=== PATIENT | male | born 1955 | race Caucasian/White ===

== ENCOUNTER → 2017-11-15 08:20 | Outpatient (CLI) | payer OTHER, SELFPAY ==
--- NOTE | 2017-11-15 08:24 | US_ITS ---
US abdomen complete HISTORY: Mid abdominal pain ITS.REASON: ABD PAIN ORDERING PHYSICIAN: Sreedhar Chavez PATIENT AGE: 62 years COMPARISON: None FINDINGS: PANCREAS:Unremarkable. No obvious mass or abnormal fluid collection. No ductal dilatation LIVER:No focal liver lesions demonstrated. Homogeneous echogenicity. No intrahepatic biliary ductal dilatation evident RIGHT KIDNEY:Unremarkable. Normal size and echogenicity. No hydronephrosis LEFT KIDNEY:Unremarkable. No hydronephrosis. Normal size and echogenicity. GALLBLADDER:No gallstones, gallbladder wall thickening, pericholecystic fluid, or biliary dilatation. AORTA:No evidence of aneurysmal dilatation. SPLEEN:Unremarkable. Normal size and echogenicity ASCITES:None demonstrated. IMPRESSION: Normal abdominal ultrasound
== END ==
PROVIDERS: Family Provider Internal Medicine; PCP Internal Medicine; Visit Provider Internal Medicine
DX: R10.30 Lower abdominal pain, unspecified (principal)
CPT/HCPCS: 76700

== ENCOUNTER → 2017-11-21 11:40 | Outpatient (CLI) | payer OTHER, SELFPAY ==
[2017-11-21 15:33] LABS: Prostate Specific Ag, Diagnost 6.78 ng/mL (0.0-4.0)
== END ==
PROVIDERS: PCP Internal Medicine; Visit Provider Urology
DX: R97.20 Elevated prostate specific antigen [PSA] (principal)
CPT/HCPCS: 36415; 84153

== ENCOUNTER → 2018-02-04 10:13 | Outpatient (POV) | payer OTHER, SELFPAY ==
[2018-02-04 10:23] VITALS: BP 188/101; PULSE 108; RESP 18; TEMP 36.7; O2SAT 97
--- NOTE | 2018-02-04 12:52 | HMH.PMCON ---
Assessment and Plan (1) Cervical pain (neck) Current visit: Yes Status: Chronic Category: Medical Code(s): M54.2 - Cervicalgia (2) Back pain Current visit: Yes Status: Chronic Category: Medical Code(s): M54.9 - Dorsalgia, unspecified - Assessment and plan all Dx Assessment and Plan for all problems:: Patient does not have any current imaging. We will send him for cervical MRI. He states that his neck pain is worse than his back pain at this point. Patient asking about narcotic medication. Patient denies failing UDS for pill count at previous pain management however the notes from that previous pain management states he did both. Patient was weaned off medication due to failure of a pill count and a failure of a urine drug screen. I discussed with the patient that we would not be writing narcotic medications for him. This note was dictated using voice recognition software and may contain errors or omissions HPI - Data of Consult Consult date: 02/04/18 Requesting Physician: Jumana Uriarte APRN Primary Care Provider: Sreedhar Chavez [facility] Provider: Sreedhar Chavez - Consult Narrative Reason for consult: Neck pain and back pain History of present illness: Mr. Hollis is a 62 year old male resents today for consultation in regards to his neck and back pain. Patient states he was wanting to move pain management practices due to this being closer to him. Patient rates his pain at 8 out of 10 today. Patient states he works full-time. Patient has been on narcotics in the past through his previous pain management group. Patient has tried injections in the past however he states that they did not help him. Patient states he thought he was going to get medication today and questioned our drug contract. I discussed with the patient that it is our policy to never write pain medication on the first visit. I also discussed with him that we wean patients are on high morphine equivalents. Patient states that he decided to quit his previous pain management. I did ask him if he had failed a pill counter urine drug screen he states he has not. However of note the notes that were sent to us from his previous pain management clinic states he had failed both a pill count and a urine drug screen. CC: Jumana Uriarte APRN [facility] History I have reviewed the patient's past medical history: Yes Medical History: Reports:: Diabetes Mellitus Type 2, Hyperlipidemia, Hypertension Denies:: Cancer, Diabetes Mellitus Type 1, MRSA Other Medical History: Reports: Sinus Problems Other Surgeries: Yes: Hernia Repair Amputation: No Fractures: No - *Social History Educational Level: Attended College Smoking Status: Former smoker Tobacco Type: cigarettes Alcohol Intake: never Occupational Status: employed Housing: house Household Members: spouse - Psychiatric History Expresses thoughts of harming self/others: None Suicide Plan Description: No Plan *Family Hx:: Heart Attack, Hyperlipidemia, Hypertension Review of Systems - Review of Systems ROS General: no recent weight change, no fever, no sleep disturbances Respiratory: no cough, no shortness of air, no recurring pulmonary infections Cardiovascular/Peripheral Vascular: No chest pain, No palpitations, no edema, no shortness of breath. Gastrointestinal: no incontinence, normal bowel movements reported Genitourinary: no incontinence Musculoskeletal: Neck pain, back pain Psychiatric: normal mood/ affect Neurological: [denies weakness in extremities], [denies balance issues] Meds Home Medications Medication Instructions Recorded Confirmed Type glipizide ER 2.5 mg tablet, 2.5 mg PO BID tab 11/21/17 02/04/18 History extended release 24 hr metformin 500 mg tablet 500 mg PO BID 11/21/17 02/04/18 History Amlodipine Besylate [Norvasc 5mg 5 mg PO DAILY 02/04/18 02/04/18 History tablet] Solifenacin Succinate [Vesicare] 10 mg PO DAILY 02/04/1802/04
--- NOTE | 2018-02-04 12:58 | P.CONS_ITS ---
Assessment and Plan (1) Cervical pain (neck) Current visit: Yes Status: Chronic Category: Medical Code(s): M54.2 - Cervicalgia (2) Back pain Current visit: Yes Status: Chronic Category: Medical Code(s): M54.9 - Dorsalgia, unspecified - Assessment and plan all Dx Assessment and Plan for all problems:: Patient does not have any current imaging. We will send him for cervical MRI. He states that his neck pain is worse than his back pain at this point. Patient asking about narcotic medication. Patient denies failing UDS for pill count at previous pain management however the notes from that previous pain management states he did both. Patient was weaned off medication due to failure of a pill count and a failure of a urine drug screen. I discussed with the patient that we would not be writing narcotic medications for him. This note was dictated using voice recognition software and may contain errors or omissions HPI - Data of Consult Consult date: 02/04/18 Requesting Physician: Jumana Uriarte APRN Primary Care Provider: Sreedhar Chavez [facility] Provider: Sreedhar Chavez - Consult Narrative Reason for consult: Neck pain and back pain History of present illness: Mr. Hollis is a 62 year old male resents today for consultation in regards to his neck and back pain. Patient states he was wanting to move pain management practices due to this being closer to him. Patient rates his pain at 8 out of 10 today. Patient states he works full-time. Patient has been on narcotics in the past through his previous pain management group. Patient has tried injections in the past however he states that they did not help him. Patient states he thought he was going to get medication today and questioned our drug contract. I discussed with the patient that it is our policy to never write pain medication on the first visit. I also discussed with him that we wean patients are on high morphine equivalents. Patient states that he decided to quit his previous pain management. I did ask him if he had failed a pill counter urine drug screen he states he has not. However of note the notes that were sent to us from his previous pain management clinic states he had failed both a pill count and a urine drug screen. CC: Jumana Uriarte APRN [facility] History I have reviewed the patient's past medical history: Yes Medical History: Reports:: Diabetes Mellitus Type 2, Hyperlipidemia, Hypertension Denies:: Cancer, Diabetes Mellitus Type 1, MRSA Other Medical History: Reports: Sinus Problems Other Surgeries: Yes: Hernia Repair Amputation: No Fractures: No - *Social History Educational Level: Attended College Smoking Status: Former smoker Tobacco Type: cigarettes Alcohol Intake: never Occupational Status: employed Housing: house Household Members: spouse - Psychiatric History Expresses thoughts of harming self/others: None Suicide Plan Description: No Plan *Family Hx:: Heart Attack, Hyperlipidemia, Hypertension Review of Systems - Review of Systems ROS General: no recent weight change, no fever, no sleep disturbances Respiratory: no cough, no shortness of air, no recurring pulmonary infections Cardiovascular/Peripheral Vascular: No chest pain, No palpitations, no edema, no shortness of breath. Gastrointestinal: no incontinence, normal bowel movements reported Genitourinary: no incontinence Musculoskeletal: Neck pain, back pain Psychiatric: normal mood/ affect Neurological: [denies weakness in extremities], [denies balance issues
== END ==
PROVIDERS: Family Provider Internal Medicine; PCP Internal Medicine; Visit Provider Clinical Nurse Specialist Family Health
DX: M54.2 Cervicalgia (principal); M54.9 Dorsalgia, unspecified
CPT/HCPCS: 99202

== ENCOUNTER → 2018-02-25 12:54 | Outpatient (CLI) | payer OTHER, SELFPAY ==
--- NOTE | 2018-02-25 12:57 | MR_ITS ---
MR cervical spine wo con, MR 3-d myelogram/MRCP HISTORY: Neck pain. Bilateral shoulder tingling and RT hand tingling. Headache. Neck Pain when turning head from side to side. ITS.REASON: NECK PAIN ORDERING PHYSICIAN: Golden Aceves MD PATIENT AGE: 62 years COMPARISON: MRI 03-11-2014 TECHNIQUE: Standard multiplanar multiecho sequences are performed without contrast. 3-D MIP and myelographic images are also rendered and reviewed FINDINGS: There is normal alignment. The craniocervical junction is unremarkable appearance. C2-C3: There is a mild concentric bulging disc slightly eccentric to the left with uncovertebral disc osteophyte complex causing mild left lateral recess and foraminal narrowing not significant change. C3-C4: Degenerative disc disease with mild bulging disc with concentric bulging disc and a small central disc osteophyte complex resulting canal narrowing at 9 mm with bilateral lateral recess and foraminal narrowing not significantly changed. C4-C5: Degenerative disc disease with bulging disc eccentric towards the right with uncovertebral disc osteophyte complex bilaterally. There is moderate narrowing of the canal at 7 mm with bilateral lateral recess and foraminal narrowing greater on the right. Not significantly changed. There is mild flattening of the anterior right aspect of the cord. C5-C6: Degenerative disc disease with mild bulging disc eccentric towards the left. There is narrowing of the canal at 9 mm with moderate left lateral recess and foraminal narrowing. C6-C7: Degenerative disc disease with mild concentric bulging disc with borderline narrowing of the canal and mild bilateral foraminal narrowing. C7-T1: Unremarkable. No extruded herniated disc evident IMPRESSION: Abnormal MRI of the cervical spine with multilevel cervical spondylosis with degenerative disc disease, bulging disc, uncovertebral hypertrophy, disc osteophyte complexes with resultant narrowing of the canal and bilateral lateral recess and foraminal narrowing. Please see above for detailed description at each level. The canal stenosis is worse at C4-C5 level similar to the previous exam. Overall no significant change from 03/11/2014
== END ==
PROVIDERS: Family Provider Internal Medicine; PCP Internal Medicine; Visit Provider Anesthesiology
DX: M54.2 Cervicalgia (principal)
CPT/HCPCS: 72141; 76376

== ENCOUNTER → 2018-03-17 10:34 | Outpatient (POV) | payer OTHER, SELFPAY ==
[2018-03-17 10:43] VITALS: BP 189/96; PULSE 111; RESP 20; O2SAT 98; BMI 24.3
--- NOTE | 2018-03-17 11:50 | HMH.PAINSOAP ---
[facility] Pain Management SOAP Note Subjective:: Mr. Hollis is a 62-year-old white male who presents today for follow-up after recent cervical MRI. Patient was consulted February 04. At this consultation he stated that he had been on narcotics in the past for previous management groups. Patient stated injections did not help him. Patient was under the assumption he was going be receiving medication at that first consultation visit. It was then noted that through notes from his previous pain management that he failed both a UDS and a pill count. Patient's cervical MRI today does show degenerative disc disease, bulging disc, hypertrophy, disc osteophyte complexes. Patient rates his pain a 7 out of 10 today. Patient states he has radiation of pain down both arms. ROS General: no recent weight change, no fever, no sleep disturbances Respiratory: no cough, no shortness of air, no recurring pulmonary infections Cardiovascular/Peripheral Vascular: No chest pain, No palpitations, no edema, no shortness of breath. Gastrointestinal: no incontinence, normal bowel movements reported Genitourinary: no incontinence Musculoskeletal: Neck pain, bilateral arm pain Psychiatric: normal mood/ affect Neurological: [denies balance issues] Objective:: Physical Exam General: Alert and oriented x3, no acute distress, pleasant and cooperative, [on room air] Lungs: Resps E/U, Symmetrical chest expansion, Eyes: PERRL Musculoskeletal: Flexion and extension of cervical spine somewhat guarded secondary to pain, deep tendon reflexes normal, strength in upper and lower extremities [5/5], normal gait noted Neurological: speech clear, neurology teacher equal, no gross sensory deficits Assessment:: Degenerative disc disease of the cervical spine with cervical radiculopathy Plan:: I discussed with the patient that the 2 options we have given his pathology are really a neurostimulator or a neurosurgical consultation. I gave the patient information on neuro stimulation. Patient is going to call back if he wants to proceed with either a referral to neurosurgery or a neurostimulator psychological evaluation. This patient is not a narcotic candidate. This note was dictated using voice recognition software and may contain errors or omissions
--- NOTE | 2018-03-17 12:15 | P.CONS_ITS ---
[facility] Pain Management SOAP Note Subjective:: Mr. Hollis is a 62-year-old white male who presents today for follow-up after recent cervical MRI. Patient was consulted February 04. At this consultation he stated that he had been on narcotics in the past for previous management groups. Patient stated injections did not help him. Patient was under the assumption he was going be receiving medication at that first consultation visit. It was then noted that through notes from his previous pain management that he failed both a UDS and a pill count. Patient's cervical MRI today does show degenerative disc disease, bulging disc, hypertrophy, disc osteophyte complexes. Patient rates his pain a 7 out of 10 today. Patient states he has radiation of pain down both arms. ROS General: no recent weight change, no fever, no sleep disturbances Respiratory: no cough, no shortness of air, no recurring pulmonary infections Cardiovascular/Peripheral Vascular: No chest pain, No palpitations, no edema, no shortness of breath. Gastrointestinal: no incontinence, normal bowel movements reported Genitourinary: no incontinence Musculoskeletal: Neck pain, bilateral arm pain Psychiatric: normal mood/ affect Neurological: [denies balance issues] Objective:: Physical Exam General: Alert and oriented x3, no acute distress, pleasant and cooperative, [ on room air] Lungs: Resps E/U, Symmetrical chest expansion, Eyes: PERRL Musculoskeletal: Flexion and extension of cervical spine somewhat guarded secondary to pain, deep tendon reflexes normal, strength in upper and lower extremities [5/5], normal gait noted Neurological: speech clear, escort car driver equal, no gross sensory deficits Assessment:: Degenerative disc disease of the cervical spine with cervical radiculopathy Plan:: I discussed with the patient that the 2 options we have given his pathology are really a neurostimulator or a neurosurgical consultation. I gave the patient information on neuro stimulation. Patient is going to call back if he wants to proceed with either a referral to neurosurgery or a neurostimulator psychological evaluation. This patient is not a narcotic candidate. This note was dictated using voice recognition software and may contain errors or omissions
== END ==
PROVIDERS: Family Provider Internal Medicine; PCP Internal Medicine; Visit Provider Clinical Nurse Specialist Family Health
DX: M54.12 Radiculopathy, cervical region (principal)
CPT/HCPCS: 99212

== ENCOUNTER → 2018-09-03 16:22 | Outpatient (CLI) | payer OTHER, SELFPAY ==
--- NOTE | 2018-09-03 16:31 | XR_ITS ---
XR ribs LT min 3V w CXR1V HISTORY: ITS.REASON: LT CHEST PAIN, FALL ON LEFT SIDE ORDERING PHYSICIAN: Sreedhar Chavez PATIENT AGE: 63 years Comparison: 11/14/2011 FINDINGS: A frontal view of the chest shows no acute finding. Multiple views of the Left ribs were obtained. Nondisplaced fracture involves the anterior aspect of the left 10th rib IMPRESSION: Nondisplaced left 10th rib fracture
== END ==
PROVIDERS: PCP Internal Medicine; Visit Provider Internal Medicine
DX: R09.89 Other specified symptoms and signs involving the circulatory and respiratory systems (principal)
CPT/HCPCS: 71101

== ENCOUNTER → 2019-02-03 15:57 | Outpatient (CLI) | payer OTHER, SELFPAY ==
--- NOTE | 2019-02-03 16:01 | XR_ITS ---
XR chest 2V HISTORY: ITS.REASON: PERSISTENT COUGH,SOA prior smoker ORDERING PHYSICIAN: Sreedhar Chavez PATIENT AGE: 63 years COMPARISON: 11/14/2011 FINDINGS: The cardiomediastinal silhouette and pulmonary vascularity are within normal limits. The lungs are clear bilaterally. There is mild hyperinflation with attenuation of the peripheral pulmonary vessels suggesting COPD. No acute bony findings. IMPRESSION: COPD, no change with no acute finding
== END ==
PROVIDERS: PCP Internal Medicine; Visit Provider Internal Medicine
DX: R05 Cough (principal); R06.02 Shortness of breath
CPT/HCPCS: 71046

== ENCOUNTER → 2019-12-03 11:21 | Outpatient (CLI) | payer OTHER, SELFPAY ==
[2019-12-04 17:01] LABS: Prostate Specific Ag 9.9 ng/mL (0.0-4.0)
== END ==
PROVIDERS: Visit Provider Urology
DX: R97.20 Elevated prostate specific antigen [PSA] (principal)
CPT/HCPCS: 36415; 84153; 84154

== ENCOUNTER → 2021-02-23 07:50 | Outpatient (CLI) | payer MEDICARE, OTHER, SELFPAY ==
--- NOTE | 2021-02-23 07:57 | US_ITS ---
APPROVED REPORT Exam Type: Ankle to Brachial Index Fiber Technician: Margo Polanco RCS, RVS Indications Tia, Trophic toe nails, Lack of leg hair Risk Factors Hypertension Hyperlipidemia TIA/CVA History History of Smoking Pressures/Indices Right Indices Left Indices Brachial 149.00 mmHg Brachial 150.00 mmHg Low Thigh 89.00 mmHg 0.59 Low Thigh 79.00 mmHg 0.53 Calf 82.00 mmHg 0.55 Calf 89.00 mmHg 0.59 Ankle(PT) 79.00 mmHg 0.53 Ankle(PT) 68.00 mmHg 0.45 Ankle(DP) 18.00 mmHg 0.12 Ankle(DP) 78.00 mmHg 0.52 Digit 39.00 mmHg 0.26 Digit 42.00 mmHg 0.28 Findings RT YOSEF=0.53 LT YOSEF=0.52 RT TPI=0.26 LT TPI=0.28 Conclusion RT YOSEF=0.53 LT YOSEF=0.52 RT TPI=0.26 LT TPI=0.28 Right YOSEF consistent with severe arterial insufficiency. Left YOSEF consistent with severe arterial insufficiency. Right first digit pressure below normal limits. Left first digit pressure below normal limits. Critical Notification Critical Value: Yes Electronically signed by : German Ramírez MD 02/23/2021 18:31:06
== END ==
PROVIDERS: PCP Internal Medicine; Visit Provider Internal Medicine
DX: M48.00 Spinal stenosis, site unspecified; M79.662 Pain in left lower leg; M79.661 Pain in right lower leg; I70.213 Atherosclerosis of native arteries of extremities with intermittent claudication, bilateral legs; Z86.73 Personal history of transient ischemic attack (TIA), and cerebral infarction without residual deficits; Z87.891 Personal history of nicotine dependence
CPT/HCPCS: 93923

== ENCOUNTER → 2021-03-03 08:32 | Outpatient (CLI) | payer MEDICARE, OTHER, SELFPAY ==
--- NOTE | 2021-03-03 08:39 | NM_ITS ---
PROCEDURE: NM BONE SCAN WHOLE BODY CLINICAL INDICATION: SEVERE SINAL STENOSIS,MULTIPLES OLD STROKES,MULTIPLE MYELOMA COMPARISON: DX CXR2V XR chest 2V from 02/03/2019 FINDINGS: Dose: 26.5 mCi technetium MDP. No hyperactive areas apparent. There was a small area of photopenia in the mid to proximal right femoral shaft. This however represented an artifact. The patient was asked clears pockets in then repeat images were performed of this area show no evidence of photopenia. There does appear to be an old left 10th rib fracture with focal area of enlargement of that rib but no hyperactive area. IMPRESSION: Unremarkable whole body bone scan Dictated by: German Ramírez MD 03/04/2021 08:50 German Ramírez MD in [place] 03/04/2021 08:50
--- NOTE | 2021-03-03 08:57 | CA_ITS ---
APPROVED REPORT Toll Booth Operator: Autumn Vann RVT Laterality: Bilateral Study Quality: Good Indications: bilateral carotid bruit Risk Factors Hypertension: TIA/CVA History Hyperlipidemia Diabetes Smoking Doppler Spectral Velocity Analysis ECA (R) 157.60/10.20 cm/s ECA (L) 102.10/8.30 cm/s dICA (R) 126.80/23.10 cm/s dICA (L) 90.40/29.40 cm/s Anup (R) 203.70/43.60 cm/s Anup (L) 73.20/17.60 cm/s pICA (R) 222.90/65.30 cm/s pICA (L) 87.70/24.10 cm/s dCCA (R) 69.50/9.60 cm/s dCCA (L) 45.20/14.10 cm/s pCCA (R) 70.60/11.80 cm/s pCCA (L) 42.50/9.30 cm/s Vert (R) 44.90/13.90 cm/s Vert (L) 19.90/3.90 cm/s ICA/CCA 3.21 ICA/CCA 2.00 Findings Study suggests 50-69% (upper end of scale) 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 Study suggests 20-49% stenosis of the left internal cartoid artery. Antegrade flow seen bilateral vertebral arteries. 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 Study suggests 20-49% stenosis of the left internal cartoid artery. Antegrade flow seen bilateral vertebral arteries. Electronically signed by : German Ramírez MD 03/03/2021 17:07:17
== END ==
PROVIDERS: PCP Internal Medicine; Visit Provider Internal Medicine
DX: E11.51 Type 2 diabetes mellitus with diabetic peripheral angiopathy without gangrene (principal); E78.5 Hyperlipidemia, unspecified; Z82.49 Family history of ischemic heart disease and other diseases of the circulatory system; F17.200 Nicotine dependence, unspecified, uncomplicated; I10 Essential (primary) hypertension; R68.89 Other general symptoms and signs; R06.00 Dyspnea, unspecified; R09.89 Other specified symptoms and signs involving the circulatory and respiratory systems; R94.31 Abnormal electrocardiogram [ECG] [EKG]; G47.33 Obstructive sleep apnea (adult) (pediatric); M48.00 Spinal stenosis, site unspecified; Z01.818 Encounter for other preprocedural examination; Z11.52 Encounter for screening for COVID-19; I70.213 Atherosclerosis of native arteries of extremities with intermittent claudication, bilateral legs; Z79.84 Long term (current) use of oral hypoglycemic drugs
CPT/HCPCS: 78306; 93880; A9503; U0003

== ENCOUNTER → 2021-03-03 10:32 | Outpatient (CLI) | payer MEDICARE, OTHER, SELFPAY | PROVIDERS: Visit Provider Internal Medicine | DX: R06.00 Dyspnea, unspecified; E11.51 Type 2 diabetes mellitus with diabetic peripheral angiopathy without gangrene; E78.5 Hyperlipidemia, unspecified; F17.200 Nicotine dependence, unspecified, uncomplicated; G47.33 Obstructive sleep apnea (adult) (pediatric); I10 Essential (primary) hypertension; I70.209 Unspecified atherosclerosis of native arteries of extremities, unspecified extremity; R68.89 Other general symptoms and signs; R94.31 Abnormal electrocardiogram [ECG] [EKG]; Z82.49 Family history of ischemic heart disease and other diseases of the circulatory system | CPT/HCPCS: U0003 ==

== ENCOUNTER 2021-03-06 09:00 | Day surgery (SDC) | payer MEDICARE, OTHER, SELFPAY ==
[2021-03-06] VITALS (67 sets, daily range): BP systolic 116–187; BP diastolic 38–100; PULSE 50–94; RESP 13–18; TEMP 36.4–36.9; O2SAT 90–99; BMI 23.6; BMI 24.1
--- NOTE | 2021-03-06 | IR_ITS ---
APPROVED REPORT Patient Location: Outpatient Manager Cardiac Cath: CATARINO Young RT (R) PROCEDURES Left heart catheterization Left ventriculogram Selective coronary angiogram Catheter placed in the abdominal aorta Abdominal aortogram Bilateral iliofemoral angiogram Right femoral arterial access Left femoral arterial access Stent deployment to the distal abdominal aorta extending to the right common iliac artery Stent deployment to the distal abdominal aorta extending into the left common iliac artery Stent deployment to the distal abdominal aorta Stent deployment to the left external iliac artery INDICATION Abnormal YOSEF, Coronary disease equivalent, Polyvascular disease, Angina pectoris, Crane claudication class III, Abnormal YOSEF giving a high pretest likelihood for cardiac mortality in the next 5 years Informed consent was obtained prior to the procedure. COMPLICATIONS NONE Estimated Blood Loss: LESS THAN 10 ML TECHNIQUE One percent lidocaine used to anesthetize the right anterior aspect of the wrist. The right radial artery was accessed via the Seldinger technique. A 6 Welsh sheath was placed in the right radial artery. 2.5 mg of verapamil, 800 mcg of nitroglycerin, 1mg Lidocaine and 5000 U Heparin were given through the arterial sheath. The trap catheter was also used to perform left heart catheterization, left ventriculogram and selective coronary angiogram. At the end of the procedure the catheter was pulled back and placed into the transverse aorta where a wire was then advanced and the catheter was removed. A PV multi curve catheter was then advanced to the distal abdominal aorta and distal abdominal aortography was performed. Following this bilateral femoral arterial access was obtained and 4 Welsh sheath was placed in the bilateral femoral arteries. 30 mm gradient was identified from the aorta into the right groin. Therapeutic heparin was administered giving a therapeutic ACT. 2 advantage wires were placed in the bilateral 4 Welsh sheaths and the 4 Welsh sheath were exchanged for 6 Welsh sheaths. Two 8 mm x 57 mm Medtronic stents were deployed in the distal abdominal aorta extending into the bilateral common iliac arteries. Both stents were deployed at 12 cornelio. Two 10 mm x 40 mm balloons were deployed at 11 cornelio to post dilate. Repeat angiography still demonstrated the stents were not adequately opposed to the aorta therefore the 6 Welsh sheaths were exchanged for 7 Welsh sheaths and two 10 mm x 17 mm stents were deployed in the distal abdominal aorta and a double barrel manner each being deployed at 10 cornelio. Following this two 12 mm balloons were postdilated in the aorta at 10 cornelio this time giving excellent apposition to the abdominal aorta. After achieving excellent angiographic results repeat angiography demonstrated the left external iliac artery stenosis was severe therefore a 9 mm x 20 mm self-expanding stent was deployed reducing the stenosis. An 8 mm x 20 mm balloon was then deployed at 10 cornelio to post dilate. After achieving excellent angiographic see else the right groin was reprepped gloves were changed sheath was removed good hemostasis was achieved using Perclose device patient was transferred to the postop holding area in stable condition for left groin sheath management. The left sheath was not a candidate for closure device. At the end of the procedure the sheath and catheter were removed from the right radial artery and good hemostasis was achieved using TR banding ANGIOGRAPHIC RESULTS The left main artery Has an ostial 30% stenosis The left anterior descending artery Has proximal eccentric 40 to 50% stenosis followed by mid vessel 30 and 40% stenoses. A
[2021-03-06 09:52] LABS: Basophils % 0.3 % (0.1-2.0); Eosinophils # 0.2 K/mm3 (0.0-0.4); Eosinophils % 1.7 % (0.1-12.0); Hematocrit 41.2 % (42.0-52.0); Hemoglobin 13.5 g/dL (14.1-18.0); Lymphocytes # 2.3 K/mm3 (0.7-4.5); Mean Corpuscular HGB Conc 32.8 g/dL (31.8-35.4); Mean Corpuscular Hemoglobin 28.1 pg (27.0-31.2); Mean Corpuscular Volume 85.4 fl (80-94); Mean Platelet Volume 7.9 fl (7.4-10.4); Monocytes # 0.6 K/mm3 (0.1-1.0); Monocytes % 6.1 % (1.7-9.3); Neutrophils % 66.9 % (37.0-80.0); Platelet Count 246 K/mm3 (142-424); Red Blood Count 4.82 M/mm3 (4.60-6.20); Red Cell Distribution Width 14.2 % (11.5-17.5)
[2021-03-06 09:53] LABS: Chloride 103 mmol/L (98-107); Potassium 4.3 mmoL/L (3.5-5.1); Sodium 137 mmol/L (136-145)
[2021-03-06 09:56] LABS: Anion Gap 9.3 mEq/L (5-15); Blood Urea Nitrogen 22 mg/dl (9-20); Calcium 9.8 mg/dl (8.4-10.2); Carbon Dioxide 29 mmol/L (22.0-30.0); Creatinine Clearance Estimated 71 mL/min (50-200); Estimated Glomerular Filt Rate 85 ml/min (>60); GFR (African American) 102 ML/MIN (>60); Glucose 199 mg/dl (74-100)
[2021-03-06 13:03] LABS: CATHL Activated Clotting Time > 400 SEC (74-125)
[2021-03-06 13:04] LABS: CATHL Activated Clotting Time 273 SEC (74-125)
--- NOTE | 2021-03-06 14:48 | PC.NURSE ---
Pt arrived to the floor to room 203 via stretcher from [facility] accompanied by 2 Stock Receiver personnel. Alert, oriented, and verbalizes understanding of POC. Denies pain or difficulty breathing. Radial band remains in place at this time. Pt also has Bilat Peripheral Angiograms. Both femoral sites have 2x2 gauze and tegaderm inplace that is CDI. Pt resting comfortably with by his side. Understands that he has to continue to lay flat and reasons why. Denies questions or concerns.
[2021-03-06 15:06] LABS: CATHL Activated Clotting Time 195 SEC (74-125)
[2021-03-06 15:07] LABS: CATHL Activated Clotting Time 217 SEC (74-125)
[2021-03-06 15:08] LABS: CATHL Activated Clotting Time 229 SEC (74-125)
[2021-03-06 15:08] LABS: CATHL Activated Clotting Time 282 SEC (74-125)
--- NOTE | 2021-03-06 18:00 | PC.NURSE ---
Radial band removed. No bleeding or oozing noted from site. No bruising. 2x2 gauze and clear tegaderm applied to site. Tolerated well.
--- NOTE | 2021-03-06 20:45 | PC.NURSE ---
Called MD to advise of pt hypertension 180/90, Order: Labetolol 20 mg X 1 NOW. Adminstered per order
--- NOTE | 2021-03-06 21:26 | PC.NURSE ---
Gave Labetalol 20 mg X 1 NOW for Hypertension. 180/90 Manual 182/[address] patient on Tele. Will continue to monitor.
[2021-03-07] VITALS: BP 160/76; PULSE 95; RESP 16; TEMP 37.2; O2SAT 92
[2021-03-07 04:00] VITALS: BP 168/81; PULSE 83; RESP 16; TEMP 36.8; O2SAT 93
[2021-03-07 05:18] VITALS: BMI 24.0
--- NOTE | 2021-03-07 05:26 | PC.NURSE ---
Pt is outpatient status and was placed on floor for obs regarding placement of 5 stents. Patient was hypertensive around 2014, called MD and Labetolol 20 mg IV was ordered. Patient B/P lowered to 160/80 at 2300. B/P remains slightly elevated, patient in no acute distress. Observation of R Radial and BLE Fem at 1900 2000 2100 2200 2300 0000 0100 0300 and 0500, BLE Fem CDI, changed R Radial at 2300, replaced gauze and tegaderm. BLE no signs of bleeding or hematoma. R Radial, no signs of bleeding. Will continue to monitor for any acute changes.
[2021-03-07 06:38] LABS: Basophils % 0.3 % (0.1-2.0); Eosinophils # 0.2 K/mm3 (0.0-0.4); Eosinophils % 2.2 % (0.1-12.0); Hematocrit 42.3 % (42.0-52.0); Hemoglobin 13.9 g/dL (14.1-18.0); Lymphocytes # 2.2 K/mm3 (0.7-4.5); Lymphocytes % 25.4 % (10-50); Mean Corpuscular HGB Conc 32.9 g/dL (31.8-35.4); Mean Corpuscular Hemoglobin 28.1 pg (27.0-31.2); Mean Corpuscular Volume 85.3 fl (80-94); Mean Platelet Volume 7.5 fl (7.4-10.4); Monocytes # 0.6 K/mm3 (0.1-1.0); Monocytes % 6.7 % (1.7-9.3); Neutrophils # 5.7 K/mm3 (1.8-7.8); Neutrophils % 65.4 % (37.0-80.0); Platelet Count 225 K/mm3 (142-424); Red Blood Count 4.96 M/mm3 (4.60-6.20); Red Cell Distribution Width 14.1 % (11.5-17.5); White Blood Count 8.7 K/mm3 (4.8-10.8)
[2021-03-07 06:53] LABS: Anion Gap 9.2 mEq/L (5-15); Blood Urea Nitrogen 19 mg/dl (9-20); Calcium 9.3 mg/dl (8.4-10.2); Carbon Dioxide 24 mmol/L (22.0-30.0); Chloride 108 mmol/L (98-107); Creatinine Clearance Estimated 72 mL/min (50-200); Estimated Glomerular Filt Rate 85 ml/min (>60); GFR (African American) 102 ML/MIN (>60); Glucose 185 mg/dl (74-100); Potassium 4.2 mmoL/L (3.5-5.1); Sodium 137 mmol/L (136-145)
[2021-03-07 07:47] VITALS: BP 147/70; PULSE 87; RESP 20; TEMP 36.6; O2SAT 94
[2021-03-07 08:00] VITALS: PULSE 80
--- NOTE | 2021-03-07 10:20 | HMH.PHACLD ---
Roly Hollis has received discharge medication counseling on the following medications: PATIENT ALREADY TAKING CLOPIDOGREL 75 MG DAILY, ASPIRIN 81 MG DAILY, IRBESARTAN 300 MG DAILY, ATORVASTATIN 20 MG, AND CARVEDILOL 6.25 MG BID.
[2021-03-07 11:04] LABS: Chol/HDL Ratio 4.3 (1-3.5); Cholesterol 137 mg/dl (140-200); HDL Cholesterol 32 mg/dl (40-60); Triglycerides 137 mg/dl (30-150); VLDL Cholesterol 27 mg/dL (0-40)
[2021-03-07 11:15] LABS: Direct LDL Cholesterol 62.33 mg/dL (100-129)
--- NOTE | 2021-03-07 12:14 | PC.NURSE ---
THIS RN WAS INFORMED BY ZOILA RN FROM PSYCHIATRY PHYSICIAN THAT EDUCATION HAD BEEN PROVIDED EXCEPT FROM PHARMACY AND TAKING CARE OF SITE INFORMATION. PER SOY CUMMINGS FROM PSYCHIATRY PHYSICIAN, IV REMOVED. THIS RN PROVIDED INFECTION PREVENTION AND CARDIAC D/C INSTRUCTIONS TO PATIENT AND SPOUSE. QUESTIONS ASKED AND ANSWERED. NO OTHER NEEDS AT THIS TIME.
== END 2021-03-07 12:10 | disposition home or self-care (01) ==
LOC: CATHLAB 09:01 → 2ND 14:32
PROVIDERS: Physician Assistant; PCP Internal Medicine; Visit Provider Internal Medicine
DX: Z71.6 Tobacco abuse counseling (principal); G47.33 Obstructive sleep apnea (adult) (pediatric); I10 Essential (primary) hypertension; R06.00 Dyspnea, unspecified; R09.89 Other specified symptoms and signs involving the circulatory and respiratory systems; E11.51 Type 2 diabetes mellitus with diabetic peripheral angiopathy without gangrene; R94.31 Abnormal electrocardiogram [ECG] [EKG]; Z82.49 Family history of ischemic heart disease and other diseases of the circulatory system; E78.2 Mixed hyperlipidemia; F17.210 Nicotine dependence, cigarettes, uncomplicated; I25.119 Atherosclerotic heart disease of native coronary artery with unspecified angina pectoris; I70.1 Atherosclerosis of renal artery; I70.92 Chronic total occlusion of artery of the extremities; I77.1 Stricture of artery
CPT/HCPCS: 36415; 37221; 37223; 80048; 80061; 85025; 85347; 93458; 99152; 99153; C1725; C1760; C1769; C1876; C1894; J1644; Q9966; Q9967

== ENCOUNTER → 2021-03-14 09:00 | Outpatient (CLI) | payer MEDICARE, OTHER, SELFPAY ==
[2021-03-14 09:38] LABS: Basophils % 0.4 % (0.1-2.0); Eosinophils # 0.4 K/mm3 (0.0-0.4); Eosinophils % 4.5 % (0.1-12.0); Hemoglobin 13.3 g/dL (14.1-18.0); Lymphocytes # 2.1 K/mm3 (0.7-4.5); Lymphocytes % 23.1 % (10-50); Mean Corpuscular HGB Conc 33.2 g/dL (31.8-35.4); Mean Corpuscular Hemoglobin 28.4 pg (27.0-31.2); Mean Corpuscular Volume 85.7 fl (80-94); Mean Platelet Volume 7.6 fl (7.4-10.4); Monocytes # 0.5 K/mm3 (0.1-1.0); Monocytes % 5.6 % (1.7-9.3); Neutrophils # 6.1 K/mm3 (1.8-7.8); Neutrophils % 66.4 % (37.0-80.0); Platelet Count 273 K/mm3 (142-424); Red Blood Count 4.67 M/mm3 (4.60-6.20); Red Cell Distribution Width 14.2 % (11.5-17.5); White Blood Count 9.3 K/mm3 (4.8-10.8)
[2021-03-14 10:16] LABS: Chloride 105 mmol/L (98-107); Sodium 141 mmol/L (136-145)
[2021-03-14 10:17] LABS: Potassium 4.6 mmoL/L (3.5-5.1)
[2021-03-14 10:19] LABS: Blood Urea Nitrogen 30 mg/dl (9-20); Estimated Glomerular Filt Rate 85 ml/min (>60); GFR (African American) 102 ML/MIN (>60)
[2021-03-14 10:20] LABS: Anion Gap 14.6 mEq/L (5-15); Calcium 9.6 mg/dl (8.4-10.2); Carbon Dioxide 26 mmol/L (22.0-30.0); Glucose 98 mg/dl (74-100)
== END ==
PROVIDERS: Visit Provider Internal Medicine
DX: I25.10 Atherosclerotic heart disease of native coronary artery without angina pectoris (principal); I10 Essential (primary) hypertension
CPT/HCPCS: 36415; 80048; 85025

== ENCOUNTER → 2021-03-21 07:56 | Outpatient (CLI) | payer MEDICARE, OTHER, SELFPAY ==
--- NOTE | 2021-03-21 07:57 | CA_ITS ---
APPROVED REPORT Manager Change: Autumn Vann RVT Study Quality: Good Indications: RT CHRISTI ON CATH,HTN Risk Factors Hypertension Diabetes Renal Artery Doppler Origin (R) 526.2/ cm/sec Proximal (R) 315.1/ cm/sec Mid (R) 157.0/ cm/sec Distal (R) 111.1/ cm/sec Renal Aorta Ratio (R) 3.59 Segmental A. (R) 32.8/8.7 cm/sec RI: 0.73 Segmental A. Sup (R) 18.7/6.5 cm/sec Segmental A. Mid (R) 32.8/8.7 cm/sec Segmental A. Inf (R) 24.1/6.0 cm/sec Origin (L) 172.6/ cm/sec Proximal (L) 179.2/ cm/sec Mid (L) 138.5/ cm/sec Distal (L) 125.9/ cm/sec Renal Aorta Ratio (L) 1.22 Segmental A. (L) 54.5/11.5 cm/sec RI: 0.78 Segmental A. Sup (L) 54.5/11.5 cm/sec Segmental A. Mid (L) 32.5/7.7 cm/sec Segmental A. Inf (L) 28.1/9.9 cm/sec Renal Measurements Kidney Size (R) 10.7x6.8 cm Cortical Thickness (R) 1.7 cm Kidney Size (L) 10.7x6.3 cm Cortical Thickness (L) 1.7 cm Findings Study suggests greater than 60% stenosis of the right renal artery. Study suggests no evidence of stenosis of the left renal artery. Conclusion Study suggests greater than 60% stenosis of the right renal artery. Study suggests no evidence of stenosis of the left renal artery. Electronically signed by : German Ramírez MD 03/21/2021 16:24:59
== END ==
PROVIDERS: PCP Internal Medicine; Visit Provider Physician Assistant
DX: I70.1 Atherosclerosis of renal artery (principal)
CPT/HCPCS: 93976

== ENCOUNTER 2021-03-21 09:17 | Outpatient (RCR) | payer MEDICARE, OTHER, SELFPAY | END 2021-06-12 10:50 | disposition home or self-care (01) | LOC: PT 09:17 | PROVIDERS: Visit Provider Physician Assistant | DX: I25.10 Atherosclerotic heart disease of native coronary artery without angina pectoris; I70.213 Atherosclerosis of native arteries of extremities with intermittent claudication, bilateral legs; Z87.891 Personal history of nicotine dependence | CPT/HCPCS: 93668; 93798 ==

== ENCOUNTER → 2021-04-26 10:44 | Outpatient (CLI) | payer MEDICARE, OTHER, SELFPAY ==
--- NOTE | 2021-04-26 11:11 | ECG_ITS ---
APPROVED REPORT Exam: Resting ECG HR:78 bpm ECG Measurements Heart Rate 78 AXES TN 146 P 68 QRSd 92 QRS 76 QT 410 T 37 QTc 467 Conclusion Sinus rhythm with marked sinus arrhythmia Poor R Wave Progression LVH by voltage Abnormal ECG Electronically signed by : Sreedhar Chavez, 04/26/2021 11:23:26
== END ==
PROVIDERS: PCP Internal Medicine; Visit Provider Internal Medicine
DX: I49.9 Cardiac arrhythmia, unspecified (principal); I10 Essential (primary) hypertension
CPT/HCPCS: 93005

== ENCOUNTER → 2021-05-16 14:05 | Outpatient (CLI) | payer MEDICARE, OTHER, SELFPAY ==
[2021-05-18 09:51] LABS: PSA, Free 2.38 ng/mL; Prostate Specific Ag 7.6 ng/mL (0.0-4.0)
== END ==
PROVIDERS: Visit Provider Urology
DX: R97.20 Elevated prostate specific antigen [PSA] (principal)
CPT/HCPCS: 84153; 84154

== ENCOUNTER → 2021-07-07 15:34 | Outpatient (CLI) | payer MEDICARE, OTHER, SELFPAY ==
[2021-07-07 15:53] LABS: Basophils # 0.1 K/mm3 (0-0.2); Basophils % 0.8 % (0.1-2.0); Eosinophils # 0.4 K/mm3 (0.0-0.4); Eosinophils % 4.3 % (0.1-12.0); Hematocrit 39.2 % (42.0-52.0); Hemoglobin 12.3 g/dL (14.1-18.0); Lymphocytes # 2.5 K/mm3 (0.7-4.5); Lymphocytes % 29.1 % (10-50); Mean Corpuscular HGB Conc 31.3 g/dL (31.8-35.4); Mean Corpuscular Hemoglobin 29.3 pg (27.0-31.2); Mean Corpuscular Volume 93.3 fl (80-94); Mean Platelet Volume 8.7 fl (7.4-10.4); Monocytes # 0.4 K/mm3 (0.1-1.0); Monocytes % 4.9 % (1.7-9.3); Neutrophils # 5.1 K/mm3 (1.8-7.8); Neutrophils % 60.9 % (37.0-80.0); Platelet Count 283 K/mm3 (142-424); Red Cell Distribution Width 13.8 % (11.5-17.5); White Blood Count 8.4 K/mm3 (4.8-10.8)
[2021-07-07 16:43] LABS: Chloride 104 mmol/L (98-107)
[2021-07-07 16:44] LABS: Potassium 4.4 mmoL/L (3.5-5.1); Sodium 140 mmol/L (136-145)
[2021-07-07 16:47] LABS: Anion Gap 15.4 mEq/L (5-15); Blood Urea Nitrogen 23 mg/dl (9-20); Calcium 9.4 mg/dl (8.4-10.2); Carbon Dioxide 25 mmol/L (22.0-30.0); Estimated Glomerular Filt Rate 55 ml/min (>60); GFR (African American) 67 ML/MIN (>60); Glucose 229 mg/dl (74-100)
== END ==
PROVIDERS: Visit Provider Nurse Practitioner Family
DX: E78.2 Mixed hyperlipidemia (principal); F17.200 Nicotine dependence, unspecified, uncomplicated; I10 Essential (primary) hypertension; I25.10 Atherosclerotic heart disease of native coronary artery without angina pectoris; I70.1 Atherosclerosis of renal artery; I73.9 Peripheral vascular disease, unspecified; R09.89 Other specified symptoms and signs involving the circulatory and respiratory systems; Z20.822 Contact with and (suspected) exposure to COVID-19
CPT/HCPCS: 36415; 80048; 85025; C9803; U0003; U0005

== ENCOUNTER → 2021-07-18 12:15 | Outpatient (CLI) | payer MEDICARE, OTHER, SELFPAY ==
[2021-07-18 12:58] LABS: Basophils # 0.1 K/mm3 (0-0.2); Basophils % 0.5 % (0.1-2.0); Eosinophils # 0.4 K/mm3 (0.0-0.4); Hematocrit 40.9 % (42.0-52.0); Lymphocytes # 2.7 K/mm3 (0.7-4.5); Mean Corpuscular HGB Conc 31.9 g/dL (31.8-35.4); Mean Corpuscular Hemoglobin 29.1 pg (27.0-31.2); Mean Corpuscular Volume 91.2 fl (80-94); Mean Platelet Volume 8.7 fl (7.4-10.4); Monocytes # 0.6 K/mm3 (0.1-1.0); Neutrophils # 5.7 K/mm3 (1.8-7.8); Neutrophils % 60.4 % (37.0-80.0); Platelet Count 244 K/mm3 (142-424); Red Blood Count 4.49 M/mm3 (4.60-6.20); White Blood Count 9.4 K/mm3 (4.8-10.8)
[2021-07-18 13:59] LABS: Hemoglobin A1C 7.4 % (4.0-6.0)
[2021-07-18 17:18] LABS: Alanine Aminotransferase 36 U/L (12-78); Albumin Level 4.3 g/dl (3.5-5.0); Albumin/Globulin Ratio 1.5 (1.1-1.8); Alkaline Phosphatase 125 U/L (38-126); Aspartate Amino Transferase 32 U/L (17-59); Bilirubin,Total 0.3 mg/dl (0.2-1.3); Blood Urea Nitrogen 20 mg/dl (9-20); Calcium 9.5 mg/dl (8.4-10.2); Carbon Dioxide 28 mmol/L (22.0-30.0); Chloride 104 mmol/L (98-107); Chol/HDL Ratio 2.9 (1-3.5); Cholesterol 138 mg/dl (140-200); Estimated Glomerular Filt Rate 61 ml/min (>60); GFR (African American) 73 ML/MIN (>60); Globulin 2.8 g/dL (1.3-3.2); Glucose 100 mg/dl (74-100); HDL Cholesterol 47 mg/dl (40-60); Sodium 142 mmol/L (136-145); Total Protein,Serum 7.1 g/dl (6.3-8.2); Triglycerides 95 mg/dl (30-150); VLDL Cholesterol 19 mg/dL (0-40)
[2021-07-18 17:29] LABS: Direct LDL Cholesterol 66.36 mg/dL (100-129)
[2021-07-18 17:49] LABS: Thyroid Stimulating Hormone 1.89 uIU/mL (0.465-4.68)
[2021-07-18 18:24] LABS: Vitamin B12 491 pg/mL (239-931)
== END ==
PROVIDERS: Visit Provider Nurse Practitioner Family
DX: E11.51 Type 2 diabetes mellitus with diabetic peripheral angiopathy without gangrene (principal); G47.33 Obstructive sleep apnea (adult) (pediatric); G93.40 Encephalopathy, unspecified; I70.209 Unspecified atherosclerosis of native arteries of extremities, unspecified extremity; M48.02 Spinal stenosis, cervical region; R13.10 Dysphagia, unspecified; R41.3 Other amnesia; Z86.73 Personal history of transient ischemic attack (TIA), and cerebral infarction without residual deficits; R09.89 Other specified symptoms and signs involving the circulatory and respiratory systems; I65.23 Occlusion and stenosis of bilateral carotid arteries; Z79.4 Long term (current) use of insulin
CPT/HCPCS: 36415; 80053; 80061; 82607; 82746; 83036; 84443; 85025

== ENCOUNTER 2021-07-19 10:12 | Day surgery (SDC) | payer MEDICARE, OTHER, SELFPAY ==
[2021-07-19] VITALS (45 sets, daily range): BP systolic 102–197; BP diastolic 51–117; PULSE 49–81; RESP 16–20; TEMP 36.8; O2SAT 78–100; BMI 25.3
--- NOTE | 2021-07-19 07:07 | IR_ITS ---
APPROVED REPORT Patient Location: Outpatient Bench Worker Binding: CATARINO Ugalde RT (R) PROCEDURES Right femoral arterial access Right retrograde femoral angiogram Catheter placement in the right external iliac artery Right external iliac artery retrograde angiogram Bare-metal stent deployment to the right common iliac artery extending into the right external iliac artery Right selective renal angiogram Bare-metal stent deployment to the right renal artery INDICATION Known renal artery stenosis, Malignant hypertension, Renovascular hypertension, Jhonatan claudication class III, Right external iliac artery stenosis Informed consent was obtained prior to the procedure. Estimated Blood Loss: less than 10 ml TECHNIQUE 1% lidocaine used anesthetize right groin the right coronary is accessed via the Salinger technique and a 5 Andorran sheath was placed in the right femoral artery. Dense calcification was appreciated during sheath insertion. A regular J-wire would not traverse the iliac vessels therefore an advantage wire was used to negotiate the stenosis. The 5 Andorran sheath was exchanged for a 7 Andorran sheath and therapeutic heparin was administered. A short PIZANO guide catheter was then attempted to traverse the stenosis in the stented area however this would not pass therefore eventually an 8 mm x 37 mm bare-metal balloon mounted stent was deployed at 16 cornelio reducing the distal common iliac artery stenosis extending into the right external iliac artery stenosis to 0%. Following this the 7 Andorran PIZANO guide catheter could then easily traverse the iliofemoral vessel. This catheter was used to cannulate the right renal artery and angiography was performed. A Choice PT extra-support wire was placed distally and a 6 mm x 12 mm Herculink stent was deployed at 15 cornelio reducing the stenosis to 20%. A 7 mm x 15 mm Herculink stent was then placed inside the 6 mm stent yet still distal to the stent by approximately 3 mm and then deployed at 16 cornelio reducing the stenosis to 0%. Excellent angiographic results were obtained. At the end of the procedure the apparatus was removed patient was transferred to the postop holding her stable condition for sheath removal ANGIOGRAPHIC RESULTS Right renal artery singular and has an ostial eccentric 90% stenosis The distal abdominal aorta has stents which originate from the common iliac arteries respectively. The stents are widely patent The right external iliac artery has a severe stenosis as appreciated through the catheters and wires etc. angiographically the stenosis was 20% however clinically it was in excess of 70% Right internal iliac artery is patent the right common femoral artery is calcified but patent The left common internal and external iliac artery densely calcified but patent The left common femoral artery is patent IMPRESSION Peripheral artery disease as described above Renal artery stenosis as described above with successful stenting reducing the stenosis to 0% with 2 overlapping bare-metal stents PLAN 1. Absolute tobacco cessation 2. Dual antiplatelet therapy for 5 days then start Xarelto 2.5 twice daily plus aspirin 81 mg daily 3. LDL less than 55 4. Physical therapy for claudication Electronically signed by : Aneudy Alejandra MD 07/19/2021 14:12:35
[2021-07-19 11:15] LABS: Coronavirus 19, PCR Not Detected (NotDetected); Influenza A, PCR Not Detected (NotDetected); Influenza B, PCR Not Detected (NotDetected)
[2021-07-19 14:52] LABS: CATHL Activated Clotting Time 297 SEC (74-125)
[2021-07-19 14:53] LABS: CATHL Activated Clotting Time 233 SEC (74-125)
[2021-07-19 14:53] LABS: CATHL Activated Clotting Time 230 SEC (74-125)
--- NOTE | 2021-07-19 15:08 | HMH.PHACLD ---
Roly Hollis has received discharge medication counseling on the following medications: -ASA -ATORVASTATIN -CARVEDILOL -PLAVIX -IRBESARTAN
== END 2021-07-19 19:53 | disposition home or self-care (01) ==
LOC: CATHLAB 10:16
PROVIDERS: PCP Internal Medicine; Visit Provider Internal Medicine
DX: I70.1 Atherosclerosis of renal artery (principal); I15.0 Renovascular hypertension; I70.221 Atherosclerosis of native arteries of extremities with rest pain, right leg; E11.9 Type 2 diabetes mellitus without complications; I77.1 Stricture of artery; I65.23 Occlusion and stenosis of bilateral carotid arteries; Z20.822 Contact with and (suspected) exposure to COVID-19; Z79.4 Long term (current) use of insulin; R93.421 Abnormal radiologic findings on diagnostic imaging of right kidney; F17.210 Nicotine dependence, cigarettes, uncomplicated; Z79.899 Other long term (current) drug therapy
CPT/HCPCS: 37221; 37236; 85347; 99152; 99153; C1725; C1769; C1876; C1894; C9803; J1644; Q9967; U0003; U0005

== ENCOUNTER → 2021-07-26 11:03 | Outpatient (CLI) | payer MEDICARE, OTHER, SELFPAY ==
[2021-07-26 11:28] LABS: Basophils % 0.4 % (0.1-2.0); Eosinophils # 0.3 K/mm3 (0.0-0.4); Eosinophils % 3.5 % (0.1-12.0); Hematocrit 39.4 % (42.0-52.0); Hemoglobin 12.6 g/dL (14.1-18.0); Lymphocytes # 2.1 K/mm3 (0.7-4.5); Lymphocytes % 25.2 % (10-50); Mean Corpuscular HGB Conc 32.1 g/dL (31.8-35.4); Mean Corpuscular Hemoglobin 29.3 pg (27.0-31.2); Mean Corpuscular Volume 91.3 fl (80-94); Mean Platelet Volume 7.8 fl (7.4-10.4); Monocytes # 0.5 K/mm3 (0.1-1.0); Monocytes % 5.6 % (1.7-9.3); Neutrophils # 5.5 K/mm3 (1.8-7.8); Neutrophils % 65.4 % (37.0-80.0); Platelet Count 231 K/mm3 (142-424); Red Blood Count 4.32 M/mm3 (4.60-6.20); Red Cell Distribution Width 13.5 % (11.5-17.5); White Blood Count 8.4 K/mm3 (4.8-10.8)
[2021-07-26 12:35] LABS: Anion Gap 12.4 mEq/L (5-15); Blood Urea Nitrogen 25 mg/dl (9-20); Calcium 9.6 mg/dl (8.4-10.2); Carbon Dioxide 28 mmol/L (22.0-30.0); Chloride 103 mmol/L (98-107); Estimated Glomerular Filt Rate 55 ml/min (>60); GFR (African American) 67 ML/MIN (>60); Glucose 135 mg/dl (74-100); Potassium 4.4 mmoL/L (3.5-5.1); Sodium 139 mmol/L (136-145)
[2021-07-26 12:37] LABS: Iron 65 ug/dL (49-181)
[2021-07-26 12:46] LABS: Total Iron Binding Capacity 301 ug/dL (261-462)
== END ==
PROVIDERS: Internal Medicine; Visit Provider Nurse Practitioner Family
DX: D64.9 Anemia, unspecified (principal)
CPT/HCPCS: 36415; 80048; 82728; 83540; 83550; 85025

== ENCOUNTER → 2021-07-31 15:16 | Outpatient (CLI) | payer MEDICARE, OTHER, SELFPAY ==
[2021-07-31 16:37] LABS: Hemoglobin A1C 7.5 % (4.0-6.0)
== END ==
PROVIDERS: Visit Provider Internal Medicine
DX: E11.59 Type 2 diabetes mellitus with other circulatory complications (principal); Z79.4 Long term (current) use of insulin
CPT/HCPCS: 36415; 83036

== ENCOUNTER → 2021-08-07 09:06 | Outpatient (CLI) | payer MEDICARE, OTHER, SELFPAY ==
--- NOTE | 2021-08-07 09:10 | FL_ITS ---
PROCEDURE: FL BARIUM SWALLOW MODIFIED CLINICAL INDICATION: difficulty swallowing COMPARISON: No exams were available for comparison TECHNIQUE: Patient administered varying consistencies of barium contrast, while viewed in lateral position under real-time fluoroscopy with cine recording. FLUOROSCOPY TIME:2 minutes and 6 seconds The study was performed in conjunction with speech pathologist. Please see that report & recommendations. FINDINGS: Patient was given varying consistencies of barium. No aspiration or penetration. Minimal residual which cleared with dry swallow.. IMPRESSION: Unremarkable modified barium swallow. Please see speech pathologist report and recommendations. Dictated by: German Ramírez MD 08/14/2021 08:48 German Ramírez MD in [facility] 08/14/2021 08:48
--- NOTE | 2021-08-07 09:11 | CT_ITS ---
PROCEDURE: CT HEAD/BRAIN WO CON CLINICAL INDICATION: Encephalopathy,Memory Loss,S/P CVA COMPARISON: No exams were available for comparison TECHNIQUE: Axial images obtained. All CT scans at the facility use one or more dose reduction, viz: automated exposure control, ma/kV adjustment per patient size (including targeted exams where dose is matched to indication, i.e. head), or iterative reconstruction technique. FINDINGS: No midline shift, mass effect, intracranial hemorrhage, hydrocephalus, or extra-axial fluid collection is evident. There is generalized atrophy with low-density changes in the periventricular region consistent with ischemic gliotic change from microvascular disease. Old lacunar infarctions are present in the left centrum semiovale anteriorly in the right centrum semiovale mid aspect as well as the posterior limb of the right internal capsule and the left thalamus. Old small lacunar infarction also noted in the right cerebellar peduncle. The calvarium has an unremarkable appearance. No mastoid effusion. There is moderate rightward nasal septal deviation anteriorly. No sinus air-fluid level apparent. IMPRESSION: Atrophy with chronic ischemic changes, no acute finding. Dictated by: German Ramírez MD 08/08/2021 10:28 German Ramírez MD in [facility] 08/08/2021 10:28
--- NOTE | 2021-08-07 13:59 | HMH.SLMBS2 ---
Speech & Language Evaluation Speech/Language Mod Barium Swallow Start: 08/07/21 13:45 Freq: once Status: Complete Protocol: Document 08/07/21 13:45 REZA (Rec: 08/07/21 13:58 REZA [id number]) General Information General Current Food Consistancy Regular,Thin Liquids Dentition Edentulous Comment: Dentures not available at this time Oxygen Status Room Air Facial Symmetry Symmetrical Patient Orientation Person,Place,Time,Situation Ability to Follow Directions Excellent Communication Ability No Impairment MBS Recommendations Diet Dietary Recommendations Regular,Thin Liquids Treatment/Strategies Strategy/Precaution Recommend Sitting Upright (90 deg), Double Swallow,Small Bites and Sips,Alternate Liquids/Solids Referrals/Other Other Recommendations Speech Evaluation- memory, cognitive, word finding PT Evaluation- Difficulty walking OT evaluation- decreased farm mortgage agent strength Mod Barium Swallow Impressions Summary and Impressions Oral Phase Impression No Impairment (WFL) Oral Phase Summary Mr. Hollis was given the following consistencies: thins via straw and open cup, pudding, pureed, mechanical soft, regular, and pill with thin wash. Mr. Hollis did have increased mastication time with regular due to not having his dentures available during evaluation. Pharyngeal Phase Impression Minimal Impairment Pharyngeal Phase Summary Mr. Hollis did exhibit residue in valleculae with thin washes. It was cleared with a dry swallow. Speech/Language MBS Assessment/Goals/Plan Assessment Date of Evaluation: 08/07/21 Evaluation Type Initial Certification Assessment/Problems Dysphagia Does Patient Qualify for Service No Qualify/Failure Comment Mr. Hollis was educated on compensatory strategies of dry swallow, alternating between a bite and a sip, and taking small bites/small sips. Recommendations PHYSICIAN CERTIFICATION: The specified therapy services are required, authorized, and reviewed every 30 days. Diet Recommendations Normal Liquid Type Brian
== END ==
PROVIDERS: PCP Internal Medicine; Visit Provider Specialist
DX: G93.40 Encephalopathy, unspecified (principal); R41.3 Other amnesia; E11.51 Type 2 diabetes mellitus with diabetic peripheral angiopathy without gangrene; I25.10 Atherosclerotic heart disease of native coronary artery without angina pectoris; I65.23 Occlusion and stenosis of bilateral carotid arteries; I70.1 Atherosclerosis of renal artery; I73.9 Peripheral vascular disease, unspecified; M54.2 Cervicalgia; R13.10 Dysphagia, unspecified; Z86.73 Personal history of transient ischemic attack (TIA), and cerebral infarction without residual deficits; Z79.4 Long term (current) use of insulin
CPT/HCPCS: 70371; 70450; 92611; 95816

== ENCOUNTER → 2021-08-25 15:18 | Outpatient (CLI) | payer MEDICARE, OTHER, SELFPAY ==
[2021-08-25 15:37] LABS: Basophils % 0.4 % (0.1-2.0); Eosinophils # 0.3 K/mm3 (0.0-0.4); Eosinophils % 3.7 % (0.1-12.0); Hemoglobin 11.8 g/dL (14.1-18.0); Lymphocytes # 2.4 K/mm3 (0.7-4.5); Lymphocytes % 32.3 % (10-50); Mean Corpuscular HGB Conc 31.1 g/dL (31.8-35.4); Mean Corpuscular Hemoglobin 29.1 pg (27.0-31.2); Mean Corpuscular Volume 93.4 fl (80-94); Mean Platelet Volume 9.1 fl (7.4-10.4); Monocytes # 0.5 K/mm3 (0.1-1.0); Monocytes % 6.7 % (1.7-9.3); Neutrophils # 4.2 K/mm3 (1.8-7.8); Platelet Count 258 K/mm3 (142-424); Red Blood Count 4.07 M/mm3 (4.60-6.20); Red Cell Distribution Width 14.8 % (11.5-17.5); White Blood Count 7.4 K/mm3 (4.8-10.8)
[2021-08-25 17:17] LABS: Anion Gap 13.4 mEq/L (5-15); Blood Urea Nitrogen 26 mg/dl (9-20); Calcium 9.5 mg/dl (8.4-10.2); Carbon Dioxide 27 mmol/L (22.0-30.0); Chloride 102 mmol/L (98-107); Estimated Glomerular Filt Rate 43 ml/min (>60); GFR (African American) 53 ML/MIN (>60); Glucose 291 mg/dl (74-100); Potassium 4.4 mmoL/L (3.5-5.1); Sodium 138 mmol/L (136-145)
== END ==
PROVIDERS: Visit Provider Physician Assistant
DX: Z01.812 Encounter for preprocedural laboratory examination; Z11.52 Encounter for screening for COVID-19; I25.10 Atherosclerotic heart disease of native coronary artery without angina pectoris; I65.23 Occlusion and stenosis of bilateral carotid arteries; R41.3 Other amnesia; I63.9 Cerebral infarction, unspecified; E11.51 Type 2 diabetes mellitus with diabetic peripheral angiopathy without gangrene; E78.5 Hyperlipidemia, unspecified; F17.200 Nicotine dependence, unspecified, uncomplicated; G47.33 Obstructive sleep apnea (adult) (pediatric); I70.1 Atherosclerosis of renal artery; M48.02 Spinal stenosis, cervical region; Z79.4 Long term (current) use of insulin
CPT/HCPCS: 36415; 80048; 85025; C9803; U0003; U0005

== ENCOUNTER 2021-08-28 07:52 | Day surgery (SDC) | payer MEDICARE, OTHER, SELFPAY ==
--- NOTE | 2021-08-28 07:57 | CA_ITS ---
APPROVED REPORT Patrol Conductor: Autumn Vann RVT Laterality: Bilateral Study Quality: Good Indications: ANGELLA Risk Factors Hypertension: TIA/CVA History Hyperlipidemia Diabetes Doppler Spectral Velocity Analysis ECA (R) 217.30/18.10 cm/s ECA (L) 392.00/66.60 cm/s dICA (R) 64.10/13.90 cm/s dICA (L) 91.90/30.60 cm/s Anup (R) 125.40/20.90 cm/s Anup (L) 78.00/27.90 cm/s pICA (R) 220.10/37.60 cm/s pICA (L) 73.80/19.50 cm/s dCCA (R) 79.10/15.00 cm/s dCCA (L) 57.10/15.30 cm/s pCCA (R) 95.20/15.00 cm/s pCCA (L) 50.10/12.50 cm/s Vert (R) 72.40/16.70 cm/s Vert (L) 31.70/9.40 cm/s ICA/CCA 2.78 ICA/CCA 1.61 Findings Study suggests 50-69% 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 Study suggests 20-49% stenosis of the left internal cartoid artery. Antegrade flow seen bilateral vertebral arteries. Conclusion Study suggests 50-69% 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 Study suggests 20-49% stenosis of the left internal cartoid artery. Antegrade flow seen bilateral vertebral arteries. Electronically signed by : German Ramírez MD 08/28/2021 17:01:56
[2021-08-28 08:24] VITALS: BMI 25.2
[2021-08-28 08:47] VITALS: BP 175/97; PULSE 70; RESP 20; O2SAT 95
[2021-08-28 09:12] VITALS: BP 173/99; PULSE 74; RESP 19; O2SAT 98
[2021-08-28 09:13] VITALS: PULSE 74
--- NOTE | 2021-08-28 09:19 | P.PCN_ITS ---
[facility] Loop Recorder Date: 08/28/21 Time: 09:00 Procedure Performed:: Implantation of loop recorder Indication:: Cryptogenic stroke Technique:: Patient was brought to the cardiac Laundry Clerk. After informed consent obtained, 1% lidocaine with epinephrine was used to anesthetize the site along the left anterior aspect of the chest near the sternal border. Using the preformed scalpel, an incision was made and using the supplied preloaded apparatus, the loop recorder was placed subcutaneously without difficulty. Following the deployment of the loop recorder interrogation of the device was performed to ensure appropriate voltage was being detected (0.28 mV). Once this was verified, Steri-Strips were placed over the incision and the patient was prepped to discharge home. Patient tolerated the procedure well with minimal discomfort. Impression:: Successful implantation of loop recorder Serial Number:: Govenlock Green [id number] Serial #[id number] Plan:: Routine postop care
== END 2021-08-28 09:26 | disposition home or self-care (01) ==
PROVIDERS: PCP Internal Medicine; Visit Provider Internal Medicine
DX: I25.119 Atherosclerotic heart disease of native coronary artery with unspecified angina pectoris (principal); G47.33 Obstructive sleep apnea (adult) (pediatric); Z79.4 Long term (current) use of insulin; I65.23 Occlusion and stenosis of bilateral carotid arteries; I70.1 Atherosclerosis of renal artery; M48.02 Spinal stenosis, cervical region; R41.3 Other amnesia; Z87.891 Personal history of nicotine dependence; Z86.73 Personal history of transient ischemic attack (TIA), and cerebral infarction without residual deficits; E78.2 Mixed hyperlipidemia; E11.52 Type 2 diabetes mellitus with diabetic peripheral angiopathy with gangrene; I96 Gangrene, not elsewhere classified; I10 Essential (primary) hypertension
CPT/HCPCS: 33285; 93880

== ENCOUNTER → 2021-10-09 14:27 | Outpatient (CLI) | payer MEDICARE, OTHER, SELFPAY ==
--- NOTE | 2021-10-09 14:34 | MR_ITS ---
PROCEDURE: MR CERVICAL SPINE WO CON CLINICAL INDICATION: CERVICAL STENOSIS OF SPINE Neck pain, right arm pain COMPARISON: MR SPCERVWO MR cervical spine wo con from 02/25/2018 TECHNIQUE: Standard multiplanar multiecho sequences are performed without contrast. 3-D MIP and myelographic images are also rendered and reviewed FINDINGS: There is normal alignment. Craniocervical junction has an unremarkable appearance. C2-C3: Bulging disc eccentric to the left with left-sided uncovertebral disc osteophyte complex causing mild left lateral recess and moderate to severe left-sided foraminal narrowing unchanged. C3-C4: Degenerative disc disease with bulging disc. Posterior endplate hypertrophic changes are present with small central disc osteophyte complex causing canal stenosis of 8 mm with mild flattening of the cord anteriorly. Bilateral lateral recess and foraminal narrowing. These findings are not significantly changed. C4-C5: Degenerative disc disease with endplate and uncovertebral spurring. There is a broad-based central and right paracentral disc osteophyte complex. There is severe canal stenosis of 6 mm along with severe right lateral recess narrowing moderate left lateral recess narrowing and severe bilateral foraminal narrowing. These findings are not significantly changed. There is moderate cord compression from the disc osteophyte complex. This is not significantly changed. Type 1 endplate changes present C5-C6: Degenerative disc disease. There is a small left paracentral disc osteophyte complex with mild compression upon the cord on the left anteriorly with moderate to severe left lateral recess and foraminal narrowing and moderate right foraminal narrowing. Not significantly changed. C6-C7: Degenerative disc disease with bulging disc eccentric toward the right with bilateral lateral recess and foraminal narrowing not significantly changed. C7-T1: Degenerative disc disease. IMPRESSION: Overall no significant change in the severe multilevel cervical spondylosis. There is resultant varying degrees of lateral recess and foraminal narrowing and canal stenosis. Please see above for detailed description at each level. Dictated by: German Ramírez MD 10/16/2021 09:28 German Ramírez MD in [place] 10/16/2021 09:28
== END ==
PROVIDERS: PCP Internal Medicine; Visit Provider Neurological Surgery
DX: M48.02 Spinal stenosis, cervical region (principal)
CPT/HCPCS: 72141; 76376

== ENCOUNTER → 2021-11-01 13:04 | Outpatient (CLI) | payer MEDICARE, OTHER, SELFPAY ==
[2021-11-01 14:26] LABS: Alanine Aminotransferase 48 U/L (12-78); Albumin Level 4.3 g/dl (3.5-5.0); Albumin/Globulin Ratio 1.7 (1.1-1.8); Alkaline Phosphatase 129 U/L (38-126); Aspartate Amino Transferase 39 U/L (17-59); Bilirubin,Total 0.4 mg/dl (0.2-1.3); Blood Urea Nitrogen 21 mg/dl (9-20); Carbon Dioxide 32 mmol/L (22.0-30.0); Chloride 100 mmol/L (98-107); Chol/HDL Ratio 3.3 (1-3.5); Cholesterol 137 mg/dl (140-200); Estimated Glomerular Filt Rate 61 ml/min (>60); GFR (African American) 73 ML/MIN (>60); Globulin 2.6 g/dL (1.3-3.2); Glucose 152 mg/dl (74-100); HDL Cholesterol 41 mg/dl (40-60); Sodium 138 mmol/L (136-145); Total Protein,Serum 6.9 g/dl (6.3-8.2); Triglycerides 153 mg/dl (30-150); VLDL Cholesterol 31 mg/dL (0-40)
[2021-11-01 14:37] LABS: Direct LDL Cholesterol 67.86 mg/dL (100-129)
[2021-11-01 15:13] LABS: Basophils % 0.4 % (0.1-2.0); Eosinophils # 0.3 K/mm3 (0.0-0.4); Eosinophils % 2.8 % (0.1-12.0); Hematocrit 38.2 % (42.0-52.0); Hemoglobin 12.3 g/dL (14.1-18.0); Lymphocytes # 2.8 K/mm3 (0.7-4.5); Lymphocytes % 29.4 % (10-50); Mean Corpuscular HGB Conc 32.1 g/dL (31.8-35.4); Mean Corpuscular Hemoglobin 28.7 pg (27.0-31.2); Mean Corpuscular Volume 89.5 fl (80-94); Monocytes # 0.6 K/mm3 (0.1-1.0); Monocytes % 6.7 % (1.7-9.3); Neutrophils # 5.7 K/mm3 (1.8-7.8); Neutrophils % 60.7 % (37.0-80.0); Platelet Count 321 K/mm3 (142-424); Red Blood Count 4.27 M/mm3 (4.60-6.20); Red Cell Distribution Width 14.6 % (11.5-17.5); White Blood Count 9.4 K/mm3 (4.8-10.8)
[2021-11-01 18:34] LABS: Hemoglobin A1C 7.4 % (4.0-6.0)
== END ==
PROVIDERS: Visit Provider Internal Medicine
DX: I10 Essential (primary) hypertension (principal); E11.42 Type 2 diabetes mellitus with diabetic polyneuropathy; E11.59 Type 2 diabetes mellitus with other circulatory complications; E78.5 Hyperlipidemia, unspecified; Z86.73 Personal history of transient ischemic attack (TIA), and cerebral infarction without residual deficits; Z79.4 Long term (current) use of insulin
CPT/HCPCS: 80053; 80061; 83036; 85025

== ENCOUNTER → 2022-03-05 16:04 | Outpatient (CLI) | payer MEDICARE, OTHER, SELFPAY ==
--- NOTE | 2022-03-05 16:11 | XR_ITS ---
PROCEDURE INFORMATION: Exam: XR Right Foot Exam date and time: 03/05/2022 4:19 PM Age: 66 years old Clinical indication: Pain; Foot; Right; Additional info: Right foot pain , vascular disease and diabetic, no injury -- has a ulceration on big toe lateral side of toe TECHNIQUE: Imaging protocol: XR Right foot. Views: 3 or more views. COMPARISON: NM BONE SCAN WHOLE BODY 03/03/2021 1:03 PM FINDINGS: Bones/joints: There is no evidence of acutely displaced fractures. There is no evidence of joint dislocation. No aggressive osseous lesions. Small plantar calcaneal spur. Large posterior calcaneal enthesophytes. Soft tissues: 1.6 cm skin defect in the medial greater toe soft tissues. Associated surrounding soft tissue swelling. IMPRESSION: 1. 1.6 cm skin ulceration in the medial greater toe with surrounding cellulitis. 2. No evidence for osteomyelitis or acute skeletal pathology.
[2022-03-05 20:04] LABS: Basophils # 0.1 K/mm3 (0-0.2); Eosinophils # 0.2 K/mm3 (0.0-0.4); Eosinophils % 1.9 % (0.1-12.0); Hematocrit 37.3 % (42.0-52.0); Hemoglobin 11.9 g/dL (14.1-18.0); Lymphocytes # 2.5 K/mm3 (0.7-4.5); Lymphocytes % 29.9 % (10-50); Mean Corpuscular HGB Conc 31.9 g/dL (31.8-35.4); Mean Platelet Volume 9.9 fl (7.4-10.4); Monocytes # 0.6 K/mm3 (0.1-1.0); Monocytes % 6.7 % (1.7-9.3); Neutrophils # 5.1 K/mm3 (1.8-7.8); Neutrophils % 60.4 % (37.0-80.0); Platelet Count 342 K/mm3 (142-424); White Blood Count 8.5 K/mm3 (4.8-10.8)
[2022-03-05 20:33] LABS: Alanine Aminotransferase 25 U/L (12-78); Albumin Level 4.1 g/dl (3.5-5.0); Albumin/Globulin Ratio 1.6 (1.1-1.8); Alkaline Phosphatase 116 U/L (38-126); Anion Gap 12.1 mEq/L (5-15); Aspartate Amino Transferase 29 U/L (17-59); Bilirubin,Total 0.5 mg/dl (0.2-1.3); Blood Urea Nitrogen 31 mg/dl (9-20); Calcium 9.7 mg/dl (8.4-10.2); Carbon Dioxide 27 mmol/L (22.0-30.0); Chloride 104 mmol/L (98-107); Estimated Glomerular Filt Rate 61 ml/min (>60); GFR (African American) 73 ML/MIN (>60); Globulin 2.6 g/dL (1.3-3.2); Glucose 187 mg/dl (74-100); Potassium 5.1 mmoL/L (3.5-5.1); Sodium 138 mmol/L (136-145); Total Protein,Serum 6.7 g/dl (6.3-8.2); Uric Acid 4.6 mg/dl (3.5-8.5)
== END ==
PROVIDERS: PCP Internal Medicine; Visit Provider Internal Medicine
DX: M79.671 Pain in right foot (principal); B35.1 Tinea unguium; L84 Corns and callosities; E11.59 Type 2 diabetes mellitus with other circulatory complications; Z79.4 Long term (current) use of insulin
CPT/HCPCS: 73630; 80053; 84550; 85025

== ENCOUNTER → 2022-04-14 12:35 | Outpatient (CLI) | payer MEDICARE, OTHER, SELFPAY ==
[2022-04-14 14:04] LABS: Basophils # 0.1 K/mm3 (0-0.2); Basophils % 0.8 % (0.1-2.0); Eosinophils # 0.2 K/mm3 (0.0-0.4); Eosinophils % 2.1 % (0.1-12.0); Hematocrit 39.1 % (42.0-52.0); Hemoglobin 12.6 g/dL (14.1-18.0); Lymphocytes # 2.5 K/mm3 (0.7-4.5); Lymphocytes % 31.3 % (10-50); Mean Corpuscular HGB Conc 32.3 g/dL (31.8-35.4); Mean Corpuscular Hemoglobin 29.7 pg (27.0-31.2); Mean Corpuscular Volume 91.8 fl (80-94); Mean Platelet Volume 8.9 fl (7.4-10.4); Monocytes # 0.5 K/mm3 (0.1-1.0); Monocytes % 5.9 % (1.7-9.3); Neutrophils # 4.7 K/mm3 (1.8-7.8); Neutrophils % 59.9 % (37.0-80.0); Platelet Count 266 K/mm3 (142-424); Red Blood Count 4.26 M/mm3 (4.60-6.20); Red Cell Distribution Width 15.6 % (11.5-17.5); White Blood Count 7.8 K/mm3 (4.8-10.8)
[2022-04-14 15:25] LABS: Alanine Aminotransferase 23 U/L (12-78); Albumin Level 4.1 g/dl (3.5-5.0); Alkaline Phosphatase 90 U/L (38-126); Aspartate Amino Transferase 26 U/L (17-59); Bilirubin,Unconjugated 0.3 mg/dL (0.0-1.1); Total Protein,Serum 6.8 g/dl (6.3-8.2)
[2022-04-14 15:39] LABS: Bilirubin,Total < 0.1 mg/dl (0.2-1.3)
[2022-04-14 16:34] LABS: Bilirubin,Direct 0.1 mg/dl (0.0-0.4); Bilirubin,Indirect 0.2 mg/dL (0.0-0.9)
== END ==
PROVIDERS: PCP Internal Medicine; Visit Provider Internal Medicine
DX: B35.1 Tinea unguium (principal)
CPT/HCPCS: 36415; 80076; 85025

== ENCOUNTER → 2022-04-24 13:10 | Outpatient (CLI) | payer MEDICARE, OTHER, SELFPAY ==
[2022-04-24 14:28] LABS: Basophils % 0.5 % (0.1-2.0); Eosinophils # 0.2 K/mm3 (0.0-0.4); Eosinophils % 2.2 % (0.1-12.0); Hematocrit 38.3 % (42.0-52.0); Hemoglobin 11.9 g/dL (14.1-18.0); Lymphocytes # 2.5 K/mm3 (0.7-4.5); Lymphocytes % 32.9 % (10-50); Mean Corpuscular Hemoglobin 29.8 pg (27.0-31.2); Mean Corpuscular Volume 95.9 fl (80-94); Monocytes # 0.5 K/mm3 (0.1-1.0); Monocytes % 6.8 % (1.7-9.3); Neutrophils # 4.3 K/mm3 (1.8-7.8); Neutrophils % 57.6 % (37.0-80.0); Platelet Count 257 K/mm3 (142-424); Red Cell Distribution Width 15.4 % (11.5-17.5); White Blood Count 7.4 K/mm3 (4.8-10.8)
[2022-04-24 15:11] LABS: Anion Gap 13.1 mEq/L (5-15); Blood Urea Nitrogen 26 mg/dl (9-20); Calcium 9.8 mg/dl (8.4-10.2); Carbon Dioxide 27 mmol/L (22.0-30.0); Chloride 105 mmol/L (98-107); Estimated Glomerular Filt Rate 43 ml/min (>60); GFR (African American) 53 ML/MIN (>60); Glucose 212 mg/dl (74-100); Potassium 5.1 mmoL/L (3.5-5.1); Sodium 140 mmol/L (136-145)
== END ==
PROVIDERS: PCP Internal Medicine; Visit Provider Nurse Practitioner Family
DX: I73.9 Peripheral vascular disease, unspecified (principal); S81.801A Unspecified open wound, right lower leg, initial encounter; Z01.812 Encounter for preprocedural laboratory examination; Z20.822 Contact with and (suspected) exposure to COVID-19
CPT/HCPCS: 36415; 80048; 85025; C9803; U0003; U0005

== ENCOUNTER 2022-04-25 08:55 | Day surgery (SDC) | payer MEDICARE, OTHER, SELFPAY ==
[2022-04-25] VITALS (12 sets, daily range): BP systolic 119–154; BP diastolic 54–96; PULSE 51–68; RESP 18; O2SAT 91–98; BMI 25.0
--- NOTE | 2022-04-25 07:40 | IR_ITS ---
APPROVED REPORT Patient Location: Outpatient Senior Sales Administrator: CATARINO Ugalde RT (R) PROCEDURES Emergent pericardiocentesis with placement of pericardial catheter/pigtail in the pericardial space INDICATION Large pericardial effusion, Cardiac tamponade Informed consent was obtained prior to the procedure. COMPLICATIONS NONE Estimated Blood Loss: LESS THAN 10 ML TECHNIQUE The chest and abdominal area were sterilely prepped. Anesthesia provided conscious sedation and a large aspiration needle was placed using the subxiphoid approach and directed toward the left. The pericardial space was accessed and a wire was then advanced into the pericardial space. A dilator was used to open the track going from the skin into the pericardial space. The pigtail catheter was then advanced into the pericardium and the tubing was connected to a large gravity fed bag which extracted the bloody dark fluid. Immediately the size of the pericardial effusion decreased with immediate relaxation and improvement in right ventricular compression. At the end of the procedure the pigtail catheter was sutured in place using silk. IMPRESSION Successful pericardiocentesis for cardiac tamponade producing greater than 500 cc of bloody pericardial fluid with a large amount of fluid anticipated still remaining in the pericardial space PLAN 1. Supportive care 2. Submit pericardial fluid for cytology and chemical evaluation Electronically signed by : Aneudy Alejandra MD 04/25/2022 12:45:54
== END 2022-04-25 14:15 | disposition home or self-care (01) ==
LOC: CATHLAB 08:57
PROVIDERS: PCP Internal Medicine; Visit Provider Internal Medicine
DX: Z79.01 Long term (current) use of anticoagulants; I10 Essential (primary) hypertension; Z95.820 Peripheral vascular angioplasty status with implants and grafts; I70.211 Atherosclerosis of native arteries of extremities with intermittent claudication, right leg; E11.9 Type 2 diabetes mellitus without complications; Z79.4 Long term (current) use of insulin; Z87.891 Personal history of nicotine dependence; Z79.899 Other long term (current) drug therapy; I65.21 Occlusion and stenosis of right carotid artery; I77.1 Stricture of artery; I69.391 Dysphagia following cerebral infarction; R13.10 Dysphagia, unspecified; I70.92 Chronic total occlusion of artery of the extremities
CPT/HCPCS: 36247; 75630; 99152; 99153; C1725; C1769; C1894; J1644; Q9967

== ENCOUNTER → 2022-05-01 11:10 | Outpatient (CLI) | payer MEDICARE, OTHER, SELFPAY | PROVIDERS: PCP Internal Medicine; Visit Provider Internal Medicine | DX: E78.5 Hyperlipidemia, unspecified; I10 Essential (primary) hypertension; I25.10 Atherosclerotic heart disease of native coronary artery without angina pectoris; I65.23 Occlusion and stenosis of bilateral carotid arteries; Z01.812 Encounter for preprocedural laboratory examination; Z20.822 Contact with and (suspected) exposure to COVID-19 | CPT/HCPCS: C9803; U0003; U0005 ==

== ENCOUNTER 2022-05-02 08:49 | Day surgery (SDC) | payer MEDICARE, OTHER, SELFPAY ==
[2022-05-02] VITALS (71 sets, daily range): BP systolic 102–206; BP diastolic 47–99; PULSE 48–96; RESP 14–18; TEMP 36.6; O2SAT 90–98; BMI 25.0; BMI 23.4
--- NOTE | 2022-05-02 | IR_ITS ---
APPROVED REPORT Patient Location: Outpatient PROCEDURES Right antegrade femoral artery access Right superficial femoral artery antegrade selective angiogram Catheter placement on the right popliteal artery Right popliteal artery antegrade angiogram INDICATION Jhonatan claudication class V involving the great toe, Occluded right superficial femoral artery Informed consent was obtained prior to the procedure. COMPLICATIONS None Estimated Blood Loss: Less than 10 mls TECHNIQUE 1% lidocaine used anesthetize the right groin. The right femoral artery was accessed via the Salinger technique with antegrade access. A 6 Maldivian sheath was placed in the right femoral artery and angiography was performed. Following this therapeutic heparin was administered. An advantage wire was used to push through the chronic occlusion of the right superficial femoral artery. Distally I was unable to get the wire to recannulate the right popliteal artery. A trailblazer catheter was advanced to try to redirect the wire however after multiple attempts this was unsuccessful. Angiography was performed in the trailblazer which demonstrated a small amount of extravasation which was controlled in all extravascular. At the end of the procedure right femoral artery angiography was performed which did demonstrate persistent collateral flow into the popliteal artery. At this time it was decided to abort the procedure due to inability to recannulate the true lumen of the popliteal artery. IMPRESSION Chronically occluded right superficial femoral artery Inability to recannulate the chronically occluded superficial femoral artery PLAN 1. Continue medical management 2. Add Xarelto 2.5 p.o. twice daily plus aspirin 81 mg daily for peripheral artery disease 3. Aggressive risk factor modification Electronically signed by : Aneudy Alejandra MD 05/02/2022 13:53:41
[2022-05-02 09:24] LABS: Basophils # 0.2 K/mm3 (0-0.2); Basophils % 2.1 % (0.1-2.0); Eosinophils # 0.3 K/mm3 (0.0-0.4); Eosinophils % 3.9 % (0.1-12.0); Hematocrit 40.3 % (42.0-52.0); Lymphocytes # 2.5 K/mm3 (0.7-4.5); Lymphocytes % 34.1 % (10-50); Mean Corpuscular HGB Conc 29.7 g/dL (31.8-35.4); Mean Corpuscular Hemoglobin 28.4 pg (27.0-31.2); Mean Corpuscular Volume 95.4 fl (80-94); Mean Platelet Volume 8.5 fl (7.4-10.4); Monocytes # 0.4 K/mm3 (0.1-1.0); Neutrophils % 53.8 % (37.0-80.0); Platelet Count 245 K/mm3 (142-424); Red Blood Count 4.23 M/mm3 (4.60-6.20); Red Cell Distribution Width 15.3 % (11.5-17.5); White Blood Count 7.4 K/mm3 (4.8-10.8)
[2022-05-02 09:36] LABS: Anion Gap 12.5 mEq/L (5-15); Blood Urea Nitrogen 25 mg/dl (9-20); Calcium 10.4 mg/dl (8.4-10.2); Carbon Dioxide 29 mmol/L (22.0-30.0); Chloride 101 mmol/L (98-107); Creatinine Clearance Estimated 43 mL/min (50-200); Estimated Glomerular Filt Rate 40 ml/min (>60); GFR (African American) 49 ML/MIN (>60); Glucose 203 mg/dl (74-100); Potassium 3.5 mmoL/L (3.5-5.1); Sodium 139 mmol/L (136-145)
--- NOTE | 2022-05-02 10:47 | SUR.PHASEII ---
Antibiotic infusion started now
--- NOTE | 2022-05-02 10:50 | SUR.PHASEII ---
Infusion therapy vitals charted under vascular assessment
[2022-05-02 14:17] LABS: CATHL Activated Clotting Time 323 SEC (74-125)
[2022-05-02 14:18] LABS: CATHL Activated Clotting Time 193 SEC (74-125)
[2022-05-02 14:20] LABS: CATHL Activated Clotting Time 233 SEC (74-125)
--- NOTE | 2022-05-02 15:20 | PC.NURSE ---
Spoke with cardiology at this time and awaiting cb in re to pt's request for pain medication, for pain in r groin cath site. Also, attempted to call senior label specialist w/o any answer.
--- NOTE | 2022-05-02 16:24 | PC.NURSE ---
Called again at this time to request orders for pt. Spoke w/ Denise, transferred me to [facility] with no ans.
[2022-05-02 16:39] LABS: Coronavirus 19, PCR Not Detected (NotDetected); Influenza A, PCR Not Detected (NotDetected); Influenza B, PCR Not Detected (NotDetected)
--- NOTE | 2022-05-02 18:45 | PC.NURSE ---
Received orders for pt's amlodipine, irbesartan, morphine x 1 IV, per dec, along with xarelto per dec and a BMP in am per BESS White. BP has been elevated, meds given per dec. Stable at this time. Cath site to r groin dsg is cdi w/o any drainage noted. Have educated on purpose of lying flat, verbalizes understanding. CB in easy reach.
[2022-05-02 22:48] LABS: POC Glucose,Bedside 311 (70-110)
[2022-05-03] VITALS: BP 154/77; PULSE 80; RESP 18; TEMP 36.9; O2SAT 93
[2022-05-03 03:51] VITALS: BP 144/75; PULSE 81; RESP 18; TEMP 36.8; O2SAT 96
[2022-05-03 04:00] VITALS: PULSE 80
[2022-05-03 04:52] VITALS: BMI 23.2
--- NOTE | 2022-05-03 05:01 | PC.NURSE ---
A&OX4. TOLERATING RA WELL. PT HAS HAD NO NEEDS OR C/O THUS FAR. AT BEDSIDE. HAS SLEPT MAJORITY OF SHIFT. CATH SITE TO Romelia SUNG. VSS, WILL CONTINUE TO MONITOR.
[2022-05-03 07:07] LABS: Basophils % 0.3 % (0.1-2.0); Eosinophils # 0.3 K/mm3 (0.0-0.4); Eosinophils % 3.2 % (0.1-12.0); Hemoglobin 11.3 g/dL (14.1-18.0); Lymphocytes # 2.5 K/mm3 (0.7-4.5); Lymphocytes % 28.2 % (10-50); Mean Corpuscular HGB Conc 33.1 g/dL (31.8-35.4); Mean Corpuscular Hemoglobin 29.1 pg (27.0-31.2); Mean Platelet Volume 7.9 fl (7.4-10.4); Monocytes # 0.6 K/mm3 (0.1-1.0); Monocytes % 6.4 % (1.7-9.3); Neutrophils # 5.4 K/mm3 (1.8-7.8); Neutrophils % 61.9 % (37.0-80.0); Platelet Count 243 K/mm3 (142-424); Red Blood Count 3.87 M/mm3 (4.60-6.20); Red Cell Distribution Width 14.8 % (11.5-17.5); White Blood Count 8.7 K/mm3 (4.8-10.8)
[2022-05-03 07:16] LABS: Anion Gap 9.6 mEq/L (5-15); Blood Urea Nitrogen 23 mg/dl (9-20); Calcium 8.9 mg/dl (8.4-10.2); Carbon Dioxide 27 mmol/L (22.0-30.0); Chloride 108 mmol/L (98-107); Creatinine Clearance Estimated 54 mL/min (50-200); Estimated Glomerular Filt Rate 55 ml/min (>60); GFR (African American) 67 ML/MIN (>60); Glucose 104 mg/dl (74-100); Potassium 3.6 mmoL/L (3.5-5.1); Sodium 141 mmol/L (136-145)
[2022-05-03 07:26] LABS: POC Glucose,Bedside 98 (70-110)
[2022-05-03 08:00] VITALS: BP 199/94; PULSE 78; RESP 18; TEMP 36.7; O2SAT 96
[2022-05-03 09:56] VITALS: BP 155/89; PULSE 79
== END 2022-05-03 10:58 | disposition home or self-care (01) ==
LOC: CATHLAB 08:50 → 2ND 14:03
PROVIDERS: PCP Internal Medicine; Visit Provider Internal Medicine
DX: I70.211 Atherosclerosis of native arteries of extremities with intermittent claudication, right leg (principal); I65.21 Occlusion and stenosis of right carotid artery; I77.1 Stricture of artery; I10 Essential (primary) hypertension; Z79.4 Long term (current) use of insulin; Z20.822 Contact with and (suspected) exposure to COVID-19; I70.92 Chronic total occlusion of artery of the extremities; Z79.899 Other long term (current) drug therapy; E11.9 Type 2 diabetes mellitus without complications
CPT/HCPCS: 36246; 75710; 80048; 82962; 85025; 85347; 99152; C1725; C1769; C1894; C9803; J1644; Q9966; U0003; U0005

== ENCOUNTER → 2022-05-09 16:36 | Outpatient (CLI) | payer MEDICARE, OTHER, SELFPAY | PROVIDERS: Visit Provider Podiatrist | DX: S81.801D Unspecified open wound, right lower leg, subsequent encounter (principal); R09.89 Other specified symptoms and signs involving the circulatory and respiratory systems | CPT/HCPCS: 87070; 87077; 87186; 87205 ==

== ENCOUNTER → 2022-05-29 11:37 | Outpatient (CLI) | payer MEDICARE, OTHER, SELFPAY ==
[2022-05-30 08:29] LABS: PSA, Free 1.83 ng/mL; Prostate Specific Ag 7.6 ng/mL (0.0-4.0)
== END ==
PROVIDERS: PCP Internal Medicine; Visit Provider Urology
DX: R97.20 Elevated prostate specific antigen [PSA] (principal)
CPT/HCPCS: 36415; 84153; 84154

== ENCOUNTER → 2022-06-13 16:31 | Outpatient (CLI) | payer MEDICARE, OTHER, SELFPAY ==
--- NOTE | 2022-06-13 16:54 | XR_ITS ---
PROCEDURE INFORMATION: Exam: XR Right Ankle Exam date and time: 06/13/2022 5:01 PM Age: 67 years old Clinical indication: Pain; Foot; Right TECHNIQUE: Imaging protocol: Radiologic exam of the Right ankle. Views: 3 or more views. COMPARISON: NM BONE SCAN WHOLE BODY 03/03/2021 1:03 PM FINDINGS: Bones/joints: There is no evidence of acute fracture. There is no evidence of joint malalignment or dislocation. Soft tissues: No focal soft tissue swelling. IMPRESSION: 1. No evidence of acute fracture. 2. No evidence of acute dislocation.
--- NOTE | 2022-06-13 17:00 | XR_ITS ---
PROCEDURE INFORMATION: Exam: XR Right Foot Complete; Alignment Exam date and time: 06/13/2022 5:01 PM Age: 67 years old Clinical indication: Pain; Foot; Right TECHNIQUE: Imaging protocol: Radiologic exam of the Right foot. Views: 3 or more views. COMPARISON: CR XR FOOT RT MIN 3V 03/05/2022 4:19 PM FINDINGS: Bones/joints: There is no evidence of acute fracture. There is no evidence of joint malalignment or dislocation. Calcaneal spurs are present. Soft tissues: Soft tissue edematous changes noted along the medial aspect of the foot. IMPRESSION: 1. No evidence of acute fracture. 2. No evidence of acute dislocation. 3. Soft tissue edematous changes noted along the medial aspect of the foot.
[2022-06-13 17:24] LABS: Hemoglobin A1C 8.5 % (4.0-6.0)
[2022-06-13 17:25] LABS: Basophils # 0.1 K/mm3 (0-0.2); Basophils % 0.4 % (0.1-2.0); Eosinophils # 0.1 K/mm3 (0.0-0.4); Eosinophils % 0.7 % (0.1-12.0); Hematocrit 32.9 % (42.0-52.0); Hemoglobin 9.9 g/dL (14.1-18.0); Lymphocytes # 2.1 K/mm3 (0.7-4.5); Mean Corpuscular HGB Conc 30.1 g/dL (31.8-35.4); Mean Corpuscular Hemoglobin 28.6 pg (27.0-31.2); Mean Corpuscular Volume 95.1 fl (80-94); Mean Platelet Volume 8.6 fl (7.4-10.4); Monocytes % 6.9 % (1.7-9.3); Neutrophils # 11.1 K/mm3 (1.8-7.8); Neutrophils % 77.1 % (37.0-80.0); Platelet Count 329 K/mm3 (142-424); Red Blood Count 3.46 M/mm3 (4.60-6.20); Red Cell Distribution Width 14.9 % (11.5-17.5); White Blood Count 14.3 K/mm3 (4.8-10.8)
[2022-06-13 17:42] LABS: Alanine Aminotransferase 22 U/L (12-78); Albumin Level 3.6 g/dl (3.5-5.0); Albumin/Globulin Ratio 1.3 (1.1-1.8); Alkaline Phosphatase 123 U/L (38-126); Anion Gap 12.2 mEq/L (5-15); Aspartate Amino Transferase 28 U/L (17-59); Blood Urea Nitrogen 22 mg/dl (9-20); Calcium 9.5 mg/dl (8.4-10.2); Carbon Dioxide 27 mmol/L (22.0-30.0); Chloride 104 mmol/L (98-107); Estimated Glomerular Filt Rate 51 ml/min (>60); GFR (African American) 61 ML/MIN (>60); Globulin 2.8 g/dL (1.3-3.2); Glucose 202 mg/dl (74-100); Potassium 4.2 mmoL/L (3.5-5.1); Sodium 139 mmol/L (136-145); Total Protein,Serum 6.4 g/dl (6.3-8.2)
[2022-06-13 17:43] LABS: Bilirubin,Total < 0.1 mg/dl (0.2-1.3)
[2022-06-13 17:53] LABS: Erythrocyte Sedimentation Rate 89 mm/hr (0-20)
== END ==
PROVIDERS: PCP Internal Medicine; Visit Provider Podiatrist
DX: Z51.89 Encounter for other specified aftercare (principal); I65.23 Occlusion and stenosis of bilateral carotid arteries; E11.51 Type 2 diabetes mellitus with diabetic peripheral angiopathy without gangrene; I70.209 Unspecified atherosclerosis of native arteries of extremities, unspecified extremity; M79.671 Pain in right foot
CPT/HCPCS: 73610; 73630; 80053; 83036; 85025; 85651; 86140

== ENCOUNTER → 2022-07-23 11:15 | Outpatient (CLI) | payer MEDICARE, OTHER, SELFPAY ==
[2022-07-23 11:50] LABS: Basophils % 0.5 % (0.1-2.0); Eosinophils # 0.4 K/mm3 (0.0-0.4); Eosinophils % 5.9 % (0.1-12.0); Hematocrit 30.8 % (42.0-52.0); Hemoglobin 9.5 g/dL (14.1-18.0); Lymphocytes # 1.7 K/mm3 (0.7-4.5); Lymphocytes % 25.8 % (10-50); Mean Corpuscular HGB Conc 30.9 g/dL (31.8-35.4); Mean Corpuscular Hemoglobin 28.4 pg (27.0-31.2); Mean Corpuscular Volume 92.1 fl (80-94); Mean Platelet Volume 8.3 fl (7.4-10.4); Monocytes # 0.6 K/mm3 (0.1-1.0); Monocytes % 9.1 % (1.7-9.3); Neutrophils # 3.9 K/mm3 (1.8-7.8); Neutrophils % 58.8 % (37.0-80.0); Platelet Count 325 K/mm3 (142-424); Red Blood Count 3.35 M/mm3 (4.60-6.20); Red Cell Distribution Width 16.1 % (11.5-17.5); White Blood Count 6.7 K/mm3 (4.8-10.8)
[2022-07-23 12:01] LABS: Blood Urea Nitrogen 25 mg/dl (9-20); Estimated Glomerular Filt Rate 84 ml/min (>60); GFR (African American) 102 ML/MIN (>60)
[2022-07-23 12:07] LABS: C-Reactive Protein 4.6 mg/L (0-4)
== END ==
PROVIDERS: Visit Provider Physical Medicine & Rehabilitation
DX: E11.51 Type 2 diabetes mellitus with diabetic peripheral angiopathy without gangrene (principal); M86.9 Osteomyelitis, unspecified
CPT/HCPCS: 82565; 84520; 85025; 86140

== ENCOUNTER → 2022-07-30 12:13 | Outpatient (CLI) | payer MEDICARE, OTHER, SELFPAY ==
[2022-07-30 12:40] LABS: Basophils % 0.6 % (0.1-2.0); Eosinophils # 0.3 K/mm3 (0.0-0.4); Eosinophils % 5.1 % (0.1-12.0); Hematocrit 32.6 % (42.0-52.0); Hemoglobin 10.4 g/dL (14.1-18.0); Lymphocytes # 1.8 K/mm3 (0.7-4.5); Lymphocytes % 26.3 % (10-50); Mean Corpuscular HGB Conc 31.9 g/dL (31.8-35.4); Mean Corpuscular Hemoglobin 29.1 pg (27.0-31.2); Mean Corpuscular Volume 91.3 fl (80-94); Mean Platelet Volume 8.7 fl (7.4-10.4); Monocytes # 0.5 K/mm3 (0.1-1.0); Monocytes % 7.6 % (1.7-9.3); Neutrophils # 4.1 K/mm3 (1.8-7.8); Neutrophils % 60.5 % (37.0-80.0); Platelet Count 284 K/mm3 (142-424); Red Blood Count 3.58 M/mm3 (4.60-6.20); White Blood Count 6.8 K/mm3 (4.8-10.8)
[2022-07-30 12:45] LABS: Blood Urea Nitrogen 32 mg/dl (9-20); Estimated Glomerular Filt Rate 75 ml/min (>60); GFR (African American) 90 ML/MIN (>60)
[2022-07-30 12:51] LABS: C-Reactive Protein 4.2 mg/L (0-4)
== END ==
PROVIDERS: PCP Internal Medicine; Visit Provider Physical Medicine & Rehabilitation
DX: E11.51 Type 2 diabetes mellitus with diabetic peripheral angiopathy without gangrene (principal); M86.9 Osteomyelitis, unspecified; Z79.4 Long term (current) use of insulin
CPT/HCPCS: 82565; 84520; 85025; 86140

== ENCOUNTER → 2022-08-06 12:04 | Outpatient (REF) | payer MEDICARE, OTHER, SELFPAY ==
[2022-08-06 12:34] LABS: Basophils % 0.3 % (0.1-2.0); Eosinophils # 0.2 K/mm3 (0.0-0.4); Eosinophils % 2.6 % (0.1-12.0); Hematocrit 33.8 % (42.0-52.0); Hemoglobin 10.6 g/dL (14.1-18.0); Lymphocytes # 1.8 K/mm3 (0.7-4.5); Lymphocytes % 19.4 % (10-50); Mean Corpuscular HGB Conc 31.4 g/dL (31.8-35.4); Mean Corpuscular Hemoglobin 28.8 pg (27.0-31.2); Mean Corpuscular Volume 91.8 fl (80-94); Mean Platelet Volume 8.6 fl (7.4-10.4); Monocytes # 0.5 K/mm3 (0.1-1.0); Monocytes % 5.6 % (1.7-9.3); Neutrophils # 6.7 K/mm3 (1.8-7.8); Platelet Count 312 K/mm3 (142-424); Red Blood Count 3.68 M/mm3 (4.60-6.20); Red Cell Distribution Width 15.7 % (11.5-17.5); White Blood Count 9.3 K/mm3 (4.8-10.8)
[2022-08-06 12:43] LABS: Blood Urea Nitrogen 38 mg/dl (9-20); Estimated Glomerular Filt Rate 67 ml/min (>60); GFR (African American) 81 ML/MIN (>60)
[2022-08-06 12:49] LABS: C-Reactive Protein 4.5 mg/L (0-4)
== END ==
LOC: LAB 12:04
PROVIDERS: PCP Internal Medicine; Visit Provider Physical Medicine & Rehabilitation
DX: E11.51 Type 2 diabetes mellitus with diabetic peripheral angiopathy without gangrene (principal); M86.9 Osteomyelitis, unspecified; Z79.4 Long term (current) use of insulin
CPT/HCPCS: 82565; 84520; 85025; 86140

== ENCOUNTER → 2022-08-15 13:11 | Outpatient (CLI) | payer MEDICARE, OTHER, SELFPAY ==
[2022-08-15 14:16] LABS: Basophils % 0.4 % (0.1-2.0); Eosinophils # 0.3 K/mm3 (0.0-0.4); Eosinophils % 4.2 % (0.1-12.0); Hematocrit 32.9 % (42.0-52.0); Hemoglobin 10.4 g/dL (14.1-18.0); Lymphocytes # 1.8 K/mm3 (0.7-4.5); Lymphocytes % 27.9 % (10-50); Mean Corpuscular HGB Conc 31.7 g/dL (31.8-35.4); Mean Corpuscular Hemoglobin 28.9 pg (27.0-31.2); Mean Corpuscular Volume 91.4 fl (80-94); Mean Platelet Volume 9.9 fl (7.4-10.4); Monocytes # 0.4 K/mm3 (0.1-1.0); Neutrophils # 3.8 K/mm3 (1.8-7.8); Neutrophils % 60.5 % (37.0-80.0); Platelet Count 274 K/mm3 (142-424); Red Cell Distribution Width 15.8 % (11.5-17.5); White Blood Count 6.3 K/mm3 (4.8-10.8)
[2022-08-15 15:41] LABS: Blood Urea Nitrogen 37 mg/dl (9-20); Estimated Glomerular Filt Rate 75 ml/min (>60); GFR (African American) 90 ML/MIN (>60)
[2022-08-15 15:47] LABS: C-Reactive Protein 3.3 mg/L (0-4)
== END ==
PROVIDERS: Visit Provider Physical Medicine & Rehabilitation
DX: E11.8 Type 2 diabetes mellitus with unspecified complications (principal); M86.9 Osteomyelitis, unspecified; Z79.4 Long term (current) use of insulin
CPT/HCPCS: 82565; 84520; 85025; 86140

== ENCOUNTER → 2022-08-21 14:43 | Outpatient (CLI) | payer MEDICARE, OTHER, SELFPAY ==
[2022-08-21 17:01] LABS: Blood Urea Nitrogen 38 mg/dl (9-20); Estimated Glomerular Filt Rate 75 ml/min (>60); GFR (African American) 90 ML/MIN (>60)
[2022-08-21 17:05] LABS: Basophils % 0.3 % (0.1-2.0); Eosinophils # 0.3 K/mm3 (0.0-0.4); Eosinophils % 2.9 % (0.1-12.0); Hemoglobin 10.7 g/dL (14.1-18.0); Lymphocytes # 1.7 K/mm3 (0.7-4.5); Lymphocytes % 20.5 % (10-50); Mean Corpuscular HGB Conc 32.3 g/dL (31.8-35.4); Mean Corpuscular Hemoglobin 29.3 pg (27.0-31.2); Mean Corpuscular Volume 90.7 fl (80-94); Mean Platelet Volume 9.7 fl (7.4-10.4); Monocytes # 0.5 K/mm3 (0.1-1.0); Monocytes % 5.9 % (1.7-9.3); Neutrophils % 70.5 % (37.0-80.0); Platelet Count 254 K/mm3 (142-424); Red Blood Count 3.64 M/mm3 (4.60-6.20); Red Cell Distribution Width 15.6 % (11.5-17.5); White Blood Count 8.5 K/mm3 (4.8-10.8)
[2022-08-21 17:06] LABS: C-Reactive Protein 3.4 mg/L (0-4)
== END ==
PROVIDERS: PCP Internal Medicine; Visit Provider Physical Medicine & Rehabilitation
DX: M86.9 Osteomyelitis, unspecified (principal); E11.8 Type 2 diabetes mellitus with unspecified complications; Z79.4 Long term (current) use of insulin
CPT/HCPCS: 82565; 84520; 85025; 86140

== ENCOUNTER → 2022-08-28 13:08 | Outpatient (CLI) | payer MEDICARE, OTHER, SELFPAY ==
[2022-08-28 13:41] LABS: Basophils % 0.4 % (0.1-2.0); Eosinophils # 0.3 K/mm3 (0.0-0.4); Eosinophils % 3.6 % (0.1-12.0); Hematocrit 36.5 % (42.0-52.0); Hemoglobin 11.3 g/dL (14.1-18.0); Lymphocytes # 1.7 K/mm3 (0.7-4.5); Mean Corpuscular HGB Conc 30.8 g/dL (31.8-35.4); Mean Corpuscular Hemoglobin 28.1 pg (27.0-31.2); Mean Corpuscular Volume 91.1 fl (80-94); Mean Platelet Volume 9.5 fl (7.4-10.4); Monocytes # 0.5 K/mm3 (0.1-1.0); Monocytes % 6.5 % (1.7-9.3); Neutrophils # 4.4 K/mm3 (1.8-7.8); Neutrophils % 64.5 % (37.0-80.0); Platelet Count 266 K/mm3 (142-424); Red Blood Count 4.01 M/mm3 (4.60-6.20); Red Cell Distribution Width 15.4 % (11.5-17.5); White Blood Count 6.9 K/mm3 (4.8-10.8)
[2022-08-28 13:58] LABS: Blood Urea Nitrogen 37 mg/dl (9-20); Estimated Glomerular Filt Rate 84 ml/min (>60); GFR (African American) 102 ML/MIN (>60)
[2022-08-28 14:37] LABS: C-Reactive Protein 2.8 mg/L (0-4)
== END ==
PROVIDERS: PCP Physical Medicine & Rehabilitation; Visit Provider Physical Medicine & Rehabilitation
DX: E11.9 Type 2 diabetes mellitus without complications (principal); M86.9 Osteomyelitis, unspecified; Z79.4 Long term (current) use of insulin
CPT/HCPCS: 82565; 84520; 85025; 86140

== ENCOUNTER 2022-09-05 08:16 | Emergency (ER) | payer MEDICARE, OTHER, SELFPAY ==
[2022-09-05 08:25] VITALS: BP 159/68; PULSE 65; RESP 18; TEMP 36.5; O2SAT 99; BMI 23.6
--- NOTE | 2022-09-05 08:32 | EXP.UTC ---
Discharge Plan Disposition Patient Disposition: Home, Self-Care Condition: Good Prescriptions Prescriptions: No Action irbesartan 300 mg tablet 300 mg PO DAILY aspirin [Adult Low Dose Aspirin] 81 mg tablet,delayed release (DR/EC) 81 mg PO DAILY carvedilol 6.25 mg tablet 6.25 mg PO Q12H Rx Instructions: 2-6.25 mg in AM and 1-6.25 in PM gabapentin 300 mg capsule 300 mg PO BID alprazolam 0.25 mg tablet 0.25 mg PO DAILY Label Comments: now 1/2 tablet every other day sertraline 50 mg tablet 50 mg PO DAILY diclofenac sodium 1 % gel 2 g TP QID Rx Instructions: apply to single elbow, wrist or hand; for hand includes palm/fingers/back of hand oxymetazoline [Afrin (oxymetazoline)] 0.05 % spray,non-aerosol 2 spray NS Q12H PRN (Reason: allergies) atorvastatin 80 mg tablet 80 mg PO DAILY famotidine 20 mg tablet 20 mg PO DAILY rivaroxaban 2.5 mg tablet 2.5 mg PO BID Lantus U-100 Insulin 100 unit/mL solution 40 unit SQ QHS Trijardy XR 12.5-2.5-1,000 mg tablet, IR - ER, biphasic 24hr 1 tab PO DAILY amlodipine 10 mg tablet 10 mg PO BID Qty: 60 5RF Myrbetriq 50 mg tablet extended release 24 hr 50 mg PO DAILY Qty: 30 5RF terazosin 10 mg capsule 10 mg PO HS Qty: 90 3RF tolterodine 4 mg capsule,extended release 24hr 4 mg PO DAILY Qty: 30 5RF levofloxacin 500 mg tablet 500 mg PO DAILY Qty: 14 0RF nitroglycerin 0.4 mg tablet, sublingual 0.4 mg SL Q5M PRN (Reason: chest pain) Qty: 20 0RF Rx Instructions: do not exceed 3 doses per episode doxycycline hyclate 100 mg tablet 100 mg PO BID Qty: 20 0RF terazosin 10 mg capsule 10 mg PO DAILY Qty: 90 3RF solifenacin 10 mg tablet 10 mg PO DAILY Qty: 90 3RF solifenacin 10 MG tablet 10 mg PO DAILY memantine 10 MG tablet 10 mg PO BID Rx Instructions: Begin after completing memantine 5 mg p.o. twice daily x1 month Referrals Follow up/Referrals: Sreedhar Chavez MD [Primary Care Provider] - See instructions Activity Restrictions/Add. Instructions Additional Instructions/Restrictions: Rest as much as you can for the next several days. Take ibuprofen for pain if you are allowed to take it. Use the incentive spirometer 10 times every 2 hours while you are awake for the next few weeks. GO TO THE ER FOR ANY WORSENING SYMPTOMS Clinical Impressions Clinical Impression: Contusion of rib on left side Instructions Patient Instructions: DI for Rib Contusion Discharge ED Provider: Alan Mancini [facility] HPI General Stated complaint: Fall@home 09/02 LT side rib pain Time Seen by Provider: 09/05/22 08:32 History of Present Illness Provider Complaint: He states that yesterday he bent over the console in his truck and felt something pop in his left ribs. Since then he has had left rib pain with breathing and coughing. He states that he had trouble getting comfortable to sleep last night. Related Data Home Medications Medication Instructions Recorded Confirmed aspirin 81 mg tablet,delayed 81 mg PO DAILY Blood thinner 03/01/21 05/30/22 release (Adult Low Dose Aspirin) irbesartan 300 mg tablet 300 mg PO DAILY blood pressure 03/01/21 05/30/22 empagliflozin 12.5 mg-linaglipt 1 tab PO DAILY Diabetes 03/14/21 05/30/22 2.5 mg-metform ER 1,000 mg tablet,24hr (Trijardy XR) alprazolam 0.25 mg tablet 0.25 mg PO DAILY Anxiety 06/13/21 05/30/22 sertraline 50 mg tablet 50 mg PO DAILY Depression 06/13/21 05/30/22 diclofenac sodium 1 % topical gel 2 g topical QID muscle pain 07/18/21 05/30/22 insulin glargine 100 unit/mL 40 unit SQ QHS Diabetes 07/18/21 05/30/22 subcutaneous solution (Lantus U-100 Insulin) oxymetazoline 0.05 % nasal spray 2 spray intranasal Q12H PRN 07/18/21 05/30/22 (Afrin (oxymetazoline)) allergies solifenacin 10 mg tablet 10 mg PO DAILY bladder spasm 07/19/21 05/30/22 atorvastatin 80
--- NOTE | 2022-09-05 08:36 | XR_ITS ---
FINAL REPORT CLINICAL HISTORY: LEFT LOWER RIB PAIN FINDINGS: 3 views of the left ribs were obtained. There are no rib fractures. There is no pleural fluid collection or pneumothorax. A single view of the chest demonstrates no acute cardiopulmonary process. An implantable loop recorder is present. IMPRESSION: Unremarkable left rib series. Reviewed, Interpreted and Dictated by Yovani Garcia MD Transcribed by Young Hand Authenticated and [facility]
[2022-09-05 09:14] VITALS: BP 159/68; PULSE 65; RESP 18; TEMP 36.5; O2SAT 99; BMI 23.6
[2022-09-05 10:16] VITALS: BP 159/68; PULSE 65; RESP 18; TEMP 36.5
== END 2022-09-05 10:18 | disposition home or self-care (01) ==
LOC: ER 08:30 → UTC 08:30
PROVIDERS: Emergency Provider Nurse Practitioner Family; PCP Internal Medicine
DX: S20.212A Contusion of left front wall of thorax, initial encounter (principal); X50.1XXA Overexertion from prolonged static or awkward postures, initial encounter
CPT/HCPCS: 71101; 99212; G0463

== ENCOUNTER → 2022-11-30 16:55 | Outpatient (CLI) | payer MEDICARE, OTHER, SELFPAY ==
[2022-11-30 17:50] LABS: Basophils # 0.1 K/mm3 (0-0.2); Basophils % 0.9 % (0.1-2.0); Eosinophils # 0.2 K/mm3 (0.0-0.4); Eosinophils % 2.6 % (0.1-12.0); Hematocrit 38.1 % (42.0-52.0); Hemoglobin 11.9 g/dL (14.1-18.0); Lymphocytes # 2.5 K/mm3 (0.7-4.5); Lymphocytes % 38.3 % (10-50); Mean Corpuscular HGB Conc 31.4 g/dL (31.8-35.4); Mean Corpuscular Hemoglobin 27.5 pg (27.0-31.2); Mean Corpuscular Volume 87.8 fl (80-94); Mean Platelet Volume 9.7 fl (7.4-10.4); Monocytes # 0.4 K/mm3 (0.1-1.0); Monocytes % 6.7 % (1.7-9.3); Neutrophils # 3.3 K/mm3 (1.8-7.8); Neutrophils % 51.5 % (37.0-80.0); Platelet Count 241 K/mm3 (142-424); Red Blood Count 4.34 M/mm3 (4.60-6.20); Red Cell Distribution Width 17.7 % (11.5-17.5); White Blood Count 6.5 K/mm3 (4.8-10.8)
[2022-11-30 18:55] LABS: Alanine Aminotransferase 80 U/L (12-78); Albumin Level 4.5 g/dl (3.5-5.0); Albumin/Globulin Ratio 1.5 (1.1-1.8); Alkaline Phosphatase 107 U/L (38-126); Anion Gap 15.1 mEq/L (5-15); Aspartate Amino Transferase 59 U/L (17-59); Bilirubin,Total 0.3 mg/dl (0.2-1.3); Blood Urea Nitrogen 44 mg/dl (9-20); Calcium 9.3 mg/dl (8.4-10.2); Carbon Dioxide 26 mmol/L (22.0-30.0); Chloride 105 mmol/L (98-107); Chol/HDL Ratio 2.8 (1-3.5); Cholesterol 125 mg/dl (140-200); Estimated Glomerular Filt Rate 40 ml/min (>60); GFR (African American) 49 ML/MIN (>60); Glucose 202 mg/dl (74-100); HDL Cholesterol 44 mg/dl (40-60); Potassium 5.1 mmoL/L (3.5-5.1); Sodium 141 mmol/L (136-145); Total Protein,Serum 7.5 g/dl (6.3-8.2); Triglycerides 130 mg/dl (30-150); VLDL Cholesterol 26 mg/dL (0-40)
[2022-11-30 19:06] LABS: Direct LDL Cholesterol 53.51 mg/dL (100-129)
[2022-11-30 19:12] LABS: Hemoglobin A1C 11.9 % (4.0-6.0)
== END ==
PROVIDERS: PCP Internal Medicine; Visit Provider Internal Medicine
DX: E11.42 Type 2 diabetes mellitus with diabetic polyneuropathy (principal); Z79.4 Long term (current) use of insulin
CPT/HCPCS: 80053; 80061; 83036; 85025

== ENCOUNTER → 2023-01-02 13:16 | Outpatient (CLI) | payer MEDICARE, OTHER, SELFPAY ==
--- NOTE | 2023-01-02 13:20 | US_ITS ---
FINAL REPORT CLINICAL HISTORY: ELEVATED LIVER FUNCTION FINDINGS: Limited sonographic images of the pelvis were obtained. The urinary bladder measures 7.2 x 4.6 x 6.1 cm. Pre void volume measures 107.12 mL. Post void volume measures 63.60 mL. An enlarged prostate is noted. IMPRESSION: Moderate postvoid residual. Enlarged prostate. Reviewed, Interpreted and Dictated by Johan Patton III, MD Transcribed by Eva Biswas Authenticated and [facility]
--- NOTE | 2023-01-02 13:20 | US_ITS ---
FINAL REPORT CLINICAL HISTORY: . FINDINGS: The right kidney measures 10.7 cm in length. It is normal in echogenicity. There is no hydronephrosis. There is an 11 mm cyst in the upper pole of the right kidney. The left kidney measures 9.5 cm in length. It is normal in echogenicity. There is no hydronephrosis. There is an 8 mm left renal cyst. The spleen is within normal limits. IMPRESSION: Bilateral renal cysts. Reviewed, Interpreted and Dictated by Johan Patton III, MD Transcribed by Eva Biswas Authenticated and . [facility]
== END ==
PROVIDERS: PCP Internal Medicine; Visit Provider Internal Medicine
DX: R94.4 Abnormal results of kidney function studies (principal)
CPT/HCPCS: 76770; 76857

== ENCOUNTER → 2023-01-25 10:51 | Outpatient (CLI) | payer MEDICARE, OTHER, SELFPAY ==
--- NOTE | 2023-01-25 10:55 | CA_ITS ---
FINAL REPORT TECHNIQUE: Color Doppler, duplex Doppler and ndiaye scale sonography of the bilateral neck arterial vasculature was performed. Velocities were measured in the carotid arteries. Stenosis evaluation based on the validated velocity criteria. CLINICAL HISTORY: ANGELLA-carotid bruit bilateral., HTN, history TIA/CVA, hyperlipidemia, DM, previous carotid duplex 08/2021 demonstrated 50-69% stenosis CORAL and 20-49% stenosis LICA. CAD, PAD. FINDINGS: The peak systolic velocity of the right common carotid artery is 94 cm/s. The peak systolic velocity of the right internal carotid artery is 208 cm/s and end diastolic velocity 41 cm/s. The ICA/CCA ratio is 2.6. A moderate amount of plaque is present. The right external carotid artery is patent. The right vertebral artery is patent with antegrade flow. The peak systolic velocity of the left common carotid artery is 95 cm/s. The peak systolic velocity of the left internal carotid artery is 116 cm/s and end diastolic velocity 37 cm/s. The ICA/CCA ratio is 2.1. A small amount of plaque is present. The left external carotid artery is patent.The left vertebral artery is patent with antegrade flow. IMPRESSION: 50-69% carotid stenosis on the right. Less than 50% carotid stenosis on the left. Bilateral patent vertebral arteries with antegrade flow. If indicated, CTA or MRA could further evaluate. Reviewed, Interpreted and Dictated by Elicia Sharp MD Transcribed by Eva Biswas Authenticated and [facility]
== END ==
PROVIDERS: PCP Internal Medicine; Visit Provider Internal Medicine
DX: I65.23 Occlusion and stenosis of bilateral carotid arteries (principal)
CPT/HCPCS: 93880

== ENCOUNTER → 2023-03-05 16:59 | Outpatient (CLI) | payer MEDICARE, OTHER, SELFPAY ==
[2023-03-05 17:32] LABS: Amylase 91 U/L (30-110)
[2023-03-05 17:53] LABS: Basophils % 0.1 % (0.1-2.0); Eosinophils # 0.1 K/mm3 (0.0-0.4); Eosinophils % 1.3 % (0.1-12.0); Hematocrit 41.3 % (42.0-52.0); Hemoglobin 12.9 g/dL (14.1-18.0); Lymphocytes # 1.9 K/mm3 (0.7-4.5); Mean Corpuscular HGB Conc 31.2 g/dL (31.8-35.4); Mean Corpuscular Hemoglobin 28.3 pg (27.0-31.2); Mean Corpuscular Volume 90.8 fl (80-94); Mean Platelet Volume 10.1 fl (7.4-10.4); Monocytes # 0.5 K/mm3 (0.1-1.0); Monocytes % 5.9 % (1.7-9.3); Neutrophils % 70.8 % (37.0-80.0); Platelet Count 222 K/mm3 (142-424); Red Blood Count 4.55 M/mm3 (4.60-6.20); Red Cell Distribution Width 15.3 % (11.5-17.5); White Blood Count 8.5 K/mm3 (4.8-10.8)
[2023-03-05 18:11] LABS: Hemoglobin A1C 8.3 % (4.0-6.0)
== END ==
PROVIDERS: PCP Internal Medicine; Visit Provider Internal Medicine
DX: R10.13 Epigastric pain (principal); E11.59 Type 2 diabetes mellitus with other circulatory complications; E11.42 Type 2 diabetes mellitus with diabetic polyneuropathy; I10 Essential (primary) hypertension; I73.9 Peripheral vascular disease, unspecified; R41.3 Other amnesia; G47.33 Obstructive sleep apnea (adult) (pediatric); Z86.73 Personal history of transient ischemic attack (TIA), and cerebral infarction without residual deficits; Z79.4 Long term (current) use of insulin
CPT/HCPCS: 82150; 83036; 85025

== ENCOUNTER → 2023-03-13 16:58 | Outpatient (CLI) | payer MEDICARE, OTHER, SELFPAY ==
--- NOTE | 2023-03-13 17:01 | XR_ITS ---
PROCEDURE INFORMATION: Exam: XR Left Hand Exam date and time: 03/13/2023 3:45 PM Age: 67 years old Clinical indication: Pain; Hand; Left TECHNIQUE: Imaging protocol: Radiologic exam of the left hand. Views: 3 or more views. COMPARISON: NM BONE SCAN WHOLE BODY 03/03/2021 1:03 PM FINDINGS: Bones/joints: Periarticular osteopenia. Soft tissues: Normal. IMPRESSION: No acute findings.
--- NOTE | 2023-03-13 17:01 | XR_ITS ---
PROCEDURE INFORMATION: Exam: XR Left Elbow Exam date and time: 03/13/2023 3:50 PM Age: 67 years old Clinical indication: Pain; Elbow; Left TECHNIQUE: Imaging protocol: Radiologic exam of the left elbow. Views: 3 or more views. COMPARISON: NM BONE SCAN WHOLE BODY 03/03/2021 1:03 PM FINDINGS: Bones/joints: Normal. Soft tissues: Normal. IMPRESSION: No acute findings.
--- NOTE | 2023-03-13 17:02 | XR_ITS ---
PROCEDURE INFORMATION: Exam: XR Left Forearm Exam date and time: 03/13/2023 3:48 PM Age: 67 years old Clinical indication: Pain; Lower or forearm; Left TECHNIQUE: Imaging protocol: Radiologic exam of the left forearm. Views: 2 views. COMPARISON: CR XR HAND LT MIN 3V 03/13/2023 3:45 PM FINDINGS: Bones/joints: Normal. Soft tissues: Normal. IMPRESSION: No acute findings.
== END ==
PROVIDERS: PCP Internal Medicine; Visit Provider Internal Medicine
DX: M25.522 Pain in left elbow (principal); M79.632 Pain in left forearm; M79.642 Pain in left hand
CPT/HCPCS: 73080; 73090; 73130

== ENCOUNTER → 2023-03-14 08:49 | Outpatient (CLI) | payer MEDICARE, OTHER, SELFPAY ==
--- NOTE | 2023-03-14 08:54 | US_ITS ---
FINAL REPORT CLINICAL HISTORY: EPIGASTRIC PAIN FINDINGS: Sonographic images of the abdomen were obtained. There is a 13 mm hyperechoic lesion in the liver which is nonspecific, may represent a hemangioma. There is a 10 mm cyst in the right hepatic lobe. There are hyperechoic foci in the gallbladder without well demonstrated shadowing, may represent tumefactive sludge or small stones with poorly demonstrated shadowing. There is no evidence of biliary ductal dilatation. The common hepatic duct measures 3 mm, which is within normal limits. Limited images of the pancreas are unremarkable. The spleen size is normal. The right kidney measures 11.1 in length. There is a 1.2 cm right renal cyst. The left kidney measures 9.1 in length. There is normal renal echogenicity. There is no evidence of hydronephrosis. The aorta has an unremarkable appearance. Limited images of the inferior vena cava are unremarkable. IMPRESSION: The hepatic and liver cysts as detailed above. Findings may represent tumefactive sludge or small stones with poor the demonstrated shadowing. Follow-up ultrasound may be helpful. Reviewed, Interpreted and Dictated by Johan Patton III, MD Transcribed by Eva Biswas Authenticated and [facility]
== END ==
PROVIDERS: PCP Internal Medicine; Visit Provider Internal Medicine
DX: R10.13 Epigastric pain (principal)
CPT/HCPCS: 76700

== ENCOUNTER → 2023-03-22 09:48 | Outpatient (CLI) | payer MEDICARE, OTHER, SELFPAY ==
--- NOTE | 2023-03-22 09:57 | FL_ITS ---
FINAL REPORT CLINICAL HISTORY: EPIGASTRIC PAIN 1.28 fluoro time FINDINGS: UPPER GI EXAM HISTORY: Epigastric pain. PROCEDURE: The patient ingested barium. Effervescent crystals were also administered. Spot and overhead films were obtained. FINDINGS: There was ed aspiration to initial swallows of thickened barium. There is esophageal dysmotility. There is no gastroesophageal reflux. Evaluation of the stomach is mildly limited secondary to small amounts of contrast administered because of the patient's aspiration. There is debris within the stomach. The rugal fold pattern of the stomach is otherwise normal. The duodenal bulb is normal. IMPRESSION: 1. Ed aspiration of barium. This finding was phoned to the patient's physician. 2. Esophageal dysmotility. 3. Small amount of debris within the stomach despite nothing by mouth status. Films reviewed , interpreted and dictated by Dr. Patton Transcribed by Cipriano Vincent PA-C. Reviewed, Interpreted and Dictated by Johan Patton III, MD Transcribed by BESS Grimes Authenticated and [facility]
== END ==
PROVIDERS: PCP Internal Medicine; Visit Provider Internal Medicine
DX: R10.13 Epigastric pain (principal)
CPT/HCPCS: 74246

== ENCOUNTER 2023-04-01 14:34 | Outpatient (RCR) | payer MEDICARE, OTHER, SELFPAY ==
--- NOTE | 2023-04-01 15:47 | HMH.SLDYSPHA ---
Speech & Language Evaluation Speech/Language Dysphagia Evaluation Start: 04/01/23 15:28 Freq: ONCE Status: Active Protocol: Document 04/01/23 15:28 [place] (Rec: 04/01/23 15:47 FLORENCE [id number]) Dysphagia Assess/Goals/Plan Assessment Date of Evaluation: 04/01/23 Evaluation Type Initial Certification Assessment/Problems Aspiration on upper GI Does Patient Qualify for Service Yes Qualify/Failure Comment Based on the results of the clinical swallow evaluation, pt would benefit from further assessment via MBSS to determine current swallow function and LRD. Recommendations PHYSICIAN CERTIFICATION: The specified therapy services are required, authorized, and reviewed every 30 days. Diet Recommendations Pending MBSS SL Swallow Guidelines Standard Aspiration Prec. Dysphagia Swallow Precautions/Strategies Sitting Upright (90 deg),Small Bites and Sips,Alternate Liquids/Solids Place Food on Either side of Mouth Additional Consults Recommended Other Comment ENT consult given pt complaints of dysphonia, MBSS given previous report of aspiration. Plan Pt/Guardian verbally ack understanding Yes of dx/prognosis/goals Pt/Guardian verbally ack understanding Yes of/consent to tx prog G -code Required No Education Instructions provided CSE results, recommendations and POC discussed with pt and pt's who expressed understanding. Pt/Caregiver able to recall information Able to recall/restate Reinforcement needed No Speech & Language HPI History Present Illness Description of Patient Problem Mr. Hollis is a 67 y.o. male presenting with c/o difficulty swallowing and dysphonia. He also had an upper GI completed which reported ed aspiration. His reports that they sit up in bed to eat meals and does not cough often during meals at home. She reprorts that his swallowing has improved, but he is still only able to take small sips and has concerns regarding his intake volume. He has a history of multiple
== END 2023-04-01 14:35 | disposition home or self-care (01) ==
LOC: ST 14:34
PROVIDERS: PCP Internal Medicine; Visit Provider Internal Medicine
DX: J98.8 Other specified respiratory disorders (principal)
CPT/HCPCS: 92610

== ENCOUNTER → 2023-04-29 10:45 | Outpatient (CLI) | payer MEDICARE, OTHER, SELFPAY ==
--- NOTE | 2023-04-29 10:49 | FL_ITS ---
FINAL REPORT CLINICAL HISTORY: dysphagia ft: 3:53 FINDINGS: MODIFIED BARIUM SWALLOW History: Dysphagia. FINDINGS: Fluoroscopy was provided for the speech pathologist to evaluate the swallowing mechanism. The patient was given several different consistencies of barium while the swallow was visualized fluoroscopically. The report of the speech pathologist should be consulted prior to making dietary decisions. FLUOROSCOPY TIME: 3 minutes 53 seconds. 12 cine runs were obtained. IMPRESSION: Modified barium swallow under fluoroscopic guidance. Please see the report of the speech pathologist for more detail. Films reviewed , interpreted and dictated by Dr. Patton. Transcribed by Alvino Vivar PA-C. Reviewed, Interpreted and Dictated by Johan Patton III, MD Transcribed by BESS [place] Authenticated and [facility]
--- NOTE | 2023-04-29 13:37 | HMH.SLMBS2 ---
Speech & Language Evaluation Speech/Language Mod Barium Swallow Start: 04/29/23 11:59 Freq: once Status: Complete Protocol: Document 04/29/23 13:15 [place]OR[place] (Rec: 04/29/23 13:37 FLORENCE [id number]) General Information General Current Food Consistency Regular,Thin Liquids Oxygen Status Room Air Facial Symmetry Symmetrical Patient Orientation Person,Place Ability to Follow Directions Good Communication Ability No Impairment MBS Recommendations Diet Dietary Recommendations Regular,Thin Liquids Treatment/Strategies Strategy/Precaution Recommend Sitting Upright (90 deg),Small Bites and Sips,Alternate Liquids/Solids Referrals/Other Recommended Referrals ENT Consult Other Recommendations Pt and spouse c/o dysphonia. Mod Barium Swallow Impressions Summary and Impressions Oral Phase Impression Mild Impairment Oral Phase Summary Mild impairment of the oral phase of swallowing. bolus spilled onto floor of mouth 2' tongue pumping. Mastication was prolonged on regular food trial. AP transit was delayed 2' tongue pumping, which is typical with the progression of dementia. Pharyngeal Phase Impression Mild Impairment Pharyngeal Phase Summary Mild impairment of the pharyngeal phase of swallowing . No aspiration/penetration noted on any trials. Incomplete epiglottic inversion noted on all trials. Decreased stripping noted on thin liquid trials from cup and straw. Moderate residue found in the pyriform sinuses on thin straw, puree, mech soft, and thin consecutive sips, which was able to be cleared with subsequent swallows and liquid wash. Mild posterior pharyngeal wall residue noted on puree, mech soft, and food trials. Decreased hyolaryngeal excursion noted on all trials. Base of tongue was adequate. During pill trial, pill became trapped in vallecula, which
== END ==
PROVIDERS: PCP Internal Medicine; Visit Provider Internal Medicine
DX: R13.10 Dysphagia, unspecified (principal)
CPT/HCPCS: 70371; 92611

== ENCOUNTER → 2023-07-02 13:52 | Outpatient (CLI) | payer MEDICARE, OTHER, SELFPAY ==
--- NOTE | 2023-07-02 13:54 | US_ITS ---
FINAL REPORT CLINICAL HISTORY: ABD PAIN,? GALLSTONES FINDINGS: Ultrasound images of the right upper quadrant were obtained. The liver parenchyma is normal in echogenicity. There is a 1.2 cm hepatic cyst. The gallbladder is well visualized and the wall appears normal. There is tumefactive sludge versus stones without well-defined shadowing in the gallbladder. The common duct is normal. Limited images of the right kidney are unremarkable. IMPRESSION: Tumefactive sludge versus gallstones without well-defined shadowing in the gallbladder. Reviewed, Interpreted and Dictated by Johan Patton III, MD Transcribed by Young Hand Authenticated and [facility]
== END ==
PROVIDERS: PCP Internal Medicine; Visit Provider Internal Medicine
DX: R10.11 Right upper quadrant pain (principal)
CPT/HCPCS: 76705

== ENCOUNTER → 2023-07-16 16:49 | Outpatient (CLI) | payer MEDICARE, OTHER, SELFPAY ==
[2023-07-16 17:28] LABS: Basophils % 0.1 % (0.1-2.0); Eosinophils # 0.1 K/mm3 (0.0-0.4); Eosinophils % 2.1 % (0.1-12.0); Hematocrit 44.3 % (42.0-52.0); Hemoglobin 13.6 g/dL (14.1-18.0); Lymphocytes # 2.2 K/mm3 (0.7-4.5); Lymphocytes % 31.4 % (10-50); Mean Corpuscular HGB Conc 30.8 g/dL (31.8-35.4); Mean Corpuscular Hemoglobin 28.1 pg (27.0-31.2); Mean Corpuscular Volume 91.3 fl (80-94); Mean Platelet Volume 9.5 fl (7.4-10.4); Monocytes # 0.4 K/mm3 (0.1-1.0); Monocytes % 6.4 % (1.7-9.3); Neutrophils # 4.2 K/mm3 (1.8-7.8); Neutrophils % 59.9 % (37.0-80.0); Platelet Count 210 K/mm3 (142-424); Red Blood Count 4.85 M/mm3 (4.60-6.20); Red Cell Distribution Width 15.1 % (11.5-17.5); White Blood Count 6.9 K/mm3 (4.8-10.8)
[2023-07-16 18:45] LABS: Hemoglobin A1C 8.9 % (4.0-6.0)
[2023-07-16 19:02] LABS: Alanine Aminotransferase 37 U/L (12-78); Albumin Level 4.3 g/dl (3.5-5.0); Albumin/Globulin Ratio 1.4 (1.1-1.8); Alkaline Phosphatase 123 U/L (38-126); Anion Gap 14.3 mEq/L (5-15); Aspartate Amino Transferase 36 U/L (17-59); Bilirubin,Total 0.3 mg/dl (0.2-1.3); Blood Urea Nitrogen 43 mg/dl (9-20); Calcium 9.6 mg/dl (8.4-10.2); Carbon Dioxide 27 mmol/L (22.0-30.0); Chloride 104 mmol/L (98-107); Chol/HDL Ratio 3.4 (1-3.5); Cholesterol 159 mg/dl (140-200); Estimated Glomerular Filt Rate 55 ml/min (>60); GFR (African American) 66 ML/MIN (>60); Glucose 205 mg/dl (74-100); HDL Cholesterol 47 mg/dl (40-60); Potassium 4.3 mmoL/L (3.5-5.1); Sodium 141 mmol/L (136-145); Total Protein,Serum 7.3 g/dl (6.3-8.2); Triglycerides 208 mg/dl (30-150); VLDL Cholesterol 42 mg/dL (0-40)
[2023-07-16 19:13] LABS: Direct LDL Cholesterol 71.34 mg/dL (100-129)
== END ==
PROVIDERS: PCP Internal Medicine; Visit Provider Internal Medicine
DX: E11.42 Type 2 diabetes mellitus with diabetic polyneuropathy (principal); I10 Essential (primary) hypertension; E78.5 Hyperlipidemia, unspecified; I73.9 Peripheral vascular disease, unspecified; R41.3 Other amnesia; Z86.73 Personal history of transient ischemic attack (TIA), and cerebral infarction without residual deficits
CPT/HCPCS: 80053; 80061; 83036; 85025

== ENCOUNTER → 2023-07-30 13:45 | Outpatient (CLI) | payer MEDICARE, OTHER, SELFPAY ==
--- NOTE | 2023-07-30 13:47 | CA_ITS ---
FINAL REPORT CLINICAL HISTORY: ANGELLA, Hx- strokes FINDINGS: An ultrasound of the carotid arteries was performed. Duplex Doppler evaluation with spectral analysis was performed. The peak systolic velocity of the right common carotid artery is 122 cm/s. The peak systolic velocity of the right internal carotid artery is 225 cm/s and end diastolic velocity 42 cm/s. A moderate to large amount of plaque is present. The right vertebral artery is patent with antegrade flow. ICA/CCA ratio: 1.90 The peak systolic velocity of the left common carotid artery is 70 cm/s. The peak systolic velocity of the left internal carotid artery is 135 cm/s and end diastolic velocity 33 cm/s. A moderate to large amount of plaque is present. The left vertebral artery is patent with antegrade flow. ICA/CCA ratio: 2.20 Bilateral patent vertebral arteries with antegrade flow. There is significant stenosis of the bilateral ECA's. IMPRESSION: Greater than 70% right ICA stenosis. Less than 50% left ICA stenosis. Significant stenosis of the bilateral ECA's. Reviewed, Interpreted and Dictated by Johan Patton III, MD Transcribed by Young Hand Authenticated and . [facility]
== END ==
PROVIDERS: PCP Internal Medicine; Visit Provider Internal Medicine
DX: I25.10 Atherosclerotic heart disease of native coronary artery without angina pectoris; R09.89 Other specified symptoms and signs involving the circulatory and respiratory systems; M86.9 Osteomyelitis, unspecified; E11.9 Type 2 diabetes mellitus without complications; Z79.4 Long term (current) use of insulin
CPT/HCPCS: 93880

== ENCOUNTER 2023-08-15 11:50 | Day surgery (SDC) | payer MEDICARE, OTHER, SELFPAY ==
[2023-08-15 12:36] VITALS: BP 194/107; PULSE 73; RESP 18; TEMP 36.8; O2SAT 98; BMI 24.9
--- NOTE | 2023-08-15 12:43 | P.PNANES_ITS ---
[facility] Disclaimer: The information contained in this section may have been updated after the patient was seen, as this information can be updated by other users. Medical History Abnormal ankle brachial index (YOSEF) Abnormal EKG Amputation of toe of right foot CAD (coronary artery disease) Claudication Diabetes type 2 with atherosclerosis of arteries of extremities Dysphagia Family history of heart disease HLD (hyperlipidemia) HTN (hypertension) ADRIANO (obstructive sleep apnea) PAD (peripheral artery disease) CHRISTI (renal artery stenosis) Tobacco dependence syndrome Family History (Updated 08/15/23 @ 12:45 by Lisy Crystal RN) Other Family history of diabetes mellitus type II Family history of hypertension Family history of stroke Social History Smoking Status: Former smoker tobacco type: cigarettes packs per day: 1 second hand exposure: No alcohol intake: never substance use type: denies use current occupational status: retired Travel in the last 8 weeks: None household members: spouse housing: house current occupational exposures/hazards: No caffeine: No [facility] Anesthesia Checklist Patient Identification Patient Identification: Arm Band and Verbal (Name & ) Structural Data Admitted From: Home Planned Operative Procedure/s: Egd/Colonoscopy Consent for Planned Operative Procedure(s) Verified: Yes NPO Status Verified Time NPO: 00:00 Additional verifications Anesthesia Reactions: No Airway Assessment Mallampati Score:: Class IV C-Spine Mobility Assessed: Yes TMJ Mobility Assessed: Yes Dentition: Edentulous Neurological Assessment Level of Consciousness: Awake Hx Seizures: No Numbness or tingling in extremities: No Anesthesia Plan Anesthesia Risk discussed: Yes Anesthesia Plan: Verified ASA Class: III Anesthesia Type: MAC
[2023-08-15 12:44] LABS: POC Glucose,Bedside 140 (70-110)
[2023-08-15 13:01] VITALS: O2SAT 100
[2023-08-15 13:25] VITALS: BP 93/58; PULSE 68; RESP 16; TEMP 36.6; O2SAT 90
--- NOTE | 2023-08-15 13:25 | HMH.SCOPE ---
Procedure: Date: 08/15/23 Patient Date of :: 1955 Procedure Performed:: EGD with dilation Indications:: Dysphagia Performing Provider:: Ena Cazares MD Referring Provider:: Siobhan Cazares APRN Sedation:: Propofol Procedure:: The gastroscope was gently passed through the incisoral orifice into the oral cavity and under direct visualization the esophagus was intubated. The endoscope was passed down the esophagus, through the stomach, and into the duodenum. Color, texture, mucosa, and anatomy of the esophagus, stomach, and duodenum were carefully examined with the scope. Findings:: Oropharynx: normal Esophagus: normal, empiric dilation performed with several passes of the 58F bougie dilator EG Junction: intact at 40 cm Cardia: normal Fundus: normal Body: normal Antrum: normal Duodenal bulb: normal Duodenum (second and third portion): normal Impression: Symptomatic dysphagia treated with bougie dilation Recommendations:: F/U EGD and dilation in about THREE years or so, sooner if clinically indicated Complications:: None Estimated blood obtained (mL): 0 Colonoscopy Component Colonoscopy Component Was a colonoscopy performed during today's procedure?: No
--- NOTE | 2023-08-15 13:27 | HMH.SCOPE ---
Procedure: Date: 08/15/23 Patient Date of :: 1955 Procedure Performed:: Screening colonoscopy Indications:: Colon cancer screening Performing Provider:: Ena Cazares MD Referring Provider:: Carrie Cazares APRN Sedation:: Propofol Procedure:: Procedure terminated due to extremely poor prep Findings:: Large amount of semi-solid fecal material remaining in colon. Appropriate visualization was not possible. Procedure terminated. Recommendations:: Consider repeat colonoscopy attempt after two day prep with dual colon preps Complications:: None Estimated blood obtained (mL): 0 Colonoscopy Component Colonoscopy Component Was a colonoscopy performed during today's procedure?: Yes Recommended follow up colonoscopy of at least 10 years?: No If no, follow up colonoscopy recommended in ___ years?: To be rescheduled, procedure terminated Reason for not recommending >/= 10 yr follow-up interval?: Poor colon prep
[2023-08-15 13:35] VITALS: BP 101/58; PULSE 65; RESP 18; O2SAT 95
[2023-08-15 13:45] VITALS: BP 118/64; PULSE 69; RESP 18; O2SAT 93
[2023-08-15 13:55] VITALS: BP 105/60; PULSE 65; RESP 18; O2SAT 93
--- NOTE | 2023-08-15 14:14 | SUR.PHASEII ---
assisted pt in cleaning him up after stooling.
== END 2023-08-15 14:15 | disposition home or self-care (01) ==
PROVIDERS: PCP Internal Medicine; Visit Provider Internal Medicine Gastroenterology
PROC: 0DJ08ZZ Inspection of Upper Intestinal Tract, Via Natural or Artificial Opening Endoscopic (ICD-10-PCS; CPT 43235; principal; 2023-08-15 13:00)
DX: R13.10 Dysphagia, unspecified (principal); Z12.11 Encounter for screening for malignant neoplasm of colon; Z91.199 Patient's noncompliance with other medical treatment and regimen due to unspecified reason; E11.9 Type 2 diabetes mellitus without complications
CPT/HCPCS: 43248; G0121; 82962

== ENCOUNTER 2023-11-03 13:49 | Inpatient (IN) | payer MEDICARE, OTHER, SELFPAY ==
[2023-11-03] VITALS (12 sets, daily range): BP systolic 124–197; BP diastolic 74–107; PULSE 67–110; RESP 16–20; TEMP 36–43; O2SAT 92–98; BMI 26.6
--- NOTE | 2023-11-03 14:08 | HMH.EDGENADL ---
Discharge Plan Disposition Patient Disposition: Home, Self-Care Chief Complaint: Abdominal Pain Prescriptions Prescriptions: No Action aspirin [Adult Low Dose Aspirin] 81 mg tablet,delayed release (DR/EC) 81 mg PO DAILY alprazolam 0.25 mg tablet 0.25 mg PO DAILY Patient Comments: now 1/2 tablet every other day sertraline 50 mg tablet 50 mg PO DAILY diclofenac sodium 1 % gel 2 g TP QID Rx Instructions: apply to single elbow, wrist or hand; for hand includes palm/fingers/back of hand oxymetazoline [Afrin (oxymetazoline)] 0.05 % spray,non-aerosol 2 spray NS Q12H PRN (Reason: allergies) atorvastatin 80 mg tablet 80 mg PO DAILY famotidine 20 mg tablet 20 mg PO BID sennosides [Natural Senna Laxative] 8.6 mg tablet 8.6 mg PO BID losartan 100 mg tablet 100 mg PO DAILY oxycodone 5 mg tablet 10 mg PO Q4H Novolin R FlexPen 100 unit/mL (3 mL) insulin pen 1 sliding scale dose SQ USEASDIRECTD Xarelto 20 mg tablet 20 mg PO DAILY gabapentin 400 mg capsule 400 mg PO BID Jardiance 25 mg tablet 25 mg PO DAILY oxybutynin chloride 5 mg tablet extended release 24hr 5 mg PO DAILY carvedilol 12.5 mg tablet 12.5 mg PO BID insulin glargine [Lantus Solostar U-100 Insulin] 100 unit/mL (3 mL) insulin pen 33 unit SQ HS fluticasone propionate [Flonase Allergy Relief] 50 mcg/actuation spray,suspension 2 spray intranasal DAILY Qty: 16 3RF Rx Instructions: administer into each nostril nitroglycerin 0.4 mg tablet, sublingual 0.4 mg SL Q5M PRN (Reason: chest pain) Qty: 20 0RF Rx Instructions: do not exceed 3 doses per episode tolterodine 4 mg capsule,extended release 24hr 4 mg PO DAILY solifenacin 10 mg tablet 10 mg PO DAILY memantine 10 MG tablet 10 mg PO BID Rx Instructions: Begin after completing memantine 5 mg p.o. twice daily x1 month Referrals Follow up/Referrals: Sreedhar Chavez MD [Primary Care Provider] - See instructions Clinical Impressions Clinical Impression: Incarcerated hernia, Appendicitis Instructions Patient Instructions: DI for Acute Abdominal Pain Discharge ED Provider: Jimmie Silva General Adult HPI General Chief complaint: Abdominal Pain Stated complaint: vomiting, abd pain Time Seen by Provider: 11/03/23 13:55 Mode of Arrival: Wheelchair Source of Information: Patient and Spouse Limitations: No Limitations Description of Symptoms (Recalled from ER Triage Doc. by RN): Patient complaint of right lower abdomen pain that radiates to his groin. states the patient is unable to keep anything down and began vomiting this morning. States his pain began yesterday. History of Present Illness HPI narrative: Patient is a 68-year-old male past medical history of periumbilical hernia status post mesh over a decade ago, coronary artery disease, peripheral artery disease status post multiple stents, hypertension, hyperlipidemia, insulin-dependent diabetes who presents emergency department for evaluation abdominal pain. Onset was acute, occurring yesterday morning. Patient had right lower quadrant abdominal pain that extended into his scrotum and groin with associated vomiting. Last bowel movement yesterday. Patient initially passed flatus when he woke up this morning however has not since. Due to severe symptoms he presents here for continued evaluation. Related Data Home Medications Medication Instructions Recorded Confirmed aspirin 81 mg tablet,delayed 81 mg PO DAILY Blood thinner 03/01/21 08/15/23 release (Adult Low Dose Aspirin) alprazolam 0.25 mg tablet 0.25 mg PO DAILY Anxiety 06/13/21 08/15/23 sertraline 50 mg tablet 50 mg PO DAILY Depression 06/13/21 08/15/23 diclofenac sodium 1 % topical gel 2 g topical QID muscle pain 07/18/21 08/15/23 oxymetazoline 0.05 % nasal spray 2 spray intranasal Q12H PRN 07/18/21 08/15/23 (Afrin (oxymetazoline)) allergies atorvastatin 80 mg tablet 80 mg PO DAILY Cholesterol 10/09/21 08/15/23 memantine 10 mg tablet 10 mg PO BID memory 05/02/22 08/15/23 famotidine 20 mg tablet 20 mg PO BID GERD 09/25/22 08/15/23 insulin regular human 100 unit/mL 1 sliding scale dose SQ 09/25/22 08/15/23 (3 mL) subcutaneous pen (Novolin R USEASDIRECTD Diabetes FlexPen) losartan 100 mg tablet 100 mg PO DAILY 09/25/22 08/15/23 oxycodone 5 mg tablet 10 mg PO Q4H DJD 09/25/22 08/15/23 rivaroxaban 20 mg tablet (Xarelto) 20 mg PO DAILY Blood Thinner 09/25/22 08/15/23 sennosides 8.6 mg tablet (Natural 8.6 mg PO BID stool softener 09/25/22 08/15/23 Senna Laxative) empagliflozin 25 mg tablet 25 mg PO DAILY Diabetes 01/22/23 08/15/23 (Jardiance) gabapentin 400 mg capsule 400 mg PO BID Pain 01/22/23 08/15/23 carvedilol 12.5 mg tablet 12.5 mg PO BID 04/23/23 08/15/23 insulin glargine 100 unit/mL (3 33 unit SQ HS Diabetes 04/23/23 08/15/23 mL) subcutaneous pen (Lantus Solostar U-100 Insulin) oxybutynin chloride 5 mg 5 mg PO DAILY urination 05/23/23 08/15/23 tablet,extended release 24 hr solifenacin 10 mg tablet 10 mg PO DAILY * 08/15/23 08/15/23 tolterodine 4 mg capsule,extended 4 mg PO DAILY prostate 08/15/23 08/15/23 release 24 hr Previous Rx's Medication Instructions Recorded nitroglycerin 0.4 mg sublingual 0.4 mg sublingual Q5M PRN chest 03/14/21 tablet pain #20 tabs fluticasone propionate 50 2 spray intranasal DAILY allergies 04/23/23 mcg/actuation nasal #16 grams spray,suspension (Flonase Allergy Relief) Allergies Allergy/AdvReac Type Severity Reaction Status Date / Time No Known Allergies Allergy Verified 07/25/23 14:19 [facility] Disclaimer: The information contained in this section may have been updated after the patient was seen, as this information can be updated by other users. Medical History Abnormal ankle brachial index (YOSEF) Abnormal EKG Amputation of toe of right foot CAD (coronary artery disease) Claudication Diabetes type 2 with atherosclerosis of arteries of extremities Dysphagia Family history of heart disease HLD (hyperlipidemia) HTN (hypertension) ADRIANO (obstructive sleep apnea) PAD (peripheral artery disease) CHRISTI (renal artery stenosis) Tobacco dependence syndrome Family History (Updated 08/15/23 @ 12:45 by Lisy Crystal RN) Other Family history of diabetes mellitus type II Family history of hypertension Family history of stroke Social History (Updated 08/15/23 @ 12:45 by Lisy Crystal RN) Smoking Status: Unknown if ever smoked second hand exposure: No alcohol intake: never substance use type: denies use current occupational status: retired Travel in the last 8 weeks: None household members: spouse housing: house current occupational exposures/hazards: No caffeine: No ROS Obtained: Yes Systems reviewed as appropriate & no additional complaints except as documented Physical Exam General General appearance: alert and in distress Head Head exam: atraumatic and normocephalic Eye Eye exam: Present PERRL and EOMI ENT ENT exam: Present mucous membranes moist Neck Neck exam: Present normal inspection Chest Chest inspection: Present normal inspection and symmetric chest wall rise Respiratory Respiratory exam: Absent respiratory distress Cardiovascular Cardiovascular exam: Present normal rhythm and tachycardia Abdominal Exam Abdominal exam: Present soft and tenderness (Bulging in the right inguinal canal extending into the right scrotum, significantly tender hernia felt in the right hemiscrotum that is nonreducible, there is overlying erythema.) Extremities Exam Extremities exam: Present normal inspection Neurological Exam Neurological exam: Present alert Psychiatric Psychiatric exam: Present normal affect Skin Skin exam: Present warm and dry Medical Decision Making [place] Inquiry Pt receiving controlled substance: No Vital Signs: 11/03/23 13:51 11/03/23 14:00 11/03/23 15:00 Temperature 98.4 F Temperature Source Oral Pulse Rate 110 H 95 H Pulse Rate [Radial] 67 Respiratory Rate 20 20 Blood Pressure 197/94 H 124/107 H Blood Pressure [Right Arm] 185/74 H Blood Pressure Mean 123 Blood Pressure Mean [Right Arm] 111 Blood Pressure Source [Right Arm] Automatic Cuff Blood Pressure Position [Right Arm] Sitting 02 Sat by Pulse Oximetry 98 97 95 Oxygen Delivery Method Room Air Lab Data Lab Results 11/03/23 14:09: WBC 15.2 H, RBC 5.06, Hgb 14.6, Hct 45.7, MCV 90.4, MCH 28.8, MCHC 31.9, RDW 15.2, Plt Count 227, MPV 8.7, Neut % (Auto) 82.4 H, Lymph % (Auto) 9.0 L, [place] % (Auto) 7.7, Eos % (Auto) 0.7, Baso % (Auto) 0.2, Neut # (Auto) 12.5 H, Lymph # (Auto) 1.4, [place] # (Auto) 1.2 H, Eos # (Auto) 0.1, Baso # (Auto) 0.0, Total Counted 100, Neutrophils % (Manual) 81 H, Lymphocytes % (Manual) 14, Monocytes % (Manual) 5, Platelet Estimate Normal, RBC Morphology Normal, Sodium 142, Potassium 4.3, Chloride 100, Carbon Dioxide 31 H, Anion Gap 15.3 H, BUN 29 H, Creatinine 1.50 H, Estimated Creat Clear 53, Estimated GFR 47 L, Est GFR ( Amer) 56 L, Glucose 173 H, Calcium 10.7 H, Total Bilirubin 0.7, AST 41, ALT 40, Alkaline Phosphatase 108, Total Protein 7.8, Albumin 4.4, Globulin 3.4 H, Albumin/Globulin Ratio 1.3 11/03/23 14:09 11/03/23 14:09 Orders (Tests/Meds): ED MEDICATIONS Generic Name Dose Route Start Last Admin Trade Name Freq PRN Reason Stop Dose Admin Sodium Chloride 10 ml 11/03/23 14:37 11/03/23 14:38 Sodium Chloride 0.9% 10ml Syr (Rad Only) IV 12/03/23 14:36 10 ml NEEDED PRN Administration Maintain IV Site Discontinued Medications Generic Name Dose Route Start Last Admin Trade Name Freq PRN Reason Stop Dose Admin Acetaminophen 1,000 mg 11/03/23 14:07 11/03/23 14:12 Acetaminophen 1,000mg/100ml Vial IV 11/03/23 14:08 1,000 mg ONCE ONE Administration Hydromorphone HCl 0.5 mg 11/03/23 14:07 11/03/23 14:13 Hydromorphone 2mg/Ml Syringe IV 11/03/23 14:08 0.5 mg ONCE ONE Administration Iopamidol 75 ml 11/03/23 14:37 11/03/23 14:38 Iopamidol-370 (76%);100ml Bottle IV 11/03/23 14:38 75 ml ONCE ONE Administration Ondansetron HCl 4 mg 11/03/23 14:07 11/03/23 14:13 Ondansetron 4mg/2ml Vial IV 11/03/23 14:08 4 mg ONCE ONE Administration ORDERS Category Date Time Status CT abdomen pelvis w con Stat Cat Scan 11/03/23 14:26 Completed CBC w/Auto Diff [Complete Blood Count Auto Diff] Stat Lab 11/03/23 14:09 Completed CMP [Comprehensive Metabolic Panel] Stat Lab 11/03/23 14:09 Completed Lactic Acid Stat Lab 11/03/23 14:07 Ordered Medical Decision Narrative: In summary patient is a 68-year-old male past medical history described above who presents emergency department for evaluation of abdominal pain. Patient is hemodynamically stable nontoxic-appearing upon arrival, appearing in pain, afebrile. Clinically patient has an incarcerated hernia. Differential includes strangulation, among others. Workup will be conducted with hematologic labs, CT of the abdomen pelvis IV contrast will be obtained prior to labs resulting. Initial interventions include Zofran, IV Tylenol, IV Dilaudid. Workup reviewed by me, patient has leukocytosis of 15.2, stable CKD. Remainder of hematologic labs are nonactionable. CT imaging remarkable for incarcerated right inguinal hernia containing the cecum and terminal ileum resulting in small bowel obstruction, no evidence of acute ischemia, there is secondary appendicitis as the appendix extends into the peritoneal cavity from the hernia sac with mildly thickened ayala and proximally dilated appendix measuring 12 mm. Trace ascites in the right paracolic gutter. Case was discussed with general surgery who will take the patient to the operating room at this time. The case was discussed with hospital medicine they will admit the patient their service for continued evaluation. Critical Care Critical Care Time Critical Care Time: No
[2023-11-03] MEDS: ACETAMINOPHEN 1,000MG/100ML VIAL 1000 MG IV (14:12)
[2023-11-03] MEDS: HYDROMORPHONE 2MG/ML SYRINGE 0.5 MG IV (14:13)
[2023-11-03] MEDS: ONDANSETRON 4MG/2ML VIAL 4 MG IV (14:13)
--- NOTE | 2023-11-03 14:26 | CT_ITS ---
PROCEDURE INFORMATION: Exam: CT Abdomen And Pelvis With Contrast Exam date and time: 11/03/2023 2:33 PM Age: 68 years old Clinical indication: Other: R inguinal hernia; Additional info: R inguinal hernia non reducible TECHNIQUE: Imaging protocol: Computed tomography of the abdomen and pelvis with contrast. Radiation optimization: All CT scans at this facility use at least one of these dose optimization techniques: automated exposure control; mA and/or kV adjustment per patient size (includes targeted exams where dose is matched to clinical indication); or iterative reconstruction. Contrast material: ISOVUE; Contrast volume: 75 ml; Contrast route: IV; COMPARISON: NM BONE SCAN WHOLE BODY 03/03/2021 1:03 PM FINDINGS: Liver: Unremarkable. Gallbladder and bile ducts: Unremarkable. Pancreas: Atrophic pancreas. Spleen: Unremarkable. Adrenal glands: Unremarkable. Kidneys and ureters: Bilateral simple renal cysts, some of which are too small to characterize but also most likely benign. No renal or ureteral stones. No hydronephrosis. Stomach and bowel: Right inguinal hernia containing the cecum and terminal ileum in the hernia sac extending into the right hemiscrotum with dilated terminal ileum containing feculent material consistent with small bowel obstruction. Herniated bowel wall enhances without evidence of acute ischemia or pneumatosis.Colonic diverticulosis without evidence of acute diverticulitis. Appendix: Appendix extends into the peritoneal cavity from the hernia sac with mildly thickened ayala in the proximal appendix measuring 12 mm in diameter. Intraperitoneal space: Trace ascites along the right paracolic gutter. No pneumoperitoneum. Vasculature: Extensive atherosclerotic plaque throughout the abdominal aorta with infrarenal abdominal aortic ectasia. No abdominal aortic aneurysm. Right main renal artery stent graft and bilateral common iliac artery stent grafts in place without evidence of stent occlusion. Lymph nodes: Unremarkable. Urinary bladder: No evidence of acute pathology. Reproductive: Prostate is enlarged measuring approximately 5.5 cm in transverse axis and mass effect indenting the base of the bladder. Bones/joints: No evidence of acute osseous abnormality. Soft tissues: See Stomach and bowel finding. IMPRESSION: 1. Incarcerated right inguinal hernia containing the cecum and terminal ileum resulting in small bowel obstruction. No evidence of acute bowel ischemia. 2. Appendix extends into the peritoneal cavity from the hernia sac with mildly thickened ayala in the proximal appendix measuring 12 mm in diameter. Findings are concerning for early or developing appendicitis. 3. Trace ascites along the right paracolic gutter. 4. Colonic diverticulosis without evidence of acute diverticulitis. 5. Moderately enlarged prostate. Please correlate with PSA. 6. Additional non-acute ancillary findings are detailed above. COMMENTS: Consistent with the [employer]'s Incidental Findings Committee white paper (J Am Rupal Radiol 2018): Any incidental renal lesion less than 1 cm or classified as too small to characterize, or any incidental cystic renal lesion characterized as simple-appearing, is likely benign. No follow-up imaging is recommended for these lesions per consensus recommendations based on imaging criteria.
[2023-11-03 14:30] LABS: Basophils % 0.2 % (0.1-2.0); Eosinophils # 0.1 K/mm3 (0.0-0.4); Eosinophils % 0.7 % (0.1-12.0); Hematocrit 45.7 % (42.0-52.0); Hemoglobin 14.6 g/dL (14.1-18.0); Lymphocytes # 1.4 K/mm3 (0.7-4.5); Mean Corpuscular HGB Conc 31.9 g/dL (31.8-35.4); Mean Corpuscular Hemoglobin 28.8 pg (27.0-31.2); Mean Corpuscular Volume 90.4 fl (80-94); Mean Platelet Volume 8.7 fl (7.4-10.4); Monocytes # 1.2 K/mm3 (0.1-1.0); Monocytes % 7.7 % (1.7-9.3); Neutrophils # 12.5 K/mm3 (1.8-7.8); Neutrophils % 82.4 % (37.0-80.0); Platelet Count 227 K/mm3 (142-424); Red Blood Count 5.06 M/mm3 (4.60-6.20); Red Cell Distribution Width 15.2 % (11.5-17.5); White Blood Count 15.2 K/mm3 (4.8-10.8)
[2023-11-03 14:33] LABS: Chloride 100 mmol/L (98-107)
[2023-11-03 14:34] LABS: Potassium 4.3 mmoL/L (3.5-5.1); Sodium 142 mmol/L (136-145)
[2023-11-03 14:36] LABS: Alanine Aminotransferase 40 U/L (12-78); Alkaline Phosphatase 108 U/L (38-126); Anion Gap 15.3 mEq/L (5-15); Aspartate Amino Transferase 41 U/L (17-59); Bilirubin,Total 0.7 mg/dl (0.2-1.3); Blood Urea Nitrogen 29 mg/dl (9-20); Carbon Dioxide 31 mmol/L (22.0-30.0); Creatinine Clearance Estimated 53 mL/min (50-200); Estimated Glomerular Filt Rate 47 ml/min (>60); GFR (African American) 56 ML/MIN (>60)
[2023-11-03 14:37] LABS: Albumin Level 4.4 g/dl (3.5-5.0); Albumin/Globulin Ratio 1.3 (1.1-1.8); Calcium 10.7 mg/dl (8.4-10.2); Globulin 3.4 g/dL (1.3-3.2); Glucose 173 mg/dl (74-100); Total Protein,Serum 7.8 g/dl (6.3-8.2)
[2023-11-03] MEDS: SODIUM CHLORIDE 0.9% 10ML SYR (RAD ONLY) 10 ML IV (14:38)
[2023-11-03] MEDS: IOPAMIDOL-370 (76%);100ML BOTTLE 75 ML IV (14:38)
[2023-11-03 14:42] LABS: MANUAL DIFFERENTIAL MANUAL DIFFERENTIAL (MANUAL DIFF)
[2023-11-03 14:57] LABS: Lymphocytes % 14 % (10-50); Monocytes % 5 % (2-9); Neutrophils % 81 % (42-76); RBC Morphology Normal; Total Cells Counted 100
[2023-11-03 14:58] LABS: Platelet Estimate Normal
--- NOTE | 2023-11-03 15:08 | PC.NURSE ---
Surgery team paged Received call back from Leanna at [phone], Ana Luisa at [phone], and Evi at [phone].
--- NOTE | 2023-11-03 15:19 | PC.NURSE ---
Helped pt take off pt clothes and he was placed in hospital gown and no skids socks for surgery
--- NOTE | 2023-11-03 15:22 | PC.NURSE ---
pagestalin Saunders for
--- NOTE | 2023-11-03 15:40 | EXP.GEN.HP ---
HPI HPI HPI: Patient is a 68-year-old male from [facility] with apparently known history of of right inguinal hernia. He has a history of carotid artery stenosis, renal artery stenosis, coronary artery disease, tobacco dependence, obstructive sleep apnea, chronic arterial occlusive disease, hyperlipidemia, hypertension, type 2 diabetes. He presented to the emergency department this afternoon on 11/03/2023 with 24-hour history of right lower quadrant pain radiating into the right groin area. He has also been unable to keep anything down has had vomiting. Evaluation in the emergency department revealed findings on examination consistent with incarcerated with possibly strangulated right inguinal hernia. He was found to have a leukocytosis. Surgery was contacted. In the interim patient underwent CT scan and was found to have findings of incarcerated right inguinal hernia containing cecum and terminal ileum resulting in small bowel obstruction. Appendix was extending into the peritoneal cavity from the hernia sac and the appendix was mildly dilated concerning for possible early developing appendicitis along with incarcerated hernia. Surgical consultation was obtained. [facility] Disclaimer: The information contained in this section may have been updated after the patient was seen, as this information can be updated by other users. Medical History Abnormal ankle brachial index (YOSEF) Abnormal EKG Amputation of toe of right foot CAD (coronary artery disease) Claudication Diabetes type 2 with atherosclerosis of arteries of extremities Dysphagia Family history of heart disease HLD (hyperlipidemia) HTN (hypertension) ADRIANO (obstructive sleep apnea) PAD (peripheral artery disease) CHRISTI (renal artery stenosis) Tobacco dependence syndrome Family History (Updated 08/15/23 @ 12:45 by Lisy Crystal RN) Family history of stroke Family history of hypertension Family history of diabetes mellitus type II Social History (Updated 08/15/23 @ 12:45 by Lisy Crystal RN) Smoking Status: Unknown if ever smoked second hand exposure: No alcohol intake: never substance use type: denies use current occupational status: retired Travel in the last 8 weeks: None household members: spouse housing: house current occupational exposures/hazards: No caffeine: No Review of Systems Review of Systems Review of systems:: pertinent systems reviewed and negative unless documented below Meds Home Medications and Allergies Home Medications Medication Instructions Recorded Confirmed Type aspirin 81 mg tablet,delayed 81 mg PO DAILY Blood thinner 03/01/21 08/15/23 History release (Adult Low Dose Aspirin) nitroglycerin 0.4 mg sublingual 0.4 mg sublingual Q5M PRN chest 03/14/21 08/15/23 Rx tablet pain #20 tabs alprazolam 0.25 mg tablet 0.25 mg PO DAILY Anxiety 06/13/21 08/15/23 History sertraline 50 mg tablet 50 mg PO DAILY Depression 06/13/21 08/15/23 History diclofenac sodium 1 % topical gel 2 g topical QID muscle pain 07/18/21 08/15/23 History oxymetazoline 0.05 % nasal spray 2 spray intranasal Q12H PRN 07/18/21 08/15/23 History (Afrin (oxymetazoline)) allergies atorvastatin 80 mg tablet 80 mg PO DAILY Cholesterol 10/09/21 08/15/23 History memantine 10 mg tablet 10 mg PO BID memory 05/02/22 08/15/23 History famotidine 20 mg tablet 20 mg PO BID GERD 09/25/22 08/15/23 History insulin regular human 100 unit/mL 1 sliding scale dose SQ 09/25/22 08/15/23 History (3 mL) subcutaneous pen (Novolin R USEASDIRECTD Diabetes FlexPen) losartan 100 mg tablet 100 mg PO DAILY 09/25/22 08/15/23 History oxycodone 5 mg tablet 10 mg PO Q4H DJD 09/25/22 08/15/23 History rivaroxaban 20 mg tablet (Xarelto) 20 mg PO DAILY Blood Thinner 09/25/22 08/15/23 History sennosides 8.6 mg tablet (Natural 8.6 mg PO BID stool softener 09/25/22 08/15/23 History Senna Laxative) empagliflozin 25 mg tablet 25 mg PO DAILY Diabetes 01/22/23 08/15/23 History (Jardiance) gabapentin 400 mg capsule 400 mg PO BID Pain 01/22/23 08/15/23 History carvedilol 12.5 mg tablet 12.5 mg PO BID 04/23/23 08/15/23 History fluticasone propionate 50 2 spray intranasal DAILY allergies 04/23/23 08/15/23 Rx mcg/actuation nasal #16 grams spray,suspension (Flonase Allergy Relief) insulin glargine 100 unit/mL (3 33 unit SQ HS Diabetes 04/23/23 08/15/23 History mL) subcutaneous pen (Lantus Solostar U-100 Insulin) oxybutynin chloride 5 mg 5 mg PO DAILY urination 05/23/23 08/15/23 History tablet,extended release 24 hr solifenacin 10 mg tablet 10 mg PO DAILY * 08/15/23 08/15/23 History tolterodine 4 mg capsule,extended 4 mg PO DAILY prostate 08/15/23 08/15/23 History release 24 hr New Prescriptions to Start Prescriptions: Allergies Allergy/AdvReac Type Severity Reaction Status Date / Time No Known Allergies Allergy Verified 07/25/23 14:19 Exam Data for Last 24 hours Vital signs and Labs for Last 24 Hours: Temp Pulse Resp BP Pulse Ox O2 Del Method 98.4 F 95 H 20 124/107 H 95 Room Air 11/03/23 13:51 11/03/23 15:00 11/03/23 14:00 11/03/23 15:00 11/03/23 15:00 11/03/23 13:51 Laboratory Results - last 24 hr 11/03/23 14:09: WBC 15.2 H, RBC 5.06, Hgb 14.6, Hct 45.7, MCV 90.4, MCH 28.8, MCHC 31.9, RDW 15.2, Plt Count 227, MPV 8.7, Neut % (Auto) 82.4 H, Lymph % (Auto) 9.0 L, [place] % (Auto) 7.7, Eos % (Auto) 0.7, Baso % (Auto) 0.2, Neut # (Auto) 12.5 H, Lymph # (Auto) 1.4, [place] # (Auto) 1.2 H, Eos # (Auto) 0.1, Baso # (Auto) 0.0, Total Counted 100, Neutrophils % (Manual) 81 H, Lymphocytes % (Manual) 14, Monocytes % (Manual) 5, Platelet Estimate Normal, RBC Morphology Normal, Sodium 142, Potassium 4.3, Chloride 100, Carbon Dioxide 31 H, Anion Gap 15.3 H, BUN 29 H, Creatinine 1.50 H, Estimated Creat Clear 53, Estimated GFR 47 L, Est GFR ( Amer) 56 L, Glucose 173 H, Calcium 10.7 H, Total Bilirubin 0.7, AST 41, ALT 40, Alkaline Phosphatase 108, Total Protein 7.8, Albumin 4.4, Globulin 3.4 H, Albumin/Globulin Ratio 1.3 I & O for Last 24 hours: Intake & Output 11/01/23 11/02/23 11/03/23 11/04/23 11:59 11:59 11:59 11:59 Weight 175 lb Constitutional Constitutional: no acute distress *Routine HEENT Exam Head: Present normocephalic Eye: Present EOMI and PERRL ENT: Present mucous membranes moist *Routine Neck Exam Neck: Present supple; Absent lymphadenopathy *Routine Respiratory Exam Respiratory: Present CTA bilaterally *Routine Cardiovascular Exam Cardiovascular: Present RRR *Routine Abdominal Exam Abdominal: Present soft and tenderness Comments: He has mild tenderness without guarding or rebound. *Routine Rectal Exam Rectal:: deferred *Routine Genitalia Exam Genitalia:: deferred *Routine Extremities Exam Extremities: Absent cyanosis, clubbing or edema *Routine Skin Exam Skin: Present warm; Absent rash *Routine Neurological Exam Neurological: Present alert and oriented X3 Detailed Exam Comments: He has erythematous right hemiscrotum which is firm and distended with some edema. Tender consistent with incarcerated and possibly strangulated right inguinal hernia. This is tender and not able to be reduced. Results Results Lab Results Last 24 Hours:: Laboratory Results - last 24 hr 11/03/23 14:09: WBC 15.2 H, RBC 5.06, Hgb 14.6, Hct 45.7, MCV 90.4, MCH 28.8, MCHC 31.9, RDW 15.2, Plt Count 227, MPV 8.7, Neut % (Auto) 82.4 H, Lymph % (Auto) 9.0 L, [place] % (Auto) 7.7, Eos % (Auto) 0.7, Baso % (Auto) 0.2, Neut # (Auto) 12.5 H, Lymph # (Auto) 1.4, [place] # (Auto) 1.2 H, Eos # (Auto) 0.1, Baso # (Auto) 0.0, Total Counted 100, Neutrophils % (Manual) 81 H, Lymphocytes % (Manual) 14, Monocytes % (Manual) 5, Platelet Estimate Normal, RBC Morphology Normal, Sodium 142, Potassium 4.3, Chloride 100, Carbon Dioxide 31 H, Anion Gap 15.3 H, BUN 29 H, Creatinine 1.50 H, Estimated Creat Clear 53, Estimated GFR 47 L, Est GFR ( Amer) 56 L, Glucose 173 H, Calcium 10.7 H, Total Bilirubin 0.7, AST 41, ALT 40, Alkaline Phosphatase 108, Total Protein 7.8, Albumin 4.4, Globulin 3.4 H, Albumin/Globulin Ratio 1.3 Assessment and Plan *Assessment and plan (1) Incarcerated inguinal hernia: Status: Acute Category: Medical Code(s): K40.30 - Unilateral inguinal hernia, with obstruction, without gangrene, not specified as recurrent Plan Patient has incarcerated and potentially strangulated right inguinal hernia. There is potential based on imaging of possible secondary appendicitis. I explained to him the urgency of and seriousness of the situation. Plan will be for emergent operative intervention with right groin exploration hopefully with reduction of incarcerated potentially strangulated hernia and possible repair. I did explain to him that he could require bowel resection which could necessitate midline laparotomy. He also could need potential ostomy creation. If the appendix is secondarily inflamed may require appendectomy which may be be possible through inguinal incision. I also explained to him the potential need for orchiectomy. He understands and agrees to proceed. Plan will be to proceed emergently with open right inguinal hernia repair with possible bowel resection with possible laparotomy with possible appendectomy with possible bowel resection and possible creation of ostomy.
--- NOTE | 2023-11-03 16:01 | PC.NURSE ---
SOY Chery from surgery at bs with pt
--- NOTE | 2023-11-03 16:02 | P.PNANES_ITS ---
[facility] Disclaimer: The information contained in this section may have been updated after the patient was seen, as this information can be updated by other users. Medical History Abnormal ankle brachial index (YOSEF) Abnormal EKG Amputation of toe of right foot CAD (coronary artery disease) Claudication Diabetes type 2 with atherosclerosis of arteries of extremities Dysphagia Family history of heart disease HLD (hyperlipidemia) HTN (hypertension) ADRIANO (obstructive sleep apnea) PAD (peripheral artery disease) CHRISTI (renal artery stenosis) Tobacco dependence syndrome Family History (Updated 08/15/23 @ 12:45 by Lisy Crystal RN) Other Family history of diabetes mellitus type II Family history of hypertension Family history of stroke Social History (Updated 08/15/23 @ 12:45 by Lisy Crystal RN) Smoking Status: Unknown if ever smoked second hand exposure: No alcohol intake: never substance use type: denies use current occupational status: retired Travel in the last 8 weeks: None household members: spouse housing: house current occupational exposures/hazards: No caffeine: No [facility] Anesthesia Checklist Patient Identification Patient Identification: Arm Band, Family and Verbal (Name & ) Structural Data Admitted From: Emergency Dept ([facility]) Planned Operative Procedure/s: IHR Right; possible SBR Consent for Planned Operative Procedure(s) Verified: Yes Verified Documents: Surgical Consent and History and Physical NPO Status Verified Time NPO: 12:00 Chart Verification Results Verified: CBC, BMP and ECG Additional verifications Fingerstick Blood Glucose: 173 Patient : No Anesthesia Reactions: No Cardiovascular Assessment Heart Sounds: S1 & S2 Pulse Rhythm: Irregular Airway Assessment Mallampati Score:: Class II C-Spine Mobility Assessed: Yes (FROM) TMJ Mobility Assessed: Yes Dentition: Edentulous Neurological Assessment Level of Consciousness: Awake, Alert, Appropriate and Follows Commands Hx Seizures: No Numbness or tingling in extremities: No Anesthesia Plan Anesthesia Risk discussed: Yes Anesthesia Plan: Verified ASA Class: III (Emergency) Anesthesia Type: General
[2023-11-03] MEDS: 0.9 % SODIUM CHLORIDE 100 ML IV (16:17)
[2023-11-03] MEDS: AMPICILLIN/SULBACTAM 3 GM VIAL IV (16:17)
[2023-11-03] MEDS: LIDOCAINE 2% UROJET 10ML 10 ML (16:58)
[2023-11-03] MEDS: ROPIVACAINE 0.5% 30ML VIAL 150 MG ×2 (17:41→18:12)
[2023-11-03] MEDS: LIDOCAINE 1% 20ML MDV 20 ML ×2 (17:42→18:11)
[2023-11-03] MEDS: SODIUM CHLORIDE IRRIG SOLUTION 3,000 ML 999 ML IR (19:06)
--- NOTE | 2023-11-03 19:54 | EXP.OP.NOTE ---
Date of procedure: 11/03/23 Pre-op Diagnosis:: Incarcerated inguinal hernia Post-op Diagnosis:: Strangulated right inguinal hernia with cecal necrosis without perforation Complete small bowel obstruction secondary to strangulated right inguinal hernia Procedure performed:: 1. Open repair of strangulated right inguinal hernia 2. Diagnostic laparoscopy 3. Exploratory laparotomy with ileocecal resection with ileocolic anastomosis Surgeon:: Johan Flynn MD Semi Automatic Sewing Machine Operator(s):: None COMPUTER INSTALLER:: Other Anesthesia: GETA Estimated blood loss (mL): 50 Clinical Note:: Patient is a 68-year-old male from [facility] with apparently known history of of right inguinal hernia. He has a history of carotid artery stenosis, renal artery stenosis, coronary artery disease, tobacco dependence, obstructive sleep apnea, chronic arterial occlusive disease, hyperlipidemia, hypertension, type 2 diabetes on Xarelto. He presented to the emergency department this afternoon on 11/03/2023 with 24-hour history of right lower quadrant pain radiating into the right groin area. He has also been unable to keep anything down has had vomiting. Evaluation in the emergency department revealed findings on examination consistent with incarcerated with possibly strangulated right inguinal hernia. He was found to have a leukocytosis. Surgery was contacted. In the interim patient underwent CT scan and was found to have findings of incarcerated right inguinal hernia containing cecum and terminal ileum resulting in small bowel obstruction. Appendix was extending into the peritoneal cavity from the hernia sac and the appendix was mildly dilated concerning for possible early developing appendicitis along with incarcerated hernia. Surgical consultation was obtained. On examination and after review of imaging it appears that the patient had an incarcerated and potentially strangulated right inguinal hernia. The seriousness and urgency of the situation was explained to the patient. Plan was made for emergent operative intervention with right groin exploration hopefully with reduction of incarcerated with potentially strangulated hernia and possible repair.I did explain to him that he could require bowel resection which could necessitate midline laparotomy. He also could need potential ostomy creation. If the appendix is secondarily inflamed may require appendectomy which may be be possible through inguinal incision. I also explained to him the potential need for orchiectomy. He understands and agrees to proceed. Plan will be to proceed emergently with open right inguinal hernia repair with possible bowel resection with possible laparotomy with possible appendectomy with possible bowel resection and possible creation of ostomy. Operative findings:: Patient had what appeared to be initially incarcerated indirect hernia. The hernia sac and contents were tightly impacted into the right hemiscrotum and during the dissection process hernia contents were reduced. Therefore the completion diagnostic laparoscopy was performed which revealed evidence of full-thickness nearly liquefied necrosis of portion of cecum without perforation. Appendix was normal-appearing. Operative note:: . Consent was obtained patient was taken to the operating room. He was positioned in supine position. General anesthesia was induced. Hernandez catheter was placed. Abdomen and perineum were prepped and draped in the standard surgical fashion. Oblique skin incision was made in the right inguinal area superior to landmarks identifying the inguinal ligament. Dissection was carried down through subcutaneous tissues and Elkin's fascia using electrocautery. External oblique muscle was cleaned free and opened along length of its fibers. The ilioinguinal nerve was identified and preserved. Initially there was no identifiable cord structures as there was tightly incarcerated hernia into the right hemiscrotum. This was very tightly impacted and prolonged dissection was carried out in an attempt to free the hernia contents. In doing so hernia contents were reduced. Further dissection was carried out freeing the hernia sac from the tightly adhered cord structures. Hernia sac was opened. There was some fluid which was suctioned free. Hernia sac was highly ligated with a 2-0 Vicryl pursestring suture and extraneous peritoneum of the hernia sac was excised and sent off the table as hernia sac. There did not appear to be any necrosis. Decision was made for repair with onlay mesh. He had a moderate-sized indirect hernia. Large sized Bard prefix mesh was sewn into the inguinal floor suturing it to the Zhang's ligament and along the shelving edge of the inguinal ligament using a running 2-0 PDS suture to reconstruct the inguinal floor. It was sutured superior medially to transversalis fascia using interrupted 2-0 PDS sutures. The 2 tails of the mesh encircle the cord structures and was sutured to 1 another with several interrupted 2-0 PDS to reconstruct the internal ring. Repair appeared adequate. Local anesthetic was infiltrated. Wound was irrigated. Hemostasis was achieved with electrocautery. External oblique muscle was closed over the cord structures with running 2-0 Vicryl. Elkin's fascia was reapproximated with running 2-0 Vicryl. Skin was closed with skin jacklyn. . At this time due to the fact that the integrity and nature of the hernia contents was unable to be evaluated and there is still existed the possibility of appendicitis plan was made for diagnostic laparoscopy. Through a tiny 1 mm left subcostal incision Veress needle was inserted. CO2 pneumoperitoneum was achieved to 15 mmHg. In the infraumbilical area of vertical incision was made and a 5 mm optical trocar was inserted. Intraperitoneal contents were visualized. I was immediately noted that he had very inflamed congested cecum with potentially necrosis. Additional 5 mm trocar was inserted in the left lower abdomen. Cecum was grasped. It was retracted medially. There is evidence of full-thickness necrosis of a portion of the wall of the cecum without perforation. Appendix appeared unremarkable. Fluid was suctioned free. It was felt that the patient required ileocecal resection due to necrosis of the cecum. Ultimately at the completion of the procedure trocar site was closed with jacklyn. . Laparoscopic trocars removed. Midline incision was made. Dissection was carried down through subcutaneous tissues and fascia using electrocautery. Abdominal cavity was entered. Ultimately incision was extended to just above the umbilical area which required removal of the previously placed Marlex prefix mesh plug at the umbilicus. The cecum was delivered anteriorly to the wound. To allow for resection and anastomosis the cecum and right colon were mobilized by incising the peritoneum laterally in the right paracolic gutter along the white line of Toldt there appeared to be significant amount of fecalized firm matter in the ileum consistent with complete, likely prolonged, bowel obstruction at the ileocecal junction. The ileum was divided just proximal to the ileocecal valve using CAROLINA 75 stapling device. Right colon was divided just distal to the cecum using a reload of the CAROLINA 75 stapling device. Ileocecal mesentery was divided with the Enseal device. Ileocecal specimen was sent off of the table. There was a significant amount of firm feculent material in the ileum. In order to allow for anastomosis without creation of possible ileostomy and mucous fistula the terminal ileum was opened along the staple line partially. Contents were milked antegrade into a pitcher evacuating the feculent material from the ileum. A [id number] anastomosis was then created with a CAROLINA 75 stapling device. Enterotomy defect was closed with TX 60 B stapling device. 3-0 Nurolon was placed at the staple line angle and at the confluence of staple lines. The staple line was oversewn with a running 3-0 Nurolon. Mesenteric defect was closed with running 2-0 Vicryl. Ileocecal anastomosis was returned to the peritoneal cavity. Peritoneal cavity was then thoroughly irrigated with copious amounts warm saline and aspirated until clear. Nasogastric tube was confirmed to be in a good position. Fascia was closed with a running #1 looped PDS. Subcutaneous tissues were irrigated. Skin was closed with jacklyn. Clean dry sterile dressings were applied. . Condition: stable Disposition: PACU Complications:: None immediately apparent
--- NOTE | 2023-11-03 20:15 | P.PNANES_ITS ---
[facility] Anesthesia Record Part I Anesthesia Record I Intake, IV Amount: 2,700 Hydration: Adequate Estimated blood loss (mL): 150 Urine output (mL): 300 Blood Products used (#): none (Hespan 6% x 500mL given) Blood Pressure: 156/89 SaO2: 92 Pulse Rate: 79 Airway Patency: Patent Respiratory Rate: 16 Temperature: 96.8 F Patient is:: Awake, Drowsy, Oral/Nasal airway (#10.0 oral airway) and Stable Stable to PACU at:: 20:10
--- NOTE | 2023-11-03 20:35 | SUR.PHASEI ---
attempted to call report, nurse not available at this time
--- NOTE | 2023-11-03 21:03 | PC.NURSE ---
Patient arrived to floor via stretcher from surgery at 21:02.
--- NOTE | 2023-11-03 22:30 | PC.NURSE ---
Patient arrived to step down unit via bed with surgery staff. Patient was awake and alert, pleasantly confussed at times. is at bedside and states patient has difficulty getting words out at times. Patient has abdominal dressing in place intact clean and dry. No s/sx of drainage. Patient has an 18 georgian NG tube placed to left nare 62 cm at the nare. Patient also has an 18FR coude catheter in place draining clear pale yellow urine. Patient was placed on 2LNC due to sating <90%. Patient has c/o pain in abdomen. BS x4 are hypoactive. Patient and wifre has been oriented to room. Call larkin with in reach.
[2023-11-03] MEDS: MORPHINE 10MG/ML 30ML PCA IV (22:41)
[2023-11-03] MEDS: LACTATED RINGERS 1000ML 1,000 ML 125 ML IV (23:17)
[2023-11-03] MEDS: AMPICILLIN/SULBACTAM 3 GM in 0.9 % SODIUM CHLORIDE 100 ML IV (23:17)
[2023-11-04] VITALS (13 sets, daily range): BP systolic 137–175; BP diastolic 60–93; PULSE 81–120; RESP 17–20; TEMP 36.5–37.6; O2SAT 92–99; BMI 26.5
--- NOTE | 2023-11-04 00:45 | PC.NURSE ---
At 2241 patient was started on morphine HTML WEB DEVELOPER pump. Patient and has been educated on how to use and the frequency it allows patient to use it. No questions at this time.
[2023-11-04] MEDS: MORPHINE 10MG/ML 30ML PCA IV ×2 (05:26→23:50)
--- NOTE | 2023-11-04 06:51 | P.PN_ITS ---
Subjective Narrative: Patient complains of soreness. No nausea. Not passing any flatus. Exam Data for Last 24 hours Vital signs and Labs for Last 24 Hours: Temp Pulse Resp BP Pulse Ox O2 Del Method O2 Flow Rate 97.8 F 100 H 20 156/86 H 95 Nasal Cannula 2 11/04/23 00:00 11/04/23 04:00 11/04/23 00:00 11/04/23 00:00 11/04/23 00:00 11/04/23 01:00 11/04/23 01:00 Laboratory Results - last 24 hr 11/03/23 14:09: WBC 15.2 H, RBC 5.06, Hgb 14.6, Hct 45.7, MCV 90.4, MCH 28.8, MCHC 31.9, RDW 15.2, Plt Count 227, MPV 8.7, Neut % (Auto) 82.4 H, Lymph % (Auto) 9.0 L, [place] % (Auto) 7.7, Eos % (Auto) 0.7, Baso % (Auto) 0.2, Neut # (Auto) 12.5 H, Lymph # (Auto) 1.4, [place] # (Auto) 1.2 H, Eos # (Auto) 0.1, Baso # (Auto) 0.0, Total Counted 100, Neutrophils % (Manual) 81 H, Lymphocytes % (Manual) 14, Monocytes % (Manual) 5, Platelet Estimate Normal, RBC Morphology Normal, Sodium 142, Potassium 4.3, Chloride 100, Carbon Dioxide 31 H, Anion Gap 15.3 H, BUN 29 H, Creatinine 1.50 H, Estimated Creat Clear 53, Estimated GFR 47 L, Est GFR ( Amer) 56 L, Glucose 173 H, Calcium 10.7 H, Total Bilirubin 0.7, AST 41, ALT 40, Alkaline Phosphatase 108, Total Protein 7.8, Albumin 4.4, Globulin 3.4 H, Albumin/Globulin Ratio 1.3 I & O for Last 24 hours: Intake & Output 11/01/23 11/02/23 11/03/23 11/04/23 11:59 11:59 11:59 11:59 Intake Total 2925 / 2925 Output Total 1400 / 1400 Balance 1525 / 1525 Weight 175 lb *Routine Abdominal Exam Comments: Dressing dry Progress Note: A&P Assessment and plan (1) Incarcerated inguinal hernia: Status: Acute Assessment and plan: DC Hernandez. Continue NG tube and n.p.o. May have some ice chips. Additional management per hospitalist service.
[2023-11-04 06:58] LABS: Basophils % 0.1 % (0.1-2.0); Hematocrit 38.4 % (42.0-52.0); Lymphocytes # 1.3 K/mm3 (0.7-4.5); Lymphocytes % 11.8 % (10-50); Mean Corpuscular HGB Conc 31.4 g/dL (31.8-35.4); Mean Corpuscular Hemoglobin 28.5 pg (27.0-31.2); Mean Corpuscular Volume 90.9 fl (80-94); Monocytes # 0.7 K/mm3 (0.1-1.0); Monocytes % 6.4 % (1.7-9.3); Neutrophils # 8.8 K/mm3 (1.8-7.8); Neutrophils % 81.7 % (37.0-80.0); Platelet Count 202 K/mm3 (142-424); Red Blood Count 4.22 M/mm3 (4.60-6.20); Red Cell Distribution Width 15.3 % (11.5-17.5); White Blood Count 10.8 K/mm3 (4.8-10.8)
[2023-11-04 07:12] LABS: Anion Gap 6.9 mEq/L (5-15); Blood Urea Nitrogen 29 mg/dl (9-20); Calcium 8.5 mg/dl (8.4-10.2); Carbon Dioxide 32 mmol/L (22.0-30.0); Chloride 103 mmol/L (98-107); Creatinine Clearance Estimated 57 mL/min (50-200); Estimated Glomerular Filt Rate 50 ml/min (>60); GFR (African American) 61 ML/MIN (>60); Glucose 171 mg/dl (74-100); Potassium 3.9 mmoL/L (3.5-5.1); Sodium 138 mmol/L (136-145)
--- NOTE | 2023-11-04 07:24 | P.PNANES_ITS ---
[facility] Anesthesia Record Part II Anesthesia Record Part II Discharge Time: 20:45 Destination: Medical Surgical Department PACU nurse assessment reviewed?: Yes Patient Condition:: Good Anesthesia Complications:: None Swallowing reflex intact?: Yes Airway Patency: Patent Cyanosis?: No Blood Pressure: 142/93 SaO2: 92 Respiratory Rate: 18 Pulse Rate: 81 Temperature: 99.7 F Mental Status: Alert & Oriented Pain level:: 0 Nausea and/or vomitting:: None Intake, IV Amount: 3,200 Hydration: Adequate
[2023-11-04] MEDS: AMPICILLIN/SULBACTAM 3 GM in 0.9 % SODIUM CHLORIDE 100 ML IV ×3 (08:03→20:29)
--- OUTSIDE RECORDS SUMMARY | 2023-11-04 08:40 | XMS_ITS | Summary of Care ---
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 Name Role Phone Sreedhar Chavez Primary Care Physician Unavailab le Encounter 07/05/22 - 07/18/22 [facility] [address] [place] [address] Discharge Disposition: Home with Home Health Care Attending Physician: Deo NGUYEN, Jacky Admitting Physician: Deo NGUYEN, Jacky Referring Physician: Bennett Santiago Dr Allergies, Adverse Reactions, Alerts No Known Medication Allergies Medications ALPRAZolam 0.25 mg oral tablet 0.25 mg = 1 tab, Oral, TID PRN, 0 Refill(s), Anxiety Start Date: 07/06/22 Status: Ordered amLODIPine 5 mg oral tablet 5 mg = 1 tab, Tab, Oral, BID, 60 tab, 0 Refill(s), Route to Pharmacy Electronically, [facility], 173, 07/12/22 6:03:00 EDT, Height/Length Dosing, cm, 73.8, 07/12/22 6:03:00 EDT, Weight Dosing, kg Start Date: 07/18/22 Status: Ordered aspirin 81 mg oral tablet, chewable 81 mg, Tab-Chew, Chewed, Daily, 30 tab, 0 Refill(s), Route to Pharmacy Electronically, [facility], 173, 07/12/22 6:03:00 EDT, Height/Length Dosing, cm, 73.8, 07/12/22 6:03:00 EDT, Weight Dosing, kg Start Date: 07/12/22 Status: Ordered carvedilol 12.5 mg oral tablet 12.5 mg, 1 tab, Tab, Oral, QHS, 30 tab, 0 Refill(s), Route to Pharmacy Electronically, [facility], 173, 07/12/22 6:03:00 EDT, Height/Length Dosing, cm, 73.8, 07/12/22 6:03:00 EDT, Weight Dosing, kg Start Date: 07/12/22 Status: Ordered Coreg 12.5 mg oral tablet 12.5 mg = 1 tab, Tab, Oral, BIDmeals, 60 tab, 0 Refill(s), Route to Pharmacy Electronically, [facility], 173, 07/12/22 6:03:00 EDT, Height/Length Dosing, cm, 73.8, 07/12/22 6:03:00EDT, Weight Dosing, kg Start Date: 07/13/22 Status: Ordered diclofenac 1% topical gel gm, Topical, Refill(s) 0 Start Date: 07/06/22 Status: Ordered famotidine 20 mg oral tablet 20 mg = 1 tab, Tab, Oral, BID, 60 tab, 0 Refill(s), Route to Pharmacy Electronically, [facility], 173, 07/12/22 6:03:00 EDT, Height/Length Dosing, cm, 73.8, 07/12/22 6:03:00 EDT, Weight Dosing, kg Start Date: 07/12/22 Status: Ordered gabapentin 300 mg oral capsule 300 mg, 1 cap, Cap, Oral, BID, 60 cap, 0 Refill(s), Route to Pharmacy Electronically, [facility], 173, 07/12/22 6:03:00 EDT, Height/Length Dosing, cm, 73.8, 07/12/22 6:03:00 EDT, kg, Weight Dosing Start Date: 07/12/22 Status: Ordered Glucose Test Strips 1, EA, N/A, WMHS, Use to test blood glucose. Dispense 30 day supply Diagnosis ICD10: E13, 120, EA, 0 Refill(s), Maintenance, Route to Pharmacy Electronically, [id number], Constant Indicator, [facility], [facility], 07/12/22 6:03... Start Date: 07/18/22 Status: Ordered insulin aspart 100 units/mL injectable solution 7 units, Indication: Hyperglycemia Injection-Insulin (soln), Subcutaneous, TIDmeals, 10 mL, 0 Refill(s), Route to Pharmacy Electronically, [facility], 173, 07/12/22 6:03:00 EDT, Height/Length Dosing, cm, 73.8, 07/12/22 6:03:00 EDT,... Start Date: 07/18/22 Stop Date: 08/17/22 Status: Ordered Lancets for finger stick 1, EA, N/A, WMHS, Use to test blood glucose. Dispense 30 day supply Diagnosis ICD10: E13, 120, EA, 0 Refill(s), Maintenance, Route to Pharmacy Electronically, [id number], Constant Indicator, [facility], 173, 07/12/22 6:03... Start Date: 07/18/22 Status: Ordered Lantus 100 units/mL subcutaneous solution 23 units, Injection-Insulin (soln), Subcutaneous, QHS, 15 mL, 0 Refill(s), Route to Pharmacy Electronically, [facility], 173, 07/12/22 6:03:00 EDT, Height/Length Dosing, cm, 73.8, 07/12/22 6:03:00 EDT, Weight Dosing, kg Start Date: 07/18/22 Status: Ordered Lipitor 80 mg oral tablet 80 mg = 1 tab, Tab, Oral, Daily, 30 tab, 0 Refill(s), Route to Pharmacy Electronically, [facility], 173, 07/12/22 6:03:00 EDT, Height/Length Dosing, cm, 73.8, 07/12/22 6:03:00 EDT,Weight Dosing, kg Start Date: 07/12/22 Status: Ordered losartan 50 mg oral tablet 100 mg = 2 tab, Tab, Oral, Daily, 60 tab, 0 Refill(s), Route to Pharmacy Electronically, [facility], 173, 07/12/22 6:03:00 EDT, Height/Length Dosing, cm, 73.8, 07/12/22 6:03:00 EDT, Weight Dosing, kg Start Date: 07/12/22 Status: Ordered memantine 10 mg oral tablet 10 mg = 1 tab, Tab, Oral, BID, 60 tab, 0 Refill(s), Route to Pharmacy Electronically, [facility], 173, 07/12/22 6:03:00 EDT, Height/Length Dosing, cm, 73.8, 07/12/22 6:03:00 EDT, Weight Dosing, kg Start Date: 07/12/22 Status: Ordered nitroglycerin 0.4 mg sublingual tablet 0.4 mg, 1 tab, Tab-SL, Sublingual, q5min PRN, 10 tab, 10 Refill(s), Chest pain, Route to Pharmacy Electronically, [facility], 173, 07/12/22 6:03:00 EDT, Height/Length Dosing, cm, 73.8, 07/12/22 6:03:00 EDT, Weight Dosing, kg Start Date: 07/12/22 Status: Ordered NovoLOG STANDARD Sliding Scale Insulin Standard, Indication: Hyperglycemia, Subcutaneous, Start date 07/10/22 17:00:00 EDT, For BS <200= 0 units BS 200-250 = 2 units BS 251-300 = 4 units BS 301-350 = 6 units BS >350 = 8 units and call MD Start Date: 07/10/22 Stop Date: 07/10/22 Status: Completed NovoLOG STANDARD Sliding Scale Insulin Standard, Indication: Hyperglycemia, Subcutaneous, Start date 07/15/22 12:00:00 EDT, For BS <200= 0 units BS 200-250 = 2 units BS 251-300 = 4 units BS 301-350 = 6 units BS >350 = 8 units and call MD Start Date: 07/15/22 Stop Date: 07/15/22 Status: Completed oxyCODONE 5 mg oral tablet 5 mg = 1 tab, Tab, Oral, q6hr PRN, 30 tab, 0 Refill(s), Dispense: 7 day, PAIN (Scale 7-10), Stop date 07/25/22 9:54:00 EDT, Route to Pharmacy Electronically, [facility], 173, 07/12/22 6:03:00 EDT, Height/Length Dosing, cm, 73.8, ... Start Date: 07/18/22 Stop Date: 07/25/22 Status: Ordered Senna Plus 50 mg-8.6 mg oral tablet 2 tab, Tab, Oral, QHS, 60 tab, 0 Refill(s), Route to Pharmacy Electronically, [facility], 173, 07/12/22 6:03:00 EDT, Height/Length Dosing, cm, 73.8, 07/12/22 6:03:00 EDT, Weight Dosing, kg Start Date: 07/12/22 Status: Ordered sertraline 50 mg oral tablet 50 mg = 1 tab, Tab, Oral, Daily, 30 tab, 0 Refill(s), Route to Pharmacy Electronically, [facility], 173, 07/12/22 6:03:00 EDT, Height/Length Dosing, cm, 73.8, 07/12/22 6:03:00 EDT,Weight Dosing, kg Start Date: 07/12/22 Status: Ordered terazosin 10 mg oral capsule 10 mg = 1 cap, Cap, Oral, Daily, 30 cap, 0 Refill(s), Route to Pharmacy Electronically, [facility], 173, 07/12/22 6:03:00 EDT, Height/Length Dosing, cm, 73.8, 07/12/22 6:03:00 EDT,Weight Dosing, kg Start Date: 07/12/22 Status: Ordered Xarelto 20 mg oral tablet 20 mg = 1 tab, Tab, Oral, After dinner, 30 tab, 0 Refill(s), Route to Pharmacy Electronically, [facility], 173, 07/12/22 6:03:00 EDT, Height/Length Dosing, cm, 73.8, 07/12/22 6:03:00 EDT, Weight Dosing, kg Start Date: 07/12/22 Status: Ordered Problem List Condition Effective Dates Status Health Status Inform ant Cognitive communication disorder(Confirmed) Active Impaired mobility(Confirmed) Active Results Laboratory List Name Date Glucose, POC 07/18/22 Glucose, POC 07/17/22 Glucose, POC 07/17/22 Automated Diff HSL 07/16/22 Complete Blood Count w/Auto Diff HSL 06/28 07/19 Comprehensive Metabolic Panel HSL 2 Lipid Panel - QST 07/16/22 Complete Blood Count w/o Diff HSL (CBC w /o Diff HSL) 07/13/22 Comprehensive Metabolic Panel HSL (CMP H SL) 07/13/22 Urinalysis Complete w/Rflx Culture HSL Occult Blood Stool HSL 07/13/22 Hemoglobin and Hematocrit HSL 07/12/22 Automated Diff HSL 07/12/22 C-Reactive Protein HSL (CRP HSL) 07/12/22 Complete Blood Count w/Auto Diff HSL 06/28 03/18 Comprehensive Metabolic Panel HSL 2 Automated Diff HSL 07/09/22 Complete Blood Count w/Auto Diff HSL 06/28 12/19 Urinalysis Complete w/Rflx Culture HSL COVID-19 HSL 07/06/22 Magnesium HSL 07/06/22 Phosphorus HSL 07/06/22 Prealbumin HSL 07/06/22 Most recent to oldest [Reference Range]: 1 2 3 Creatinine Level 1.00 mg/dL (07/16/22 7:45 AM) 1.00 mg/dL (07/13/22 12:10 PM) 1.20 mg/dL (07/12/22 10:40 AM) Estimated Creatinine Clearance 69.61 mL/min 1 (07/16/22 7:45 AM) 69.61 mL/min 2 (07/13/22 12:10 PM) 58.01 mL/min 3 (07/12/22 10:40 AM) Glucose POC RALS [74-106 mg/dL] 113 mg/dL *HI* (07/18/22 7:38 AM) 155 mg/dL *HI* (07/17/22 8:58 PM) 188 mg/dL *HI* (07/17/22 5:25 PM) Triglycerides - QST [<150 mg/dL] 49 mg/dL 4 *NA* (07/16/22 7:45 AM) CHOL/HDLC Ratio - QST [<5.0 (calculated)] 2.5 (calculated) 5 *NA* (07/16/22 7:45 AM) Non HDL Cholesterol - QST [<130 mg/dL (calc)] 71 mg/dL (calc) 6 *NA* (07/16/22 7:45 AM) HDL Cholesterol - QST [> OR = 40 mg/dL] 47 mg/dL 7 *NA* (07/16/22 7:45 AM) Cholesterol, Total - QST [<200 mg/dL] 118 mg/dL 8 *NA* (07/16/22 7:45 AM) LDL-Cholesterol - QST 57 mg/dL (calc) 9 *NA* (07/16/22 7:45 AM) COVID-19 - ENC [Not Detected] Detected 10 *ABN* (07/06/22 11:35 AM) Corrected WBC HSL [4-12 x10(3)/mcL] 7 x10(3)/mcL (07/16/22 7:45 AM) 9 x10(3)/mcL (07/12/22 10:40 AM) 9 x10(3)/mcL (07/09/22 9:40 AM) WBC HSL [4.4-11.6 10^3/uL] 6.6 10^3/uL (07/16/22 7:45 AM) 10.0 10^3/uL (07/13/22 12:10 PM) 9.2 10^3/uL (07/12/22 10:40 AM) RBC HSL [04.10-05.80 10^3/uL] 02.73 10^3/uL *LOW* (07/16/22 7:45 AM) 02.98 10^3/uL *LOW* (07/13/22 12:10 PM) 02.74 10^3/uL *LOW* (07/12/22 10:40 AM) Hemoglobin HSL [13.4-17.6 g/dL] 7.9 g/dL *LOW* (07/16/22 7:45 AM) 8.6 g/dL *LOW* (07/13/22 12:10 PM) 8.4 g/dL 11 *LOW* (07/12/22 11:48 AM) Hematocrit HSL [39.9-53.1 %] 23.3 % *LOW* (07/16/22 7:45 AM) 25.1 % *LOW* (07/13/22 12:10 PM) 24.4 % *LOW* (07/12/22 11:48 AM) MCV HSL [79.9-103.5 fL] 85.3 fL (07/16/22 7:45 AM) 84.3 fL (07/13/22 12:10 PM) 85.2 fL (07/12/22 10:40 AM) MCH HSL [25.9-34.1 g/dL] 28.8 g/dL (07/16/22 7:45 AM) 28.8 g/dL (07/13/22 12:10 PM) 28.6 g/dL (07/12/22 10:40 AM) MCHC HSL [31.9-35.4 g/dL] 33.8 g/dL (07/16/22 7:45 AM) 34.2 g/dL (07/13/22 12:10 PM) 33.6 g/dL (07/12/22 10:40 AM) Platelet HSL [149-451 10^3/uL] 376 10^3/uL (07/16/22 7:45 AM) 511 10^3/uL *HI* (07/13/22 12:10 PM) 464 10^3/uL *HI* (07/12/22 10:40 AM) RDW-CV% HSL [11.5-14.5 %] 15.8 % *HI* (07/16/22 7:45 AM) 16.0 % *HI* (07/13/22 12:10 PM) 15.8 % *HI* (07/12/22 10:40 AM) RDW-SD HSL [35.5-44.0 fL] 49.4 fL *HI* (07/16/22 7:45 AM) 49.4 fL *HI* (07/16/22 7:45 AM) 49.0 fL *HI* (07/13/22 12:10 PM) MPV HSL [8.9-13.1 fL] 8.3 fL *LOW* (07/16/22 7:45 AM) 7.7 fL *LOW* (07/13/22 12:10 PM) 8.0 fL *LOW* (07/12/22 10:40 AM) Neutrophil Auto HSL [39.6-77.4 %] 47.8 % (07/16/22 7:45 AM) 64.2 % (07/12/22 10:40 AM) 64.9 % (07/09/22 9:40 AM) Lymphocyte Auto HSL [17.7-51.9 %] 34.4 % (07/16/22 7:45 AM) 21.0 % (07/12/22 10:40 AM) 21.2 % (07/09/22 9:40 AM) Monocyte Auto HSL [2.9-10.5 %] 12.4 % *HI* (07/16/22 7:45 AM) 10.3 % (07/12/22 10:40 AM) 8.4 % (07/09/22 9:40 AM) Eosinophil Auto HSL [0.0-7.1 %] 4.5 % (07/16/22 7:45 AM) 3.8 % (07/12/22 10:40 AM) 4.8 % (07/09/22 9:40 AM) Basophil Auto HSL [0.0-9.1 %] 0.9 % (07/16/22 7:45 AM) 0.7 % (07/12/22 10:40 AM) 0.7 % (07/09/22 9:40 AM) Neutrophil Absolute HSL [1.1-5.4 10^3/uL] 3.1 10^3/uL (07/16/22 7:45 AM) 5.9 10^3/uL *HI* (07/12/22 10:40 AM) 6.1 10^3/uL *HI* (07/09/22 9:40 AM) Lymphocyte Absolute HSL [0.7-2.8 10^3/uL] 2.3 10^3/uL (07/16/22 7:45 AM) 1.9 10^3/uL (07/12/22 10:40 AM) 2.0 10^3/uL (07/09/22 9:40 AM) Monocyte Absolute HSL [0.0-1.1 10^3/uL] 0.8 10^3/uL (07/16/22 7:45 AM) 0.9 10^3/uL (07/12/22 10:40 AM) 0.8 10^3/uL (07/09/22 9:40 AM) Eosinophil Absolute HSL [0.0-0.5 10^3/uL] 0.3 10^3/uL (07/16/22 7:45 AM) 0.4 10^3/uL (07/12/22 10:40 AM) 0.4 10^3/uL (07/09/22 9:40 AM) Basophil Absolute HSL [0.00-0.06 10^3/uL] 0.10 10^3/uL *HI* (07/16/22 7:45 AM) 0.10 10^3/uL *HI* (07/12/22 10:40 AM) 0.10 10^3/uL *HI* (07/09/22 9:40 AM) Nucleated RBC HSL 0.0 *NA* (07/16/22 7:45 AM) 0.0 *NA* (07/12/22 10:40 AM) 0.0 *NA* (07/09/22 9:40 AM) Sodium HSL [135.9-146.1 mEq/L] 140.0 mEq/L (07/16/22 7:45 AM) 136.0 mEq/L (07/13/22 12:10 PM) 139.0 mEq/L (07/12/22 10:40 AM) Potassium HSL [3.4-4.6 mEq/L] 4.5 mEq/L (07/16/22 7:45 AM) 4.6 mEq/L (07/13/22 12:10 PM) 4.5 mEq/L (07/12/22 10:40 AM) Chloride HSL [95.9-106.1 mEq/L] 107.0 mEq/L *HI* (07/16/22 7:45 AM) 104.0 mEq/L (07/13/22 12:10 PM) 105.0 mEq/L (07/12/22 10:40 AM) Carbon Dioxide HSL [21.9-29.1 mEq/L] 30.0 mEq/L *HI* (07/16/22 7:45 AM) 26.0 mEq/L (07/13/22 12:10 PM) 29.0 mEq/L (07/12/22 10:40 AM) Anion Gap HSL [8-16 mmol/L] 8 mmol/L (07/16/22 7:45 AM) 11 mmol/L (07/13/22 12:10 PM) 10 mmol/L (07/12/22 10:40 AM) Glucose HSL [74.9-115.1 mg/dL] 75.0 mg/dL (07/16/22 7:45 AM) 244.0 mg/dL *HI* (07/13/22 12:10 PM) 162.0 mg/dL *HI* (07/12/22 10:40 AM) BUN HSL [10.9-23.1 mg/dL] 28.0 mg/dL *HI* (07/16/22 7:45 AM) 24.0 mg/dL *HI* (07/13/22 12:10 PM) 27.0 mg/dL *HI* (07/12/22 10:40 AM) Creatinine HSL [0.6-1.6 mg/dL] 1.0 mg/dL (07/16/22 7:45 AM) 1.0 mg/dL (07/13/22 12:10 PM) 1.2 mg/dL (07/12/22 10:40 AM) eGFR-AA HSL 65 *NA* (07/16/22 7:45 AM) 59 *NA* (07/13/22 12:10 PM) 53 *NA* (07/12/22 10:40 AM) eGFR-Non AA HSL 77 *NA* (07/16/22 7:45 AM) 70 *NA* (07/13/22 12:10 PM) 63 *NA* (07/12/22 10:40 AM) BUN/Creat Ratio HSL [5-20 ratio] 28 ratio *HI* (07/16/22 7:45 AM) 24 ratio *HI* (07/13/22 12:10 PM) 22 ratio *HI* (07/12/22 10:40 AM) Calcium Total HSL [8.9-11.1 mg/dL] 8.9 mg/dL (07/16/22 7:45 AM) 9.1 mg/dL (07/13/22 12:10 PM) 9.0 mg/dL (07/12/22 10:40 AM) Albumin HSL [3.4-5.1 g/dL] 3.1 g/dL *LOW* (07/16/22 7:45 AM) 3.4 g/dL (07/13/22 12:10 PM) 3.1 g/dL *LOW* (07/12/22 10:40 AM) Prealbumin HSL [14.9-36.1 mg/dL] 23.0 mg/dL (07/06/22 7:11 AM) Protein Total HSL [5.9-8.4 g/dL] 5.9 g/dL (07/16/22 7:45 AM) 6.6 g/dL (07/13/22 12:10 PM) 6.0 g/dL (07/12/22 10:40 AM) Bilirubin Total HSL [0.1-1.4 mg/dL] 0.2 mg/dL (07/16/22 7:45 AM) 0.3 mg/dL (07/13/22 12:10 PM) 0.3 mg/dL (07/12/22 10:40 AM) Magnesium HSL [1.6-2.3 mg/dL] 1.8 mg/dL (07/06/22 7:11 AM) Phosphorus HSL [3.3-4.6 mg/dL] 3.3 mg/dL (07/06/22 7:11 AM) Alkaline Phosphatase HSL [19.9-90.1 IU/L] 104.0 IU/L *HI* (07/16/22 7:45 AM) 131.0 IU/L *HI* (07/13/22 12:10 PM) 131.0 IU/L *HI* (07/12/22 10:40 AM) AST HSL [9.9-59.1 IU/L] 15.0 IU/L (07/16/22 7:45 AM) 15.0 IU/L (07/13/22 12:10 PM) 16.0 IU/L (07/12/22 10:40 AM) ALT HSL [9.9-40.1 IU/L] 6.0 IU/L *LOW* (07/16/22 7:45 AM) 4.0 IU/L *LOW* (07/13/22 12:10 PM) 5.0 IU/L *LOW* (07/12/22 10:40 AM) C-Reactive Protein HSL [>=9.9 mg/dL] 1.8 mg/dL *LOW* (07/12/22 10:40 AM) Appearance UR HSL Slightly cloudy *NA* (07/13/22 12:00 PM) Clear (07/06/22 4:47 PM) Color UR HSL YELLOW *NA* (07/13/22 12:00 PM) YELLOW *NA* (07/06/22 4:47 PM) Specific [place] UR HSL [1.005-1.030] 1.010 (07/13/22 12:00 PM) 1.020 (07/06/22 4:47 PM) pH UR HSL [5.0-7.5] 6.0 (07/13/22 12:00 PM) 6.0 (07/06/22 4:47 PM) Glucose UR HSL [Neg] 150 *ABN* (07/13/22 12:00 PM) 30 *ABN* (07/06/22 4:47 PM) Bilirubin UR HSL Neg (07/13/22 12:00 PM) Neg (07/06/22 4:47 PM) Ketones UR HSL [Neg] Neg (07/13/22 12:00 PM) Neg (07/06/22 4:47 PM) Blood UR HSL [Neg] Neg *NA* (07/13/22 12:00 PM) Neg *NA* (07/06/22 4:47 PM) Protein UR HSL [Neg] Neg *NA* (07/13/22 12:00 PM) 30 *ABN* (07/06/22 4:47 PM) Urobilinogen UR HSL [Normal] Normal (07/13/22 12:00 PM) Normal (07/06/22 4:47 PM) Nitrite UR HSL [Neg] Nitrite Neg *NA* (07/13/22 12:00 PM) Nitrite Neg *NA* (07/06/22 4:47 PM) Leukocyte Esterase UR HSL [Neg] Neg *NA* (07/13/22 12:00 PM) Neg *NA* (07/06/22 4:47 PM) Squamous Epithelials UR HSL [0-5] Rare (07/13/22 12:00 PM) Rare (07/06/22 4:47 PM) Bacteria UR HSL [None Seen] None Seen (07/13/22 12:00 PM) None Seen (07/06/22 4:47 PM) WBC UR HSL [None Seen] None Seen (07/13/22 12:00 PM) WBC UR HSL [None Seen /HPF] Rare /HPF (07/06/22 4:47 PM) RBC UR HSL [None Seen] None Seen (07/13/22 12:00 PM) Rare (07/06/22 4:47 PM) Mucous UR HSL Rare *ABN* (07/06/22 4:47 PM) Specimen Source UR HSL Clean Catch (07/13/22 12:00 PM) Clean Catch (07/06/22 4:47 PM) Blood Glucose, Capillary [74-106 mg/dL] 269 mg/dL *HI* (07/15/22 1:25 PM) 165 mg/dL *HI* (07/10/22 6:12 PM) 295 mg/dL *HI* (07/05/22 3:14 PM) Occult Blood Stool - [facility] [Negative] Negative (07/13/22 10:50 AM) 1Result Comment: Calculated using method: Cockcroft-Gault (default) Calculated using Formula : (140-ageInYears)*IBW/(72*scrInMGperDL) Age: 67 (16786925582.0) Serum Creatinine: 1.00 mg/dL (98523810840.0) Height: 173 cm (78154443775.0) Weight: 73.8 kg (IBW = 68.654 kg) 2Result Comment: Calculated using method: Cockcroft-Gault (default) Calculated using Formula : (140-ageInYears)*IBW/(72*scrInMGperDL) Age: 67 (59741782232.0) Serum Creatinine: 1.00 mg/dL (04199678417.0) Height: 173 cm (55850727248.0) Weight: 73.8 kg (IBW = 68.654 kg) 3Result Comment: Calculated using method: Cockcroft-Gault (default) Calculated using Formula : (140-ageInYears)*IBW/(72*scrInMGperDL) Age: 67 (30039441881.0) Serum Creatinine: 1.20 mg/dL (85338663807.0) Height: 173 cm (88513085683.0) Weight: 73.8 kg (IBW = 68.654 kg) 4Result Comment: Lab test performed by: Lab Mnemonic: [address] [facility] [place] [address] [place] [address] BRADLEY BUSTILLOS MD 5Result Comment: Lab test performed by: Lab Mnemonic: [id number] [address] [facility] [place] [address] BRADLEY BUSTILLOS MD 6Result Comment: For patients with diabetes plus 1 major ASCVD risk factor, treating to a non-HDL-C goal of <100 mg/dL (LDL-C of <70 mg/dL) is considered a therapeutic option. Lab test performed by: Lab Mnemonic: [facility] [address] [facility] [place] [address] BRADLEY BUSTILLOS MD 7Result Comment: Lab test performed by: Lab Mnemonic: [id number] [facility] [place] [address] BRADLEY BUSTILLOS MD 8Result Comment: Lab test performed by: Lab Mnemonic: [email or web address] [facility] [address] [facility] [place] [address] BRADLEY BUSTILLOS MD 9Result Comment: Reference range: <100 Desirable range <100 mg/dL for primary prevention; <70 mg/dL for patients with CHD or diabetic patients with > or = 2 CHD risk factors. LDL-C is now calculated using the Ammon-Lara calculation, which is a validated novel method providing better accuracy than the Friedewald equation in the estimation of LDL-C. Ammon SS et al. MARIANNE. 2013;310(19): 8827-4060 (http://education.Fididel.[employer]/faq/FBC447) Lab test performed by: Lab Mnemonic: [id number] [facility] [place] [address] BRADLEY BUSTILLOS MD 10Result Comment: critical rbv dr. carnes sl 07/06/2022 11:54:02 EDT mt 11Result Comment: venipuncture stick Vital Signs Most recent to oldest [Reference Range]: 1 2 3 Temperature Oral F [96.4-99.1 DegF] 97.8 DegF (07/18/22 7:37 AM) 97.9 DegF (07/17/22 7:33 PM) 97.8 DegF (07/17/22 7:40 AM) Peripheral Pulse Rate [60-100 bpm] 74 bpm (07/18/22 7:37 AM) 81 bpm (07/17/22 7:33 PM) 75 bpm (07/17/22 6:29 PM) Heart Rate Monitored [60-100 bpm] 69 bpm (07/14/22 11:08 PM) 65 bpm (07/08/22 10:59 PM) 77 bpm (07/07/22 11:24 PM) Respiratory Rate [14-20 br/min] 17 br/min (07/18/22 6:05 AM) 18 br/min (07/17/22 7:33 PM) 18 br/min (07/17/22 4:06 AM) Systolic Blood Pressure [90-140 mmHg] 159 mmHg *HI* (07/18/22 7:37 AM) 153 mmHg *HI* (07/17/22 7:33 PM) 146 mmHg *HI* (07/17/22 6:28 PM) Diastolic Blood Pressure [60-90 mmHg] 67 mmHg (07/18/22 7:37 AM) 62 mmHg (07/17/22 7:33 PM) 65 mmHg (07/17/22 6:28 PM) Mean Arterial Pressure, Cuff 98 mmHg (07/18/22 7:37 AM) 97 mmHg (07/18/22 6:06 AM) 92 mmHg (07/17/22 7:33 PM) Extremity used to obtain blood pressure Left Arm (07/18/22 6:06 AM) Left Arm (07/15/22 8:35 PM) Left Arm (07/15/22 5:20 PM) Cuff Size. Medium (07/13/22 9:44 AM) SpO2 Post [94-100 %] 97 % (07/09/22 8:45 AM) Oxygen Therapy Post Room air (07/09/22 8:45 AM) Temperature Oral 36.6 DegC 1 (07/18/22 7:37 AM) 36.6 DegC 2 (07/17/22 7:33 PM) 36.6 DegC 3 (07/17/22 7:40 AM) 1Result Comment: Charted by SYSTEM secondary to charting of Temperature Oral F on a Vitals Monitor. Rule: VITALSLINK_CALCULATIONS_2 2Result Comment: Charted by SYSTEM secondary to charting of Temperature Oral F on a Vitals Monitor. Rule: VITALSLINK_CALCULATIONS_2 3Result Comment: Charted by SYSTEM secondary to charting of Temperature Oral F on a Vitals Monitor. Rule: VITALSLINK_CALCULATIONS_2 Care Team Personnel Name: Sreedhar Chavez
--- OUTSIDE RECORDS SUMMARY | 2023-11-04 08:40 | XMS_ITS | Continuity of Care Document ---
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 PATIENT OPEN ORDERS Code System Description Frequency Occurrences Priority [place] [id number] [facility] Blood draw [PhenX] ONE TIME 0 Routine August 27, 2023 6:40:00 PM [facility] ROSALBA CAVAZOS [id number] on August 27, 2023 6:40:00 PM [facility] 2857-1 [facility] Prostate specific Ag [Mass/volume ] in Serum or ONE TIME 0 Routine August 27, 2023 6:40:00 PM [facility] ROSALBA DIRK [id number] on August 27, 2023 6:40:00 PM [facility] SCHEDULED PROCEDURES Code System Description Status Scheduled Date Upd ated By Patient scheduled procedure information is not available. MEDICATIONS HOME MEDICATIONS Status RXNORM Medication Dose Route Frequency Dates Comments R eported By Updated By Drug Treatment Unknown DISCHARGE MEDICATIONS Status RXNORM Medication Dose Route Frequency Dates Comments Physic tianna Updated By No Discharge Medication Info rmation Available INPATIENT MEDICATIONS Status RXNORM Medication Dose Route Frequency Rate Quantity Dates Comments Physician Updated By No Inpatient Medication Info rmation Available SOCIAL HISTORY SOCIAL HISTORY SNOMED-CT Social History Element Description Effective Dates Offered Cessation Comment UpdatedBy [id number] Smoking Status Unknown If Ever Smoked SOCIAL HISTORY - Gender Sex: Male SOCIAL HISTORY - Sexual Behavior Sexual Orientation Gender Identity SNOMED-CT Description SNO MED -CT Description Activity Level No of Partners Partner Type UpdatedBy HEALTH CONCERNS Problems Concern Status Health Concern problem infor mation not available. Smoking Status Status Years Used Consumed packs p er day Health Concern smoking histo ry information not available. Family History Concern Status Health Concern family histor y information not available. ENCOUNTERS ENCOUNTER INFORMATION Reason for Visit LAB Admission August 27, 2023 6:30:[address] [id number] Discharge August 27, 2023 6:30:00 PM [facility] DISCHARGED TO HOME OR SELF CARE ENCOUNTER DIAGNOSES Notes information is not pratik ilable. Code System Diagnosis Onset Date Diagnosis information is not available. ABSTRACT DIAGNOSES Code System Diagnosis Updated By Abstract Diagnosis informati on is not available. 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 Role on Team Status Start Date End Date Update d By ROSALBA ESCAMILLA Referring normal August 27, 2023 4:00:00 AM [facility] August 27, 2023 6:30:00 PM [facility] [id number] on August 27, 2023 6:34:10 PM [facility] ROSALBA ESCAMILLA Attending normal August 27, 2023 4:00:00 AM [facility] August 27, 2023 6:30:00 PM [facility] [id number] on August 27, 2023 6:34:10 PM [facility] ROSALBA ESCAMILLA Admitting normal August 27, 2023 4:00:00 AM [facility] August 27, 2023 6:30:00 PM [facility] [id number] on August 27, 2023 6:34:10 PM [facility] NELSON Franco PCP normal August 27 023 4:00:00 AM [facility] August 27, 2023 6:30:00 PM [facility] [id number] on August 27, 2023 6:34:10 PM [facility] KAHLIL RAY B PHY Referring normal July 4:00:00 AM [facility] August 27, 2023 4:00:00 AM [facility] [id number] on August 27, 2023 6:34:10 PM [facility] KAHLIL RAY B PHY Attending normal July 4:00:00 AM [facility] August 27, 2023 4:00:00 AM [facility] [id number] on August 27, 2023 6:34:10 PM [facility] KAHLIL RAY B PHY Admitting normal July 4:00:00 AM [facility] August 27, 2023 4:00:00 AM [facility] [id number] on August 27, 2023 6:34:10 PM [facility]
--- OUTSIDE RECORDS SUMMARY | 2023-11-04 08:40 | XMS_ITS | Continuity of Care Document ---
Author Name Unknown Address [address] [place] [address] [phone] Organization [facility] Phone Care Team Providers Care Assistant Athletic Trainer Name Role Phone VANDANA DAMON Primary Care DIRK NAVARRETE Unavailable DIRK NAVARRETE Admitting DIRK NAVARRETE Primary Attending RESULTS Patient: KEIRY Dinh Date of : 1955 9 LABORATORY RESULTS ORDER 200: PROSTATE SPECIFIC AG PSA (LOINC: 2857-1) ORDER DATE: August 27, 2023 6:40:00 PM [facility] Specimen Source: PLASMA PERFORMING LAB: [facility] [address] [facility] [id number] Result Comment: Final Result Date: August 27, 2023 7:39:00 PM [facility] (TECH: KAC) [facility] TEST FLAG RESULT REFERENCE RANGE UPDA JONO BY 2857-1 Prostate specific Ag [Mass/volume] in Serum or Plasma H 12.6 ng/mL 0 ng/mL - 4.0 ng/mL August 27, 2023 7:39:00 PM [facility] (TECH: KAC) LABORATORY NARRATIVE RESULTS Information is not available RADIOLOGY RESULTS Information is not available PATHOLOGY NARRATIVE RESULTS Information is not available MICROBIOLOGY RESULTS No Micro Labs/Results Exist for Patient BLOOD ADMIN RESULTS Information is not available TREATMENT PLAN DISCHARGE MEDICATIONS Status RXNORM Medication Dose Route Frequency Dates Comments U pdated By Patient discharge medication information is not available. PATIENT OPEN ORDERS Code System Description Frequency Occurrences Priority [place] [id number] [facility] Blood draw [PhenX] ONE TIME 0 Routine August 27, 2023 6:40:00 PM UTC ROSALBA CAVAZOS [id number] on August 27, 2023 6:40:00 PM [facility] SCHEDULED PROCEDURES Code System Description Status Scheduled [...] Description Effective Dates Offered Cessation Comment UpdatedBy [id number] Smoking Status Unknown If Ever Smoked SOCIAL [...] LAB Admission August 27, 2023 6:30:[address] [id number] Discharge August 27, 2023 6:30:00 PM [facility] DISCHARGED TO HOME OR SELF CARE ENCOUNTER DIAGNOSES Notes information is not pratik ilable. Code System Diagnosis Onset Date Diagnosis information is not available. ABSTRACT DIAGNOSES Code System Diagnosis Updated By Z12.5 ICD10 ENCOUNTER FOR SC REENING FOR MALIGNANT NEOPLASM OF PROSTATE [id number] on August 28, 2023 1:00:55 PM [facility] Z12.5 ICD10 ENCOUNTER FOR SC REENING FOR MALIGNANT NEOPLASM OF PROSTATE [id number] on August 28, 2023 1:00:56 PM [facility] CARE TEAM Care Assistant Athletic Trainer Role VANDANA DAMON Primary Care DIRK NAVARRETE Referring DIRK NAVARRETE Admitting DIRK NAVARRETE Primary Attending CARE TEAM CARE obstetrics tech Role on Team Status Start Date End Date Update d By ROSALBA ESCAMILLA Referring normal August 27, 2023 4:00:00 AM [facility] August 27, 2023 6:30:00 PM [facility] [id number] on August 27, 2023 6:34:10 PM [facility] ROSALBA ESCAMILLA Attending normal August 27, 2023 4:00:00 AM [facility] August 27, 2023 6:30:00 PM [facility] [id number] on August 27, 2023 6:34:10 PM [facility] ROSALBA ESCAMILLA Admitting normal August 27, 2023 4:00:00 AM [facility] August 27, 2023 6:30:00 PM [facility] [id number] on August 27, 2023 6:34:10 PM [facility] NELSON AMAYAT E PCP normal August 27, 023 4:00:00 AM [facility] August 27, 2023 6:30:00 PM UTC [id number] on August 27, 2023 6:34:10 PM [facility] KAHLIL RAY B PHY Referring normal July 4:00:00 AM [facility] August 27, 2023 4:00:00 AM UTC [id number] on August 27, 2023 6:34:10 PM [facility] KAHLIL RAY B PHY Attending normal July 4:00:00 AM [facility] August 27, 2023 4:00:00 AM [facility] [id number] on August 27, 2023 6:34:10 PM [facility] KAHLIL RAY B PHY Admitting normal July 4:00:00 AM UTC August 27, 2023 4:00:00 AM [facility] [id number] on August 27, 2023 6:34:10 PM [facility]
[2023-11-04 08:54] LABS: Microscopic, Urine URINE MICROSCOPIC (MICROSCOPIC)
[2023-11-04 09:00] LABS: Appearance,Urine CLEAR (Clear); Bilirubin,Urine Negative (Negative); Blood, Urine 3+ (Negative); Color,Urine YELLOW (Yellow); Glucose,Urine (UA) 2+ (Negative); Ketones,Urine Negative (Negative); Leukocyte Esterase,Urine Negative (Negative); Nitrate,Urine Negative (Negative); PH,Urine 5.5 (5.0-8.5); Protein,Urine TRACE (Negative); Specific Gravity, Urine 1.025 (1.005-1.030); Urobilinogen,Urine 0.2 EU/dl (0.2)
--- NOTE | 2023-11-04 09:10 | HMH.PHAINT1 ---
Pharmacy Intervention Comments: home med list verified with patient at bedside, RX bottles, and external pharmacy list.
[2023-11-04 09:13] LABS: WBC,Urine Occasional #/hpf (0-3)
[2023-11-04 09:14] LABS: Bacteria,Urine Trace /lpf; RBC,Urine 20-50 #/hpf (0-3); Squamous Epithelial Cell,Urine Occasional #/hpf (0-5)
[2023-11-04 09:53] LABS: Hemoglobin 12.1 g/dL (14.1-18.0)
[2023-11-04] MEDS: HYDROMORPHONE 2MG/ML SYRINGE 2 MG IV ×4 (11:08→23:42)
[2023-11-04] MEDS: KETOROLAC 30MG/ML VIAL 15 MG IV (13:01)
[2023-11-04] MEDS: LACTATED RINGERS 1000ML 1,000 ML 125 ML IV ×2 (17:15→20:15)
--- NOTE | 2023-11-04 17:34 | PC.NURSE ---
Pt in bed this shift . Has c/o discomfort to abdomen most of shift. Morphine CALCULATING MACHINE OPERATOR pump 1 mg Q10. Dilaudid 2 mg Q4 ordered for breakthrough. Pt also administered toradol 15 mg this shift. Pt states pain has improved. Total Morphine CALCULATING MACHINE OPERATOR used 50.3 mg. NG to continuous low wall suction. Pt is allowed ice chips and sips. Total output 1150ml from NG. Pt total intake this shift was around 360. F/C removed this evening. Urine output was 500 ml. Abdominal DSG is C/D/I. Family remains at bedside. Call light within reach.
--- NOTE | 2023-11-04 18:02 | P.PN_ITS ---
Subjective *Date: 11/04/23 *Time: 18:02 Interval history: seen at bedside, complains of abdominal pain, feels nauseated, has NG tube, no acute events reported overnight, denies chest pain shortness of breath Exam Data for Last 24 hours Vital signs and Labs for Last 24 Hours: Temp Pulse Resp BP Pulse Ox O2 Del Method O2 Flow Rate 98.2 F 90 18 139/67 96 Nasal Cannula 2 11/04/23 16:00 11/04/23 16:00 11/04/23 16:11/04/23 16:11/04/23 16:00 11/04/23 17:00 11/04/23 17:00 Laboratory Results - last 24 hr 11/04/23 05:25: WBC 10.8 D, RBC 4.22 L, Hgb 12.1 L D, Hct 38.4 L, MCV 90.9, MCH 28.5, MCHC 31.4 L, RDW 15.3, Plt Count 202, MPV 9.0, Neut % (Auto) 81.7 H, Lymph % (Auto) 11.8, [place] % (Auto) 6.4, Eos % (Auto) 0.0 L, Baso % (Auto) 0.1, Neut # (Auto) 8.8 H, Lymph # (Auto) 1.3, [place] # (Auto) 0.7, Eos # (Auto) 0.0, Baso # (Auto) 0.0, Sodium 138, Potassium 3.9, Chloride 103, Carbon Dioxide 32 H, Anion Gap 6.9, BUN 29 H, Creatinine 1.40 H, Estimated Creat Clear 57, Estimated GFR 50 L, Est GFR ( Amer) 61, Glucose 171 H, Calcium 8.5 11/04/23 08:49: Urine Color Yellow, Urine Appearance Clear, Urine pH 5.5, Ur Specific [place] 1.025, Urine Protein Trace, Urine Glucose (UA) 2+, Urine Ketones Negative, Urine Blood 3+, Urine Nitrate Negative, Urine Bilirubin Negative, Urine Urobilinogen 0.2, Ur Leukocyte Esterase Negative, Urine RBC 20- 50, Urine WBC Occasional, Ur Squamous Epith Cells Occasional, Urine Bacteria Trace I & O for Last 24 hours: Intake & Output 01/05/24 01/06/24 01/07/24 01/08/24 23:59 23:59 23:59 23:59 Intake Total 2700 / 2925 5930 / 5930 Output Total 3050 / 3050 Balance 2700 / 1525 2880 / 2880 Weight 79.379 kg 79.424 kg Constitutional Constitutional: no acute distress *Routine HEENT Exam Head: Present normocephalic Eye: Present EOMI and PERRL ENT: Present mucous membranes moist *Routine Neck Exam Neck: Present supple; Absent lymphadenopathy *Routine Respiratory Exam Respiratory: Present CTA bilaterally *Routine Cardiovascular Exam Cardiovascular: Present RRR *Routine Abdominal Exam Abdominal: Present soft, normoactive bowel sounds and tenderness Comments: has dressing at site of surgery no vissible bleeding or redness *Routine Extremities Exam Extremities: Absent cyanosis, clubbing or edema *Routine Skin Exam Skin: Present warm; Absent rash *Routine Neurological Exam Neurological: Present alert and oriented X3 Assessment and Plan *Assessment and plan (1) Incarcerated hernia: Status: Acute Category: Medical Code(s): K46.0 - Unspecified abdominal hernia with obstruction, without gangrene (2) CAD (coronary artery disease): Status: Chronic Qualifiers: Coronary Disease-Associated Artery/Lesion type: [place] artery [place] vs. transplanted heart: [place] heart Associated angina: without angina Qualified Code(s): I25.10 - Atherosclerotic heart disease of [place] coronary artery without angina pectoris Category: Medical Code(s): I25.10 - Atherosclerotic heart disease of [place] coronary artery without angina pectoris (3) Tobacco dependence syndrome: Status: Chronic Category: Medical Code(s): F17.200 - Nicotine dependence, unspecified, uncomplicated (4) Diabetes type 2 with atherosclerosis of arteries of extremities: Status: Chronic Category: Medical Code(s): E11.51 - Type 2 diabetes mellitus with diabetic peripheral angiopathy without gangrene; I70.209 - Unspecified atherosclerosis of [place] arteries of extremities, unspecified extremity (5) HTN (hypertension): Status: Chronic Qualifiers: Hypertension type: essential hypertension Qualified Code(s): I10 - Essential (primary) hypertension Category: Medical Code(s): I10 - Essential (primary) hypertension (6) HLD (hyperlipidemia): Status: Chronic Qualifiers: Hyperlipidemia type: mixed hyperlipidemia Qualified Code(s): E78.2 - Mixed hyperlipidemia Category: Medical Code(s): E78.5 - Hyperlipidemia, unspecified (7) PAD (peripheral artery disease): Status: Chronic Category: Medical Code(s): I73.9 - Peripheral vascular disease, unspecified Plan Patient is a 68-year-old male with past medical history of CAD diabetes mellitus hypertension hyperlipidemia PAD tobacco use who presents to the hospital for abdominal pain. Patient at time of my evaluation is alert awake holding conversations, patient mentions he had surgery yesterday and tolerated well. He denies fevers chills. He still complains of abdominal pain at the site of surgery. Assessment Incarcerated inguinal hernia s/p surgery CKD stage III CAD Diabetes mellitus Hypertension Hyperlipidemia PAD Tobacco abuse Plan N.p.o. NG tube Pain control-currently on morphine RESPIRATORY DIRECTOR pump General surgery following on Unasyn-continue Monitor and replace electrolytes Advance diet as per GS recommendations Sliding scale Continue IV fluids DVT prophylaxis- Heparin
--- NOTE | 2023-11-04 18:52 | PC.NURSE ---
Pt's states she will be holding on to pt's home medications.
[2023-11-04] MEDS: HEPARIN SODIUM 5,000 UNIT/ML VIAL 5000 UNIT SQ (20:29)
[2023-11-04] MEDS: humaLOG 100 UNITS/ML 3ML VIAL (SSI) SQ (20:37)
[2023-11-04 21:36] LABS: POC Glucose,Bedside 164 (70-110)
[2023-11-04] MEDS: SODIUM CHLORIDE 0.9% 10ML FLUSH SYRINGE 10 ML IV (23:42)
[2023-11-05] VITALS (22 sets, daily range): BP systolic 115–215; BP diastolic 78–110; PULSE 91–113; RESP 14–20; TEMP 36.6–37.1; O2SAT 90–94; BMI 26.5
[2023-11-05] MEDS: SODIUM CHLORIDE 0.9% 10ML FLUSH SYRINGE 10 ML IV ×2 (00:07→03:16)
[2023-11-05] MEDS: AMPICILLIN/SULBACTAM 3 GM in 0.9 % SODIUM CHLORIDE 100 ML IV ×5 (00:07→23:53)
[2023-11-05] MEDS: LABETALOL 5MG/ML 20ML MDV 10 MG IV (01:50)
[2023-11-05] MEDS: HYDROMORPHONE 2MG/ML SYRINGE 2 MG IV ×7 (03:15→20:30)
[2023-11-05] MEDS: LACTATED RINGERS 1000ML 1,000 ML 125 ML IV ×3 (04:55→20:32)
[2023-11-05] MEDS: NITROGLYCERIN 1 GM OINTMENT TD (05:23)
[2023-11-05 05:37] LABS: POC Glucose,Bedside 185 (70-110)
[2023-11-05] MEDS: humaLOG 100 UNITS/ML 3ML VIAL (SSI) SQ ×4 (05:42→23:33)
--- NOTE | 2023-11-05 06:48 | PC.NURSE ---
Patient had a restless night with less than minimal amount of sleep. Patient struggled with pain and HTN throughout most of shift. NETWORK TECHNOLOGY INSTRUCTOR notified for BP treatment- Medicated per DEC. Pain has been under control for the last hour at time of documentation. Patient and spouse had significant education throughout shift to continue using the FIELD ATTENDANT. Patient had approximately 2 liters of gastric fluid out from NG. No abdominal distention noted and bowel sounds are auscultated on exam. Patient was at his baseline confusion per spouse who reports, he usually gets confused at night and while in the hospital. 4L/NC and tolerating well.
--- NOTE | 2023-11-05 07:47 | EXP.SURG.PN ---
Subjective Narrative: Patient currently residing in the ICU as a stepdown patient. He was on a morphine JOY OPERATOR HELPER which was not controlling his pain. Switched to as needed intravenous Dilaudid which seems to be better. He has had some occasional bloating and nausea. Nasogastric tube intermittently working. Appreciable NG output. Taking ice chips. No flatus and no bowel movement. Taking some ice chips. Elevated blood pressure has been an issue. No blood work this morning. Exam Data for Last 24 hours Vital signs and Labs for Last 24 Hours: Temp Pulse Resp BP Pulse Ox O2 Del Method O2 Flow Rate 98.1 F 99 H 19 208/103 H 91 L Nasal Cannula 4 11/05/23 04:00 11/05/23 06:00 11/05/23 06:00 11/05/23 06:00 11/05/23 06:00 11/05/23 06:47 11/05/23 06:47 Laboratory Results - last 24 hr 11/04/23 05:25: Hgb 12.1 L D 11/04/23 08:49: Urine Color Yellow, Urine Appearance Clear, Urine pH 5.5, Ur Specific [place] 1.025, Urine Protein Trace, Urine Glucose (UA) 2+, Urine Ketones Negative, Urine Blood 3+, Urine Nitrate Negative, Urine Bilirubin Negative, Urine Urobilinogen 0.2, Ur Leukocyte Esterase Negative, Urine RBC 20-50, Urine WBC Occasional, Ur Squamous Epith Cells Occasional, Urine Bacteria Trace 11/04/23 20:23: POC Glucose 164 H 11/05/23 05:26: POC Glucose 185 H I & O for Last 24 hours: Intake & Output 11/02/23 11/03/23 11/04/23 11/05/23 11:59 11:59 11:59 11:59 Intake Total 7567 / 7567 1731 / 1731 Output Total 1400 / 1400 5470 / 5470 Balance 6167 / 6167 -3739 / -3739 Weight 175 lb 1.6 oz 175 lb 0.752 oz *Routine Abdominal Exam Comments: Dressings dry. Incisional tenderness. Progress Note: A&P Assessment and plan (1) Incarcerated hernia: Status: Acute Assessment and plan: Continue n.p.o. with nasogastric tube for now. Patient may chew gum if desired. Limited to ice chips. It would be acceptable for the patient to take oral home medications if needed with nasogastric tube clamped. I will check acute abdominal series due to the intermittently functioning nasogastric tube. (2) CAD (coronary artery disease): Status: Chronic (3) Tobacco dependence syndrome: Status: Chronic (4) Diabetes type 2 with atherosclerosis of arteries of extremities: Status: Chronic (5) HTN (hypertension): Status: Chronic (6) HLD (hyperlipidemia): Status: Chronic (7) PAD (peripheral artery disease): Status: Chronic
[2023-11-05] MEDS: HEPARIN SODIUM 5,000 UNIT/ML VIAL 5000 UNIT SQ ×2 (07:50→20:30)
--- NOTE | 2023-11-05 07:53 | XR_ITS ---
FINAL REPORT CLINICAL HISTORY: BOWEL OBSTRUCTION, S/P LAPAROTOMY, CHECK TUBE PLAC FINDINGS: A PA view of the chest was obtained. The mediastinum is unremarkable. The lungs are clear. Upright and supine views of the abdomen reveal a nonspecific, nonobstructive bowel gas pattern. No abnormal calcifications are identified. There are postoperative changes in the abdomen and pelvis. There is a small amount of pneumoperitoneum, likely postoperative. There is a moderate amount of stool throughout the colon. IMPRESSION: Small amount of pneumoperitoneum, likely postoperative. Reviewed, Interpreted and Dictated by Johan Patton III, MD Transcribed by Eva Biswas Authenticated and [facility]
[2023-11-05 08:24] LABS: Chloride 101 mmol/L (98-107); Sodium 144 mmol/L (136-145)
[2023-11-05 08:25] LABS: Potassium 3.3 mmoL/L (3.5-5.1)
[2023-11-05 08:27] LABS: Blood Urea Nitrogen 36 mg/dl (9-20); Creatinine Clearance Estimated 57 mL/min (50-200); Estimated Glomerular Filt Rate 50 ml/min (>60); GFR (African American) 61 ML/MIN (>60)
[2023-11-05 08:28] LABS: Anion Gap 9.3 mEq/L (5-15); Calcium 8.7 mg/dl (8.4-10.2); Carbon Dioxide 37 mmol/L (22.0-30.0); Glucose 175 mg/dl (74-100); Magnesium 2.4 mg/dl (1.6-2.3)
[2023-11-05 08:36] LABS: Basophils % 0.2 % (0.1-2.0); Eosinophils # 0.1 K/mm3 (0.0-0.4); Eosinophils % 0.6 % (0.1-12.0); Hematocrit 37.1 % (42.0-52.0); Lymphocytes # 1.5 K/mm3 (0.7-4.5); Lymphocytes % 10.8 % (10-50); Mean Corpuscular HGB Conc 32.3 g/dL (31.8-35.4); Mean Corpuscular Hemoglobin 29.2 pg (27.0-31.2); Mean Corpuscular Volume 90.6 fl (80-94); Mean Platelet Volume 8.8 fl (7.4-10.4); Monocytes # 0.7 K/mm3 (0.1-1.0); Neutrophils # 11.4 K/mm3 (1.8-7.8); Neutrophils % 83.4 % (37.0-80.0); Platelet Count 217 K/mm3 (142-424); Red Blood Count 4.09 M/mm3 (4.60-6.20); Red Cell Distribution Width 15.3 % (11.5-17.5); White Blood Count 13.6 K/mm3 (4.8-10.8)
[2023-11-05] MEDS: LABETALOL 20MG/4ML SYRINGE 10 MG IV ×3 (08:42→23:10)
[2023-11-05] MEDS: ONDANSETRON 4MG/2ML VIAL 4 MG IV ×2 (11:05→16:01)
[2023-11-05] MEDS: ENALAPRILAT 2.5MG/2ML VIAL 1.25 MG IV (16:00)
--- NOTE | 2023-11-05 18:50 | P.PN_ITS ---
Subjective *Date: 11/05/23 *Time: 22:49 Interval history: Continues to have no bowel movement or passing of flatus. Pain severe. Both in abdomen and back. NG in place with significant drainage in container. On 2L NC. Still having some nausea. No ed emesis. Medical Exam Vital signs and Labs for Last 24 Hours: Vital Signs Temp Pulse Pulse Resp BP BP Pulse Ox 11/05/23 16:00 96 H 11/05/23 11:28 104 H 11/05/23 08:00 106 H 11/05/23 18:41 11/05/23 17:00 11/05/23 15:00 11/05/23 16:59 196/92 H 11/05/23 16:00 98.1 F 91 H 20 204/92 H 94 L 11/05/23 13:44 187/87 H 11/05/23 07:50 11/05/23 13:05 11/05/23 11:05 11/05/23 09:20 11/05/23 12:00 98.6 F 11/05/23 12:41 215/97 H 11/05/23 09:12 192/92 H 11/05/23 08:00 98.1 F 11/05/23 06:47 11/05/23 06:00 99 H 19 208/103 H 91 L 11/05/23 05:49 100 H 17 197/94 H 90 L 11/05/23 05:08 100 H 18 201/100 H 90 L 11/05/23 05:00 101 H 18 200/110 H 90 L 11/05/23 04:59 11/05/23 04:00 98.1 F 103 H 16 181/85 H 91 L 11/05/23 03:00 97.9 F 105 H 19 168/92 H 92 L 11/05/23 02:23 11/05/23 02:20 100 H 18 181/84 H 92 L 11/05/23 02:20 181/84 H 11/05/23 02:00 98.1 F 107 H 16 204/100 H 92 L 11/05/23 01:50 202/97 H 11/05/23 01:45 98.1 F 113 H 17 202/97 H 94 L 11/05/23 00:53 11/05/23 00:00 98.8 F 104 H 14 170/78 H 92 L 11/04/23 23:18 94 L 11/04/23 22:34 11/04/23 21:00 11/04/23 22:00 98.4 F 99 H 19 175/78 H 94 L O2 Del Method O2 Flow Rate 11/05/23 16:00 11/05/23 11:28 11/05/23 08:00 11/05/23 18:41 Nasal Cannula 2 11/05/23 17:00 Nasal Cannula 2 11/05/23 15:00 Nasal Cannula 2 11/05/23 16:59 11/05/23 16:00 Nasal Cannula 4 11/05/23 13:44 11/05/23 07:50 Nasal Cannula 4 11/05/23 13:05 Nasal Cannula 2 11/05/23 11:05 Nasal Cannula 2 11/05/23 09:20 Nasal Cannula 2 11/05/23 12:00 11/05/23 12:41 11/05/23 09:12 11/05/23 08:00 11/05/23 06:47 Nasal Cannula 4 11/05/23 06:00 Nasal Cannula 4 11/05/23 05:49 Nasal Cannula 3 11/05/23 05:08 Nasal Cannula 3 11/05/23 05:00 Nasal Cannula 3 11/05/23 04:59 Nasal Cannula 4 11/05/23 04:00 Nasal Cannula 4 11/05/23 03:00 Nasal Cannula 3 11/05/23 02:23 Nasal Cannula 2 11/05/23 02:20 Nasal Cannula 2 11/05/23 02:20 11/05/23 02:00 Nasal Cannula 2 11/05/23 01:50 11/05/23 01:45 Nasal Cannula 2 11/05/23 00:53 Nasal Cannula 2 11/05/23 00:00 Nasal Cannula 2 11/04/23 23:18 Nasal Cannula 2 11/04/23 22:34 Nasal Cannula 2 11/04/23 21:00 Nasal Cannula 2 11/04/23 22:00 Nasal Cannula 2 Intake and Output 11/05/23 11/05/23 11/05/23 07:59 15:59 23:59 Intake Total / 1976 1308 / 1976 Output Total 3620 / 5945 2325 / 5945 Balance -2952 / -3968 -1016 / -3969 Intake: Intake, Oral Amount 0 / 0 Intake, Total IV Amount 1976 1309 1976 Ampicillin/Sulbactam 3 gm In 0. 100 / 300 200 / 300 9 % Sodium Chloride 100 ml @ 200 mls/hr IV Q6H [facility] Rx#: [id number] Lactated Ringers 1000ML 1,000 568 / 1677 1109 / 1677 ml @ 125 mls/hr IV .Q8H [facility] Rx# :[id number] Output: Output, Urine Amount 1620 / 3045 1425 / 3045 Output, Gastric Drainage Amount 1999 900 / 2900 Right Nare 1999 900 / 2900 Other: Number of Unmeasured Voids 0 Weight 79.4 kg Patient Weight 11/05/23 23:59 Weight 79.4 kg Laboratory Results - last 24 hr 11/04/23 20:23: POC Glucose 164 H 11/05/23 05:26: POC Glucose 185 H 11/05/23 08:08: WBC 13.6 H D, RBC 4.09 L, Hgb 12.0 L, Hct 37.1 L, MCV 90.6, MCH 29.2, MCHC 32.3, RDW 15.3, Plt Count 217, MPV 8.8, Neut % (Auto) 83.4 H, Lymph % (Auto) 10.8, [place] % (Auto) 5.0, Eos % (Auto) 0.6, Baso % (Auto) 0.2, Neut # (Auto) 11.4 H, Lymph # (Auto) 1.5, [place] # (Auto) 0.7, Eos # (Auto) 0.1, Baso # (Auto) 0.0, Sodium 144, Potassium 3.3 L, Chloride 101, Carbon Dioxide 37 H, Anion Gap 9.3, BUN 36 H, Creatinine 1.40 H, Estimated Creat Clear 57, Estimated GFR 50 L, Est GFR ( Amer) 61, Glucose 175 H, Calcium 8.7, Magnesium 2.4 H I & O for Labs for Last 24 Hours: Intake & Output 11/02/23 11/03/23 11/04/23 11/05/23 23:59 23:59 23:59 23:59 Intake Total 2700 / 2925 5930 / 5930 1976 Output Total 3250 / 3250 5945 / 5945 Balance 2700 / 1525 2680 / 2680 -3968 / -3968 Weight 79.379 kg 79.424 kg 79.4 kg Constitutional: Present mild distress and chronically ill appearing Head: Present atraumatic Comment:: NG in left nare Respiratory: Present prolonged expiratory phase and normal respiratory effort; Absent rhonchi, wheezes or crackles Cardiac: Present Reg Rate and Rhythm GI: Present soft, distention, tenderness (Nonfocal, diffuse) and diminished bowel sounds Extremities: Present normal inspection and full ROM Skin: Present intact; Absent erythema Neuro: Present Grossly Intact, alert, awake and moves all extremities Assessment and Plan *Assessment and plan (1) Incarcerated hernia: Status: Acute Category: Medical Code(s): K46.0 - Unspecified abdominal hernia with obstruction, without gangrene (2) CAD (coronary artery disease): Status: Chronic Qualifiers: Associated angina: without angina Coronary Disease-Associated Artery/Lesion type: [place] artery [place] vs. transplanted heart: [place] heart Qualified Code(s): I25.10 - Atherosclerotic heart disease of [place] coronary artery without angina pectoris Category: Medical Code(s): I25.10 - Atherosclerotic heart disease of [place] coronary artery without angina pectoris (3) Tobacco dependence syndrome: Status: Chronic Category: Medical Code(s): F17.200 - Nicotine dependence, unspecified, uncomplicated (4) Diabetes type 2 with atherosclerosis of arteries of extremities: Status: Chronic Category: Medical Code(s): E11.51 - Type 2 diabetes mellitus with diabetic peripheral angiopathy without gangrene; I70.209 - Unspecified atherosclerosis of [place] arteries of extremities, unspecified extremity (5) HTN (hypertension): Status: Chronic Qualifiers: Hypertension type: essential hypertension Qualified Code(s): I10 - Essential (primary) hypertension Category: Medical Code(s): I10 - Essential (primary) hypertension (6) HLD (hyperlipidemia): Status: Chronic Qualifiers: Hyperlipidemia type: mixed hyperlipidemia Qualified Code(s): E78.2 - Mixed hyperlipidemia Category: Medical Code(s): E78.5 - Hyperlipidemia, unspecified (7) PAD (peripheral artery disease): Status: Chronic Category: Medical Code(s): I73.9 - Peripheral vascular disease, unspecified Plan Patient is a 68-year-old male with past medical history of CAD diabetes mellitus hypertension hyperlipidemia PAD tobacco use who presents to the hospital for abdominal pain. Status post surgery x 2 for incarcerated hernia with appendecto my and partial colectomy. Surgery consulted medicine to assist with care. Continues to require inpatient management. No bowel movements as of yet. Still having significant pain and hypertension. Problems addressed as follows: Incarcerated inguinal hernia status post surgery Postop ileus Postop pain -Discussed case with surgery, recommend continuing n.p.o. with nasogastric tube for now. Recommend initiating chewing gum to promote gastric motility. - It would be acceptable for the patient to take oral home medications if needed with nasogastric tube clamped per surgery recommendations. - acute abdominal series due to the intermittently functioning nasogastric tube obtained, appears to be in the right location. -Awaiting patient to pass gas or have bowel movement before advancing diet. Remains n.p.o. -Patient not using SPOUT WORKER pump but still complaining of significant pain. Transition Dilaudid to 2 mg every 3 hours. -Continue Unasyn every 6 hours CKD stage III -Creatinine at baseline at 1.4, BUN 36. Continue maintenance IV fluids. Repeat CMP, CBC, magnesium ordered for the morning. CAD Hypertension -Continue labetalol every 6 hours as needed for blood pressure greater than 180, will add enalapril 1.25 mg IV every 6 hours as needed for systolic greater than 180. Diabetes mellitus: Continue sliding scale insulin high intensity, fingersticks ACHS. Will continue to monitor for need to advance daily DVT prophylaxis: Heparin Full code N.p.o.
[2023-11-05] MEDS: FAMOTIDINE 20MG/2ML VIAL 20 MG IV (20:30)
[2023-11-06] VITALS (16 sets, daily range): BP systolic 115–226; BP diastolic 67–110; PULSE 88–101; RESP 15–22; TEMP 36.8–37; O2SAT 90–98; BMI 25.4
[2023-11-06] MEDS: ONDANSETRON 4MG/2ML VIAL 4 MG IV ×2 (02:56→10:02)
[2023-11-06] MEDS: HYDROMORPHONE 2MG/ML SYRINGE 2 MG IV ×4 (03:42→20:14)
[2023-11-06] MEDS: LACTATED RINGERS 1000ML 1,000 ML 125 ML IV ×3 (05:11→20:07)
[2023-11-06] MEDS: AMPICILLIN/SULBACTAM 3 GM in 0.9 % SODIUM CHLORIDE 100 ML IV ×4 (05:12→23:21)
[2023-11-06] MEDS: humaLOG 100 UNITS/ML 3ML VIAL (SSI) SQ ×3 (06:16→23:28)
[2023-11-06 07:24] LABS: Basophils % 0.2 % (0.1-2.0); Eosinophils % 0.2 % (0.1-12.0); Hematocrit 27.1 % (42.0-52.0); Lymphocytes # 1.2 K/mm3 (0.7-4.5); Lymphocytes % 13.7 % (10-50); Mean Corpuscular HGB Conc 31.9 g/dL (31.8-35.4); Mean Corpuscular Hemoglobin 28.8 pg (27.0-31.2); Mean Platelet Volume 9.8 fl (7.4-10.4); Monocytes # 0.4 K/mm3 (0.1-1.0); Monocytes % 4.5 % (1.7-9.3); Neutrophils # 7.5 K/mm3 (1.8-7.8); Neutrophils % 81.4 % (37.0-80.0); Platelet Count 223 K/mm3 (142-424); Red Blood Count 3.01 M/mm3 (4.60-6.20); Red Cell Distribution Width 15.2 % (11.5-17.5); White Blood Count 9.2 K/mm3 (4.8-10.8)
[2023-11-06 07:37] LABS: Hemoglobin 8.7 g/dL (14.1-18.0)
[2023-11-06 07:47] LABS: Anion Gap 6.6 mEq/L (5-15); Aspartate Amino Transferase 40 U/L (17-59); Bilirubin,Total 0.5 mg/dl (0.2-1.3); Blood Urea Nitrogen 38 mg/dl (9-20); Calcium 8.1 mg/dl (8.4-10.2); Carbon Dioxide 37 mmol/L (22.0-30.0); Chloride 106 mmol/L (98-107); Creatinine Clearance Estimated 59 mL/min (50-200); Estimated Glomerular Filt Rate 55 ml/min (>60); GFR (African American) 66 ML/MIN (>60); Glucose 185 mg/dl (74-100); Magnesium 2.3 mg/dl (1.6-2.3); Sodium 147 mmol/L (136-145)
[2023-11-06 07:48] LABS: Alanine Aminotransferase 23 U/L (12-78); Albumin Level 2.9 g/dl (3.5-5.0); Alkaline Phosphatase 81 U/L (38-126); Globulin 2.9 g/dL (1.3-3.2); Total Protein,Serum 5.8 g/dl (6.3-8.2)
[2023-11-06 07:49] LABS: Potassium 2.6 mmoL/L (3.5-5.1)
[2023-11-06] MEDS: ENALAPRILAT 2.5MG/2ML VIAL 1.25 MG IV ×3 (08:02→22:39)
[2023-11-06] MEDS: FAMOTIDINE 20MG/2ML VIAL 20 MG IV ×2 (08:02→20:07)
[2023-11-06] MEDS: HEPARIN SODIUM 5,000 UNIT/ML VIAL 5000 UNIT SQ ×2 (08:02→20:07)
--- NOTE | 2023-11-06 08:41 | EXP.SURG.PN ---
Subjective Patient reports: still having pain Narrative: States that he overall feel(s) a little worse . Exam Data for Last 24 hours Vital signs and Labs for Last 24 Hours: Temp Pulse Resp BP Pulse Ox O2 Del Method O2 Flow Rate 98.2 F 95 H 18 177/81 H 92 L Room Air 2 11/06/23 07:59 11/06/23 07:59 11/06/23 07:59 11/06/23 04:00 11/06/23 07:59 11/06/23 08:15 11/06/23 07:59 Laboratory Results - last 24 hr 11/06/23 07:09: WBC 9.2 D, RBC 3.01 L D, Hgb 8.7 L D, Hct 27.1 L, MCV 90.0, MCH 28.8, MCHC 31.9, RDW 15.2, Plt Count 223, MPV 9.8, Neut % (Auto) 81.4 H, Lymph % (Auto) 13.7, [place] % (Auto) 4.5, Eos % (Auto) 0.2, Baso % (Auto) 0.2, Neut # (Auto) 7.5, Lymph # (Auto) 1.2, [place] # (Auto) 0.4, Eos # (Auto) 0.0, Baso # (Auto) 0.0, Sodium 147 H, Potassium 2.6 L* D, Chloride 106, Carbon Dioxide 37 H, Anion Gap 6.6, BUN 38 H, Creatinine 1.30 H, Estimated Creat Clear 59, Estimated GFR 55 L, Est GFR ( Amer) 66, Glucose 185 H, Calcium 8.1 L, Magnesium 2.3, Total Bilirubin 0.5, AST 40, ALT 23 D, Alkaline Phosphatase 81, Total Protein 5.8 L D, Albumin 2.9 L, Globulin 2.9, Albumin/Globulin Ratio 1.0 L I & O for Last 24 hours: Intake & Output 11/03/23 11/04/23 11/05/23 11/06/23 11:59 11:59 11:59 11:59 Intake Total 7567 / 7567 1731 / 1731 1409 / 1409 Output Total 1400 / 1400 6295 / 6495 3205 / 3205 Balance 6167 / 6167 -4564 / -4764 -1796 / -1796 Weight 175 lb 1.6 oz 175 lb 0.752 oz 167 lb 12.8 oz Constitutional Constitutional: no acute distress and chronically ill appearing *Routine Respiratory Exam Respiratory: Absent respiratory distress *Routine Cardiovascular Exam Cardiovascular: Absent tachycardia *Routine Abdominal Exam Comments: Dressings in place (patient currently seated at bedside and prefers to wait for dressings to be taken down) Progress Note: A&P Assessment and plan (1) Incarcerated hernia: Status: Acute Assessment and plan: Continue nasogastric decompression for now Nursing to take down dressings later this morning (2) Postoperative anemia: Status: Acute Assessment and plan: Repeat hemoglobin/hematocrit tomorrow morning (3) Physical deconditioning: Status: Acute Assessment and plan: PT consult ordered
--- NOTE | 2023-11-06 09:13 | EXP.ACUTE.PN ---
Subjective *Date: 11/06/23 *Time: 20:07 Interval history: Patient passed flatus once yesterday, had nausea on exam this morning. Tolerating 2 L nasal cannula. No fever overnight. Labs stable. Having adequate urine output. Still not tolerating any p.o. intake. Still having drainage from NG. Medical Exam Vital signs and Labs for Last 24 Hours: Vital Signs Temp Pulse Pulse Resp BP BP Pulse Ox 11/06/23 08:15 11/06/23 07:59 98.2 F 95 H 18 92 L 11/06/23 05:00 11/06/23 04:00 95 H 11/06/23 03:00 11/06/23 04:00 98.6 F 92 H 16 177/81 H 90 L 11/06/23 01:00 11/06/23 00:00 93 H 11/06/23 00:00 88 22 115/93 H 93 L 11/05/23 23:59 115/93 H 11/05/23 23:00 11/05/23 23:10 194/95 H 11/05/23 20:00 94 H 11/05/23 21:00 11/05/23 20:00 11/05/23 20:00 98.1 F 99 H 20 189/85 H 90 L 11/05/23 16:00 96 H 11/05/23 11:28 104 H 11/05/23 18:41 11/05/23 17:00 11/05/23 15:00 11/05/23 16:59 196/92 H 11/05/23 16:00 98.1 F 91 H 20 204/92 H 94 L 11/05/23 13:44 187/87 H 11/05/23 13:05 11/05/23 11:05 11/05/23 09:20 11/05/23 12:00 98.6 F 11/05/23 12:41 215/97 H O2 Del Method O2 Flow Rate 11/06/23 08:15 Room Air 11/06/23 07:59 Nasal Cannula 2 11/06/23 05:00 Nasal Cannula 2 11/06/23 04:00 11/06/23 03:00 Nasal Cannula 2 11/06/23 04:00 Nasal Cannula 2 11/06/23 01:00 Nasal Cannula 2 11/06/23 00:00 11/06/23 00:00 Nasal Cannula 2 11/05/23 23:59 11/05/23 23:00 Nasal Cannula 2 11/05/23 23:10 11/05/23 20:00 11/05/23 21:00 Nasal Cannula 2 11/05/23 20:00 Nasal Cannula 2 11/05/23 20:00 Nasal Cannula 4 11/05/23 16:00 11/05/23 11:28 11/05/23 18:41 Nasal Cannula 2 11/05/23 17:00 Nasal Cannula 2 11/05/23 15:00 Nasal Cannula 2 11/05/23 16:59 11/05/23 16:00 Nasal Cannula 4 11/05/23 13:44 11/05/23 13:05 Nasal Cannula 2 11/05/23 11:05 Nasal Cannula 2 11/05/23 09:20 Nasal Cannula 2 11/05/23 12:00 11/05/23 12:41 Intake and Output 11/05/23 11/06/23 11/06/23 23:59 07:59 15:59 Intake Total 100 / 100 Output Total 1225 / 7170 480 / 480 Balance -1225 / -5093 -380 / -380 Intake: Intake, Oral Amount 0 / 0 Intake, Total IV Amount 100 / 100 Ampicillin/Sulbactam 3 gm In 0. 100 / 100 9 % Sodium Chloride 100 ml @ 200 mls/hr IV Q6H [facility] Rx#: [id number] Output: Output, Urine Amount 325 / 3370 480 / 480 Output, Gastric Drainage Amount 900 / 3800 Right Nare 900 / 3800 Other: Number of Unmeasured Voids 1 1 Weight 76.113 kg Patient Weight 11/06/23 23:59 Weight 76.113 kg Laboratory Results - last 24 hr 11/06/23 07:09: WBC 9.2 D, RBC 3.01 L D, Hgb 8.7 L D, Hct 27.1 L, MCV 90.0, MCH 28.8, MCHC 31.9, RDW 15.2, Plt Count 223, MPV 9.8, Neut % (Auto) 81.4 H, Lymph % (Auto) 13.7, [place] % (Auto) 4.5, Eos % (Auto) 0.2, Baso % (Auto) 0.2, Neut # (Auto) 7.5, Lymph # (Auto) 1.2, [place] # (Auto) 0.4, Eos # (Auto) 0.0, Baso # (Auto) 0.0, Sodium 147 H, Potassium 2.6 L* D, Chloride 106, Carbon Dioxide 37 H, Anion Gap 6.6, BUN 38 H, Creatinine 1.30 H, Estimated Creat Clear 59, Estimated GFR 55 L, Est GFR ( Amer) 66, Glucose 185 H, Calcium 8.1 L, Magnesium 2.3, Total Bilirubin 0.5, AST 40, ALT 23 D, Alkaline Phosphatase 81, Total Protein 5.8 L D, Albumin 2.9 L, Globulin 2.9, Albumin/Globulin Ratio 1.0 L I & O for Labs for Last 24 Hours: Intake & Output 11/03/23 11/04/23 11/05/23 11/06/23 23:59 23:59 23:59 23:59 Intake Total 2700 / 2925 5930 / 5930 1976 / 2076 100 / 100 Output Total 3250 / 3250 7170 / 7170 480 / 480 Balance 2700 / 1525 2680 / 2680 -5193 / -5093 -380 / -380 Weight 79.379 kg 79.424 kg 79.4 kg 76.113 kg Constitutional: Present mild distress and chronically ill appearing Head: Present atraumatic Comment:: NG in left nare Respiratory: Present prolonged expiratory phase and normal respiratory effort; Absent rhonchi, wheezes or crackles Cardiac: Present Reg Rate and Rhythm GI: Present soft, distention, tenderness (Nonfocal, diffuse) and diminished bowel sounds Extremities: Present normal inspection and full ROM Skin: Present intact; Absent erythema Neuro: Present Grossly Intact, alert, awake and moves all extremities Assessment and Plan *Assessment and plan (1) Incarcerated hernia: Status: Acute Category: Medical Code(s): K46.0 - Unspecified abdominal hernia with obstruction, without gangrene (2) CAD (coronary artery disease): Status: Chronic Qualifiers: Associated angina: without angina Coronary Disease-Associated Artery/Lesion type: [place] artery [place] vs. transplanted heart: [place] heart Qualified Code(s): I25.10 - Atherosclerotic heart disease of [place] coronary artery without angina pectoris Category: Medical Code(s): I25.10 - Atherosclerotic heart disease of [place] coronary artery without angina pectoris (3) Tobacco dependence syndrome: Status: Chronic Category: Medical Code(s): F17.200 - Nicotine dependence, unspecified, uncomplicated (4) Diabetes type 2 with atherosclerosis of arteries of extremities: Status: Chronic Category: Medical Code(s): E11.51 - Type 2 diabetes mellitus with diabetic peripheral angiopathy without gangrene; I70.209 - Unspecified atherosclerosis of [place] arteries of extremities, unspecified extremity (5) HTN (hypertension): Status: Chronic Qualifiers: Hypertension type: essential hypertension Qualified Code(s): I10 - Essential (primary) hypertension Category: Medical Code(s): I10 - Essential (primary) hypertension (6) HLD (hyperlipidemia): Status: Chronic Qualifiers: Hyperlipidemia type: mixed hyperlipidemia Qualified Code(s): E78.2 - Mixed hyperlipidemia Category: Medical Code(s): E78.5 - Hyperlipidemia, unspecified (7) PAD (peripheral artery disease): Status: Chronic Category: Medical Code(s): I73.9 - Peripheral vascular disease, unspecified (8) Hypokalemia: Status: Acute Category: Medical Code(s): E87.6 - Hypokalemia Plan Patient is a 68-year-old male with past medical history of CAD diabetes mellitus hypertension hyperlipidemia PAD tobacco use who presents to the hospital for abdominal pain. Status post surgery x 2 for incarcerated hernia with appendectomy and partial colectomy. Surgery consulted medicine to assist with care. Continues to require inpatient management. No bowel movements as of yet, but does appear to have had a few small episodes of flatus. Still having significant pain and hypertension. Problems addressed as follows: Incarcerated inguinal hernia status post surgery Postop ileus Postop pain -Discussed case with surgery, recommend continuing n.p.o. with nasogastric tube for now. Will trial meds per tube and clamping tube thereafter. -Awaiting patient to have significant passage of gas or bowel movement before advancing diet. -Continues to require IV Dilaudid 2 mg every 3 hours as needed. Monitoring for toxicity. -Given significant volume of IV fluids, will discontinue maintenance fluids today. Recommend bolus fluids if needed. -Continue Unasyn every 6 hours CKD stage III -Creatinine at baseline at 1.3, BUN 38. Repeat CMP, CBC, magnesium ordered for the morning. CAD Hypertension -Continue labetalol every 6 hours as needed for blood pressure greater than 180 along with enalapril 1.25 mg IV every 6 hours as needed for systolic greater than 180. -Resume p.o. regimen as soon as possible. Goal blood pressure less than 180/100. Diabetes mellitus: Continue sliding scale insulin high intensity, fingersticks ACHS. Will continue to monitor for need to advance daily DVT prophylaxis: Heparin Full code N.p.o.
[2023-11-06] MEDS: OXYCODONE 10MG W/APAP 325MG TABLET 1 EACH PO (09:27)
[2023-11-06] MEDS: LABETALOL 20MG/4ML SYRINGE 10 MG IV ×3 (09:27→23:37)
[2023-11-06] MEDS: KCl 20mEq/100ml 100 ML 50 MEQ IV ×3 (09:38→14:15)
[2023-11-06 11:25] LABS: POC Glucose,Bedside 184 (70-110)
[2023-11-06 11:25] LABS: POC Glucose,Bedside 170 (70-110)
[2023-11-06 11:25] LABS: POC Glucose,Bedside 182 (70-110)
[2023-11-06 11:25] LABS: POC Glucose,Bedside 185 (70-110)
[2023-11-06 11:51] LABS: POC Glucose,Bedside 162 (70-110)
--- NOTE | 2023-11-06 15:07 | HMH.PTEV ---
Physical Therapy Evaluation Rehab PT IP Evaluation Start: 11/06/23 08:39 Freq: ONCE Status: Active Protocol: Document 11/06/23 13:45 PHOALBERTO (Rec: 11/06/23 15:07 PHORNE [id number]) Subjective/History History History [address] [facility] with SBO due to incarcerated hernia, now S/P ex-lap with partial small bowel resection. He lives with his spouse, no steps to enter the home, and he is generally independent with all mobility at baseline. Subjective Subjective Currently he continues to co pain in his abdomen, but did not rate pain when asked. Pain and HTN much better controlled this pm per RN. He does agree to OOB activity. New diagnosis of cancer in past 12 No months? Rehab PT IP Eval Objective Appearance Patient Behavior Appropriate,Confused Patient Orientation Person,Place Difficulty following instructions none Speech Pattern Clear Ambulation Patient Able to Ambulate Yes Ambulation Observation IP General Gait Pattern Observation Shuffling Step Ambulation Distance (feet) 10 Ambulation Assistive Device None Ambulation Ability Contact Guard/Hand Hold Balance Ability to Arise Able, uses arms to help Sitting Balance Steady, safe Standing Balance Steady, wide stance Dynamic Sitting Balance Ability Good Dynamic Standing Balance Ability Good Transfers Bed Transfer Ability Contact Guard/Hand Hold Chair Transfer Ability Contact Guard/Hand Hold Sit to Stand Bed Transfer Ability Contact Guard/Hand Hold Sit to Stand Chair Transfer Ability Contact Guard/Hand Hold ROM All Extremities PT ROM Status WFL MMT All Extremities PT MMT WFL Rehab PT IP prob,goals,plan Problems Date of Evaluation: 11/06/23 PT IP Problems Bed Mobility,Transfers,Gait Rehab Potential Rehab Potential Good Plan PT Intervention Plan Bed Mobility,Transfers,Gait, Therapeutic Exercise PT Plan Frequency Daily Duration LOS Discharge Goals Bed Transfer Ability Supervision/Stand by Sit to Stand Chair Transfer Ability Supervision/Stand by Ambulation Assistive Device None Ambulation Distance (feet) 40 Discharge Plan PT Discharge Plan Pt is currently most appropriate for rehab placement once medically stable. He may improve to the point of being able to return home with family if all goals are met. Skilled intervention is necessary to prevent debility, falls, injury, and wounds. Eval Complexity Eval Charge Codes 48358 - High Complexity PHYSICIAN CERTIFICATION: I certify the specified therapy services for Roly Hollis are required, authorized, and reviewed every 30 days.
--- NOTE | 2023-11-06 15:36 | PC.NURSE ---
pt manual bp at 15:36 was 190/110
[2023-11-06 16:01] LABS: POC Glucose,Bedside 179 (70-110)
--- NOTE | 2023-11-06 16:08 | PC.NURSE ---
Addendum entered by Tammie Ball RN 11/06/23 16:19: PT AMBULATED IN THE ROOM WITH PHYSICAL THERAPY. PASSING FLATUS. NO BOWEL MOVEMENT. Original Note: PT IS RESTING IN BED. ALERT AND ORIENTED X2. PT WILL ANSWER QUESTIONS AND FOLLOW COMMANDS. PT'S BP HAS BEEN ELEVATED T/O THE SHIFT. MEDICATED PER DEC FOR PAIN AND ELEVATED BP. LAST MANUAL BP 190/110 WHICH WAS AFTER THE IV VASOTEC WAS GIVEN. NSR ON TELEMETRY. LUNG SOUNDS CLEAR. ABDOMEN SOFT/TENDER WITH SURGICAL INCISIONS OPEN TO AIR (LEILA INTACT). 750 ML'S OF GASTRIC CONTENTS EMPTIED FROM CANISTER. WILL CONTINUE TO MONITOR.
[2023-11-06 23:33] LABS: POC Glucose,Bedside 175 (70-110)
--- NOTE | 2023-11-06 23:41 | PC.NURSE ---
2220 SBP 181 - administered vasotec per dec 2339 SBP 216 - administered labetalol per dec patient resting, unsymptomatic
[2023-11-07] VITALS (23 sets, daily range): BP systolic 126–232; BP diastolic 59–110; PULSE 60–102; RESP 12–20; TEMP 36.6–37; O2SAT 89–99; BMI 25.4
[2023-11-07] MEDS: LABETALOL 5MG/ML 20ML MDV 10 MG IV (00:10)
[2023-11-07] MEDS: NITROGLYCERIN 1 GM OINTMENT TD (01:08)
[2023-11-07] MEDS: HYDROMORPHONE 2MG/ML SYRINGE 2 MG IV (02:06)
[2023-11-07] MEDS: ONDANSETRON 4MG/2ML VIAL 4 MG IV ×2 (02:53→11:16)
[2023-11-07] MEDS: ENALAPRILAT 2.5MG/2ML VIAL 1.25 MG IV ×2 (04:27→14:44)
--- NOTE | 2023-11-07 04:46 | PC.NURSE ---
pt has remain hypertensive all night, tx per dec. one episode of small bright red bloody stool.
--- NOTE | 2023-11-07 05:20 | PC.NURSE ---
spoke with pharmacy regarding order.
[2023-11-07] MEDS: NICARDIPINE HCL 25 MG in 0.9 % SODIUM CHLORIDE 240 ML IV (05:38)
[2023-11-07 05:56] LABS: POC Glucose,Bedside 273 (70-110)
[2023-11-07] MEDS: AMPICILLIN/SULBACTAM 3 GM in 0.9 % SODIUM CHLORIDE 100 ML IV ×3 (06:25→17:21)
[2023-11-07] MEDS: humaLOG 100 UNITS/ML 3ML VIAL (SSI) SQ ×2 (06:25→17:16)
[2023-11-07 08:04] LABS: Basophils % 0.1 % (0.1-2.0); Eosinophils # 0.3 K/mm3 (0.0-0.4); Eosinophils % 2.9 % (0.1-12.0); Hematocrit 26.8 % (42.0-52.0); Hemoglobin 8.4 g/dL (14.1-18.0); Lymphocytes # 1.6 K/mm3 (0.7-4.5); Lymphocytes % 18.3 % (10-50); Mean Corpuscular HGB Conc 31.6 g/dL (31.8-35.4); Mean Corpuscular Hemoglobin 29.1 pg (27.0-31.2); Mean Corpuscular Volume 92.1 fl (80-94); Mean Platelet Volume 9.2 fl (7.4-10.4); Monocytes # 0.5 K/mm3 (0.1-1.0); Monocytes % 5.6 % (1.7-9.3); Neutrophils # 6.4 K/mm3 (1.8-7.8); Neutrophils % 73.1 % (37.0-80.0); Platelet Count 250 K/mm3 (142-424); Red Blood Count 2.91 M/mm3 (4.60-6.20); Red Cell Distribution Width 15.6 % (11.5-17.5); White Blood Count 8.7 K/mm3 (4.8-10.8)
[2023-11-07 08:05] LABS: Alanine Aminotransferase 21 U/L (12-78); Alkaline Phosphatase 85 U/L (38-126); Aspartate Amino Transferase 37 U/L (17-59); Bilirubin,Total 0.6 mg/dl (0.2-1.3); Blood Urea Nitrogen 33 mg/dl (9-20); Calcium 8.2 mg/dl (8.4-10.2); Carbon Dioxide 31 mmol/L (22.0-30.0); Chloride 111 mmol/L (98-107); Creatinine Clearance Estimated 63 mL/min (50-200); Estimated Glomerular Filt Rate 60 ml/min (>60); GFR (African American) 73 ML/MIN (>60); Globulin 2.9 g/dL (1.3-3.2); Glucose 177 mg/dl (74-100); Sodium 147 mmol/L (136-145); Total Protein,Serum 5.9 g/dl (6.3-8.2)
[2023-11-07 08:11] LABS: Magnesium 2.3 mg/dl (1.6-2.3)
--- NOTE | 2023-11-07 08:25 | CT_ITS ---
FINAL REPORT CLINICAL HISTORY: ABDOMINAL PAIN, ANEMIA COMPARISON: November 03, 2023 CT FINDINGS: CT OF THE ABDOMEN AND PELVIS WITH CONTRAST Axial CT images of the abdomen and pelvis were obtained after the administration of oral and iv contrast. Coronal reformatted images were also obtained and reviewed.This study was performed with techniques to keep radiation doses as low as reasonably achievable (ALARA). Individualized dose reduction techniques using automated exposure control or adjustment of mA and/or kV according to the patient's size were employed. Abdomen: There is mild atelectasis at the right lung base. The heart is normal in size. A small contrast-enhancing focus is again seen in the inferior right hepatic lobe that may represent a hemangioma. The gallbladder is mildly distended with mild nonspecific gallbladder wall thickening. A small amount of pneumoperitoneum is noted, favor postoperative change. There is a nasogastric tube with its tip in the body of the stomach. The spleen is unremarkable. No adrenal mass is present. The pancreas has an unremarkable appearance. Small bilateral renal cysts are noted. There are moderate vascular calcifications. A right renal artery stent and bilateral iliac artery stents are present which appear patent. There is no free fluid or adenopathy. No mass or abnormal fluid collection is seen. Pelvis: Postoperative changes are noted in the region of the cecum. There is mild stranding of the right lower quadrant fat planes, favor postoperative change. No focal fluid collection is identified to suggest an abscess. A small amount of air is noted in the anterior pelvic wall consistent with postoperative change. Multiple diverticula are noted in the sigmoid colon and descending colon. The prostate is moderately distended. A large amount of retained stool is present in the rectum worrisome for fecal impaction or constipation. Note is made of heterogeneous attenuation in the upper right inguinal canal which measures up to 3.8 cm. This is favored to represent a hematoma. A small amount of air is noted in the right inguinal canal. IMPRESSION: Interval postoperative changes from right inguinal hernia repair. Small amount of pneumoperitoneum and air in the anterior pelvis and inguinal canal consistent with postoperative change. Heterogeneous area in the right inguinal canal, favor hematoma. Authenticated and ERN
--- NOTE | 2023-11-07 08:27 | P.PN_ITS ---
Subjective Narrative: Patient has had some ongoing issues with pain and some hypertension. This morning has had sensation to void and has attempted several times to stand and void without success resulting in appreciable tachycardia. Patient had apparently passed some gas and had a smear of stool with some blood streaks. Exam Data for Last 24 hours Vital signs and Labs for Last 24 Hours: Temp Pulse Resp BP Pulse Ox O2 Del Method O2 Flow Rate 98.5 F 99 H 20 166/77 H 96 Nasal Cannula 2 11/07/23 07:25 11/07/23 08:00 11/07/23 08:00 11/07/23 08:00 11/07/23 07:25 11/07/23 08:00 11/07/23 07:46 Laboratory Results - last 24 hr 11/05/23 11:12: POC Glucose 185 H 11/05/23 17:11: POC Glucose 184 H 11/05/23 23:16: POC Glucose 170 H 11/06/23 05:15: POC Glucose 182 H 11/06/23 11:44: POC Glucose 162 H 11/06/23 15:55: POC Glucose 179 H 11/06/23 23:25: POC Glucose 175 H 11/07/23 04:55: POC Glucose 273 H 11/07/23 07:10: WBC 8.7, RBC 2.91 L, Hgb 8.4 L, Hct 26.8 L, MCV 92.1, MCH 29.1, MCHC 31.6 L, RDW 15.6, Plt Count 250, MPV 9.2, Neut % (Auto) 73.1, Lymph % (Auto) 18.3, [place] % (Auto) 5.6, Eos % (Auto) 2.9, Baso % (Auto) 0.1, Neut # (Auto) 6.4, Lymph # (Auto) 1.6, [place] # (Auto) 0.5, Eos # (Auto) 0.3, Baso # (Auto) 0.0, Sodium 147 H, Potassium 3.0 L, Chloride 111 H, Carbon Dioxide 31 H, Anion Gap 8.0, BUN 33 H, Creatinine 1.20, Estimated Creat Clear 63, Estimated GFR 60, Est GFR ( Amer) 73, Glucose 177 H, Calcium 8.2 L, Magnesium 2.3, Total Bilirubin 0.6, AST 37, ALT 21, Alkaline Phosphatase 85, Total Protein 5.9 L, Albumin 3.0 L, Globulin 2.9, Albumin/Globulin Ratio 1.0 L I & O for Last 24 hours: Intake & Output 11/04/23 11/05/23 11/06/23 11/07/23 11:59 11:59 11:59 11:59 Intake Total 7567 / 7567 1731 / 1731 1409 / 1409 4389.583 / 4389.583 Output Total 1400 / 1400 6295 / 6495 3430 / 3430 3325 / 3325 Balance 6167 / 6167 -4564 / -4764 -2020 / -2020 1064.583 / 1064.583 Weight 175 lb 1.6 oz 175 lb 0.752 oz 167 lb 12.8 oz 167 lb 8.821 oz *Routine Abdominal Exam Abdominal: Present soft and tenderness Comments: Incision clean and intact. Tender with some guarding. Progress Note: A&P Assessment and plan (1) Incarcerated hernia: Status: Acute (2) CAD (coronary artery disease): Status: Chronic (3) Tobacco dependence syndrome: Status: Chronic (4) Diabetes type 2 with atherosclerosis of arteries of extremities: Status: Chronic (5) HTN (hypertension): Status: Chronic (6) HLD (hyperlipidemia): Status: Chronic (7) PAD (peripheral artery disease): Status: Chronic (8) Hypokalemia: Status: Acute Assessment and Plan Assessment and Plan for All Diagnoses:: Slight decrease in hemoglobin from yesterday at 8.7 which was down from the day before at 12. Potassium improved to 3.0 with replacement. I will plan to obtain a stat CT scan with IV and oral contrast per NG tube due to his significant abdominal pain and decreasing hemoglobin to assess for intra- abdominal bleeding or anastomotic leak. Patient very well could require return to the operating room for reopening of laparotomy and potential ileostomy. Nursing will go ahead and anchor Hernandez catheter due to the patient's sensation of urgency without success.
[2023-11-07] MEDS: HEPARIN SODIUM 5,000 UNIT/ML VIAL 5000 UNIT SQ (09:05)
[2023-11-07] MEDS: CARVEDILOL 12.5MG TABLET 12.5 MG PO ×2 (09:05→20:59)
[2023-11-07] MEDS: IRBESARTAN 150MG TAB 150 MG PO ×2 (09:05→18:27)
[2023-11-07] MEDS: FAMOTIDINE 20MG/2ML VIAL 20 MG IV ×2 (09:05→20:59)
[2023-11-07] MEDS: DIATRIZOATE MEG 66% & DIATRIZOATE NA 10% 30ML UDC 30 ML PO (09:06)
--- NOTE | 2023-11-07 10:04 | P.PN_ITS ---
Subjective *Date: 11/07/23 *Time: 10:04 Medical Exam Vital signs and Labs for Last 24 Hours: Vital Signs Temp Pulse Pulse Resp BP BP Pulse Ox 11/07/23 08:00 99 H 20 166/77 H 11/07/23 07:46 11/07/23 07:25 98.5 F 98 H 14 149/77 H 96 11/07/23 06:45 11/07/23 06:00 72 18 182/83 H 11/07/23 05:56 88 11/07/23 05:30 83 195/80 H 11/07/23 05:45 85 197/86 H 11/07/23 05:00 11/07/23 04:00 97.9 F 87 17 197/89 H 98 11/07/23 04:00 232/100 H 11/07/23 03:00 11/07/23 01:00 11/07/23 01:05 215/99 H 11/07/23 00:40 187/83 H 11/07/23 00:00 97.9 F 77 18 197/90 H 97 11/07/23 00:10 189/95 H 11/07/23 00:03 189/95 H 11/06/23 23:35 216/97 H 11/06/23 22:30 181/67 H 11/06/23 23:37 216/97 H 11/06/23 23:00 11/06/23 20:00 95 11/06/23 21:00 11/06/23 20:00 98.3 F 90 16 189/86 H 98 11/06/23 18:20 11/06/23 16:56 189/98 H 11/06/23 17:00 11/06/23 16:54 101 H 11/06/23 16:26 205/99 H 11/06/23 12:00 93 H 11/06/23 15:10 98.4 F 93 H 15 225/110 H 93 L 11/06/23 14:25 11/06/23 12:40 11/06/23 11:22 98.3 F 95 H 16 214/108 H 92 L 11/06/23 11:00 O2 Del Method O2 Flow Rate 11/07/23 08:00 Nasal Cannula 11/07/23 07:46 Nasal Cannula 2 11/07/23 07:25 Room Air 11/07/23 06:45 Nasal Cannula 2 11/07/23 06:00 Nasal Cannula 2 11/07/23 05:56 Nasal Cannula 2 11/07/23 05:30 11/07/23 05:45 11/07/23 05:00 Nasal Cannula 2 11/07/23 04:00 11/07/23 04:00 11/07/23 03:00 Nasal Cannula 2 11/07/23 01:00 Nasal Cannula 2 11/07/23 01:05 11/07/23 00:40 11/07/23 00:00 11/07/23 00:10 11/07/23 00:03 11/06/23 23:35 11/06/23 22:30 11/06/23 23:37 11/06/23 23:00 Nasal Cannula 2 11/06/23 20:00 Nasal Cannula 2 11/06/23 21:00 Nasal Cannula 2 11/06/23 20:00 Nasal Cannula 11/06/23 18:20 Nasal Cannula 2 11/06/23 16:56 11/06/23 17:00 Nasal Cannula 2 11/06/23 16:54 11/06/23 16:26 11/06/23 12:00 11/06/23 15:10 Nasal Cannula 2 11/06/23 14:25 Nasal Cannula 11/06/23 12:40 Nasal Cannula 11/06/23 11:22 Nasal Cannula 2 11/06/23 11:00 Nasal Cannula 2 Intake and Output 11/06/23 11/07/23 11/07/23 23:59 07:59 15:59 Intake Total 745 / 4435 54.583 / 54.583 Output Total 1175 / 3030 1000 / 1225 225 / 1225 Balance -430 / 1405 -945.417 / -1170.417 -225 / -1170.417 Intake: Intake, Oral Amount 20 / 20 Intake, Total IV Amount 725 / 4415 54.583 / 54.583 Ampicillin/Sulbactam 3 gm In 0. 100 / 200 9 % Sodium Chloride 100 ml @ 200 mls/hr IV Q6H [facility] Rx#: [id number] Lactated Ringers 1000ML 1,000 625 / 4215 ml @ 125 mls/hr IV .Q8H [facility] Rx# :[id number] Output: Output, Urine Amount 1175 / 2280 250 / 475 225 / 475 Output, Gastric Drainage Amount 750 / 750 Right Nare 750 / 750 Other: Number of Voids 2 Number of Unmeasured Voids 1 0 Number of Bowel Movements 1 Weight 76 kg Patient Weight 11/07/23 23:59 Weight 76 kg Laboratory Results - last 24 hr 11/05/23 11:12: POC Glucose 185 H 11/05/23 17:11: POC Glucose 184 H 11/05/23 23:16: POC Glucose 170 H 11/06/23 05:15: POC Glucose 182 H 11/06/23 11:44: POC Glucose 162 H 11/06/23 15:55: POC Glucose 179 H 11/06/23 23:25: POC Glucose 175 H 11/07/23 04:55: POC Glucose 273 H 11/07/23 07:10: WBC 8.7, RBC 2.91 L, Hgb 8.4 L, Hct 26.8 L, MCV 92.1, MCH 29.1, MCHC 31.6 L, RDW 15.6, Plt Count 250, MPV 9.2, Neut % (Auto) 73.1, Lymph % (Auto) 18.3, [place] % (Auto) 5.6, Eos % (Auto) 2.9, Baso % (Auto) 0.1, Neut # (Auto) 6.4, Lymph # (Auto) 1.6, [place] # (Auto) 0.5, Eos # (Auto) 0.3, Baso # (Auto) 0.0, Sodium 147 H, Potassium 3.0 L, Chloride 111 H, Carbon Dioxide 31 H, Anion Gap 8.0, BUN 33 H, Creatinine 1.20, Estimated Creat Clear 63, Estimated GFR 60, Est GFR ( Amer) 73, Glucose 177 H, Calcium 8.2 L, Magnesium 2.3, Total Bilirubin 0.6, AST 37, ALT 21, Alkaline Phosphatase 85, Total Protein 5.9 L, Albumin 3.0 L, Globulin 2.9, Albumin/Globulin Ratio 1.0 L I & O for Labs for Last 24 Hours: Intake & Output 11/04/23 11/05/23 11/06/23 11/07/23 23:59 23:59 23:59 23:59 Intake Total 5930 / 5930 1976 4435 / 4435 54.583 / 54.583 Output Total 3250 / 3250 7170 / 7170 3030 / 3030 1225 / 1225 Balance 2680 / 2680 -5193 / -5093 1405 / 1405 -1170.417 / -1170.417 Weight 79.424 kg 79.4 kg 76.113 kg 76 kg The patient's infection will respond to the chosen ABx?: Yes Is the patient receiving the right drug, dose, and route?: Yes Could a more targeted ABx be ordered?: No ( CONT ABX PER 11/06/23 NOTE, POSSIBLE RETURN TO OR, WBC WNL.)
[2023-11-07] MEDS: IOPAMIDOL-370 (76%);100ML BOTTLE 75 ML IV (11:38)
[2023-11-07] MEDS: SODIUM CHLORIDE 0.9% 10ML SYR (RAD ONLY) 10 ML IV (11:38)
--- NOTE | 2023-11-07 12:10 | PC.NURSE ---
Addendum entered by Tammie Ball RN 11/07/23 18:54: PT JUST HAD A LARGE DARK/LOOSE/TARRY STOOL. NOTIFIED. Addendum entered by Tammie Ball RN 11/07/23 17:23: PT HAD A LARGE HARD/FORMED/BLOOD TINGED BOWEL MOVEMENT THIS SHIFT. PT WAS ABLE TO TOLERATE SITTING UP IN THE CHAIR FOR 30 MIN. THIS SHIFT. AMBULATED IN THE ROOM WITH PHYSICAL THERAPY AND NURSING STAFF. MEDICATED PER MAR FOR PAIN AND ELEVATED BP. Original Note: PT WAS HAVING SOME ISSUES WITH URINARY RETENTION THIS MORNING. PT ATTEMPTED TO STAND UP AT THE SOB SEVERAL TIMES TO USE THE URINAL AND WAS UNABLE. 18 F CATHETER WAS INSERTED. 450 ML'S UOP DRAINED. AT 1000 PT WAS ASSISTED UP TO THE BSC. WHEN PT SAT UP ON THE SOB CATHETER WAS LAYING IN THE BED WITH BALLOON DEFLATED AND PT WAS NOTED TO BE BLEEDING FROM THE PENIS AND ALSO HAD BLOOD ON HIS FINGERTIPS. PT GOT UP TO BSC ATTEMPTED TO HAVE A BOWEL MOVEMENT AND STATED HE FELT THE URGE BUT WAS UNABLE TO GO. PT WENT DOWN WITH CUT OFF [facility] LOG FOR CT OF THE ABDOMEN. CARDENE DRIP WAS STOPPED AT 0930 THIS MORNING. BP 152/75. WHEN PT ARRIVED BACK TO THE FLOOR FROM CT NEW CATHETER WAS INSERTED 16 F COUDE. NG WAS CONNECTED BACK TO LOW WALL SUCTION. WILL CONTINUE TO MONITOR.
[2023-11-07] MEDS: BISACODYL 10MG SUPP 10 MG RC (13:19)
--- NOTE | 2023-11-07 13:19 | EXP.ACUTE.PN ---
Subjective *Date: 11/07/23 *Time: 13:19 Interval history: Blood pressure better this morning after starting Cardene drip last night. Passed gas overnight. Trying to have a bowel movement. No nausea or vomiting. Had some discomfort that improved with placement of Hernandez catheter for urinary retention. Stable on 2 L nasal cannula oxygen. Requesting something to drink as he is thirsty today. Afebrile. Medical Exam Vital signs and Labs for Last 24 Hours: Vital Signs Temp Pulse Pulse Resp BP BP Pulse Ox 11/07/23 12:00 97.9 F 11/07/23 12:43 11/07/23 12:00 77 11/07/23 08:00 102 H 11/07/23 12:00 85 20 152/75 H 94 L 11/07/23 10:53 11/07/23 08:00 11/07/23 10:00 94 H 20 163/81 H 95 11/07/23 08:00 99 H 20 166/77 H 11/07/23 07:46 11/07/23 07:25 98.5 F 98 H 14 149/77 H 96 11/07/23 06:45 11/07/23 06:00 72 18 182/83 H 11/07/23 05:56 88 11/07/23 05:30 83 195/80 H 11/07/23 05:45 85 197/86 H 11/07/23 05:00 11/07/23 04:00 97.9 F 87 17 197/89 H 98 11/07/23 04:00 232/100 H 11/07/23 03:00 11/07/23 01:00 11/07/23 01:05 215/99 H 11/07/23 00:40 187/83 H 11/07/23 00:00 97.9 F 77 18 197/90 H 97 11/07/23 00:10 189/95 H 11/07/23 00:03 189/95 H 11/06/23 23:35 216/97 H 11/06/23 22:30 181/67 H 11/06/23 23:37 216/97 H 11/06/23 23:00 11/06/23 20:00 95 11/06/23 21:00 11/06/23 20:00 98.3 F 90 16 189/86 H 98 11/06/23 18:20 11/06/23 16:56 189/98 H 11/06/23 17:00 11/06/23 16:54 101 H 11/06/23 16:26 205/99 H 11/06/23 15:10 98.4 F 93 H 15 225/110 H 93 L 11/06/23 14:25 O2 Del Method O2 Flow Rate 11/07/23 12:00 11/07/23 12:43 Nasal Cannula 2 11/07/23 12:00 11/07/23 08:00 11/07/23 12:00 Nasal Cannula 2 11/07/23 10:53 Nasal Cannula 2 11/07/23 08:00 Nasal Cannula 2 11/07/23 10:00 Nasal Cannula 2 11/07/23 08:00 Nasal Cannula 11/07/23 07:46 Nasal Cannula 2 11/07/23 07:25 Room Air 11/07/23 06:45 Nasal Cannula 2 11/07/23 06:00 Nasal Cannula 2 11/07/23 05:56 Nasal Cannula 2 11/07/23 05:30 11/07/23 05:45 11/07/23 05:00 Nasal Cannula 2 11/07/23 04:00 11/07/23 04:00 11/07/23 03:00 Nasal Cannula 2 11/07/23 01:00 Nasal Cannula 2 11/07/23 01:05 11/07/23 00:40 11/07/23 00:00 11/07/23 00:10 11/07/23 00:03 11/06/23 23:35 11/06/23 22:30 11/06/23 23:37 11/06/23 23:00 Nasal Cannula 2 11/06/23 20:00 Nasal Cannula 2 11/06/23 21:00 Nasal Cannula 2 11/06/23 20:00 Nasal Cannula 11/06/23 18:20 Nasal Cannula 2 11/06/23 16:56 11/06/23 17:00 Nasal Cannula 2 11/06/23 16:54 11/06/23 16:26 11/06/23 15:10 Nasal Cannula 2 11/06/23 14:25 Nasal Cannula Intake and Output 11/06/23 11/07/23 11/07/23 23:59 07:59 15:59 Intake Total 745 / 4435 54.583 / 54.583 0 / 54.583 Output Total 1175 / 3030 1000 / 1800 800 / 1800 Balance -430 / 1405 -945.417 / -1745.417 -800 / -1745.417 Intake: Intake, Oral Amount 20 / 20 0 / 0 Intake, Total IV Amount 725 / 4415 54.583 / 54.583 Ampicillin/Sulbactam 3 gm In 0. 100 / 200 9 % Sodium Chloride 100 ml @ 200 mls/hr IV Q6H [facility] Rx#: [id number] Lactated Ringers 1000ML 1,000 625 / 4215 ml @ 125 mls/hr IV .Q8H [facility] Rx# :[id number] Output: Output, Urine Amount 1175 / 2280 250 / 750 500 / 750 Output, Estimated Blood Loss 50 / 50 Amount Output, Gastric Drainage Amount 750 / 1000 250 / 1000 Right Nare 750 / 1000 250 / 1000 Other: Number of Voids 2 1 Number of Unmeasured Voids 1 0 Number of Bowel Movements 1 Weight 76 kg Patient Weight 11/07/23 23:59 Weight 76 kg Laboratory Results - last 24 hr 11/06/23 15:55: POC Glucose 179 H 11/06/23 23:25: POC Glucose 175 H 11/07/23 04:55: POC Glucose 273 H 11/07/23 07:10: WBC 8.7, RBC 2.91 L, Hgb 8.4 L, Hct 26.8 L, MCV 92.1, MCH 29.1, MCHC 31.6 L, RDW 15.6, Plt Count 250, MPV 9.2, Neut % (Auto) 73.1, Lymph % (Auto) 18.3, [place] % (Auto) 5.6, Eos % (Auto) 2.9, Baso % (Auto) 0.1, Neut # (Auto) 6.4, Lymph # (Auto) 1.6, [place] # (Auto) 0.5, Eos # (Auto) 0.3, Baso # (Auto) 0.0, Sodium 147 H, Potassium 3.0 L, Chloride 111 H, Carbon Dioxide 31 H, Anion Gap 8.0, BUN 33 H, Creatinine 1.20, Estimated Creat Clear 63, Estimated GFR 60, Est GFR ( Amer) 73, Glucose 177 H, Calcium 8.2 L, Magnesium 2.3, Total Bilirubin 0.6, AST 37, ALT 21, Alkaline Phosphatase 85, Total Protein 5.9 L, Albumin 3.0 L, Globulin 2.9, Albumin/Globulin Ratio 1.0 L I & O for Labs for Last 24 Hours: Intake & Output 11/04/23 11/05/23 11/06/23 11/07/23 23:59 23:59 23:59 23:59 Intake Total 5930 / 5930 1976 / 2076 4435 / 4435 54.583 / 54.583 Output Total 3250 / 3250 7170 / 7170 3030 / 3030 1800 / 1800 Balance 2680 / 2680 -5193 / -5093 1405 / 1405 -1745.417 / -1745.417 Weight 79.424 kg 79.4 kg 76.113 kg 76 kg Constitutional: Present no acute distress and chronically ill appearing Head: Present atraumatic Comment:: NG in left nare Respiratory: Present prolonged expiratory phase and normal respiratory effort; Absent rhonchi, wheezes or crackles Cardiac: Present Reg Rate and Rhythm GI: Present soft, tenderness (Right lower abdomen) and diminished bowel sounds; Absent distention Comments:: Surgical incisions clean dry and intact, no drainage Extremities: Present normal inspection and full ROM Skin: Present intact; Absent erythema Neuro: Present Grossly Intact, alert, awake and moves all extremities Assessment and Plan *Assessment and plan (1) Incarcerated hernia: Status: Acute Category: Medical Code(s): K46.0 - Unspecified abdominal hernia with obstruction, without gangrene (2) CAD (coronary artery disease): Status: Chronic Qualifiers: Coronary Disease-Associated Artery/Lesion type: [place] artery [place] vs. transplanted heart: [place] heart Associated angina: without angina Qualified Code(s): I25.10 - Atherosclerotic heart disease of [place] coronary artery without angina pectoris Category: Medical Code(s): I25.10 - Atherosclerotic heart disease of [place] coronary artery without angina pectoris (3) Tobacco dependence syndrome: Status: Chronic Category: Medical Code(s): F17.200 - Nicotine dependence, unspecified, uncomplicated (4) Diabetes type 2 with atherosclerosis of arteries of extremities: Status: Chronic Category: Medical Code(s): E11.51 - Type 2 diabetes mellitus with diabetic peripheral angiopathy without gangrene; I70.209 - Unspecified atherosclerosis of [place] arteries of extremities, unspecified extremity (5) HTN (hypertension): Status: Chronic Qualifiers: Hypertension type: essential hypertension Qualified Code(s): I10 - Essential (primary) hypertension Category: Medical Code(s): I10 - Essential (primary) hypertension (6) HLD (hyperlipidemia): Status: Chronic Qualifiers: Hyperlipidemia type: mixed hyperlipidemia Qualified Code(s): E78.2 - Mixed hyperlipidemia Category: Medical Code(s): E78.5 - Hyperlipidemia, unspecified (7) PAD (peripheral artery disease): Status: Chronic Category: Medical Code(s): I73.9 - Peripheral vascular disease, unspecified (8) Hypokalemia: Status: Acute Category: Medical Code(s): E87.6 - Hypokalemia Plan Patient is a 68-year-old male with past medical history of CAD diabetes mellitus hypertension hyperlipidemia PAD tobacco use who presents to the hospital for abdominal pain. Status post surgery x 2 for incarcerated hernia with appendectomy and partial colectomy. Surgery consulted medicine to assist with care. Continues to require inpatient management. Patient passing flatus. CT performed today, personally reviewed showing contrast in the distal colon. Pain stable. Blood pressure better with transition to oral meds and Cardene drip. Problems as follows: Incarcerated inguinal hernia status post surgery Postop ileus Postop pain -Discussed case with surgery, given findings on CT, will discontinue NG and transition to clear liquid diet. P.o. meds. -Discontinue IV Dilaudid, transition to p.o. oxycodone. -White cell count normal at 8.7. Hemoglobin 8.4, stable. Repeat CBC ordered for the morning -Continue Unasyn every 6 hours, for total of 5 days CKD stage III -Creatinine at baseline at 1.2, BUN 33. Repeat CMP, CBC, magnesium ordered for the morning. CAD Hypertension -Resume losartan 100 mg daily and carvedilol will home 12.5 mg twice daily. Monitor for improvement in blood pressure. Wean off Cardene drip. - Will continue IV labetalol and enalapril 1.25 mg IV every 6 hours as needed for systolic greater than 180. Diabetes mellitus: Continue sliding scale insulin high intensity, fingersticks ACHS. Will continue to monitor for need to advance daily DVT prophylaxis: Heparin Full code clear liquid diet
[2023-11-07] MEDS: LACTATED RINGERS 1000ML 1,000 ML 125 ML IV ×2 (14:04→22:23)
--- NOTE | 2023-11-07 14:43 | DIET.NUTRFU ---
RD reviewed patient's plan in rounds today. He continues NPO post hernia sx. Patient has been NPO with ice chips x 3 days. He was noted to have passing gas and bloody Stool. It was just a smear of stool. He continues to have NG tube in, got 750ml pout yesterday. CT scan ordered today. Provider anticipated being able to upgrade to Po, monitor for meal intake. If diet can not be upgraded recommend TPN with pharmacy to note
[2023-11-07] MEDS: LABETALOL 20MG/4ML SYRINGE 10 MG IV (15:31)
[2023-11-07] MEDS: OXYCODONE 10MG W/APAP 325MG TABLET 1 EACH PO ×2 (15:35→20:57)
[2023-11-07] MEDS: BUMETANIDE 1MG/4ML VIAL 1 MG IV (19:59)
[2023-11-07] MEDS: OXYBUTYNIN 5MG TAB 5 MG PO (21:00)
[2023-11-07] MEDS: TERAZOSIN 1MG CAPSULE 1 MG PO (21:00)
--- NOTE | 2023-11-07 21:31 | PC.NURSE ---
TRANSFER OF CARE FROM IMMANUEL, RN TO MG RN @ [phone]
[2023-11-07 21:54] LABS: POC Glucose,Bedside 104 (70-110)
[2023-11-07 22:21] LABS: Hematocrit 24.6 % (42.0-52.0)
[2023-11-08] VITALS (26 sets, daily range): BP systolic 113–182; BP diastolic 52–95; PULSE 54–86; RESP 12–25; TEMP 36.7–37.1; O2SAT 91–100; BMI 25.8
--- NOTE | 2023-11-08 02:50 | PC.NURSE ---
@ 0200 THIS RN FOUND THIS PT OUT OF BED, ATTEMPTING TO GET TO THE BATHROOM D/T HAVING A MODERATE SIZED BLOODY BM. GEN SURG AND HOSP. NOTIFIED; HOSP. PMO ANALYST ORDERED AN TYPE AND SCREEN AND GEN SURG SAID TO WAIT FOR AM LABS. PT D/C'D #20 R AC WHEN TRYING TO GET TO THE BATHROOM PT WAS GIVEN A FULL BATH AND HAD A FULL LINEN CHANGE VSS
[2023-11-08 04:47] LABS: POC Glucose,Bedside 164 (70-110)
[2023-11-08] MEDS: humaLOG 100 UNITS/ML 3ML VIAL (SSI) SQ ×3 (04:47→21:01)
[2023-11-08] MEDS: OXYCODONE 10MG W/APAP 325MG TABLET 1 EACH PO ×4 (04:47→21:00)
[2023-11-08 04:49] LABS: Basophils % 0.2 % (0.1-2.0); Eosinophils # 0.4 K/mm3 (0.0-0.4); Eosinophils % 5.3 % (0.1-12.0); Hematocrit 22.8 % (42.0-52.0); Hemoglobin 7.4 g/dL (14.1-18.0); Lymphocytes # 1.8 K/mm3 (0.7-4.5); Lymphocytes % 21.7 % (10-50); Mean Corpuscular HGB Conc 32.4 g/dL (31.8-35.4); Mean Corpuscular Hemoglobin 29.5 pg (27.0-31.2); Mean Corpuscular Volume 91.2 fl (80-94); Monocytes # 0.6 K/mm3 (0.1-1.0); Monocytes % 7.6 % (1.7-9.3); Neutrophils # 5.3 K/mm3 (1.8-7.8); Neutrophils % 65.2 % (37.0-80.0); Platelet Count 233 K/mm3 (142-424); Red Cell Distribution Width 15.7 % (11.5-17.5); White Blood Count 8.2 K/mm3 (4.8-10.8)
[2023-11-08 04:50] LABS: Chloride 104 mmol/L (98-107); Sodium 141 mmol/L (136-145)
[2023-11-08] MEDS: LACTATED RINGERS 1000ML 1,000 ML 125 ML IV ×2 (04:52→09:09)
[2023-11-08 04:53] LABS: Alanine Aminotransferase 21 U/L (12-78); Aspartate Amino Transferase 28 U/L (17-59); Blood Urea Nitrogen 39 mg/dl (9-20); Carbon Dioxide 31 mmol/L (22.0-30.0); Creatinine Clearance Estimated 63 mL/min (50-200); Estimated Glomerular Filt Rate 60 ml/min (>60); GFR (African American) 73 ML/MIN (>60)
[2023-11-08 04:54] LABS: Albumin Level 2.7 g/dl (3.5-5.0); Alkaline Phosphatase 66 U/L (38-126); Bilirubin,Total 0.5 mg/dl (0.2-1.3); Calcium 7.5 mg/dl (8.4-10.2); Globulin 2.6 g/dL (1.3-3.2); Glucose 148 mg/dl (74-100); Total Protein,Serum 5.3 g/dl (6.3-8.2)
--- NOTE | 2023-11-08 05:01 | PC.NURSE ---
LAB NOTIFIED THIS RN OF A CRITICAL LAB; K 3.0; THIS RN NOTIFIED HOSP. ASSISTANT SALES DIRECTOR @ 0500; AWAITING NEW ORDERS
[2023-11-08] MEDS: KCl 10mEq/100ml 100 ML 100 MEQ IV (05:25)
--- NOTE | 2023-11-08 06:30 | PC.NURSE ---
@ 0192 BLOOD BANK NOTIFIED THIS RN THAT THIS PT'S 1 UNIT PRBCS WAS READY; PT ONLY HAS 1 IV SITE AND HAS REPLACEMENT K+ INFUSING AND WILL BE COMPLETE IN 30 MINS AND THEN THIS RN OR DAYSHIFT RN WILL START PT'S BLOOD TRANSFUSION.
--- NOTE | 2023-11-08 06:47 | EXP.SURG.PN ---
Subjective Narrative: Nasogastric tube removed yesterday. Patient has had bowel movements. Has had bloody bowel movements. Dropped hemoglobin. Pulled out catheter yesterday and still having somewhat pink-tinged urine. Exam Data for Last 24 hours Vital signs and Labs for Last 24 Hours: Temp Pulse Resp BP Pulse Ox O2 Del Method O2 Flow Rate 98.5 F 57 L 12 140/69 98 Nasal Cannula 2 11/08/23 00:00 11/08/23 06:00 11/08/23 06:00 11/08/23 06:30 11/08/23 06:00 11/08/23 06:00 11/08/23 06:00 Laboratory Results - last 24 hr 11/07/23 07:10: WBC 8.7, RBC 2.91 L, Hgb 8.4 L, Hct 26.8 L, MCV 92.1, MCH 29.1, MCHC 31.6 L, RDW 15.6, Plt Count 250, MPV 9.2, Neut % (Auto) 73.1, Lymph % (Auto) 18.3, [place] % (Auto) 5.6, Eos % (Auto) 2.9, Baso % (Auto) 0.1, Neut # (Auto) 6.4, Lymph # (Auto) 1.6, [place] # (Auto) 0.5, Eos # (Auto) 0.3, Baso # (Auto) 0.0, Sodium 147 H, Potassium 3.0 L, Chloride 111 H, Carbon Dioxide 31 H, Anion Gap 8.0, BUN 33 H, Creatinine 1.20, Estimated Creat Clear 63, Estimated GFR 60, Est GFR ( Amer) 73, Glucose 177 H, Calcium 8.2 L, Magnesium 2.3, Total Bilirubin 0.6, AST 37, ALT 21, Alkaline Phosphatase 85, Total Protein 5.9 L, Albumin 3.0 L, Globulin 2.9, Albumin/Globulin Ratio 1.0 L 11/07/23 21:46: POC Glucose 104 11/07/23 22:10: Hgb 8.0 L, Hct 24.6 L, Blood Type Confirm B Positive 11/08/23 04:15: WBC 8.2, RBC 2.50 L, Hgb 7.4 L, Hct 22.8 L, MCV 91.2, MCH 29.5, MCHC 32.4, RDW 15.7, Plt Count 233, MPV 9.0, Neut % (Auto) 65.2, Lymph % (Auto) 21.7, [place] % (Auto) 7.6, Eos % (Auto) 5.3, Baso % (Auto) 0.2, Neut # (Auto) 5.3, Lymph # (Auto) 1.8, [place] # (Auto) 0.6, Eos # (Auto) 0.4, Baso # (Auto) 0.0, Sodium 141, Potassium 3.0 L, Chloride 104, Carbon Dioxide 31 H, Anion Gap 9.0, BUN 39 H, Creatinine 1.20, Estimated Creat Clear 63, Estimated GFR 60, Est GFR ( Amer) 73, Glucose 148 H, Calcium 7.5 L, Magnesium 2.0 D, Total Bilirubin 0.5, AST 28, ALT 21, Alkaline Phosphatase 66, Total Protein 5.3 L, Albumin 2.7 L, Globulin 2.6, Albumin/Globulin Ratio 1.0 L, Blood Type B Positive, Antibody Screen Negative, Crossmatch (AHG) See Detail 11/08/23 04:41: POC Glucose 164 H I & O for Last 24 hours: Intake & Output 11/05/23 11/06/23 11/07/23 11/08/23 11:59 11:59 11:59 11:59 Intake Total 1731 / 1731 1409 / 1409 4389.583 / 4389.583 1736 / 1736 Output Total 6295 / 6495 3430 / 3430 3600 / 3875 3300 / 3300 Balance -4564 / -4764 -2020 / -2020 789.583 / 514.583 -1564 / -1564 Weight 175 lb 0.752 oz 167 lb 12.8 oz 167 lb 8.821 oz 170 lb 4.8 oz Constitutional Constitutional: no acute distress Comments: Resting *Routine Abdominal Exam Abdominal: Present soft Progress Note: A&P Assessment and plan (1) Incarcerated hernia: Status: Acute (2) CAD (coronary artery disease): Status: Chronic (3) Tobacco dependence syndrome: Status: Chronic (4) Diabetes type 2 with atherosclerosis of arteries of extremities: Status: Chronic (5) HTN (hypertension): Status: Chronic (6) HLD (hyperlipidemia): Status: Chronic (7) PAD (peripheral artery disease): Status: Chronic (8) Hypokalemia: Status: Acute Assessment and Plan Assessment and Plan for All Diagnoses:: I will going give clear liquid diet. Monitor hemoglobin. Likely had postoperative anastomotic oozing secondary to being on Xarelto. Hopefully this is self-limited. Transfuse as necessary.
[2023-11-08] MEDS: 0.9 % SODIUM CHLORIDE 250 ML 25 ML IV (08:09)
--- NOTE | 2023-11-08 08:12 | PC.NURSE ---
PT REPORTED 8/10 PAIN, INFORMED PT PAIN MEDICATION WAS LAST GIVEN AT 0445 AND IS EVERY FOUR HOURS SO NEXT DOSE IS AT 0947, PT VOICED OKAY
[2023-11-08] MEDS: ONDANSETRON 4MG/2ML VIAL 4 MG IV (08:35)
[2023-11-08] MEDS: CARVEDILOL 12.5MG TABLET 12.5 MG PO ×2 (09:08→21:01)
[2023-11-08] MEDS: FAMOTIDINE 20MG/2ML VIAL 20 MG IV ×2 (09:08→21:01)
[2023-11-08] MEDS: IRBESARTAN 300MG TABLET 300 MG PO (09:08)
[2023-11-08] MEDS: OXYBUTYNIN 5MG TAB 5 MG PO ×2 (09:09→21:01)
--- NOTE | 2023-11-08 11:36 | EXP.ACUTE.PN ---
Subjective *Date: 11/08/23 *Time: 16:14 Interval history: Patient doing a little better today, has been ambulating. Had 2 more bloody bowel movements overnight. Hemoglobin dropped to 7.4. Receiving blood transfusion during morning rounds. Blood pressure still elevated at 156/89 on morning rounds. Tolerating clear liquid diet. Afebrile. Still on 2 L nasal cannula. Medical Exam Vital signs and Labs for Last 24 Hours: Vital Signs Temp Pulse Pulse Pulse Resp BP BP 11/08/23 10:57 11/08/23 10:30 98.7 F 58 L 18 178/79 H 11/08/23 10:10 56 L 25 H 182/89 H 11/08/23 09:10 98.4 F 54 L 18 159/84 H 11/08/23 08:00 60 11/08/23 08:55 57 L 14 153/83 H 11/08/23 08:40 98.4 F 61 24 180/95 H 11/08/23 08:47 11/08/23 08:25 98.4 F 60 20 166/92 H 11/08/23 08:00 11/08/23 08:20 98.5 F 78 25 H 156/89 H 11/08/23 08:15 98.4 F 59 L 20 165/88 H 11/08/23 08:10 98.7 F 59 L 14 168/90 H 11/08/23 08:06 98.7 F 62 16 177/92 H 11/08/23 06:30 140/69 11/08/23 06:00 57 L 12 127/67 11/08/23 04:00 80 11/08/23 00:00 60 11/08/23 03:15 153/84 H 11/08/23 01:00 58 L 16 132/71 11/08/23 03:00 75 15 170/77 H 11/08/23 07:00 11/08/23 05:00 11/08/23 04:00 65 21 175/90 H 11/08/23 03:00 11/08/23 02:30 86 25 H 138/78 11/08/23 01:00 11/08/23 00:00 98.5 F 58 L 12 132/71 11/08/23 00:00 11/07/23 23:00 73 12 127/66 11/07/23 21:30 98.1 F 81 17 188/110 H 11/07/23 23:00 11/07/23 22:00 75 18 126/59 L 11/07/23 21:00 11/07/23 20:00 11/07/23 21:30 76 11/07/23 20:00 98.2 F 60 17 196/91 H 11/07/23 18:59 11/07/23 17:50 87 18 176/87 H 11/07/23 17:00 11/07/23 16:00 11/07/23 16:00 165/85 H 11/07/23 16:00 98.6 F 84 20 165/85 H 11/07/23 15:59 95 H 11/07/23 15:31 194/89 H 11/07/23 15:00 11/07/23 14:00 84 20 186/83 H 11/07/23 12:00 97.9 F 11/07/23 12:43 11/07/23 12:00 77 11/07/23 12:00 85 20 152/75 H Pulse Ox O2 Del Method O2 Flow Rate 11/08/23 10:57 Nasal Cannula 2 11/08/23 10:30 97 11/08/23 10:10 96 11/08/23 09:10 99 11/08/23 08:00 11/08/23 08:55 99 11/08/23 08:40 99 11/08/23 08:47 Nasal Cannula 2 11/08/23 08:25 98 11/08/23 08:00 100 Nasal Cannula 2 11/08/23 08:20 97 11/08/23 08:15 99 11/08/23 08:10 98 11/08/23 08:06 100 11/08/23 06:30 11/08/23 06:00 98 Nasal Cannula 2 11/08/23 04:00 11/08/23 00:00 11/08/23 03:15 11/08/23 01:00 CPAP 11/08/23 03:00 99 Nasal Cannula 2 11/08/23 07:00 Nasal Cannula 11/08/23 05:00 Nasal Cannula 2 11/08/23 04:00 91 L Nasal Cannula 2 11/08/23 03:00 Nasal Cannula 2 11/08/23 02:30 100 Nasal Cannula 2 11/08/23 01:00 CPAP 11/08/23 00:00 CPAP 11/08/23 00:00 CPAP 11/07/23 23:00 89 L Nasal Cannula 4 11/07/23 21:30 Nasal Cannula 2 11/07/23 23:00 Nasal Cannula 4 11/07/23 22:00 95 Nasal Cannula 2 11/07/23 21:00 Nasal Cannula 2 11/07/23 20:00 Nasal Cannula 2 11/07/23 21:30 Nasal Cannula 2 11/07/23 20:00 96 Nasal Cannula 2 11/07/23 18:59 Nasal Cannula 2 11/07/23 17:50 95 Nasal Cannula 2 11/07/23 17:00 Nasal Cannula 2 11/07/23 16:00 Nasal Cannula 2 11/07/23 16:00 11/07/23 16:00 99 Nasal Cannula 2 11/07/23 15:59 11/07/23 15:31 11/07/23 15:00 Nasal Cannula 2 11/07/23 14:00 98 Nasal Cannula 2 11/07/23 12:00 11/07/23 12:43 Nasal Cannula 2 11/07/23 12:00 11/07/23 12:00 94 L Nasal Cannula 2 Intake and Output 11/07/23 11/08/23 11/08/23 23:59 07:59 15:59 Intake Total 916 / 970.583 820 / 1210 390 / 1210 Output Total 1625 / 3825 750 / 750 Balance -709 / -2854.417 70 / 460 390 / 460 Intake: Intake, Oral Amount 0 / 0 140 / 140 Intake, Other Amount 820 / 820 Intake, Total IV Amount 916 / 916 Lactated Ringers 1000ML 1,000 916 / 916 ml @ 125 mls/hr IV .Q8H [facility] Rx# :[id number] Intake (Blood Product) Amt 250 / 250 Red Blood Cells Unit 250 / 250 [id number] Output: Output, Urine Amount 1625 / 2775 150 / 150 Output, Urine Amount (Catheter) 600 / 600 [place] 600 / 600 Other: Intake, Other Source Saline Solution Number of Unmeasured Voids 0 Number of Bowel Movements 1 1 1 Weight 77.247 kg Patient Weight 11/08/23 23:59 Weight 77.247 kg Laboratory Results - last 24 hr 11/07/23 21:46: POC Glucose 104 11/07/23 22:10: Hgb 8.0 L, Hct 24.6 L, Blood Type Confirm B Positive 11/08/23 04:15: WBC 8.2, RBC 2.50 L, Hgb 7.4 L, Hct 22.8 L, MCV 91.2, MCH 29.5, MCHC 32.4, RDW 15.7, Plt Count 233, MPV 9.0, Neut % (Auto) 65.2, Lymph % (Auto) 21.7, [place] % (Auto) 7.6, Eos % (Auto) 5.3, Baso % (Auto) 0.2, Neut # (Auto) 5.3, Lymph # (Auto) 1.8, [place] # (Auto) 0.6, Eos # (Auto) 0.4, Baso # (Auto) 0.0, Sodium 141, Potassium 3.0 L, Chloride 104, Carbon Dioxide 31 H, Anion Gap 9.0, BUN 39 H, Creatinine 1.20, Estimated Creat Clear 63, Estimated GFR 60, Est GFR ( Amer) 73, Glucose 148 H, Calcium 7.5 L, Magnesium 2.0 D, Total Bilirubin 0.5, AST 28, ALT 21, Alkaline Phosphatase 66, Total Protein 5.3 L, Albumin 2.7 L, Globulin 2.6, Albumin/Globulin Ratio 1.0 L, Blood Type B Positive, Antibody Screen Negative, Crossmatch (AHG) See Detail 11/08/23 04:41: POC Glucose 164 H I & O for Labs for Last 24 Hours: Intake & Output 11/05/23 11/06/23 11/07/23 11/08/23 23:59 23:59 23:59 23:59 Intake Total 1976 4435 / 4435 970.583 / 198.992 2201 / 1210 Output Total 7170 / 7170 3030 / 3030 3825 / 3825 750 / 750 Balance -5193 / -5093 1405 / 1405 -2854.417 / -2854.417 460 / 460 Weight 79.4 kg 76.113 kg 76 kg 77.247 kg Constitutional: Present no acute distress and chronically ill appearing Head: Present atraumatic Respiratory: Present prolonged expiratory phase, crackles (Bilateral bases) and normal respiratory effort; Absent rhonchi or wheezes Cardiac: Present Reg Rate and Rhythm GI: Present soft, tenderness (Right lower abdomen) and normal bowel sounds; Absent distention Comments:: Surgical incisions clean dry and intact, no drainage Extremities: Present normal inspection and full ROM Skin: Present intact; Absent erythema Neuro: Present Grossly Intact, alert, awake and moves all extremities Assessment and Plan *Assessment and plan (1) Incarcerated hernia: Status: Acute Category: Medical Code(s): K46.0 - Unspecified abdominal hernia with obstruction, without gangrene (2) CAD (coronary artery disease): Status: Chronic Qualifiers: Associated angina: without angina Coronary Disease-Associated Artery/Lesion type: [place] artery [place] vs. transplanted heart: [place] heart Qualified Code(s): I25.10 - Atherosclerotic heart disease of [place] coronary artery without angina pectoris Category: Medical Code(s): I25.10 - Atherosclerotic heart disease of [place] coronary artery without angina pectoris (3) Tobacco dependence syndrome: Status: Chronic Category: Medical Code(s): F17.200 - Nicotine dependence, unspecified, uncomplicated (4) Diabetes type 2 with atherosclerosis of arteries of extremities: Status: Chronic Category: Medical Code(s): E11.51 - Type 2 diabetes mellitus with diabetic peripheral angiopathy without gangrene; I70.209 - Unspecified atherosclerosis of [place] arteries of extremities, unspecified extremity (5) HTN (hypertension): Status: Chronic Qualifiers: Hypertension type: essential hypertension Qualified Code(s): I10 - Essential (primary) hypertension Category: Medical Code(s): I10 - Essential (primary) hypertension (6) HLD (hyperlipidemia): Status: Chronic Qualifiers: Hyperlipidemia type: mixed hyperlipidemia Qualified Code(s): E78.2 - Mixed hyperlipidemia Category: Medical Code(s): E78.5 - Hyperlipidemia, unspecified (7) PAD (peripheral artery disease): Status: Chronic Category: Medical Code(s): I73.9 - Peripheral vascular disease, unspecified (8) Hypokalemia: Status: Acute Category: Medical Code(s): E87.6 - Hypokalemia (9) Hematochezia: Status: Acute Category: Medical Code(s): K92.1 - Melena Plan Patient is a 68-year-old male with past medical history of CAD diabetes mellitus hypertension hyperlipidemia PAD tobacco use who presents to the hospital for abdominal pain. Status post surgery x 2 for incarcerated hernia with appendectomy and partial colectomy. Surgery consulted medicine to assist with care. Having bowel movements, bloody bowel movement overnight. Pain stable. Continues to have some elevations in blood pressure, will continue to make changes today. Off Cardene drip. Continues to require inpatient management. Problems as follows: Incarcerated inguinal hernia status post surgery Postop ileus Postop pain Blood loss anemia -Discussed case with surgery, continue clear liquid diet. Suspect bloody bowel movement is likely from anastomotic oozing. Continues to require inpatient management. Having bowel movements. -White cell count normal at 8.2. Down to 7.4, will transfuse 1 unit packed red blood cells today. Repeat CBC this afternoon. Repeat CMP and CBC ordered for the morning. Monitor for further bleeding. Holding anticoagulation. -Continue Unasyn every 6 hours, for total of 5 days CKD stage III -Creatinine at baseline at 1.2, BUN 39. Repeat CMP, CBC, magnesium ordered for the morning. CAD Hypertension -Irbesartan increased to 300 mg. Carvedilol continued at 12.5 mg twice daily. Will add nifedipine 30 mg daily Oxygen requirement: Concern for some excess volume. Will diurese x 1 today with Bumex. Monitoring for negative fluid status. Wean oxygen as tolerated, goal sats greater 90%. Stopping maintenance fluids. Diabetes mellitus: Continue sliding scale insulin high intensity, fingersticks ACHS. Will continue to monitor for need to advance daily DVT prophylaxis: Held, re-evaluate tomorrow Full code clear liquid diet
[2023-11-08 11:48] LABS: POC Glucose,Bedside 173 (70-110)
[2023-11-08] MEDS: NIFEdipine XL 30MG TABLET 30 MG PO (11:55)
[2023-11-08] MEDS: BUMETANIDE 1MG/4ML VIAL 1 MG IV (11:55)
[2023-11-08 12:58] LABS: Hematocrit 27.5 % (42.0-52.0)
[2023-11-08 13:02] LABS: Hemoglobin 8.9 g/dL (14.1-18.0)
[2023-11-08 15:25] LABS: POC Glucose,Bedside 141 (70-110)
[2023-11-08 15:25] LABS: POC Glucose,Bedside 233 (70-110)
[2023-11-08 20:59] LABS: POC Glucose,Bedside 178 (70-110)
[2023-11-08] MEDS: TERAZOSIN 1MG CAPSULE 1 MG PO (21:01)
[2023-11-09] VITALS (10 sets, daily range): BP systolic 118–170; BP diastolic 44–90; PULSE 53–80; RESP 12–28; TEMP 36.8–36.9; O2SAT 90–98; BMI 26.0
[2023-11-09 06:21] LABS: POC Glucose,Bedside 156 (70-110)
[2023-11-09] MEDS: humaLOG 100 UNITS/ML 3ML VIAL (SSI) SQ ×3 (06:23→16:57)
[2023-11-09] MEDS: OXYCODONE 10MG W/APAP 325MG TABLET 1 EACH PO ×4 (06:27→21:11)
[2023-11-09 07:19] LABS: Basophils % 0.2 % (0.1-2.0); Eosinophils # 0.4 K/mm3 (0.0-0.4); Eosinophils % 4.9 % (0.1-12.0); Hematocrit 27.9 % (42.0-52.0); Lymphocytes # 1.9 K/mm3 (0.7-4.5); Lymphocytes % 21.2 % (10-50); Mean Corpuscular HGB Conc 32.2 g/dL (31.8-35.4); Mean Corpuscular Hemoglobin 29.1 pg (27.0-31.2); Mean Corpuscular Volume 90.6 fl (80-94); Monocytes # 0.6 K/mm3 (0.1-1.0); Monocytes % 7.1 % (1.7-9.3); Neutrophils % 66.6 % (37.0-80.0); Platelet Count 259 K/mm3 (142-424); Red Blood Count 3.08 M/mm3 (4.60-6.20); Red Cell Distribution Width 15.3 % (11.5-17.5)
[2023-11-09 07:28] LABS: Alanine Aminotransferase 18 U/L (12-78); Albumin Level 2.7 g/dl (3.5-5.0); Alkaline Phosphatase 70 U/L (38-126); Aspartate Amino Transferase 26 U/L (17-59); Bilirubin,Total 0.4 mg/dl (0.2-1.3); Blood Urea Nitrogen 25 mg/dl (9-20); Calcium 7.1 mg/dl (8.4-10.2); Carbon Dioxide 30 mmol/L (22.0-30.0); Chloride 106 mmol/L (98-107); Creatinine Clearance Estimated 65 mL/min (50-200); Estimated Glomerular Filt Rate 60 ml/min (>60); GFR (African American) 73 ML/MIN (>60); Globulin 2.6 g/dL (1.3-3.2); Glucose 146 mg/dl (74-100); Magnesium 2.1 mg/dl (1.6-2.3); Sodium 137 mmol/L (136-145); Total Protein,Serum 5.3 g/dl (6.3-8.2)
[2023-11-09] MEDS: NIFEdipine XL 30MG TABLET 30 MG PO (08:48)
[2023-11-09] MEDS: POTASSIUM CHLORIDE 20MEQ TAB 20 MEQ PO ×2 (08:48→21:10)
[2023-11-09] MEDS: OXYBUTYNIN 5MG TAB 5 MG PO ×2 (08:48→21:18)
[2023-11-09] MEDS: CARVEDILOL 12.5MG TABLET 12.5 MG PO ×2 (08:48→21:11)
[2023-11-09] MEDS: ONDANSETRON 4MG/2ML VIAL 4 MG IV ×2 (08:48→13:27)
[2023-11-09] MEDS: IRBESARTAN 300MG TABLET 300 MG PO (08:48)
[2023-11-09] MEDS: FAMOTIDINE 20MG/2ML VIAL 20 MG IV ×2 (08:48→21:11)
--- NOTE | 2023-11-09 08:55 | P.PN_ITS ---
Subjective *Date: 11/09/23 *Time: 11:04 Interval history: Patient on room air on exam this morning. Having a little nausea but no emesis. Still having bowel movements, no ed bloody stools. Hemoglobin remained stable on morning labs. Feeling somewhat better. Urine has cleared with no bloody output it any longer. Afebrile. Tolerating liquid diet. Medical Exam Vital signs and Labs for Last 24 Hours: Vital Signs Temp Pulse Pulse Resp BP BP Pulse Ox 11/09/23 08:00 98.3 F 64 28 H 151/82 H 98 11/09/23 00:00 60 11/08/23 23:00 11/09/23 06:00 63 15 170/90 H 98 11/09/23 04:00 11/09/23 04:00 98.2 F 57 L 22 151/79 H 11/09/23 05:00 11/09/23 03:00 11/09/23 02:00 57 L 15 150/78 H 97 11/09/23 00:00 98.3 F 58 L 12 132/72 94 L 11/09/23 01:00 11/08/23 22:00 79 18 162/86 H 98 11/08/23 20:00 98.1 F 70 22 156/80 H 94 L 11/08/23 21:00 11/08/23 20:00 11/08/23 19:00 11/08/23 20:00 60 11/08/23 18:00 65 20 117/91 H 93 L 11/08/23 17:00 11/08/23 16:00 62 14 142/80 H 95 11/08/23 16:00 70 11/08/23 16:00 98.5 F 11/08/23 14:44 11/08/23 13:00 11/08/23 14:00 85 14 165/92 H 97 11/08/23 12:00 60 11/08/23 12:00 98.5 F 11/08/23 12:00 67 19 113/52 L 98 11/08/23 11:30 68 20 171/90 H 92 L 11/08/23 10:57 11/08/23 10:30 98.7 F 58 L 18 178/79 H 97 11/08/23 10:10 56 L 25 H 182/89 H 96 11/08/23 09:10 98.4 F 54 L 18 159/84 H 99 O2 Del Method O2 Flow Rate 11/09/23 08:00 Nasal Cannula 11/09/23 00:00 11/08/23 23:00 Nasal Cannula 2 11/09/23 06:00 Nasal Cannula 2 11/09/23 04:00 Nasal Cannula 2 11/09/23 04:00 Non-Rebreather 2 11/09/23 05:00 Nasal Cannula 2 11/09/23 03:00 Nasal Cannula 2 11/09/23 02:00 Nasal Cannula 2 11/09/23 00:00 Nasal Cannula 2 11/09/23 01:00 Nasal Cannula 2 11/08/23 22:00 Nasal Cannula 2 11/08/23 20:00 Nasal Cannula 2 11/08/23 21:00 Nasal Cannula 2 11/08/23 20:00 Nasal Cannula 2 11/08/23 19:00 Room Air 11/08/23 20:00 11/08/23 18:00 Nasal Cannula 2 11/08/23 17:00 Nasal Cannula 2 11/08/23 16:00 Nasal Cannula 2 11/08/23 16:00 11/08/23 16:00 11/08/23 14:44 Nasal Cannula 2 11/08/23 13:00 Nasal Cannula 2 11/08/23 14:00 Nasal Cannula 2 11/08/23 12:00 11/08/23 12:00 11/08/23 12:00 Nasal Cannula 2 11/08/23 11:30 11/08/23 10:57 Nasal Cannula 2 11/08/23 10:30 11/08/23 10:10 11/08/23 09:10 Intake and Output 11/08/23 11/09/23 11/09/23 23:59 07:59 15:59 Intake Total 360 / 2290 360 / 360 Output Total 1100 / 1850 900 / 900 0 / 900 Balance -740 / 440 -900 / -540 360 / -540 Intake: Intake, Oral Amount 360 / 1220 360 / 360 Output: Output, Urine Amount 1100 / 1250 900 / 900 0 / 900 Other: Number of Voids 0 Number of Bowel Movements 1 Weight 77.882 kg Patient Weight 11/09/23 23:59 Weight 77.882 kg Laboratory Results - last 24 hr 11/07/23 17:13: POC Glucose 173 H 11/08/23 04:15: Crossmatch (AHG) See Detail 11/08/23 10:25: POC Glucose 141 H 11/08/23 12:24: Hgb 8.9 L D, Hct 27.5 L 11/08/23 14:59: POC Glucose 233 H 11/08/23 20:52: POC Glucose 178 H 11/09/23 06:12: POC Glucose 156 H 11/09/23 06:13: WBC 9.0, RBC 3.08 L, Hgb 9.0 L, Hct 27.9 L, MCV 90.6, MCH 29.1, MCHC 32.2, RDW 15.3, Plt Count 259, MPV 9.0, Neut % (Auto) 66.6, Lymph % (Auto) 21.2, [place] % (Auto) 7.1, Eos % (Auto) 4.9, Baso % (Auto) 0.2, Neut # (Auto) 6.0, Lymph # (Auto) 1.9, [place] # (Auto) 0.6, Eos # (Auto) 0.4, Baso # (Auto) 0.0, Sodium 137, Potassium 3.0 L, Chloride 106, Carbon Dioxide 30, Anion Gap 4.0 L, BUN 25 H D, Creatinine 1.20, Estimated Creat Clear 65, Estimated GFR 60, Est GFR ( Amer) 73, Glucose 146 H, Calcium 7.1 L, Magnesium 2.1, Total Bilirubin 0.4, AST 26, ALT 18, Alkaline Phosphatase 70, Total Protein 5.3 L, Albumin 2.7 L , Globulin 2.6, Albumin/Globulin Ratio 1.0 L I & O for Labs for Last 24 Hours: Intake & Output 11/06/23 11/07/23 11/08/23 11/09/23 23:59 23:59 23:59 23:59 Intake Total 4435 / 4435 970.583 / 323.192 9390 / 2290 360 / 360 Output Total 3030 / 3030 3825 / 3825 1850 / 1850 900 / 900 Balance 1405 / 1405 -2854.417 / -2854.417 440 / 440 -540 / -540 Weight 76.113 kg 76 kg 77.247 kg 77.882 kg Constitutional: Present no acute distress and chronically ill appearing Head: Present atraumatic Respiratory: Present crackles (Bilateral bases) and normal respiratory effort; Absent rhonchi or wheezes Cardiac: Present Reg Rate and Rhythm GI: Present soft, tenderness (Right lower abdomen) and normal bowel sounds; Absent distention Comments:: Surgical incisions clean dry and intact, no drainage Extremities: Present normal inspection and full ROM Skin: Present intact; Absent erythema Neuro: Present Grossly Intact, alert, awake, oriented x 3 and moves all extremities Assessment and Plan *Assessment and plan (1) Incarcerated hernia: Status: Acute Category: Medical Code(s): K46.0 - Unspecified abdominal hernia with obstruction, without gangrene (2) CAD (coronary artery disease): Status: Chronic Qualifiers: Coronary Disease-Associated Artery/Lesion type: [place] artery [place] vs. transplanted heart: [place] heart Associated angina: without angina Qu alified Code(s): I25.10 - Atherosclerotic heart disease of [place] coronary artery without angina pectoris Category: Medical Code(s): I25.10 - Atherosclerotic heart disease of [place] coronary artery without angina pectoris (3) Tobacco dependence syndrome: Status: Chronic Category: Medical Code(s): F17.200 - Nicotine dependence, unspecified, uncomplicated (4) Diabetes type 2 with atherosclerosis of arteries of extremities: Status: Chronic Category: Medical Code(s): E11.51 - Type 2 diabetes mellitus with diabetic peripheral angiopathy without gangrene; I70.209 - Unspecified atherosclerosis of [place] arteries of extremities, unspecified extremity (5) HTN (hypertension): Status: Chronic Qualifiers: Hypertension type: essential hypertension Qualified Code(s): I10 - Essential (primary) hypertension Category: Medical Code(s): I10 - Essential (primary) hypertension (6) HLD (hyperlipidemia): Status: Chronic Qualifiers: Hyperlipidemia type: mixed hyperlipidemia Qualified Code(s): E78.2 - Mixed hyperlipidemia Category: Medical Code(s): E78.5 - Hyperlipidemia, unspecified (7) PAD (peripheral artery disease): Status: Chronic Category: Medical Code(s): I73.9 - Peripheral vascular disease, unspecified (8) Hypokalemia: Status: Acute Category: Medical Code(s): E87.6 - Hypokalemia (9) Hematochezia: Status: Acute Category: Medical Code(s): K92.1 - Melena Plan Patient is a 68-year-old male with past medical history of CAD diabetes mellitus hypertension hyperlipidemia PAD tobacco use who presents to the hospital for abdominal pain. Status post surgery x 2 for incarcerated hernia with appendectomy and partial colectomy. Surgery consulted medicine to assist with care. No further bloody bowel movements. Pain stable. Advancing diet. Blood pressure improving. Continues to require inpatient management. Problems as follows: Incarcerated inguinal hernia status post surgery Postop ileus Postop pain Blood loss anemia -Discussed case with surgery, continue clear liquid diet. Suspect bloody bowel movement is likely from anastomotic oozing. Continues to require inpatient management. Having bowel movements. -White cell count normal at 9. Hemoglobin improved to 9 today. No further signs of bleeding. repeat CMP and CBC ordered for the morning. -Patient has completed Unasyn course CKD stage III: Creatinine at baseline at 1.2, BUN 25, Repeat CMP, CBC, magnesium ordered for the morning. CAD Hypertension -Irbesartan increased to 300 mg. Carvedilol continued at 12.5 mg twice daily. nifedipine 30 mg daily. Resume home terazosin and 10 mg daily for both prostate and blood pressure Oxygen requirement: Concern for some excess volume. Diuresing well, no further diuretics today. Weaned to room air this morning. Diabetes mellitus: Resume long-acting insulin at reduced dose with insulin glargine 20 units nightly. Continue sliding scale insulin high intensity, fingersticks ACHS. Resume Jardiance 25 mg daily Resume memantine per home regimen for memory Resume home Lipitor 80 mg daily Resume home gap [place] etc. grams twice daily for neuropathy DVT prophylaxis: Resume Xarelto tonight Full code full liquid diet
--- NOTE | 2023-11-09 09:40 | P.PN_ITS ---
Subjective Patient reports: no new complaints and tolerating liquids well Exam Data for Last 24 hours Vital signs and Labs for Last 24 Hours: Temp Pulse Resp BP Pulse Ox O2 Del Method O2 Flow Rate 98.3 F 64 18 155/79 H 92 L Room Air 2 11/09/23 08:00 11/09/23 08:00 11/09/23 08:00 11/09/23 08:00 11/09/23 08:00 11/09/23 09:00 11/09/23 06:00 Laboratory Results - last 24 hr 11/07/23 17:13: POC Glucose 173 H 11/08/23 04:15: Crossmatch (AHG) See Detail 11/08/23 10:25: POC Glucose 141 H 11/08/23 12:24: Hgb 8.9 L D, Hct 27.5 L 11/08/23 14:59: POC Glucose 233 H 11/08/23 20:52: POC Glucose 178 H 11/09/23 06:12: POC Glucose 156 H 11/09/23 06:13: WBC 9.0, RBC 3.08 L, Hgb 9.0 L, Hct 27.9 L, MCV 90.6, MCH 29.1, MCHC 32.2, RDW 15.3, Plt Count 259, MPV 9.0, Neut % (Auto) 66.6, Lymph % (Auto) 21.2, [place] % (Auto) 7.1, Eos % (Auto) 4.9, Baso % (Auto) 0.2, Neut # (Auto) 6.0, Lymph # (Auto) 1.9, [place] # (Auto) 0.6, Eos # (Auto) 0.4, Baso # (Auto) 0.0, Sodium 137, Potassium 3.0 L, Chloride 106, Carbon Dioxide 30, Anion Gap 4.0 L, BUN 25 H D, Creatinine 1.20, Estimated Creat Clear 65, Estimated GFR 60, Est GFR ( Amer) 73, Glucose 146 H, Calcium 7.1 L, Magnesium 2.1, Total Bilirubin 0.4, AST 26, ALT 18, Alkaline Phosphatase 70, Total Protein 5.3 L, Albumin 2.7 L , Globulin 2.6, Albumin/Globulin Ratio 1.0 L I & O for Last 24 hours: Intake & Output 0111/07/23 11/08/23 11/09/23 11:59 11:59 11:59 11:59 Intake Total 1409 / 1409 4389.583 / 4389.583 2126 / 2126 1440 / 1440 Output Total 3430 / 3430 3600 / 3875 3300 / 3300 1999 Balance -2020 / -2020 789.583 / 514.583 -1174 / -1174 -560 / -560 Weight 167 lb 12.8 oz 167 lb 8.821 oz 170 lb 4.8 oz 171 lb 11.2 oz Constitutional Constitutional: no acute distress *Routine Respiratory Exam Respiratory: Absent respiratory distress *Routine Cardiovascular Exam Cardiovascular: Absent tachycardia *Routine Abdominal Exam Abdominal: Present soft Comments: Incisions healing without evidence of infection Progress Note: A&P Assessment and plan (1) Incarcerated hernia: Status: Acute Assessment and plan: Overall, continue to slowly improve status post right inguinal hernia repair/ileocecectomy Continue overall management as per primary service Continue physical therapy Full liquid diet this a.m. Remove one half of [place] (2) Hematochezia: Status: Acute Assessment and plan: Likely secondary to changing anastomotic issues . Hemoglobin stable this a.m.
[2023-11-09 10:41] LABS: POC Glucose,Bedside 266 (70-110)
--- NOTE | 2023-11-09 16:21 | PC.NURSE ---
Some nausea noted. Zofran given with relief of symptoms. Patient able to tolerate diet well. Bowel sounds active. Incision clean dry and intact. VS stable and patient remained on room air.
[2023-11-09 16:30] LABS: POC Glucose,Bedside 257 (70-110)
[2023-11-09] MEDS: RIVAROXABAN 10MG TABLET 20 MG PO (16:58)
[2023-11-09] MEDS: MEMANTINE 10MG TABLET 10 MG PO (21:10)
[2023-11-09] MEDS: GABAPENTIN 600MG TABLET 600 MG PO (21:12)
[2023-11-09] MEDS: INSULIN GLARGINE 100 UNITS/ML 3ML FLEXPEN 20 UNIT SQ (21:12)
[2023-11-10] VITALS: BP 139/69; PULSE 60; PULSE 62; RESP 18; TEMP 36.9; O2SAT 97
[2023-11-10 04:00] VITALS: BP 158/73; PULSE 70; RESP 16; TEMP 36.8; O2SAT 95; BMI 26.2
[2023-11-10 07:34] VITALS: BP 156/74; PULSE 84; RESP 22; TEMP 38.1; O2SAT 90
[2023-11-10] MEDS: OXYBUTYNIN 5MG TAB 5 MG PO (07:56)
[2023-11-10] MEDS: POTASSIUM CHLORIDE 20MEQ TAB 20 MEQ PO (07:56)
[2023-11-10] MEDS: GABAPENTIN 600MG TABLET 600 MG PO (07:57)
[2023-11-10] MEDS: IRBESARTAN 300MG TABLET 300 MG PO (07:57)
[2023-11-10] MEDS: OXYCODONE 10MG W/APAP 325MG TABLET 1 EACH PO (07:57)
[2023-11-10] MEDS: NIFEdipine XL 30MG TABLET 30 MG PO (07:57)
[2023-11-10] MEDS: CARVEDILOL 12.5MG TABLET 12.5 MG PO (07:57)
[2023-11-10 07:58] LABS: Basophils % 0.1 % (0.1-2.0); Chloride 111 mmol/L (98-107); Eosinophils # 0.3 K/mm3 (0.0-0.4); Hematocrit 29.4 % (42.0-52.0); Hemoglobin 9.5 g/dL (14.1-18.0); Lymphocytes # 1.6 K/mm3 (0.7-4.5); Lymphocytes % 18.1 % (10-50); Mean Corpuscular HGB Conc 32.3 g/dL (31.8-35.4); Mean Corpuscular Volume 89.9 fl (80-94); Mean Platelet Volume 9.3 fl (7.4-10.4); Monocytes # 0.6 K/mm3 (0.1-1.0); Monocytes % 6.4 % (1.7-9.3); Neutrophils # 6.2 K/mm3 (1.8-7.8); Neutrophils % 72.4 % (37.0-80.0); Platelet Count 293 K/mm3 (142-424); Potassium 3.3 mmoL/L (3.5-5.1); Red Blood Count 3.27 M/mm3 (4.60-6.20); Red Cell Distribution Width 15.8 % (11.5-17.5); Sodium 142 mmol/L (136-145); White Blood Count 8.6 K/mm3 (4.8-10.8)
[2023-11-10] MEDS: TERAZOSIN 5MG CAPSULE 10 MG PO (07:58)
[2023-11-10] MEDS: MEMANTINE 10MG TABLET 10 MG PO (07:58)
[2023-11-10] MEDS: FAMOTIDINE 20MG/2ML VIAL 20 MG IV (07:58)
[2023-11-10] MEDS: EMPAGLIFLOZIN 10MG TABLET 20 MG PO (07:58)
[2023-11-10] MEDS: ATORVASTATIN 40MG TABLET 80 MG PO (07:59)
[2023-11-10 08:00] VITALS: PULSE 90
[2023-11-10 08:01] LABS: Alanine Aminotransferase 19 U/L (12-78); Albumin Level 2.9 g/dl (3.5-5.0); Albumin/Globulin Ratio 1.1 (1.1-1.8); Alkaline Phosphatase 75 U/L (38-126); Anion Gap 3.3 mEq/L (5-15); Aspartate Amino Transferase 29 U/L (17-59); Bilirubin,Total 0.5 mg/dl (0.2-1.3); Blood Urea Nitrogen 20 mg/dl (9-20); Carbon Dioxide 31 mmol/L (22.0-30.0); Creatinine Clearance Estimated 71 mL/min (50-200); Estimated Glomerular Filt Rate 67 ml/min (>60); GFR (African American) 81 ML/MIN (>60); Globulin 2.7 g/dL (1.3-3.2); Total Protein,Serum 5.6 g/dl (6.3-8.2)
[2023-11-10 08:02] LABS: Calcium 7.7 mg/dl (8.4-10.2); Glucose 144 mg/dl (74-100)
[2023-11-10 08:40] LABS: Magnesium 2.3 mg/dl (1.6-2.3)
--- NOTE | 2023-11-10 10:11 | P.PN_ITS ---
Subjective Patient reports: no new complaints, feels better, flatus and bowel movement Exam Data for Last 24 hours Vital signs and Labs for Last 24 Hours: Temp Pulse Resp BP Pulse Ox O2 Del Method O2 Flow Rate 100.5 F H 84 22 156/74 H 90 L Room Air 2 11/10/23 07:34 11/10/23 07:34 11/10/23 07:34 11/10/23 07:34 11/10/23 07:34 11/10/23 09:15 11/09/23 06:00 Laboratory Results - last 24 hr 11/09/23 10:34: POC Glucose 266 H 11/09/23 16:22: POC Glucose 257 H 11/10/23 06:48: WBC 8.6, RBC 3.27 L, Hgb 9.5 L, Hct 29.4 L, MCV 89.9, MCH 29.0, MCHC 32.3, RDW 15.8, Plt Count 293, MPV 9.3, Neut % (Auto) 72.4, Lymph % (Auto) 18.1, [place] % (Auto) 6.4, Eos % (Auto) 3.0, Baso % (Auto) 0.1, Neut # (Auto) 6.2, Lymph # (Auto) 1.6, [place] # (Auto) 0.6, Eos # (Auto) 0.3, Baso # (Auto) 0.0, Sodium 142, Potassium 3.3 L, Chloride 111 H, Carbon Dioxide 31 H, Anion Gap 3.3 L, BUN 20, Creatinine 1.10, Estimated Creat Clear 71, Estimated GFR 67, Est GFR ( Amer) 81, Glucose 144 H, Calcium 7.7 L, Magnesium 2.3, Total Bilirubin 0.5, AST 29, ALT 19, Alkaline Phosphatase 75, Total Protein 5.6 L, Albumin 2.9 L , Globulin 2.7, Albumin/Globulin Ratio 1.1 I & O for Last 24 hours: Intake & Output 11/07/23 11/08/23 11/09/23 11/10/23 11:59 11:59 11:59 11:59 Intake Total 4389.583 / 4389.583 2126 / 2126 1440 / 1440 1184 / 1184 Output Total 3600 / 3875 3300 / 3300 1999 / 1999 0 / 0 Balance 789.583 / 514.583 -1174 / -1174 -560 / -560 1184 / 1184 Weight 167 lb 8.821 oz 170 lb 4.8 oz 171 lb 11.2 oz 172 lb 9.528 oz Constitutional Constitutional: no acute distress *Routine Respiratory Exam Respiratory: Absent respiratory distress *Routine Cardiovascular Exam Cardiovascular: Absent tachycardia *Routine Abdominal Exam Abdominal: Present soft Comments: Incisions healing without evidence of infection Progress Note: A&P Assessment and plan (1) Incarcerated hernia: Status: Acute Assessment and plan: Overall, continuing to improve status post right inguinal hernia repair/il eocecectomy Continue overall management as per primary service Soft diet Likely discharge home soon with close outpatient follow-up
[2023-11-10 11:47] VITALS: BP 111/59; PULSE 64; RESP 14; TEMP 36.6; O2SAT 96
[2023-11-10 12:02] LABS: POC Glucose,Bedside 261 (70-110)
[2023-11-10] MEDS: humaLOG 100 UNITS/ML 3ML VIAL (SSI) SQ (12:04)
--- NOTE | 2023-11-10 12:12 | EXP.DC.SUM ---
General Admission date:: 11/03/23 Discharge date: 11/10/23 HPI HPI HPI: Patient is a 68-year-old male from [facility] [place] with apparently known history of of right inguinal hernia. He has a history of carotid artery stenosis, renal artery stenosis, coronary artery disease, tobacco dependence, obstructive sleep apnea, chronic arterial occlusive disease, hyperlipidemia, hypertension, type 2 diabetes. He presented to the emergency department this afternoon on 11/03/2023 with 24-hour history of right lower quadrant pain radiating into the right groin area. He has also been unable to keep anything down has had vomiting. Evaluation in the emergency department revealed findings on examination consistent with incarcerated with possibly strangulated right inguinal hernia. He was found to have a leukocytosis. Surgery was contacted. In the interim patient underwent CT scan and was found to have findings of incarcerated right inguinal hernia containing cecum and terminal ileum resulting in small bowel obstruction. Appendix was extending into the peritoneal cavity from the hernia sac and the appendix was mildly dilated concerning for possible early developing appendicitis along with incarcerated hernia. Surgical consultation was obtained. Hospital Course Hospital Course Hospital Course: Patient is a 68-year-old male with past medical history of CAD diabetes mellitus hypertension hyperlipidemia PAD tobacco use who presented to the hospital for abdominal pain on 11/03 and was admitted from 11/03 through 11/10. Status post surgery 11/03 x2 for incarcerated hernia with appendectomy and partial colectomy. Surgery performed open repair of strangulated right inguinal hernia, Diagnostic laparoscopy, Exploratory laparotomy with ileocecal resection with ileocolic anastomosis. Surgery assisted with care during first admission. Patient gradually showed improvement with improvement in bowel movements, tolerating p.o. intake. Meeting criteria for discharge home. Problems addressed as follows: Incarcerated inguinal hernia, appendicitis, ileocecal resection with anastomosis. Postop ileus Postop pain Blood loss anemia -Patient presented with abdominal pain, surgery was consulted and he was taken for laparoscopic evaluation which transition to exploratory laparotomy. Hernia was attempted to be repaired and there was concern for appendicitis. Surgery was transition to open with repair of hernia, ileocecal resection with ileocecal anastomosis. Patient had a prolonged course for postop ileus. Noted to have some initial bloody bowel movements concerning for postop oozing from anastomosis but this resolved. Patient's hemoglobin has remained stable with resumption of his Xarelto. Tolerating p.o. intake, has advance to a regular diet. Recommend continuing bowel regimen though he is having bowel movements daily. White cell count normalized. Completed empiric course of antibiotics during previous/initial admission. Recommend repeat CBC in 1 week to monitor hemoglobin and white cell count. Follow-ups with both Dr. Shelby and Dr. Flynn scheduled over the next week. CKD stage III: Creatinine during admission has remained within baseline range. Currently 1.1 today. Would recommend repeat CBC, CMP, magnesium in 1 week to monitor kidney function and electrolytes. CAD Hypertension -Resumed home regimen per discharge summary. See full med rec attached. Blood pressures better controlled. Recommend reevaluating with close monitoring for further adjustment to regimen. Diabetes mellitus: Resume long-acting insulin at reduced dose with insulin glargine 25 units nightly. Continue short acting 14 units with meals. fingersticks ACHS. Resume Jardiance 25 mg daily Continue memantine per home regimen for memory, Lipitor 80 mg daily, and gabapentin twice daily for neuropathy Stable for discharge home, independently ambulatory. Tolerating p.o. intake. Having bowel movements. Spent 30 minutes in discharge counseling, documentation, chart review, and direct care with patient. Exam Data for Last 24 hours Vital signs and Labs for Last 24 Hours: Temp Pulse Resp BP Pulse Ox O2 Del Method O2 Flow Rate 97.9 F 64 14 111/59 L 96 Room Air 2 11/10/23 11:47 11/10/23 11:47 11/10/23 11:47 11/10/23 11:47 11/10/23 11:47 11/10/23 11:47 11/09/23 06:00 Laboratory Results - last 24 hr 11/09/23 16:22: POC Glucose 257 H 11/10/23 06:48: WBC 8.6, RBC 3.27 L, Hgb 9.5 L, Hct 29.4 L, MCV 89.9, MCH 29.0, MCHC 32.3, RDW 15.8, Plt Count 293, MPV 9.3, Neut % (Auto) 72.4, Lymph % (Auto) 18.1, [place] % (Auto) 6.4, Eos % (Auto) 3.0, Baso % (Auto) 0.1, Neut # (Auto) 6.2, Lymph # (Auto) 1.6, [place] # (Auto) 0.6, Eos # (Auto) 0.3, Baso # (Auto) 0.0, Sodium 142, Potassium 3.3 L, Chloride 111 H, Carbon Dioxide 31 H, Anion Gap 3.3 L, BUN 20, Creatinine 1.10, Estimated Creat Clear 71, Estimated GFR 67, Est GFR ( Amer) 81, Glucose 144 H, Calcium 7.7 L, Magnesium 2.3, Total Bilirubin 0.5, AST 29, ALT 19, Alkaline Phosphatase 75, Total Protein 5.6 L, Albumin 2.9 L, Globulin 2.7, Albumin/Globulin Ratio 1.1 11/10/23 11:34: POC Glucose 261 H I & O for Last 24 hours: Intake & Output 11/07/23 11/08/23 11/09/23 11/10/23 23:59 23:59 23:59 23:59 Intake Total 970.583 / 272.239 7699 / 2290 1074 / 1074 470 / 470 Output Total 3825 / 3825 1850 / 1850 900 / 900 0 / 0 Balance -2854.417 / -2854.417 440 / 440 174 / 174 470 / 470 Weight 76 kg 77.247 kg 77.882 kg 78.288 kg Constitutional Constitutional: no acute distress, average body habitus, chronically ill appearing and cooperative *Routine HEENT Exam Head: Present normocephalic Eye: Present EOMI and PERRL ENT: Present mucous membranes moist *Routine Neck Exam Neck: Present supple; Absent lymphadenopathy *Routine Respiratory Exam Respiratory: Present CTA bilaterally and normal respiratory effort; Absent rhonchi, wheezes or crackles *Routine Cardiovascular Exam Cardiovascular: Present RRR *Routine Abdominal Exam Abdominal: Present soft, normoactive bowel sounds and tenderness (minimal in RLQ) Comments: incisions CDI, jacklyn in place with no drainage *Routine Extremities Exam Extremities: Absent cyanosis, clubbing or edema *Routine Skin Exam Skin: Present warm; Absent rash *Routine Neurological Exam Neurological: Present alert, oriented X3, altered mental status and moving all extremities Results Data Completed and Pending Labs on day of discharge: Labs from last 24 hours 11/10/23 11/10/23 11/09/23 11:34 06:48 16:22 WBC 8.6 RBC 3.27 L Hgb 9.5 L Hct 29.4 L MCV 89.9 MCH 29.0 MCHC 32.3 RDW 15.8 Plt Count 293 MPV 9.3 Neut % (Auto) 72.4 Lymph % (Auto) 18.1 [place] % (Auto) 6.4 Eos % (Auto) 3.0 Baso % (Auto) 0.1 Neut # (Auto) 6.2 Lymph # (Auto) 1.6 [place] # (Auto) 0.6 Eos # (Auto) 0.3 Baso # (Auto) 0.0 Sodium 142 Potassium 3.3 L Chloride 111 H Carbon Dioxide 31 H Anion Gap 3.3 L BUN 20 Creatinine 1.10 Estimated Creat Clear 71 Estimated GFR 67 Est GFR ( Amer) 81 Glucose 144 H POC Glucose 261 H 257 H Calcium 7.7 L Magnesium 2.3 Total Bilirubin 0.5 AST 29 ALT 19 Alkaline Phosphatase 75 Total Protein 5.6 L Albumin 2.9 L Globulin 2.7 Albumin/Globulin Ratio 1.1 DS: Diagnosis Discharge Diagnosis (1) Incarcerated hernia: Status: Acute Code(s): K46.0 - Unspecified abdominal hernia with obstruction, without gangrene Meds Home Medications and Allergies Home Medications Medication Instructions Recorded Confirmed Type aspirin 81 mg tablet,delayed 81 mg PO DAILY 03/01/21 11/11/23 History release (Adult Low Dose Aspirin) atorvastatin 80 mg tablet 80 mg PO HS 10/09/21 11/11/23 History memantine 10 mg tablet 10 mg PO BID 05/02/22 11/11/23 History famotidine 20 mg tablet 20 mg PO BID 09/25/22 11/11/23 History losartan 100 mg tablet 100 mg PO DAILY 09/25/22 11/11/23 History rivaroxaban 20 mg tablet (Xarelto) 20 mg PO QPMWITHMEAL 09/25/22 11/11/23 History empagliflozin 25 mg tablet 25 mg PO DAILY 01/22/23 11/11/23 History (Jardiance) carvedilol 12.5 mg tablet 12.5 mg PO BID 04/23/23 11/11/23 History oxybutynin chloride 5 mg 5 mg PO DAILY 05/23/23 11/11/23 History tablet,extended release 24 hr insulin aspart U-100 100 unit/mL 14 unit SQ TID PRN Blood Sugar 11/04/23 11/11/23 History (3 mL) subcutaneous pen (Novolog FlexPen U-100 Insulin aspart) nitroglycerin 0.4 mg sublingual 0.4 mg sublingual Q5M PRN Chest 11/04/23 11/11/23 History tablet Pain terazosin 10 mg capsule 10 mg PO DAILY 11/04/23 11/11/23 History alprazolam 0.25 mg tablet 0.25 mg PO TID PRN Anxiety 5 days 11/11/23 Rx #15 tabs gabapentin 400 mg capsule 400 mg PO BID 10 days #20 caps 11/11/23 Rx gabapentin 600 mg tablet 600 mg PO BID 5 days #10 tabs 11/11/23 Rx insulin glargine 100 unit/mL (3 25 unit (0.25 mL) SQ HS 30 days #0 11/11/23 11/11/23 Rx mL) subcutaneous pen (Lantus mL Solostar U-100 Insulin) lidocaine 5 % topical patch 1 patch topical DAILY Back Pain 11/11/23 11/11/23 History oxycodone 5 mg tablet 5 mg PO Q6H PRN pain 3 days #12 11/11/23 Rx tabs New Prescriptions to Start Prescriptions: Allergies Allergy/AdvReac Type Severity Reaction Status Date / Time No Known Allergies Allergy Verified 11/11/23 08:36 Discharge Plan Disposition Patient Disposition: Home Health Service Condition: Fair Discharge Order Discharge Orders: Discharge Order (Routine); Ordered 11/10/23 Ordered By: Alan Rodriguez Follow up Plan Follow up with: Johan Flynn MD [Staff Physician] - 11/19/23 1:30 pm Sreedhar Chavez MD [Primary Care Provider] - 11/13/23 2:20 pm Reinaldo Shelby MD [Staff Physician] - 11/13/23 (The office will call you with a follow up appt. ) Prescriptions/Medication Reconciliation: Continued aspirin [Adult Low Dose Aspirin] 81 mg tablet,delayed release (DR/EC) 81 mg PO DAILY atorvastatin 80 mg tablet 80 mg PO HS famotidine 20 mg tablet 20 mg PO BID losartan 100 mg tablet 100 mg PO DAILY Xarelto 20 mg tablet 20 mg PO QPMWITHMEAL Jardiance 25 mg tablet 25 mg PO DAILY oxybutynin chloride 5 mg tablet extended release 24hr 5 mg PO DAILY carvedilol 12.5 mg tablet 12.5 mg PO BID memantine 10 MG tablet 10 mg PO BID insulin aspart U-100 [Novolog FlexPen U-100 Insulin] 100 unit/mL (3 mL) Insulin Pen 14 unit SQ TID PRN (Reason: Blood Sugar) Patient Comments: give 14 units if blood sugar is elevated terazosin 10 mg capsule 10 mg PO DAILY nitroglycerin 0.4 mg tablet, sublingual 0.4 mg SUBLINGUAL Q5M PRN (Reason: Chest Pain ) Rx Instructions: Do not exceed 3 doses per episode No Action lidocaine 5 % adhesive patch,medicated 1 patch topical DAILY gabapentin 600 mg Tablet 600 mg PO BID 5 Days Qty: 10 0RF alprazolam 0.25 mg tablet 0.25 mg PO TID PRN (Reason: Anxiety) 5 Days Qty: 15 0RF insulin glargine [Lantus Solostar U-100 Insulin] 100 unit/mL (3 mL) insulin pen 25 unit SQ HS 30 Days Qty: 0 0RF oxycodone 5 mg tablet 5 mg PO Q6H PRN (Reason: pain) 3 Days Qty: 12 0RF gabapentin 400 mg capsule 400 mg PO BID 10 Days Qty: 20 0RF Problem Reconciliation Problems Reviewed?: Yes Patient Discharge Instructions ACTIVITY: Continue current activity DIET: continue same diet Patient Instructions: DI for Hernia Repair, DI for Hypokalemia, DI for Surgical Site Infection, Catheter-Associated Urinary Tract Infection Providers Primary Care Provider: Sreedhar Chavez Admit Provider: Heike Dickson Attending Provider: Heike Dickson
--- NOTE | 2023-11-11 16:20 | CARE MANAGER ---
Spoke with patient's . Told her the ambulance cost can be $600 and then $17.50 per mile if she is unable to take patient to [place]. She had questions regarding what to bring for patient to have. Suggested comfortable clothes, socks, and shoes. She states she doesn't know what to bring. She doesn't know what is comfortable for him. Encouraged patient to bring whatever she thought or saw. Again she denied wanting ambulance. I also provided her with directions to [place], their address, and phone number.SOY Lee
== END 2023-11-10 16:15 | disposition home health service (06) | DRG 330 ==
LOC: ER 16:02 → SDC 16:13 → 2ND 17:04 → ICU 11-04 20:35 → 2ND 11-07 21:29
PROVIDERS: Internal Medicine Adolescent Medicine; Surgery; Admitting Provider Internal Medicine; Emergency Provider Emergency Medicine; PCP Internal Medicine; Visit Provider Internal Medicine
PROC: 0YQ50ZZ Repair Right Inguinal Region, Open Approach (ICD-10-PCS; principal; 2023-11-03 16:30)
DX: K40.30 Unilateral inguinal hernia, with obstruction, without gangrene, not specified as recurrent (principal); K56.7 Ileus, unspecified; K91.89 Other postprocedural complications and disorders of digestive system; K92.1 Melena; I65.29 Occlusion and stenosis of unspecified carotid artery; I25.10 Atherosclerotic heart disease of native coronary artery without angina pectoris; G47.33 Obstructive sleep apnea (adult) (pediatric); E11.51 Type 2 diabetes mellitus with diabetic peripheral angiopathy without gangrene; Z89.421 Acquired absence of other right toe(s); E78.5 Hyperlipidemia, unspecified; I10 Essential (primary) hypertension; E11.22 Type 2 diabetes mellitus with diabetic chronic kidney disease; I12.9 Hypertensive chronic kidney disease with stage 1 through stage 4 chronic kidney disease, or unspecified chronic kidney disease; N18.30 Chronic kidney disease, stage 3 unspecified; F17.200 Nicotine dependence, unspecified, uncomplicated; E87.6 Hypokalemia; D50.0 Iron deficiency anemia secondary to blood loss (chronic)
CPT/HCPCS: 49505; 44140; 36415; 74021; 74177; 80048; 80053; 81001; 82962; 83735; 85007; 85014; 85018; 85025; 86850; 88302; 88307; 96374; 97116; 97163; 99285; J0131; J2405; J3490; P9016; Q9967

== ENCOUNTER 2023-11-11 05:50 | Observation (INO) | payer MEDICARE, OTHER, SELFPAY ==
--- NOTE | 2023-11-11 05:48 | CT_ITS ---
PROCEDURE INFORMATION: Exam: CT Cervical Spine Without Contrast Exam date and time: 11/11/2023 6:05 AM Age: 68 years old Clinical indication: Injury or trauma; Fall; Additional info: Fall, head injury, on xarelto, >65 TECHNIQUE: Imaging protocol: Computed tomography of the cervical spine without contrast. Radiation optimization: All CT scans at this facility use at least one of these dose optimization techniques: automated exposure control; mA and/or kV adjustment per patient size (includes targeted exams where dose is matched to clinical indication); or iterative reconstruction. COMPARISON: MR CERVICAL SPINE WO CON 10/09/2021 2:44 PM There is some patient motion artifact on the initial series. The study was repeated. FINDINGS: Bones/joints: There is loss of disc space height throughout related to degenerative disc disease. Anterior osteophytes are present throughout. There is opacification of the posterior longitudinal ligament in the mid cervical spine which can be seen with OPLL. Severe central stenosis most focally at C4-C5 was better assessed on the prior MRI. There is no acute cervical spine fracture. Lungs: Lung apices are normal. Vasculature: There is atherosclerotic disease of carotid arteries not fully assessed. Soft tissues: Unremarkable. IMPRESSION: 1. 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 2. There is no acute cervical spine fracture.
--- NOTE | 2023-11-11 05:48 | XR_ITS ---
PROCEDURE INFORMATION: Exam: XR Pelvis Exam date and time: 11/11/2023 6:12 AM Age: 68 years old Clinical indication: Injury or trauma; Fall; Blunt trauma (contusions or hematomas); Does not apply; Pelvic region; Additional info: Fall, head injury, on xarelto, >65 TECHNIQUE: Imaging protocol: Radiologic exam of the pelvis. Views: 1 or 2 view. COMPARISON: CT ANGIO ABDOMEN PELVIS 11/11/2023 6:10 AM FINDINGS: Tubes, catheters and devices: There are overlying vertical midline and right inguinal surgical jacklyn. Bones/joints: There are degenerative changes of the sacroiliac joints with possible ankylosis. There is mild to moderate loss of articular cartilage in the hips bilaterally. There is no acute fracture. There is no acute pelvic fracture. Soft tissues: Unremarkable. Organs: There is some excreted IV contrast in the right ureter and bladder. IMPRESSION: There is no acute pelvic fracture.
--- NOTE | 2023-11-11 05:48 | CT_ITS ---
PROCEDURE INFORMATION: Exam: CTA Abdomen and Pelvis With Contrast Exam date and time: 11/11/2023 6:10 AM Age: 68 years old Clinical indication: Injury or trauma; Fall; Additional info: Fall, syncope, recent extensive abd surgery TECHNIQUE: Imaging protocol: Computed tomographic angiography of the abdomen and pelvis with contrast. Exam focused on the arteries. 3D rendering (Not supervised by radiologist): MIP and/or 3D reconstructed images were created by the technologist. Radiation optimization: All CT scans at this facility use at least one of these dose optimization techniques: automated exposure control; mA and/or kV adjustment per patient size (includes targeted exams where dose is matched to clinical indication); or iterative reconstruction. Contrast material: ISOVUE 370; Contrast volume: 100 ml; Contrast route: INTRAVENOUS (IV); COMPARISON: CT ABDOMEN PELVIS W CON 11/07/2023 11:29 AM FINDINGS: Tubes, catheters and devices: There is been removal of an enteric tube. Aorta: There is atherosclerotic disease of the abdominal aorta with borderline aneurysmal dilatation measuring up to 3.0 cm in AP dimension. Celiac trunk and mesenteric arteries: There is atherosclerotic disease involving the SMA with [id number] narrowing of its mid aspect. There is atherosclerotic disease at the origin of the celiac axis with severe narrowing. The THAO appears patent. Renal arteries: There is a stent in the origin of the right renal artery which appears patent. Right iliac arteries: There is a right common iliac stent which is patent. There is atherosclerotic disease of the right external iliac artery with mild narrowing. Left iliac arteries: There is a left common iliac stent which is moderately narrowed in its mid aspect but patent. There is atherosclerotic disease of the left external iliac artery with mild narrowing. Left femoral/popliteal arteries: There is moderately heavy atherosclerotic disease of the proximal left superficial femoral artery which appears to be occluded. Liver: There is a 1.3 cm focus of peripheral nodular enhancement in segment 6 of the liver most consistent with a hemangioma. Gallbladder and bile ducts: There is some gallbladder wall thickening or trace pericholecystic fluid re-identified. Pancreas: No mass. No ductal dilation. Spleen: No splenomegaly. Adrenal glands: No mass. Kidneys and ureters: There are stable subcentimeter renal hypodensities which are too small to characterize but are statistically incidental. Stomach and bowel: There are postop changes involving the cecum with the adjacent wall thickening. There are diverticula throughout the left colon. Appendix: No evidence of appendicitis. Intraperitoneal space: There has been interval resolution of pneumoperitoneum. There is no intra-abdominal collection. Lymph nodes: No enlarged lymph nodes. Urinary bladder: There is some gas within the bladder which may be secondary to recent catheterization. Reproductive: There are stable postop changes in the right inguinal region with ill-defined soft tissue extending into the right hemiscrotum which may be related to hemorrhage. Active extravasation is not demonstrated, but the scrotum is not included on this exam. There is enlargement of the prostate. Bones/joints: No acute fracture. There are degenerative changes throughout the spine. There is ankylosis of the sacroiliac joints. Soft tissues: There is a fat containing left inguinal hernia. IMPRESSION: 1. No acute intra-abdominal vascular abnormality. 2. Postop changes in the right inguinal region with a stable hematoma, not completely included on this exam. 3. Interval resolution of pneumoperitoneum. 4. Stable findings of gallbladder wall thickening and/or pericholecystic fluid. Clinical correlation recommended. 5. Diverticulosis. 6. Severe stenosis origin celiac artery. 7. There is moderately heavy atherosclerotic disease of the proximal left superficial femoral artery which appears to be occluded. Follow-up vascular ultrasound may be clinically indicated.
--- NOTE | 2023-11-11 05:48 | XR_ITS ---
PROCEDURE INFORMATION: Exam: XR Chest Exam date and time: 11/11/2023 6:12 AM Age: 68 years old Clinical indication: Injury or trauma; Fall; Blunt trauma (contusions or hematomas); Additional info: Fall, head injury, on xarelto, >65 TECHNIQUE: Imaging protocol: Radiologic exam of the chest. Views: 1 view. COMPARISON: CT ANGIO CHEST PE PROTOCOL 11/11/2023 6:10 AM FINDINGS: Tubes, catheters and devices: There is a loop recorder in place. Lungs: There is mild hyperinflation. There is basilar atelectasis. Pleural spaces: No pleural effusion. No pneumothorax. Heart/Mediastinum: No cardiomegaly. Bones/joints: No displaced rib fracture. There are degenerative changes of the spine and shoulders. IMPRESSION: No sequela of acute thoracic trauma.
--- NOTE | 2023-11-11 05:48 | CT_ITS ---
PROCEDURE INFORMATION: Exam: CT Head Without Contrast Exam date and time: 11/11/2023 6:04 AM Age: 68 years old Clinical indication: Injury or trauma; Fall; Additional info: Fall, head injury, on xarelto, >65 TECHNIQUE: Imaging protocol: Computed tomography of the head without contrast. Radiation optimization: All CT scans at this facility use at least one of these dose optimization techniques: automated exposure control; mA and/or kV adjustment per patient size (includes targeted exams where dose is matched to clinical indication); or iterative reconstruction. COMPARISON: CT HEAD/BRAIN WO CON 11/11/2023 6:04 AM FINDINGS: Brain: There is mild small vessel disease. There is no evidence of acute parenchymal hemorrhage, extra-axial collection, or acute infarction. There is no mass effect, midline shift, or downward herniation. Cerebral ventricles: No ventriculomegaly. Paranasal sinuses: Visualized sinuses are unremarkable. No fluid levels. Mastoid air cells: Visualized mastoid air cells are well aerated. Bones/joints: Unremarkable. No acute fracture. Soft tissues: Unremarkable. IMPRESSION: Mild small vessel disease. No evidence of acute intracranial process.
[2023-11-11 05:51] VITALS: BP 157/91; PULSE 100; RESP 16; TEMP 37.1; O2SAT 98; BMI 26.6
--- NOTE | 2023-11-11 05:53 | [facility].EDGENADL ---
Discharge Plan Disposition Patient Disposition: Admitted Chief Complaint: Fall Prescriptions Prescriptions: No Action aspirin [Adult Low Dose Aspirin] 81 mg tablet,delayed release (DR/EC) 81 mg PO DAILY alprazolam 0.25 mg tablet 0.25 mg PO TIDP PRN (Reason: Anxiety) Patient Comments: Now 1/2 tablet every other day atorvastatin 80 mg tablet 80 mg PO DAILY famotidine 20 mg tablet 20 mg PO BID sennosides [Natural Senna Laxative] 8.6 mg tablet 8.6 mg PO BID losartan 100 mg tablet 100 mg PO DAILY Xarelto 20 mg tablet 20 mg PO QPMWITHMEAL Jardiance 25 mg tablet 25 mg PO DAILY oxybutynin chloride 5 mg tablet extended release 24hr 5 mg PO DAILY carvedilol 12.5 mg tablet 12.5 mg PO BID insulin glargine [Lantus Solostar U-100 Insulin] 100 unit/mL (3 mL) insulin pen 40 unit SQ HS memantine 10 MG tablet 10 mg PO BID Patient Comments: Begin after completing memantine 5 mg p.o. twice daily x1 month insulin aspart U-100 [Novolog FlexPen U-100 Insulin] 100 unit/mL (3 mL) Insulin Pen 14 unit SQ TID PRN (Reason: Blood Sugar) Patient Comments: give 14 units if blood sugar is elevated gabapentin 600 mg Tablet 600 mg PO BID terazosin 10 mg capsule 10 mg PO DAILY oxycodone 10 mg tablet 10 mg PO Q6HP PRN (Reason: Pain) nitroglycerin 0.4 mg tablet, sublingual 0.4 mg SUBLINGUAL Q5M PRN (Reason: Chest Pain ) Rx Instructions: Do not exceed 3 doses per episode fluticasone propionate [Flonase Allergy Relief] 50 mcg/actuation spray,suspension 2 spray intranasal DAILY Rx Instructions: Administer into each nostril Clinical Impressions Clinical Impression: Syncope, Laceration of face, Closed head injury, Postoperative abdominal pain, General weakness Discharge ED Provider: Nata Luther General Adult HPI <Nata Luther DO - Last Filed: 11/11/23 07:05> General Chief complaint: Fall Stated complaint: fall with head injury Time Seen by Provider: 11/11/23 05:53 History of Present Illness HPI narrative: This patient is a 68-year-old male with a history of peripheral arterial disease on Xarelto, CAD, renal artery stenosis, hypertension, hyperlipidemia, type 2 diabetes, physical deconditioning, and recent admission for incarcerated hernia with bowel ischemia as well as appendicitis requiring open abdominal surgery presenting to the emergency department for evaluation with concern for head injury after syncopal episode. Patient reports that since the surgery, he has had issues keeping his blood pressure up and has not been able making it to the bathroom to [facility] because he is very weak. Otherwise morning, he went to the bathroom to [facility]. His told EMS that she heard him hit the ground, but did not witness the fall. Patient is amnestic to the event. He believes his blood pressure drops when he goes to pee, causing him to pass out. He was just discharged from the hospital yesterday after stay regarding the surgery. He notes that he has been eating and drinking fine and has been making normal bowel movements with last 1 being yesterday. He states that he has had abdominal pain since surgery, but denies any other concerns or complaints. The pain is not worsening. He denies any fevers, chills, nausea, vomiting, changes in bowel movements, changes in urine output, or other concerns. EMS notes that the patient's fingerstick was 224. He was hemodynamically stable en route. C-collar was applied. Related Data Home Medications Medication Instructions Recorded Confirmed aspirin 81 mg tablet,delayed 81 mg PO DAILY 03/01/21 11/04/23 release (Adult Low Dose Aspirin) alprazolam 0.25 mg tablet 0.25 mg PO TIDP PRN Anxiety 06/13/21 11/04/23 atorvastatin 80 mg tablet 80 mg PO DAILY 10/09/21 11/04/23 memantine 10 mg tablet 10 mg PO BID 05/02/22 11/04/23 famotidine 20 mg tablet 20 mg PO BID 09/25/22 11/04/23 losartan 100 mg tablet 100 mg PO DAILY 09/25/22 11/04/23 rivaroxaban 20 mg tablet (Xarelto) 20 mg PO QPMWITHMEAL 09/25/22 11/04/23 sennosides 8.6 mg tablet (Natural 8.6 mg PO BID 09/25/22 11/04/23 Senna Laxative) empagliflozin 25 mg tablet 25 mg PO DAILY 01/22/23 11/04/23 (Jardiance) carvedilol 12.5 mg tablet 12.5 mg PO BID 04/23/23 11/04/23 insulin glargine 100 unit/mL (3 40 unit SQ HS 04/23/23 11/04/23 mL) subcutaneous pen (Lantus Solostar U-100 Insulin) oxybutynin chloride 5 mg 5 mg PO DAILY 05/23/23 11/04/23 tablet,extended release 24 hr fluticasone propionate 50 2 spray intranasal DAILY 11/04/23 11/04/23 mcg/actuation nasal spray,suspension (Flonase Allergy Relief) gabapentin 600 mg tablet 600 mg PO BID 11/04/23 11/04/23 insulin aspart U-100 100 unit/mL 14 unit SQ TID PRN Blood Sugar 11/04/23 11/04/23 (3 mL) subcutaneous pen (Novolog FlexPen U-100 Insulin aspart) nitroglycerin 0.4 mg sublingual 0.4 mg sublingual Q5M PRN Chest 11/04/23 11/04/23 tablet Pain oxycodone 10 mg tablet 10 mg PO Q6HP PRN Pain 11/04/23 11/04/23 terazosin 10 mg capsule 10 mg PO DAILY 11/04/23 11/04/23 Allergies Allergy/AdvReac Type Severity Reaction Status Date / Time No Known Allergies Allergy Verified 07/25/23 14:19 [facility] <Nata Luther DO - Last Filed: 11/11/23 07:05> [facility] Disclaimer: The information contained in this section may have been updated after the patient was seen, as this information can be updated by other users. Medical History Abnormal ankle brachial index (YOSEF) Abnormal EKG Amputation of toe of right foot CAD (coronary artery disease) Claudication Diabetes type 2 with atherosclerosis of arteries of extremities Dysphagia Family history of heart disease HLD (hyperlipidemia) HTN (hypertension) ADRIANO (obstructive sleep apnea) PAD (peripheral artery disease) CHRISTI (renal artery stenosis) Tobacco dependence syndrome Family History Other Family history of diabetes mellitus type II Family history of hypertension Family history of stroke Social History Smoking Status: Never smoker second hand exposure: No alcohol intake: never substance use type: denies use current occupational status: retired Travel in the last 8 weeks: None household members: spouse housing: house current occupational exposures/hazards: No caffeine: No <Nata Luther DO - Last Filed: 11/11/23 07:05> ROS Obtained: Yes All systems reviewed & no additional complaints except as documented Physical Exam <Nata Luther DO - Last Filed: 11/11/23 07:05> General General appearance: alert and in no apparent distress Head Head exam: other (1.5 cm laceration lateral to L eyebrow) Eye Eye exam: Present normal appearance, PERRL and EOMI ENT ENT exam: Present normal exam, normal oropharynx, mucous membranes moist and normal external ear exam Neck Neck exam: Present normal inspection, trachea midline and other (c-collar in place); Absent tenderness Chest Chest inspection: Present normal inspection and symmetric chest wall rise; Absent tenderness Respiratory Respiratory exam: Present normal lung sounds bilaterally; Absent respiratory distress, wheezes, stridor or accessory muscle use Cardiovascular Cardiovascular exam: Present regular rate and normal rhythm Abdominal Exam Abdominal exam: Present soft, tenderness (lower abdominal tenderness about his midline incision. Incision c/d/i with surrounding bruising) and normal bowel sounds; Absent distention, guarding, rebound or rigidity Extremities Exam Extremities exam: Present normal inspection, full ROM and normal capillary refill; Absent tenderness or edema Back Exam Back exam: Present normal inspection and full ROM; Absent tenderness Neurological Exam Neurological exam: Present alert, oriented X3, CN II-XII intact and normal gait; Absent motor sensory deficit Psychiatric Psychiatric exam: Present normal affect and normal mood Skin Skin exam: Present warm, dry and pallor Medical Decision Making <Nata Luther DO - Last Filed: 11/11/23 07:05> Medical Records Medical records reviewed: Yes I reviewed the patient's medical records. [place] Inquiry Pt receiving controlled substance: No Vital Signs: 11/11/23 05:51 11/11/23 06:24 11/11/23 06:51 Temperature 98.8 F Temperature Source Oral Pulse Rate 100 H Pulse Rate [Left Radial] 100 H Pulse Rate [Orthostatic Lying Apical] 97 H Pulse Rate [Orthostatic Sitting Apical] 102 H Pulse Rate [Orthostatic Standing Apical] 102 H Respiratory Rate 16 Blood Pressure 175/83 H Blood Pressure [Orthostatic Lying Right Arm] 175/83 H Blood Pressure [Orthostatic Sitting Right Arm] 175/82 H Blood Pressure [Orthostatic Standing Right Arm] 185/75 H Blood Pressure [Right Arm] 157/91 H Blood Pressure Mean [Right Arm] 113 Blood Pressure Source [Right Arm] Automatic Cuff Blood Pressure Position [Right Arm] Sitting 02 Sat by Pulse Oximetry 98 93 L Oxygen Delivery Method Room Air Room Air Lab Data Lab results reviewed: Yes I reviewed the patient's lab results. Lab Results 11/11/23 05:48: WBC 8.8, RBC 3.18 L, Hgb 9.3 L, Hct 29.4 L, MCV 92.6, MCH 29.2, MCHC 31.5 L, RDW 16.1, Plt Count 313, MPV 9.1, Neut % (Auto) 74.3, Lymph % (Auto) 17.0, Johnston % (Auto) 5.6, Eos % (Auto) 2.9, Baso % (Auto) 0.1, Neut # (Auto) 6.5, Lymph # (Auto) 1.5, Johnston # (Auto) 0.5, Eos # (Auto) 0.3, Baso # (Auto) 0.0, PT 10.7, INR 0.99, APTT 23.5, Sodium 141, Potassium 3.7, Chloride 106, Carbon Dioxide 29, Anion Gap 9.7, BUN 26 H D, Creatinine 1.30 H, Estimated Creat Clear 59, Estimated GFR 55 L, Est GFR ( Amer) 66, Glucose 185 H D, Calcium 8.8, Magnesium 2.2, Total Bilirubin 0.5, AST 36, ALT 26 D, Alkaline Phosphatase 86, Troponin I 0.04 H, Total Protein 6.0 L, Albumin 3.2 L D, Globulin 2.8, Albumin/Globulin Ratio 1.1, Lipase 101 11/11/23 05:48 11/11/23 05:48 Orders (Tests/Meds): ED MEDICATIONS Generic Name Dose Route Start Last Admin Trade Name Freq PRN Reason Stop Dose Admin Lactated Ringer's 1,000 mls @ 999 mls/hr 11/11/23 06:16 11/11/23 06:34 Lactated Ringer's 1000 Ml Bag IV 11/11/23 07:16 999 mls/hr .Q1H1M ONE Administration Discontinued Medications Generic Name Dose Route Start Last Admin Trade Name Santoshq PRN Reason Stop Dose Admin Iopamidol 100 ml 11/11/23 06:24 11/11/23 06:35 Iopamidol-370 (76%);100ml Bottle IV 11/11/23 06:25 100 ml ONCE ONE Administration Lidocaine/Epinephrine 10 ml 11/11/23 05:57 11/11/23 06:34 Lidocaine 1% W/Epi 1:100,000 20ml Vial IJ 11/11/23 05:58 2 ml ONCE ONE Administration Sodium Chloride 50 ml 11/11/23 06:24 11/11/23 06:34 0.9 % Sodium Chloride 50 Ml Vial IV 11/11/23 06:25 50 ml ONCE ONE Administration Sodium Chloride 10 ml 11/11/23 06:24 11/11/23 06:34 Sodium Chloride 0.9% 10ml Syr (Rad Only) IV 11/11/23 06:25 10 ml ONCE ONE Administration Tetanus/Reduced Diphtheria/Acell Pertussis 0.5 ml 11/11/23 05:57 11/11/23 06:32 Tet/Diphth/Pert-Adult 0.5ml Syringe IM 11/11/23 05:58 0.5 ml .ONCE ONE Administration ORDERS Category Date Time Status CT angio abdomen pelvis Stat Cat Scan 11/11/23 05:[address] angio chest PE protocol Stat Cat Scan 11/11/23 06:[address] cervical spine wo con Stat Cat Scan 11/11/23 05:[address] head/brain wo con Stat Cat Scan 11/11/23 05:48 Completed XR chest portable Stat Exams 11/11/23 05:48 Completed XR pelvis 1-2V Stat Exams 11/11/23 05:48 Completed Activated Partial Thrombo Time Stat Lab 11/11/23 05:48 Completed Complete Blood Count Auto Diff Stat Lab 11/11/23 05:48 Completed Comprehensive Metabolic Panel Stat Lab 11/11/23 05:48 Completed Lactic Acid Stat Lab 11/11/23 06:43 Received Lipase Stat Lab 11/11/23 05:48 Completed Magnesium Stat Lab 11/11/23 05:48 Completed Prothrombin Time INR Stat Lab 11/11/23 05:48 Completed Troponin I Q3H Lab 11/11/23 09:00 Ordered Troponin I Q3H Lab 11/11/23 12:00 Ordered Troponin I Stat Lab 11/11/23 05:48 Completed Urinalysis and Microscopic Stat Lab 11/11/23 06:43 Received 12-lead EKG Request [ECG Request] Stat Y 11/11/23 06:50 Ordered ECG Data Tracing #1: I reviewed this ECG and interpreted as documented below: Normal sinus rhythm with a ventricular rate of [address]/T wave abnormality that is present on prior EKG without significant change. No ST elevations concerning for STEMI. ECG initial impression date: 11/11/23 ECG initial impression time: 05:58 Tracing #2: I reviewed this ECG and interpreted as documented below: Sinus tachycardia with a ventricular rate of [address]/T wave changes that again are unchanged from prior EKG. No acute ST elevations concerning for STEMI. ECG initial impression date: 11/11/23 ECG initial impression time: 06:49 Medical Decision Narrative: In summary, this patient is a 68-year-old male presenting to the Emergency Department for evaluation of syncope with closed head injury in the setting of recent admission for extensive abdominal surgery with discharged yesterday. Differential diagnoses considered include but are not limited to electrolyte tenderness, dehydration, orthostatic hypotension, anemia, postoperative infection, ACS, dysrhythmia. Ruling out the most morbid conditions drove assessment. It should be noted patient's history includes CAD, PAD, hypertension, hyperlipidemia, and physical deconditioning which may or may not be at goal therapy. This complicates all aspects of care by increasing patient's risk for morbidity. I reviewed patient's past medical records and noted his recent admission with discharge yesterday as per HPI. On exam, the patient is alert and oriented with no focal neurologic deficits. He is nontoxic-appearing with reassuring vital signs on cardiac telemetry. He does have a laceration to the lateral aspect of the left forehead. Abdomen is appropriately tender. Workup included CBC, CMP, troponin, EKG, lactic acid, CT head and C-spine without contrast, and CTA of the chest, abdomen, and pelvis. Orthostatic vital signs were obtained that did not demonstrate any significant changes. Patient remained hypertensive and mildly tachycardic the entire time. He did become severely symptomatic and was unable to stand without significant assistance. He was very weak. Given laceration, Tdap booster was updated. Laceration was repaired after administration of lidocaine with epinephrine for anesthesia. Patient tolerated this very well. Please see procedure note for further documentation. Labs demonstrated slight elevation of the patient's creatinine up to 1.3 from 1.1 at discharge yesterday. He overall looks clinically dry. A bolus of IV fluids was ordered. Patient has an elevated initial troponin of 0.04. Repeat troponin pending at this time. Initial EKG was nonischemic, second one pending. Patient has no chest pain. He has anemia that is stable. I independently interpreted CT scans prior to the radiologist read and noted no obvious acute traumatic injuries in the head, c-spine, or chest. Please see their read for final interpretation. Given that patient is so generally weak, I do not feel safe with discharging him home. Patient notes that he would be amenable to placement for rehabilitation, as he states that he also does not feel safe going home. Patient care was signed out to the oncoming provider, Dr. Baker, pending CT abdomen, UA, and disposition. <Kel Baker MD - Last Filed: 11/11/23 07:20> Vital Signs: 11/11/23 05:51 11/11/23 06:24 11/11/23 06:51 Temperature 98.8 F Temperature Source Oral Pulse Rate 100 H Pulse Rate [Left Radial] 100 H Pulse Rate [Orthostatic Lying Apical] 97 H Pulse Rate [Orthostatic Sitting Apical] 102 H Pulse Rate [Orthostatic Standing Apical] 102 H Respiratory Rate 16 Blood Pressure 175/83 H Blood Pressure [Orthostatic Lying Right Arm] 175/83 H Blood Pressure [Orthostatic Sitting Right Arm] 175/82 H Blood Pressure [Orthostatic Standing Right Arm] 185/75 H Blood Pressure [Right Arm] 157/91 H Blood Pressure Mean [Right Arm] 113 Blood Pressure Source [Right Arm] Automatic Cuff Blood Pressure Position [Right Arm] Sitting 02 Sat by Pulse Oximetry 98 93 L Oxygen Delivery Method Room Air Room Air Lab Data Lab Results 11/11/23 05:48: WBC 8.8, RBC 3.18 L, Hgb 9.3 L, Hct 29.4 L, MCV 92.6, MCH 29.2, MCHC 31.5 L, RDW 16.1, Plt Count 313, MPV 9.1, Neut % (Auto) 74.3, Lymph % (Auto) 17.0, Johnston % (Auto) 5.6, Eos % (Auto) 2.9, Baso % (Auto) 0.1, Neut # (Auto) 6.5, Lymph # (Auto) 1.5, Johnston # (Auto) 0.5, Eos # (Auto) 0.3, Baso # (Auto) 0.0, PT 10.7, INR 0.99, APTT 23.5, Sodium 141, Potassium 3.7, Chloride 106, Carbon Dioxide 29, Anion Gap 9.7, BUN 26 H D, Creatinine 1.30 H, Estimated Creat Clear 59, Estimated GFR 55 L, Est GFR ( Amer) 66, Glucose 185 H D, Calcium 8.8, Magnesium 2.2, Total Bilirubin 0.5, AST 36, ALT 26 D, Alkaline Phosphatase 86, Troponin I 0.04 H, Total Protein 6.0 L, Albumin 3.2 L D, Globulin 2.8, Albumin/Globulin Ratio 1.1, Lipase 101 Orders (Tests/Meds): ED MEDICATIONS Generic Name Dose Route Start Last Admin Trade Name Freq PRN Reason Stop Dose Admin Lactated Ringer's 1,000 mls @ 999 mls/hr 11/11/23 06:16 11/11/23 06:34 Lactated Ringer's 1000 Ml Bag IV 11/11/23 07:16 999 mls/hr .Q1H1M ONE Administration Discontinued Medications Generic Name Dose Route Start Last Admin Trade Name Freq PRN Reason Stop Dose Admin Iopamidol 100 ml 11/11/23 06:24 11/11/23 06:35 Iopamidol-370 (76%);100ml Bottle IV 11/11/23 06:25 100 ml ONCE ONE Administration Lidocaine/Epinephrine 10 ml 11/11/23 05:57 11/11/23 06:34 Lidocaine 1% W/Epi 1:100,000 20ml Vial IJ 11/11/23 05:58 2 ml ONCE ONE Administration Sodium Chloride 50 ml 11/11/23 06:24 11/11/23 06:34 0.9 % Sodium Chloride 50 Ml Vial IV 11/11/23 06:25 50 ml ONCE ONE Administration Sodium Chloride 10 ml 11/11/23 06:24 11/11/23 06:34 Sodium Chloride 0.9% 10ml Syr (Rad Only) IV 11/11/23 06:25 10 ml ONCE ONE Administration Tetanus/Reduced Diphtheria/Acell Pertussis 0.5 ml 11/11/23 05:57 11/11/23 06:32 Tet/Diphth/Pert-Adult 0.5ml Syringe IM 11/11/23 05:58 0.5 ml .ONCE ONE Administration ORDERS Category Date Time Status CT angio abdomen pelvis Stat Cat Scan 11/11/23 05:[address] angio chest PE protocol Stat Cat Scan 11/11/23 06:[address] cervical spine wo con Stat Cat Scan 11/11/23 05:[address] head/brain wo con Stat Cat Scan 11/11/23 05:48 Completed XR chest portable Stat Exams 11/11/23 05:48 Completed XR pelvis 1-2V Stat Exams 11/11/23 05:48 Completed Activated Partial Thrombo Time Stat Lab 11/11/23 05:48 Completed Complete Blood Count Auto Diff Stat Lab 11/11/23 05:48 Completed Comprehensive Metabolic Panel Stat Lab 11/11/23 05:48 Completed Lactic Acid Stat Lab 11/11/23 06:43 Received Lipase Stat Lab 11/11/23 05:48 Completed Magnesium Stat Lab 11/11/23 05:48 Completed Prothrombin Time INR Stat Lab 11/11/23 05:48 Completed Troponin I Q3H Lab 11/11/23 09:00 Ordered Troponin I Q3H Lab 11/11/23 12:00 Ordered Troponin I Stat Lab 11/11/23 05:48 Completed Urinalysis and Microscopic Stat Lab 11/11/23 06:43 Received 12-lead EKG Request [ECG Request] Stat Y 11/11/23 06:50 Ordered Medical Decision Narrative: In summary, this patient is a 68-year-old male presenting to the Emergency Department for evaluation of syncope with closed head injury in the setting of recent admission for extensive abdominal surgery with discharged yesterday. Differential diagnoses considered include but are not limited to electrolyte tenderness, dehydration, orthostatic hypotension, anemia, postoperative infection, ACS, dysrhythmia. Ruling out the most morbid conditions drove assessment. It should be noted patient's history includes CAD, PAD, hypertension, hyperlipidemia, and physical deconditioning which may or may not be at goal therapy. This complicates all aspects of care by increasing patient's risk for morbidity. I reviewed patient's past medical records and noted his recent admission with discharge yesterday as per HPI. On exam, the patient is alert and oriented with no focal neurologic deficits. He is nontoxic-appearing with reassuring vital signs on cardiac telemetry. He does have a laceration to the lateral aspect of the left forehead. Abdomen is appropriately tender. Workup included CBC, CMP, troponin, EKG, lactic acid, CT head and C-spine without contrast, and CTA of the chest, abdomen, and pelvis. Orthostatic vital signs were obtained that did not demonstrate any significant changes. Patient remained hypertensive and mildly tachycardic the entire time. He did become severely symptomatic and was unable to stand without significant assistance. He was very weak. Given laceration, Tdap booster was updated. Laceration was repaired after administration of lidocaine with epinephrine for anesthesia. Patient tolerated this very well. Please see procedure note for further documentation. Labs demonstrated slight elevation of the patient's creatinine up to 1.3 from 1.1 at discharge yesterday. He overall looks clinically dry. A bolus of IV fluids was ordered. Patient has an elevated initial troponin of 0.04. Repeat troponin pending at this time. Initial EKG was nonischemic, second one pending. Patient has no chest pain. He has anemia that is stable. I independently interpreted CT scans prior to the radiologist read and noted no obvious acute traumatic injuries in the head, c-spine, or chest. Please see their read for final interpretation. Given that patient is so generally weak, I do not feel safe with discharging him home. Patient notes that he would be amenable to placement for rehabilitation, as he states that he also does not feel safe going home. Patient care was signed out to the oncoming provider, Dr. Baker, pending CT abdomen, UA, and disposition. This Dr. Baker took over from Dr. Luther at [address] abdomen pelvis were pending at that time which came back which did not show any acute abdominal pelvic emergency. Other scans unremarkable as well from emergency standpoint. Patient was admitted to Dr. Rodrigo Rodriguez for further evaluation and likely PT OT evaluation and potential placement. Procedures <Nata Luther, DO - Last Filed: 11/11/23 07:05> Risk/Benefits of Procedure(s) Were Explained: Yes Laceration Laceration 1: Site: face Side (If applicable): left Size (cm): 1.5 Description: linear Depth: simple, single layer Local Anesthetic: lidocaine 1% and with epi Amount of anesthesia used (mL): 2 Pre-repair: wound explored, irrigated extensively and deep structures intact Skin layer closed with: other (fast absorbing gut) Size (cm): 5-0 Number of sutures: 3 Technique: simple, interrupted Critical Care <Nata Luther, DO - Last Filed: 11/11/23 07:05> Critical Care Time Critical Care Time: No
--- NOTE | 2023-11-11 05:56 | ECG_ITS ---
APPROVED REPORT Exam: Resting ECG HR:96 bpm ECG Measurements Heart Rate 96 AXES NM 149 P 72 QRSd 99 QRS 27 QT 336 T 36 QTc 390 Conclusion SINUS RHYTHM NONSPECIFIC ST & T-WAVE ABNORMALITY BORDERLINE ECG UNCONFIRMED REPORT Electronically signed by : Saqib Freitas MD 11/11/2023 20:18:52
[2023-11-11 05:58] LABS: Basophils % 0.1 % (0.1-2.0); Eosinophils # 0.3 K/mm3 (0.0-0.4); Eosinophils % 2.9 % (0.1-12.0); Hematocrit 29.4 % (42.0-52.0); Hemoglobin 9.3 g/dL (14.1-18.0); Lymphocytes # 1.5 K/mm3 (0.7-4.5); Mean Corpuscular HGB Conc 31.5 g/dL (31.8-35.4); Mean Corpuscular Hemoglobin 29.2 pg (27.0-31.2); Mean Corpuscular Volume 92.6 fl (80-94); Mean Platelet Volume 9.1 fl (7.4-10.4); Monocytes # 0.5 K/mm3 (0.1-1.0); Monocytes % 5.6 % (1.7-9.3); Neutrophils # 6.5 K/mm3 (1.8-7.8); Neutrophils % 74.3 % (37.0-80.0); Platelet Count 313 K/mm3 (142-424); Red Blood Count 3.18 M/mm3 (4.60-6.20); Red Cell Distribution Width 16.1 % (11.5-17.5); White Blood Count 8.8 K/mm3 (4.8-10.8)
--- NOTE | 2023-11-11 06:00 | CT_ITS ---
PROCEDURE INFORMATION: Exam: CTA Chest With Contrast Exam date and time: 11/11/2023 6:10 AM Age: 68 years old Clinical indication: Injury or trauma; Fall; Additional info: Syncope TECHNIQUE: Imaging protocol: Computed tomographic angiography of the chest with contrast. Exam focused on the arteries. 3D rendering (Not supervised by radiologist): MIP and/or 3D reconstructed images were created by the technologist. Radiation optimization: All CT scans at this facility use at least one of these dose optimization techniques: automated exposure control; mA and/or kV adjustment per patient size (includes targeted exams where dose is matched to clinical indication); or iterative reconstruction. Contrast material: ISOVUE 370; Contrast volume: 100 ml; Contrast route: INTRAVENOUS (IV); COMPARISON: CR XR RIBS LT MIN 3V W CXR1V 09/05/2022 8:46 AM FINDINGS: Tubes, catheters and devices: There is a loop recorder in place. Pulmonary arteries: No pulmonary emboli. Aorta: There is atherosclerotic disease throughout the thoracic aorta without aneurysmal dilatation. Lungs: There is centrilobular emphysematous change in the lung apices related to COPD. There is bibasilar atelectasis, right greater than left. There is a 3 mm granuloma in the left costophrenic angle. Pleural spaces: There is no pleural effusion or pneumothorax. Heart: No cardiomegaly. No pericardial effusion. Coronary arteries: There are coronary artery calcifications. Lymph nodes: No enlarged lymph nodes. Bones/joints: There is some respiratory motion limiting evaluation for nondisplaced fractures. There is no displaced rib fracture. There are degenerative changes of the spine Soft tissues: Unremarkable. IMPRESSION: 1. No sequela of acute intrathoracic trauma. 2. Atherosclerotic disease of the thoracic aorta without an aortic dissection or laceration. 3. COPD. COMMENTS: The presence of pulmonary emphysema on CT is an independent risk factor for lung cancer. In the absence of a history or active diagnosis of lung cancer, it is recommended that this patient with emphysema be evaluated for enrollment in a low dose CT lung cancer screening program.
[2023-11-11 06:02] LABS: Chloride 106 mmol/L (98-107); Potassium 3.7 mmoL/L (3.5-5.1); Sodium 141 mmol/L (136-145)
[2023-11-11 06:05] LABS: Alanine Aminotransferase 26 U/L (12-78); Albumin Level 3.2 g/dl (3.5-5.0); Albumin/Globulin Ratio 1.1 (1.1-1.8); Alkaline Phosphatase 86 U/L (38-126); Anion Gap 9.7 mEq/L (5-15); Aspartate Amino Transferase 36 U/L (17-59); Bilirubin,Total 0.5 mg/dl (0.2-1.3); Blood Urea Nitrogen 26 mg/dl (9-20); Calcium 8.8 mg/dl (8.4-10.2); Carbon Dioxide 29 mmol/L (22.0-30.0); Creatinine Clearance Estimated 59 mL/min (50-200); Estimated Glomerular Filt Rate 55 ml/min (>60); GFR (African American) 66 ML/MIN (>60); Globulin 2.8 g/dL (1.3-3.2); Glucose 185 mg/dl (74-100); Lipase 101 U/L (23-300)
[2023-11-11 06:06] LABS: Magnesium 2.2 mg/dl (1.6-2.3)
--- NOTE | 2023-11-11 06:07 | PC.NURSE ---
pt to CT at this time.
[2023-11-11 06:08] LABS: Activated Partial Thrombo Time 23.5 seconds (22.8-30.6); INR 0.99 (0.9-1.1); Prothrombin Time 10.7 seconds (10.1-12.5)
[2023-11-11 06:17] LABS: Troponin I 0.04 ng/ml (0.00-0.034)
[2023-11-11 06:24] VITALS: BP 175/83; PULSE 100; O2SAT 93
[2023-11-11] MEDS: TET/DIPHTH/PERT-ADULT 0.5ML SYRINGE 0.5 ML IM (06:32)
[2023-11-11] MEDS: LIDOCAINE 1% W/EPI 1:100,000 20ML VIAL 10 ML IJ (06:34)
[2023-11-11] MEDS: 0.9 % SODIUM CHLORIDE 50 ML VIAL IV (06:34)
[2023-11-11] MEDS: SODIUM CHLORIDE 0.9% 10ML SYR (RAD ONLY) 10 ML IV (06:34)
[2023-11-11] MEDS: LACTATED RINGERS 1000ML 1,000 ML 999 ML IV (06:34)
[2023-11-11] MEDS: IOPAMIDOL-370 (76%);100ML BOTTLE 100 ML IV (06:35)
--- NOTE | 2023-11-11 06:45 | PC.NURSE ---
c collar removed by MD Luther at this time.
--- NOTE | 2023-11-11 06:48 | ECG_ITS ---
APPROVED REPORT Exam: Resting ECG HR:101 bpm ECG Measurements Heart Rate 101 AXES KS 157 P 65 QRSd 98 QRS 31 QT 339 T 23 QTc 397 Conclusion SINUS TACHYCARDIA NONSPECIFIC ST & T-WAVE ABNORMALITY ABNORMAL RHYTHM ECG UNCONFIRMED REPORT Electronically signed by : Saqib Freitas MD 11/11/2023 20:18:46
[2023-11-11 06:51] VITALS: BP 175/82; BP 175/83; BP 185/75; PULSE 102; PULSE 97
[2023-11-11 06:55] LABS: Appearance,Urine CLEAR (Clear); Bilirubin,Urine Negative (Negative); Blood, Urine 3+ (Negative); Color,Urine YELLOW (Yellow); Glucose,Urine (UA) 3+ (Negative); Ketones,Urine Negative (Negative); Leukocyte Esterase,Urine Negative (Negative); Microscopic, Urine URINE MICROSCOPIC (MICROSCOPIC); Nitrate,Urine Negative (Negative); Protein,Urine Negative (Negative)
[2023-11-11 07:29] LABS: Lactic Acid 0.9 mmol/L (0.7-2.1)
[2023-11-11] MEDS: FUROSEMIDE 40MG/4ML VIAL 40 MG IV (07:38)
--- NOTE | 2023-11-11 07:44 | PC.NURSE ---
Report called to Tammie Ball RN on Med Surg.
[2023-11-11 08:13] VITALS: BP 175/83; PULSE 97; RESP 16; TEMP 37.1; O2SAT 93
[2023-11-11 08:18] VITALS: BP 127/92; PULSE 104; RESP 18; TEMP 37; O2SAT 95; BMI 26.2
--- NOTE | 2023-11-11 08:18 | PC.NURSE ---
arrived by w/c from ED
[2023-11-11 09:21] LABS: Bacteria,Urine Trace /lpf; RBC,Urine TNTC #/hpf (0-3); Squamous Epithelial Cell,Urine Occasional #/hpf (0-5); WBC,Urine Occasional #/hpf (0-3)
--- NOTE | 2023-11-11 09:49 | HMH.PHAINT1 ---
Pharmacy Intervention Comments: Home med list verified with patient at bedside and with external pharmacy list.
[2023-11-11 09:59] LABS: Troponin I 0.04 ng/ml (0.00-0.034)
--- NOTE | 2023-11-11 10:55 | HMH.OTEV ---
OT Inpatient Evaluation Rehab OT IP Evaluation Start: 11/11/23 08:49 Freq: ONCE Status: Active Protocol: Document 11/11/23 10:52 RAMILA (Rec: 11/11/23 10:55 RAMILA [id number]) Rehab OT IP Assessment Subjective History In summary, this patient is a 68-year-old male presenting to the Emergency Department for evaluation of syncope with closed head injury in the setting of recent admission for extensive abdominal surgery with discharged yesterday. Differential diagnoses considered include but are not limited to electrolyte tenderness, dehydration, orthostatic hypotension, anemia, postoperative infection, ACS, dysrhythmia. Ruling out the most morbid conditions drove assessment. It should be noted patient's history includes CAD, PAD, hypertension, hyperlipidemia, and physical deconditioning which may or may not be at goal therapy. This complicates all aspects of care by increasing patient's risk for morbidity. I reviewed patient's past medical records and noted his recent admission with discharge yesterday as per HPI . On exam, the patient is alert and oriented with no focal neurologic deficits. He is nontoxic-appearing with reassuring vital signs on cardiac telemetry. He does have a laceration to the lateral aspect of the left forehead. Abdomen is appropriately tender. Workup included CBC, CMP, troponin, EKG, lactic acid, CT head and C-spine without contrast, and CTA of the chest, abdomen, and pelvis. Orthostatic vital signs were obtained that did not demonstrate any significant changes. Patient remained hypertensive and mildly tachycardic the entire time. He did become severely symptomatic and was unable to stand without significant assistance. He was very weak. Given laceration, Tdap booster was updated. Laceration was repaired after administration of lidocaine with epinephrine for anesthesia. Patient tolerated this very well. Please see procedure note for further documentation. Labs demonstrated slight elevation of the patient's creatinine up to 1.3 from 1.1 at discharge yesterday. He overall looks clinically dry. A bolus of IV fluids was ordered. Patient has an elevated initial troponin of 0.04. Repeat troponin pending at this time. Initial EKG was nonischemic, second one pending. Patient has no chest pain. He has anemia that is stable. I independently interpreted CT scans prior to the radiologist read and noted no obvious acute traumatic injuries in the head, c-spine, or chest. Please see their read for final interpretation. Given that patient is so generally weak, I do not feel safe with discharging him home . Patient notes that he would be amenable to placement for rehabilitation, as he states that he also does not feel safe going home. Patient care was signed out to the oncoming provider, Dr. Baker, pending CT abdomen, UA, and disposition. This Dr. Baker took over from Dr. Luther at [address] abdomen pelvis were pending at that time which came back which did not show any acute abdominal pelvic emergency. Other scans unremarkable as well from emergency standpoint. Patient was admitted to Dr. Rodrigo Rodriguez for further evaluation and likely PT OT evaluation and potential placement. Patient lives with in 1 story home. Independent with ADLs and fx'l mobility prior to hosptialization. Subjective Analysis Patient's fx'l mobility to complete transfers , ambulation and ADLs this date. Patient completed all tasks independently. No LOB noted. Objective Patient Orientation Person,Place,Name,Age,Birthday ,Year Right Upper Extremity Gross ROM WFL Left Upper Extremity Gross ROM WFL Bed Mobility bed mobility - supine/sit Assist Level Independent Transfer Training Sit/Stand/Pivot Transfer Assist Level Independent Chair Transfer Ability Independent Chair Transfer Technique Sit to/from Ambulatory Chair Transfer Assistive Devices None Lower Body Dressing Ability Independent Performing Toilet Hygiene Ability Independent Overall Commode/Toilet Transfer Ability Independent Rehab OT IP prob,goals,plan Problems Date of Evaluation: 11/11/23 Rehab Potential Rehab Potential Innapropriate for Skilled Therapy Discharge Plan OT Discharge Plan Patient appears to be at baseline. Patient may return home after medical d/c. REcommend HH services as needed. Eval Complexity Eval Charge Codes 28440 - Low Complexity PHYSICIAN CERTIFICATION: I certify the specified therapy services for Roly Hollis are required, authorized, and reviewed every 30 days.
--- NOTE | 2023-11-11 11:35 | SW/DCPLANNER ---
Addendum entered by Missy Stoll 11/11/23 13:54: Per Andie w/ [facility] this patient has been accepted and can admit to their facility today. Original Note: I spoke w/ patient this AM regarding plans once medically stable for discharge. PT/OT evaluated patient and stated that he could return home w/ home health services. Patient expressed an interest in SNF level of care once medically stable for discharge. Patient's only preference was to stay in [place]: information has been faxed to [facility] and [facility]. I will continue to follow up w/ patient, facilities and MD. Patient could be ready for discharge this afternoon or tomorrow.
[2023-11-11 11:42] LABS: POC Glucose,Bedside 186 (70-110)
--- NOTE | 2023-11-11 12:16 | HMH.PTEV ---
Physical Therapy Evaluation Rehab PT IP Evaluation Start: 11/11/23 08:49 Freq: ONCE Status: Active Protocol: Document 11/11/23 12:12 PHOALBERTO (Rec: 11/11/23 12:16 [email or web address] [id number]) Subjective/History History History 68 yowm adm to [facility] with syncopal episode and fall at home. He was recently d/c. home after surgery for SB resection due to incarcerated hernia. He reports he is generally independent with all mobility at baseline and with all ADLs. 3 steps to enter the home, he lives with his . Subjective Subjective Currently he c/o mild feelings of lightheadedness, but no worse with OOB activity. New diagnosis of cancer in past 12 No months? Rehab PT IP Eval Objective Appearance Patient Behavior Appropriate Patient Orientation Person,Place,Time Difficulty following instructions none Speech Pattern Clear Ambulation Patient Able to Ambulate Yes Ambulation Observation IP General Gait Pattern Observation Shuffling Step Ambulation Distance (feet) 35 Ambulation Assistive Device None Ambulation Ability Supervision/Stand by Balance Ability to Arise Able, w/o using arms Sitting Balance Steady, safe Standing Balance Steady, wide stance Dynamic Sitting Balance Ability Good Dynamic Standing Balance Ability Good Transfers Bed Transfer Ability Independent Chair Transfer Ability Independent Sit to Stand Bed Transfer Ability Independent Sit to Stand Chair Transfer Ability Independent ROM All Extremities PT ROM Status WFL MMT All Extremities PT MMT WFL Rehab PT IP prob,goals,plan Problems Date of Evaluation: 11/11/23 Discharge Plan PT Discharge Plan Pt is appropriate to return home once medically stable for d/c. Recommend home health therapy as needed. Eval Complexity Eval Charge Codes 33757 - High Complexity PHYSICIAN CERTIFICATION: I certify the specified therapy services for Roly Hollis are required, authorized, and reviewed every 30 days.
[2023-11-11 12:40] LABS: Troponin I 0.05 ng/ml (0.00-0.034)
--- NOTE | 2023-11-11 14:52 | P.HPDS_ITS ---
General Admission date:: 11/11/23 Discharge date: 11/11/23 *Admission Date: 11/11/23 *Chief complaint: fall *History of present illness: Mr. Hollis is a 68-year-old male with a history of peripheral arterial disease on Xarelto, CAD, renal artery stenosis, hypertension, hyperlipidemia, type 2 diabetes, physical deconditioning, and recent admission for incarcerated hernia with bowel ischemia as well as appendicitis requiring open abdominal surgery presenting to the emergency department for evaluation with concern for head injury after syncopal episode. Patient reports that since the surgery, he has had issues keeping his blood pressure up and has not been able making it to the bathroom to pee because he is very weak. This morning he reports going to the bathroom to pee when he had an episode of passing out. told EMS that she heard him hit the ground but did not witness the fall. He was amnestic to the event. He was just discharged yesterday from the hospital after 1 week stay postop. He has been eating and drinking well. Having normal bowel movements. Last bowel movement was on Saturday. Does have some postop pain still but denies any fever, chest pain, shortness of breath, nausea or vomiting. EMS notes that the patient's fingerstick was 224. He was hemodynamically stable en route. C- collar was applied. Workup in the ER was negative for significant head trauma or neck trauma. Did have a laceration above left eyebrow that was sutured. Medicine was consulted for admission as the patient could not go home, felt too weak and requested placement. On my evaluation, he is in the same level of health he was in yesterday. PT and OT are consulted to assist with care. Stable on room air. [facility] Disclaimer: The information contained in this section may have been updated after the patient was seen, as this information can be updated by other users. Medical History Abnormal ankle brachial index (YOSEF) Abnormal EKG Amputation of toe of right foot CAD (coronary artery disease) Claudication Diabetes type 2 with atherosclerosis of arteries of extremities Dysphagia Family history of heart disease HLD (hyperlipidemia) HTN (hypertension) ADRIANO (obstructive sleep apnea) PAD (peripheral artery disease) CHRISTI (renal artery stenosis) Tobacco dependence syndrome Family History Family history of stroke Family history of hypertension Family history of diabetes mellitus type II Social History Smoking Status: Never smoker second hand exposure: No alcohol intake: never substance use type: denies use current occupational status: retired Travel in the last 8 weeks: None household members: spouse housing: house current occupational exposures/hazards: No caffeine: No Review of Systems Review of Systems Review of systems (narrative): 14 point review of systems performed, pertinent positives and negatives as per HPI Exam Data for Last 24 hours Vital signs and Labs for Last 24 Hours: Temp Pulse Resp BP Pulse Ox O2 Del Method 98.6 F 104 H 18 127/92 H 95 Room Air 11/11/23 08:18 11/11/23 08:18 11/11/23 08:18 11/11/23 08:18 11/11/23 08:18 11/11/23 13:00 Laboratory Results - last 24 hr 11/11/23 05:48: WBC 8.8, RBC 3.18 L, Hgb 9.3 L, Hct 29.4 L, MCV 92.6, MCH 29.2, MCHC 31.5 L, RDW 16.1, Plt Count 313, MPV 9.1, Neut % (Auto) 74.3, Lymph % (Auto) 17.0, [place] % (Auto) 5.6, Eos % (Auto) 2.9, Baso % (Auto) 0.1, Neut # (Auto) 6.5, Lymph # (Auto) 1.5, [place] # (Auto) 0.5, Eos # (Auto) 0.3, Baso # (Auto) 0.0, PT 10.7, INR 0.99, APTT 23.5, Sodium 141, Potassium 3.7, Chloride 106, Carbon Dioxide 29, Anion Gap 9.7, BUN 26 H D, Creatinine 1.30 H, Estimated Creat Clear 59, Estimated GFR 55 L, Est GFR ( Amer) 66, Glucose 185 H D, Calcium 8.8, Magnesium 2.2, Total Bilirubin 0.5, AST 36, ALT 26 D, Alkaline Phosphatase 86, Troponin I 0.04 H, Total Protein 6.0 L, Albumin 3.2 L D, Globulin 2.8, Albumin/Globulin Ratio 1.1, Lipase 101 11/11/23 06:43: Lactate 0.9, Urine Color Yellow, Urine Appearance Clear, Urine pH 7.0, Ur Specific [place] 1.010, Urine Protein Negative, Urine Glucose (UA) 3+, Urine Ketones Negative, Urine Blood 3+, Urine Nitrate Negative, Urine Bilirubin Negative, Urine Urobilinogen 1.0, Ur Leukocyte Esterase Negative, Urine RBC Tntc, Urine WBC Occasional, Ur Squamous Epith Cells Occasional, Urine Bacteria Trace 11/11/23 09:17: Troponin I 0.04 H 11/11/23 11:31: POC Glucose 186 H 11/11/23 12:08: Troponin I 0.05 H I & O for Last 24 hours: Intake & Output 11/08/23 11/09/23 11/10/23 11/11/23 23:59 23:59 23:59 23:59 Intake Total 135 / 135 Output Total 1225 / 1225 Balance -1090 / -1090 Weight 75.948 kg Constitutional Constitutional: no acute distress, average body habitus, chronically ill appearing and cooperative *Routine HEENT Exam Head: Present normocephalic Eye: Present EOMI and PERRL ENT: Present mucous membranes moist Comments: 1 inch laceration left lateral glabella, sutures in place *Routine Neck Exam Neck: Present supple; Absent lymphadenopathy *Routine Respiratory Exam Respiratory: Present CTA bilaterally and crackles (Minimal in bases); Absent rhonchi or wheezes *Routine Cardiovascular Exam Cardiovascular: Present RRR *Routine Abdominal Exam Abdominal: Present soft, normoactive bowel sounds and tenderness (Minimal, surgical incisions healing well. May still in place.); Absent distended Comments: He has mild tenderness without guarding or rebound. *Routine Rectal Exam Rectal:: deferred *Routine Genitalia Exam Genitalia:: deferred *Routine Extremities Exam Extremities: Absent cyanosis, clubbing or edema *Routine Skin Exam Skin: Present warm; Absent rash *Routine Neurological Exam Neurological: Present alert and moving all extremities; Absent altered mental status Comments: Oriented to person and place Detailed Exam Comments: He has erythematous right hemiscrotum which is firm and distended with some edema. Tender consistent with incarcerated and possibly strangulated right inguinal hernia. This is tender and not able to be reduced. Meds Home Medications and Allergies Home Medications Medication Instructions Recorded Confirmed Type aspirin 81 mg tablet,delayed 81 mg PO DAILY 03/01/21 11/11/23 History release (Adult Low Dose Aspirin) atorvastatin 80 mg tablet 80 mg PO HS 10/09/21 11/11/23 History memantine 10 mg tablet 10 mg PO BID 05/02/22 11/11/23 History famotidine 20 mg tablet 20 mg PO BID 09/25/22 11/11/23 History losartan 100 mg tablet 100 mg PO DAILY 09/25/22 11/11/23 History rivaroxaban 20 mg tablet (Xarelto) 20 mg PO QPMWITHMEAL 09/25/22 11/11/23 History empagliflozin 25 mg tablet 25 mg PO DAILY 01/22/23 11/11/23 History (Jardiance) carvedilol 12.5 mg tablet 12.5 mg PO BID 04/23/23 11/11/23 History oxybutynin chloride 5 mg 5 mg PO DAILY 05/23/23 11/11/23 History tablet,extended release 24 hr insulin aspart U-100 100 unit/mL 14 unit SQ TID PRN Blood Sugar 11/04/23 11/11/23 History (3 mL) subcutaneous pen (Novolog FlexPen U-100 Insulin aspart) nitroglycerin 0.4 mg sublingual 0.4 mg sublingual Q5M PRN Chest 11/04/23 11/11/23 History tablet Pain terazosin 10 mg capsule 10 mg PO DAILY 11/04/23 11/11/23 History alprazolam 0.25 mg tablet 0.25 mg PO TID PRN Anxiety 5 days 11/11/23 Rx #15 tabs gabapentin 600 mg tablet 600 mg PO BID 5 days #10 tabs 11/11/23 Rx insulin glargine 100 unit/mL (3 25 unit (0.25 mL) SQ HS 30 days #0 11/11/23 11/11/23 Rx mL) subcutaneous pen (Lantus mL Solostar U-100 Insulin) lidocaine 5 % topical patch 1 patch topical DAILY Back Pain 11/11/23 11/11/23 History oxycodone 10 mg tablet 10 mg PO Q6H PRN Pain 3 days #12 11/11/23 Rx tabs New Prescriptions to Start Prescriptions: alprazolam Alan Rodriguez gabapentin Michael,Alan oxycoAlan Echavarria Allergies Allergy/AdvReac Type Severity Reaction Status Date / Time No Known Allergies Allergy Verified 11/11/23 08:36 Hospital Course Hospital Course Hospital Course: Patient is a 68-year-old male with past medical history of CAD diabetes mellitus hypertension hyperlipidemia PAD tobacco use who initially presented to the hospital for abdominal pain on 11/03 and was admitted from 11/03 through 11/10. He was readmitted on 11/11 due to a fall at home after discharge the day before. Status post surgery 11/03 x2 for incarcerated hernia with appendectomy and partial colectomy. Surgery performed open repair of strangulated right inguinal hernia, Diagnostic laparoscopy, Exploratory laparotomy with ileocecal resection with ileocolic anastomosis. Surgery assisted with care during first admission. Patient gradually showed improvement with improvement in bowel movements, tolerating p.o. intake. Was meeting criteria for discharge home and was sent home on 11/10. Readmitted morning of 11/11 after falling at home. Patient requesting placement. Has been graciously excepted by [facility] for further care. Stable for discharge to rehab. Problems addressed as follows: Fall: Head laceration: suspect secondary to weakness from prolonged hospitalization and general debility. PT evaluated, patient would benefit from placement, requesting placement. [facility] is graciously excepted for rehab. Anticipate good potential for rehab and returning home. Laceration with no sign of bleeding. Will need removal of sutures in 7 to 10 days. Incarcerated inguinal hernia, appendicitis, ileocecal resection with anastomosis. Postop ileus Postop pain Blood loss anemia -Patient presented with abdominal pain, surgery was consulted and he was taken for laparoscopic evaluation which transition to exploratory laparotomy. Hernia was attempted to be repaired and there was concern for appendicitis. Surgery was transition to open with repair of hernia, ileocecal resection with ileocecal anastomosis. Patient had a prolonged course for postop ileus. Noted to have some initial bloody bowel movements concerning for postop oozing from anastomosis but this resolved. Patient's hemoglobin has remained stable with resumption of his Xarelto. Tolerating p.o. intake, has advance to a regular diet. Recommend continuing bowel regimen though he is having bowel movements daily. White cell count normalized. Completed empiric course of antibiotics during previous/initial admission. Recommend repeat CBC in 1 week to monitor hemoglobin and white cell count. Follow-ups with both Dr. Shelby and Dr. Flynn scheduled over the next week. CKD stage III: Creatinine during admission has remained within baseline range. Currently 1.3 today. Would recommend repeat CBC, CMP, magnesium in 1 week to monitor kidney function and electrolytes. CAD Hypertension -Resumed home regimen per discharge summary. See full med rec attached. Blood pressures better controlled. During this admission his most recent blood pressure was 127/92. Recommend reevaluating with close monitoring for further adjustment to regimen. Diabetes mellitus: Resume long-acting insulin at reduced dose with insulin glargine 25 units nightly. Continue short acting 14 units with meals. fingersticks ACHS. Resume Jardiance 25 mg daily Resume memantine per home regimen for memory Resume home Lipitor 80 mg daily Resume home gabapentin twice daily for neuropathy Stable for discharge to [facility] for further care. Results Data Completed and Pending Labs on day of discharge: Labs from last 24 hours 11/11/23 11/11/23 11/11/23 12:08 11:31 09:17 WBC RBC Hgb Hct MCV MCH MCHC RDW Plt Count MPV Neut % (Auto) Lymph % (Auto) [place] % (Auto) Eos % (Auto) Baso % (Auto) Neut # (Auto) Lymph # (Auto) [place] # (Auto) Eos # (Auto) Baso # (Auto) PT INR APTT Sodium Potassium Chloride Carbon Dioxide Anion Gap BUN Creatinine Estimated Creat Clear Estimated GFR Est GFR ( Amer) Glucose POC Glucose 186 H Lactate Calcium Magnesium Total Bilirubin AST ALT Alkaline Phosphatase Troponin I 0.05 H 0.04 H Total Protein Albumin Globulin Albumin/Globulin Ratio Lipase Urine Color Urine Appearance Urine pH Ur Specific [place] Urine Protein Urine Glucose (UA) Urine Ketones Urine Blood Urine Nitrate Urine Bilirubin Urine Urobilinogen Ur Leukocyte Esterase Urine RBC Urine WBC Ur Squamous Epith Cells Urine Bacteria 11/11/23 11/11/23 06:43 05:48 WBC 8.8 RBC 3.18 L Hgb 9.3 L Hct 29.4 L MCV 92.6 MCH 29.2 MCHC 31.5 L RDW 16.1 Plt Count 313 MPV 9.1 Neut % (Auto) 74.3 Lymph % (Auto) 17.0 [place] % (Auto) 5.6 Eos % (Auto) 2.9 Baso % (Auto) 0.1 Neut # (Auto) 6.5 Lymph # (Auto) 1.5 [place] # (Auto) 0.5 Eos # (Auto) 0.3 Baso # (Auto) 0.0 PT 10.7 INR 0.99 APTT 23.5 Sodium 141 Potassium 3.7 Chloride 106 Carbon Dioxide 29 Anion Gap 9.7 BUN 26 H D Creatinine 1.30 H Estimated Creat Clear 59 Estimated GFR 55 L Est GFR ( Amer) 66 Glucose 185 H D POC Glucose Lactate 0.9 Calcium 8.8 Magnesium 2.2 Total Bilirubin 0.5 AST 36 ALT 26 D Alkaline Phosphatase 86 Troponin I 0.04 H Total Protein 6.0 L Albumin 3.2 L D Globulin 2.8 Albumin/Globulin Ratio 1.1 Lipase 101 Urine Color Yellow Urine Appearance Clear Urine pH 7.0 Ur Specific [place] 1.010 Urine Protein Negative Urine Glucose (UA) 3+ Urine Ketones Negative Urine Blood 3+ Urine Nitrate Negative Urine Bilirubin Negative Urine Urobilinogen 1.0 Ur Leukocyte Esterase Negative Urine RBC Tntc Urine WBC Occasional Ur Squamous Epith Cells Occasional Urine Bacteria Trace DS: Diagnosis Discharge Diagnosis (1) Syncope: Status: Acute Code(s): R55 - Syncope and collapse (2) Laceration of face: Status: Acute Code(s): S01.81XA - Laceration without foreign body of other part of head, initial encounter (3) Closed head injury: Status: Acute Code(s): S09.90XA - Unspecified injury of head, initial encounter (4) Postoperative abdominal pain: Status: Acute Code(s): R10.9 - Unspecified abdominal pain; G89.18 - Other acute postprocedural pain (5) General weakness: Status: Acute Code(s): R53.1 - Weakness (6) Physical deconditioning: Status: Acute Code(s): R53.81 - Other malaise (7) Postoperative anemia: Status: Acute Code(s): D64.9 - Anemia, unspecified (8) CAD (coronary artery disease): Status: Chronic Code(s): I25.10 - Atherosclerotic heart disease of [place] coronary artery without angina pectoris Qualifiers: Coronary Disease-Associated Artery/Lesion type: [place] artery [place] vs. transplanted heart: [place] heart Associated angina: without angina Qualified Code(s): I25.10 - Atherosclerotic heart disease of [place] coronary artery without angina pectoris (9) Tobacco dependence syndrome: Status: Chronic Code(s): F17.200 - Nicotine dependence, unspecified, uncomplicated (10) ADRIANO (obstructive sleep apnea): Status: Chronic Code(s): G47.33 - Obstructive sleep apnea (adult) (pediatric) (11) PAD (peripheral artery disease): Status: Chronic Code(s): I73.9 - Peripheral vascular disease, unspecified (12) HLD (hyperlipidemia): Status: Chronic Code(s): E78.5 - Hyperlipidemia, unspecified Qualifiers: Hyperlipidemia type: mixed hyperlipidemia Qualified Code(s): E78.2 - Mixed hyperlipidemia (13) HTN (hypertension): Status: Chronic Code(s): I10 - Essential (primary) hypertension Qualifiers: Hypertension type: essential hypertension Qualified Code(s): I10 - Essential (primary) hypertension (14) Diabetes type 2 with atherosclerosis of arteries of extremities: Status: Chronic Code(s): E11.51 - Type 2 diabetes mellitus with diabetic peripheral angiopathy without gangrene; I70.209 - Unspecified atherosclerosis of [place] arteries of extremities, unspecified extremity Discharge Plan Disposition Patient Disposition: Xfer SNF Condition: Fair Discharge Order Discharge Orders: Discharge Order (Routine); Ordered 11/11/23 Ordered By: Alan Rodriguez Follow up Plan Follow up with: Johan Flynn MD [Staff Physician] - Enter time for follow up Reinaldo Shelby MD [Staff Physician] - 11/13/23 9:00 am Prescriptions/Medication Reconciliation: Continued aspirin [Adult Low Dose Aspirin] 81 mg tablet,delayed release (DR/EC) 81 mg PO DAILY atorvastatin 80 mg tablet 80 mg PO HS famotidine 20 mg tablet 20 mg PO BID losartan 100 mg tablet 100 mg PO DAILY Xarelto 20 mg tablet 20 mg PO QPMWITHMEAL Jardiance 25 mg tablet 25 mg PO DAILY oxybutynin chloride 5 mg tablet extended release 24hr 5 mg PO DAILY carvedilol 12.5 mg tablet 12.5 mg PO BID memantine 10 MG tablet 10 mg PO BID insulin aspart U-100 [Novolog FlexPen U-100 Insulin] 100 unit/mL (3 mL) Insulin Pen 14 unit SQ TID PRN (Reason: Blood Sugar) Patient Comments: give 14 units if blood sugar is elevated terazosin 10 mg capsule 10 mg PO DAILY nitroglycerin 0.4 mg tablet, sublingual 0.4 mg SUBLINGUAL Q5M PRN (Reason: Chest Pain ) Rx Instructions: Do not exceed 3 doses per episode lidocaine 5 % adhesive patch,medicated 1 patch topical DAILY gabapentin 600 mg Tablet 600 mg PO BID 5 Days Qty: 10 0RF alprazolam 0.25 mg tablet 0.25 mg PO TID PRN (Reason: Anxiety) 5 Days Qty: 15 0RF oxycodone 10 mg tablet 10 mg PO Q6H PRN (Reason: Pain) 3 Days Qty: 12 0RF Changed insulin glargine [Lantus Solostar U-100 Insulin] 100 unit/mL (3 mL) insulin pen 25 unit SQ HS 30 Days Qty: 0 0RF Problem Reconciliation Problems Reviewed?: Yes Patient Discharge Instructions ACTIVITY: Continue current activity DIET: continue same diet Patient Instructions: Exercises to Help Prevent Falls, How to Prevent Falls, DI for Muscle Weakness Providers Primary Care Provider: Sreedhar Chavez Admit Provider: Alan Rodriguez Attending Provider: Alan Rodriguez
[2023-11-11] MEDS: OXYCODONE 5MG IMMEDIATE RELEASE TABLET 5 MG PO (15:00)
--- NOTE | 2023-11-11 15:01 | CARE MANAGER ---
Patient back in hospital when attempting discharge call.
[2023-11-11] MEDS: FAMOTIDINE 20MG TABLET 20 MG PO (15:04)
[2023-11-11 16:00] VITALS: BP 161/88; PULSE 90; RESP 16; TEMP 37.2; O2SAT 99
[2023-11-11] MEDS: humaLOG 100 UNITS/ML 3ML VIAL (SSI) SQ (17:14)
[2023-11-11 17:19] LABS: POC Glucose,Bedside 235 (70-110)
--- NOTE | 2023-11-11 17:36 | PC.NURSE ---
PT IS BEING DISCHARGED TO [facility]. PT'S HAS BEEN NOTIFIED AND REPORT HAS BEEN CALLED. PT'S WAS INSTRUCTED ON BRINGING PT SOME COMFORTABLE CLOTHES AND WAS GIVEN DIRECTIONS TO [facility]. [facility] HAS BEEN NOTIFIED THAT PT IS ON HIS WAY AND THEY STATED SOMEONE WOULD BE AVAILABLE TO ASSIST HIM INTO THE FACILITY.
== END 2023-11-11 17:44 ==
LOC: ER 07:20 → 2ND 07:30
PROVIDERS: Admitting Provider Internal Medicine Adolescent Medicine; Emergency Provider Emergency Medicine; PCP Internal Medicine; Visit Provider Internal Medicine Adolescent Medicine
DX: R55 Syncope and collapse (principal); S01.81XA Laceration without foreign body of other part of head, initial encounter; S09.90XA Unspecified injury of head, initial encounter; R10.9 Unspecified abdominal pain; G89.18 Other acute postprocedural pain; R53.1 Weakness; R53.81 Other malaise; D64.9 Anemia, unspecified; I25.10 Atherosclerotic heart disease of native coronary artery without angina pectoris; F17.210 Nicotine dependence, cigarettes, uncomplicated; G47.33 Obstructive sleep apnea (adult) (pediatric); E78.2 Mixed hyperlipidemia; I13.0 Hypertensive heart and chronic kidney disease with heart failure and stage 1 through stage 4 chronic kidney disease, or unspecified chronic kidney disease; E11.51 Type 2 diabetes mellitus with diabetic peripheral angiopathy without gangrene; I70.203 Unspecified atherosclerosis of native arteries of extremities, bilateral legs; E11.22 Type 2 diabetes mellitus with diabetic chronic kidney disease; N18.30 Chronic kidney disease, stage 3 unspecified; Z79.4 Long term (current) use of insulin; I70.1 Atherosclerosis of renal artery; I15.0 Renovascular hypertension; Z23 Encounter for immunization
CPT/HCPCS: 12011; 36415; 70450; 71045; 71275; 72125; 72170; 74174; 80053; 81001; 82962; 83605; 83690; 83735; 84484; 85025; 85610; 85730; 90715; 93005; 97163; 97165; 99285; G0378; Q9967

== ENCOUNTER 2023-11-19 13:53 | Outpatient (CLI) | payer MEDICARE, OTHER, SELFPAY ==
--- NOTE | 2023-11-19 13:58 | XR_ITS ---
FINAL REPORT TECHNIQUE: Chest PA & Lateral CLINICAL HISTORY: Short of breath FINDINGS: 2 views of the chest were performed. A loop recorder device is present. The heart size is normal. The mediastinum is within normal limits. There is no acute cardiopulmonary process. There are no pleural effusions. There is no pneumothorax. The bony thorax appears intact. IMPRESSION: No acute cardiopulmonary process. Reviewed, Interpreted and Dictated by Yovani Garcia MD Transcribed by [facility] Authenticated and [facility]
[2023-11-19 14:45] LABS: Basophils % 0.1 % (0.1-2.0); Eosinophils # 0.3 K/mm3 (0.0-0.4); Hematocrit 31.5 % (42.0-52.0); Hemoglobin 9.9 g/dL (14.1-18.0); Lymphocytes # 2.7 K/mm3 (0.7-4.5); Lymphocytes % 30.2 % (10-50); Mean Corpuscular HGB Conc 31.6 g/dL (31.8-35.4); Mean Corpuscular Volume 88.6 fl (80-94); Mean Platelet Volume 8.1 fl (7.4-10.4); Monocytes # 0.4 K/mm3 (0.1-1.0); Monocytes % 4.9 % (1.7-9.3); Neutrophils # 5.5 K/mm3 (1.8-7.8); Neutrophils % 61.8 % (37.0-80.0); Platelet Count 578 K/mm3 (142-424); Red Blood Count 3.55 M/mm3 (4.60-6.20); Red Cell Distribution Width 15.9 % (11.5-17.5); White Blood Count 8.9 K/mm3 (4.8-10.8)
[2023-11-19 14:52] LABS: Alanine Aminotransferase 36 U/L (12-78); Albumin Level 3.6 g/dl (3.5-5.0); Albumin/Globulin Ratio 1.2 (1.1-1.8); Alkaline Phosphatase 136 U/L (38-126); Anion Gap 11.9 mEq/L (5-15); Aspartate Amino Transferase 29 U/L (17-59); Bilirubin,Total 0.4 mg/dl (0.2-1.3); Blood Urea Nitrogen 14 mg/dl (9-20); Calcium 8.4 mg/dl (8.4-10.2); Carbon Dioxide 24 mmol/L (22.0-30.0); Chloride 109 mmol/L (98-107); Estimated Glomerular Filt Rate 67 ml/min (>60); GFR (African American) 81 ML/MIN (>60); Globulin 2.9 g/dL (1.3-3.2); Glucose 123 mg/dl (74-100); Potassium 3.9 mmoL/L (3.5-5.1); Sodium 141 mmol/L (136-145); Total Protein,Serum 6.5 g/dl (6.3-8.2)
== END 2023-11-19 23:59 ==
LOC: RAD 13:55
PROVIDERS: PCP Internal Medicine; Visit Provider Surgery
DX: R06.02 Shortness of breath (principal); G89.18 Other acute postprocedural pain; R10.9 Unspecified abdominal pain; D64.9 Anemia, unspecified
CPT/HCPCS: 36415; 71046; 80053; 85025

== ENCOUNTER 2023-12-15 18:03 | Inpatient (IN) | payer MEDICARE, OTHER, SELFPAY ==
[2023-12-15 18:04] VITALS: BP 149/67; PULSE 89; RESP 15; TEMP 36.8; O2SAT 98; BMI 22.8
[2023-12-15 18:15] VITALS: PULSE 89; O2SAT 95
--- NOTE | 2023-12-15 18:23 | CT_ITS ---
PROCEDURE INFORMATION: Exam: CT Head Without Contrast Exam date and time: 12/15/2023 6:34 PM Age: 68 years old Clinical indication: Altered mental status/memory loss; Additional info: AMS TECHNIQUE: Imaging protocol: Computed tomography of the head without contrast. Radiation optimization: All CT scans at this facility use at least one of these dose optimization techniques: automated exposure control; mA and/or kV adjustment per patient size (includes targeted exams where dose is matched to clinical indication); or iterative reconstruction. COMPARISON: CT HEAD/BRAIN WO CON 11/11/2023 6:04 AM FINDINGS: Brain: Stable mild generalized cerebral atrophy. No intracranial mass, hemorrhage or evidence of acute ischemia. Stable chronic lacunar infarcts in the left thalamus. Cerebral ventricles: No ventriculomegaly. Paranasal sinuses: Visualized sinuses are unremarkable. No fluid levels. Mastoid air cells: Visualized mastoid air cells are well aerated. Bones/joints: Unremarkable. No acute fracture. Soft tissues: Unremarkable. IMPRESSION: No acute intracranial abnormality
--- NOTE | 2023-12-15 18:24 | XR_ITS ---
PROCEDURE INFORMATION: Exam: XR Chest Exam date and time: 12/15/2023 6:32 PM Age: 68 years old Clinical indication: Dyspnea TECHNIQUE: Imaging protocol: Radiologic exam of the chest. Views: 1 view. COMPARISON: CR XR CHEST 2V 11/19/2023 2:14 PM FINDINGS: Tubes, catheters and devices: Cardiac monitoring device in place. Lungs: There has been interval development of mild right basilar infiltrate versus atelectasis. Left lung appears clear. Pleural spaces: Unremarkable. No pleural effusion. No pneumothorax. Heart/Mediastinum: Unremarkable. No cardiomegaly. Bones/joints: Mild degenerative changes of the spine and shoulders. IMPRESSION: Mild right basilar infiltrate versus atelectasis
--- NOTE | 2023-12-15 18:24 | ECG_ITS ---
APPROVED REPORT Exam: Resting ECG HR:94 bpm ECG Measurements Heart Rate 94 AXES MI 171 P 58 QRSd 95 QRS 13 QT 342 T 31 QTc 394 Conclusion SINUS RHYTHM NORMAL ECG UNCONFIRMED REPORT Electronically signed by : Saqib Freitas MD 12/17/2023 20:13:50
--- NOTE | 2023-12-15 18:29 | ED_ITS ---
Discharge Plan Disposition Patient Disposition: Admitted Prescriptions Prescriptions: No Action aspirin [Adult Low Dose Aspirin] 81 mg tablet,delayed release (DR/EC) 81 mg PO DAILY atorvastatin 80 mg tablet 80 mg PO HS famotidine 20 mg tablet 20 mg PO BID losartan 100 mg tablet 100 mg PO DAILY Xarelto 20 mg tablet 20 mg PO QPMWITHMEAL Jardiance 25 mg tablet 25 mg PO DAILY oxybutynin chloride 5 mg tablet extended release 24hr 5 mg PO DAILY carvedilol 12.5 mg tablet 12.5 mg PO BID memantine 10 MG tablet 10 mg PO BID insulin aspart U-100 [Novolog FlexPen U-100 Insulin] 100 unit/mL (3 mL) Insulin Pen 14 unit SQ TID PRN (Reason: Blood Sugar) Patient Comments: give 14 units if blood sugar is elevated terazosin 10 mg capsule 10 mg PO DAILY nitroglycerin 0.4 mg tablet, sublingual 0.4 mg SUBLINGUAL Q5M PRN (Reason: Chest Pain ) Rx Instructions: Do not exceed 3 doses per episode lidocaine 5 % adhesive patch,medicated 1 patch topical DAILY gabapentin 600 mg Tablet 600 mg PO BID 5 Days Qty: 10 0RF alprazolam 0.25 mg tablet 0.25 mg PO TID PRN (Reason: Anxiety) 5 Days Qty: 15 0RF insulin glargine [Lantus Solostar U-100 Insulin] 100 unit/mL (3 mL) insulin pen 25 unit SQ HS 30 Days Qty: 0 0RF oxycodone 5 mg tablet 5 mg PO Q6H PRN (Reason: pain) 3 Days Qty: 12 0RF gabapentin 400 mg capsule 400 mg PO BID 10 Days Qty: 20 0RF Referrals Follow up/Referrals: Provider,Referral, MD [Primary Care Provider] - See instructions Clinical Impressions Clinical Impression: CAP (community acquired pneumonia), HARSHAD (acute kidney injury), Encephalopathy Instructions Patient Instructions: DI for Altered Mental Status Discharge ED Provider: Kel Baker General Adult HPI General Chief complaint: Altered Mental Status Stated complaint: GENERAL WEAKNESS Time Seen by Provider: 12/15/23 18:14 Mode of Arrival: Ambulatory Source of Information: Patient Limitations: No Limitations Description of Symptoms (Recalled from ER Triage Doc. by RN): pt brought in for weakness, congestion, doesnt feel well, confusion. pts reports pt has not been acting himself. pt does have vascular dementia. pts reports pt was discharged from [facility] on dec 21 History of Present Illness HPI narrative: Patient is a 68-year-old male presenting today with altered mental status and fever. Patient presents to the emergency department little over a month ago with right lower quadrant abdominal pain and had what appeared to be an inguinal hernia containing bowel and possible appendix with associate appendicitis. Went to the operating room and had a laparoscopic evaluation transition to exploratory laparotomy had an open repair of hernia ileocecal resection ileocecal anastomosis and had a prolonged course in the hospital with postop ileus. Was subsequently sent to [place] and was there for 32 days discharged on the of this month. Since that time his is at the bedside states that he has been having altered mental status confusion and he has not been lucid very often recently as well as has had some urinary incontinence and fever with a Tmax of 101 orally at 2 PM today. No antipyretics were given prior to arrival. Related Data Home Medications Medication Instructions Recorded Confirmed aspirin 81 mg tablet,delayed 81 mg PO DAILY 03/01/21 12/03/23 release (Adult Low Dose Aspirin) atorvastatin 80 mg tablet 80 mg PO HS 10/09/21 12/03/23 memantine 10 mg tablet 10 mg PO BID 05/02/22 12/03/23 famotidine 20 mg tablet 20 mg PO BID 09/25/22 12/03/23 losartan 100 mg tablet 100 mg PO DAILY 09/25/22 12/03/23 rivaroxaban 20 mg tablet (Xarelto) 20 mg PO QPMWITHMEAL 09/25/22 12/03/23 empagliflozin 25 mg tablet 25 mg PO DAILY 01/22/23 12/03/23 (Jardiance) carvedilol 12.5 mg tablet 12.5 mg PO BID 04/23/23 12/03/23 oxybutynin chloride 5 mg 5 mg PO DAILY 05/23/23 12/03/23 tablet,extended release 24 hr insulin aspart U-100 100 unit/mL 14 unit SQ TID PRN Blood Sugar 11/04/23 12/03/23 (3 mL) subcutaneous pen (Novolog FlexPen U-100 Insulin aspart) nitroglycerin 0.4 mg sublingual 0.4 mg sublingual Q5M PRN Chest 01/08/24 02/06/24 tablet Pain terazosin 10 mg capsule 10 mg PO DAILY 11/04/23 12/03/23 lidocaine 5 % topical patch 1 patch topical DAILY Back Pain 11/11/23 12/03/23 Previous Rx's Medication Instructions Recorded alprazolam 0.25 mg tablet 0.25 mg PO TID PRN Anxiety 5 days 11/11/23 #15 tabs gabapentin 400 mg capsule 400 mg PO BID 10 days #20 caps 11/11/23 gabapentin 600 mg tablet 600 mg PO BID 5 days #10 tabs 11/11/23 insulin glargine 100 unit/mL (3 25 unit (0.25 mL) SQ HS 30 days #0 11/11/23 mL) subcutaneous pen (Lantus mL Solostar U-100 Insulin) oxycodone 5 mg tablet 5 mg PO Q6H PRN pain 3 days #12 11/11/23 tabs Allergies Allergy/AdvReac Type Severity Reaction Status Date / Time No Known Allergies Allergy Verified 12/03/23 10:42 [facility] Disclaimer: The information contained in this section may have been updated after the patient was seen, as this information can be updated by other users. Medical History (Updated 12/15/23 @ 20:18 by Kel Baker MD) Abnormal ankle brachial index (YOSEF) Abnormal EKG Amputation of toe of right foot CAD (coronary artery disease) Claudication Diabetes type 2 with atherosclerosis of arteries of extremities Dysphagia Family history of heart disease HLD (hyperlipidemia) HTN (hypertension) ADRIANO (obstructive sleep apnea) PAD (peripheral artery disease) CHRISTI (renal artery stenosis) Tobacco dependence syndrome Surgical History (Updated 12/03/23 @ 11:21 by Johan Flynn MD) History of colonoscopy History of hernia surgery Family History Other Family history of diabetes mellitus type II Family history of hypertension Family history of stroke Social History Smoking Status: Former smoker tobacco type: cigarettes packs per day: 1 second hand exposure: No alcohol intake: never substance use type: denies use current occupational status: retired Travel in the last 8 weeks: None household members: spouse housing: house current occupational exposures/hazards: No caffeine: No ROS Obtained: Yes All systems reviewed & no additional complaints except as documented Physical Exam General General appearance: lethargic Respiratory Respiratory exam: Present normal lung sounds bilaterally; Absent respiratory distress Cardiovascular Cardiovascular exam: Present regular rate; Absent normal rhythm Neurological Exam Neurological exam: Present alert, oriented X3, CN II-XII intact and normal gait; Absent motor sensory deficit Medical Decision Making [place] Inquiry Pt receiving controlled substance: No Vital Signs: 12/15/23 18:04 12/15/23 18:15 Temperature 98.2 F Temperature Source Oral Pulse Rate 89 Pulse Rate [Left Radial] 89 Respiratory Rate 15 Blood Pressure [Right Arm] 149/67 H Blood Pressure Mean [Right Arm] 94 02 Sat by Pulse Oximetry 98 95 Oxygen Delivery Method Nasal Cannula Oxygen Flow Rate (LPM) 1 Lab Data Lab results reviewed: Yes I reviewed the patient's lab results. Lab Results 12/15/23 18:07: WBC 9.3, RBC 3.59 L, Hgb 9.8 L, Hct 30.6 L, MCV 85.3, MCH 27.3, MCHC 32.0, RDW 16.7, Plt Count 304, MPV 8.3, Neut % (Auto) 54.8, Lymph % (Auto) 35.7, [place] % (Auto) 7.3, Eos % (Auto) 2.0, Baso % (Auto) 0.3, Neut # (Auto) 5.1, Lymph # (Auto) 3.3, [place] # (Auto) 0.7, Eos # (Auto) 0.2, Baso # (Auto) 0.0, Sodium 134 L, Potassium 4.4, Chloride 102, Carbon Dioxide 27, Anion Gap 9.4, BUN 55 H, Creatinine 2.00 H, Estimated Creat Clear 38, Estimated GFR 33 L, Est GFR ( Amer) 40 L, Glucose 105 H, Calcium 9.2, Total Bilirubin 0.5, AST 46, ALT 29, Alkaline Phosphatase 95, Total Protein 7.2, Albumin 4.1, Globulin 3.1, Albumin/Globulin Ratio 1.3 12/15/23 18:24: SARS-CoV-2 (PCR) Not detected, Influenza A Untype (PCR) Not detected, Influenza Type B (PCR) Not detected 12/15/23 18:25: VBG pH 7.30 L, VBG pCO2 48.3, VBG pO2 34.0, VBG HCO3 23.2, VBG Total CO2 24.7, VBG O2 Saturation 58.6, VBG Base Excess -3.2 L 12/15/23 19:15: Lactate 1.1 12/15/23 19:42: Urine Color Yellow, Urine Appearance Clear, Urine pH 6.0, Ur Spe cific [place] 1.010, Urine Protein Negative, Urine Glucose (UA) 3+, Urine Ketones Negative, Urine Blood Negative, Urine Nitrate Negative, Urine Bilirubin Negative, Urine Urobilinogen 0.2, Ur Leukocyte Esterase Negative, Urine RBC None, Urine WBC None, Ur Squamous Epith Cells Occasional, Urine Bacteria None 12/15/23 18:07 12/15/23 18:07 Orders (Tests/Meds): ED MEDICATIONS Generic Name Dose Route Start Last Admin Trade Name Freq PRN Reason Stop Dose Admin Ceftriaxone Sodium 1 gm/ 50 mls @ 100 mls/hr 12/15/23 20:11 12/15/23 20:14 Sodium Chloride IV 12/15/23 20:40 100 mls/hr ONCE ONE Administration Discontinued Medications Generic Name Dose Route Start Last Admin Trade Name Freq PRN Reason Stop Dose Admin Lactated Ringer's 1,000 mls @ 999 mls/hr 12/15/23 18:30 12/15/23 18:43 Lactated Ringer's 1000 Ml Bag IV 12/15/23 19:30 999 mls/hr .Q1H1M ARNIE Administration Ceftriaxone Sodium 1 gm/ 50 mls @ 100 mls/hr 12/15/23 20:07 12/15/23 20:14 Sodium Chloride IV 12/15/23 20:36 Not Given ONCE ONE Azithromycin 500 mg/ Sodium 250 mls @ 250 mls/hr 12/15/23 20:07 Chloride IV 12/15/23 20:08 ONCE ONE ORDERS Category Date Time Status CT head/brain wo con Stat Cat Scan 12/15/23 18:23 Completed CXR --portable [XR chest portable] Stat Exams 12/15/23 18:24 Completed CBC w/Auto Diff [Complete Blood Count Auto Diff] Stat Lab 12/15/23 18:07 Com pleted CMP [Comprehensive Metabolic Panel] Stat Lab 12/15/23 18:07 Completed Lactic Acid Stat Lab 12/15/23 19:15 Completed Rapid PCR Covid and Flu A/B Stat Lab 12/15/23 18:24 Completed UA [Urinalysis and Microscopic] Stat Lab 12/15/23 19:42 Completed Blood Culture Stat Micro 12/15/23 19:15 Received Venous Blood Gas Stat RT 12/15/23 18:25 Completed ECG Data Tracing #1: I reviewed this ECG and interpreted as documented below: Ventricular rate of 94 no acute ischemic changes noted normal axis no significant conduction abnormality noted nondiagnostic Medical Decision Narrative: Is a 68-year-old male who is somewhat lethargic he actually fell asleep in the middle my conversation had some sleep apnea and some oxygen saturation dropping who presents today with encephalopathy and fever at home. He is afebrile here but his states he was 101 orally just a few hours ago. Differential includes fall with head injury and subdural hematoma, pneumonia, bacteremia, urinary tract infection, flu COVID, or chronic deconditioning from his recent hospitalization etc. He is currently alert oriented answering my questions appropriately if his workup is unremarkable there is no indication for admission at the moment. Will reassess after his workup is complete. Reassessment patient remained stable chest x-ray performed which I first interpreted shows a right lower lobe opacity versus atelectasis we will err on the side of treating this is pneumonia and give Rocephin azithromycin. Patient has an acute kidney injury with a creatinine of 2.0 baseline creatinine of 1.1. BUN significantly elevated at a proportion to the creatinine likely prerenal in nature IV fluids being administered. I discussed the case with the family they are agreeable to this plan also spoke with Rob with hospital medicine who agrees to admit this patient for further evaluation and treatment. Patient remains lucid GCS of 15 normal and nonfocal neurologic exam. Critical Care Critical Care Time Critical Care Time: No
[2023-12-15 18:31] LABS: Coronavirus 19, PCR Not Detected (NotDetected); Influenza A, PCR Not Detected (NotDetected); Influenza B, PCR Not Detected (NotDetected)
--- NOTE | 2023-12-15 18:32 | PC.NURSE ---
PT AT CT
[2023-12-15 18:34] LABS: Basophils % 0.3 % (0.1-2.0); Chloride 102 mmol/L (98-107); Eosinophils # 0.2 K/mm3 (0.0-0.4); Hematocrit 30.6 % (42.0-52.0); Hemoglobin 9.8 g/dL (14.1-18.0); Lymphocytes # 3.3 K/mm3 (0.7-4.5); Lymphocytes % 35.7 % (10-50); Mean Corpuscular Hemoglobin 27.3 pg (27.0-31.2); Mean Corpuscular Volume 85.3 fl (80-94); Mean Platelet Volume 8.3 fl (7.4-10.4); Monocytes # 0.7 K/mm3 (0.1-1.0); Monocytes % 7.3 % (1.7-9.3); Neutrophils # 5.1 K/mm3 (1.8-7.8); Neutrophils % 54.8 % (37.0-80.0); Platelet Count 304 K/mm3 (142-424); Potassium 4.4 mmoL/L (3.5-5.1); Red Blood Count 3.59 M/mm3 (4.60-6.20); Red Cell Distribution Width 16.7 % (11.5-17.5); Sodium 134 mmol/L (136-145); White Blood Count 9.3 K/mm3 (4.8-10.8)
[2023-12-15 18:37] LABS: Alanine Aminotransferase 29 U/L (12-78); Albumin Level 4.1 g/dl (3.5-5.0); Albumin/Globulin Ratio 1.3 (1.1-1.8); Alkaline Phosphatase 95 U/L (38-126); Anion Gap 9.4 mEq/L (5-15); Aspartate Amino Transferase 46 U/L (17-59); Bilirubin,Total 0.5 mg/dl (0.2-1.3); Blood Urea Nitrogen 55 mg/dl (9-20); Carbon Dioxide 27 mmol/L (22.0-30.0); Creatinine Clearance Estimated 38 mL/min (50-200); Estimated Glomerular Filt Rate 33 ml/min (>60); GFR (African American) 40 ML/MIN (>60); Globulin 3.1 g/dL (1.3-3.2); Total Protein,Serum 7.2 g/dl (6.3-8.2)
[2023-12-15 18:37] LABS: VBG Base Excess -3.2 mmol/L (-2.4-2.3); VBG HCO3 23.2 mmol/L (23-30); VBG Oxygen Saturation 58.6 % (50-70); VBG PCO2 48.3 mmol/L (35-51); VBG Total CO2 24.7 mmol/L (23-27)
[2023-12-15 18:38] LABS: Calcium 9.2 mg/dl (8.4-10.2); Glucose 105 mg/dl (74-100)
--- NOTE | 2023-12-15 18:38 | PC.NURSE ---
PT BACK TO ROOM FROM CT
[2023-12-15] MEDS: LACTATED RINGERS 1000ML 1,000 ML 999 ML IV (18:43)
[2023-12-15 19:46] LABS: Lactic Acid 1.1 mmol/L (0.7-2.1)
[2023-12-15 19:47] LABS: Appearance,Urine CLEAR (Clear); Bilirubin,Urine Negative (Negative); Blood, Urine Negative (Negative); Color,Urine YELLOW (Yellow); Glucose,Urine (UA) 3+ (Negative); Ketones,Urine Negative (Negative); Leukocyte Esterase,Urine Negative (Negative); Microscopic, Urine URINE MICROSCOPIC (MICROSCOPIC); Nitrate,Urine Negative (Negative); Protein,Urine Negative (Negative); Urobilinogen,Urine 0.2 EU/dl (0.2)
[2023-12-15 19:58] LABS: Squamous Epithelial Cell,Urine Occasional #/hpf (0-5)
--- NOTE | 2023-12-15 20:12 | PC.NURSE ---
on phone with hospitalist
[2023-12-15] MEDS: CEFTRIAXONE 1 GM 1 GM in 0.9 % SODIUM CHLORIDE 50 ML IV (20:14)
--- NOTE | 2023-12-15 20:18 | PC.NURSE ---
notified research greenhouse supervisor of admission
--- NOTE | 2023-12-15 20:25 | PC.NURSE ---
Observation admission to 203 with dx of HARSHAD and pneumonia to hospitalist.
[2023-12-15] MEDS: AZITHROMYCIN 500 MG in 0.9 % SODIUM CHLORIDE 250 ML 250 MG IV (20:28)
--- NOTE | 2023-12-15 20:35 | P.HP_ITS ---
Attending attestation Patient was seen and evaluated at the bedside myself, agree with ANTONIO note. History of Present Illness *Admission Date: 12/15/23 *Reason for visit:: HARSHAD *History of present illness: 68 year old male presented to [facility] ED for reports of AMS via the . PMHX of vascular dementia, CVA, CAD, DM, HLD, HTN, ADRIANO, PAD, and CHRISTI. Prior to this admission, pt was admitted for a hernia ileocecal resection ileocecal anastomosisw which required a prolong hospital stay and 32 days of SNIF care at [place]. The pt was dx from [facility] on 12/11. The states AMS since yesterday after waking up, urinary incontinence and febrile. The ED workup revealed an HARSHAD with creatinine of 2.0 and possible right basilar pneumonia. Blood cultures were obtained. The patient's flu/covid and UA are negative. He was started on IV antibiotics and given 1L of LR. The ED physician consulted the hospitalist team for further medical management. I admitted the pt to the medical surgical floor. [facility] Disclaimer: The information contained in this section may have been updated after the patient was seen, as this information can be updated by other users. Medical History Abnormal ankle brachial index (YOSEF) Abnormal EKG Amputation of toe of right foot CAD (coronary artery disease) Claudication Diabetes type 2 with atherosclerosis of arteries of extremities Dysphagia Family history of heart disease HLD (hyperlipidemia) HTN (hypertension) ADRIANO (obstructive sleep apnea) PAD (peripheral artery disease) CHRISTI (renal artery stenosis) Tobacco dependence syndrome Surgical History History of colonoscopy History of hernia surgery Family History (Updated 12/15/23 @ 21:24 by Oralia Palmer RN) Father Family history of stroke Brother Heart disease Mother Family history of diabetes mellitus type II Emphysema lung COPD (chronic obstructive pulmonary disease) Lung cancer Other Family history of hypertension Social History (Updated 12/15/23 @ 21:22 by Oralia Palmer RN) Smoking Status: Former smoker tobacco type: cigarettes packs per day: 1 second hand exposure: No alcohol intake: never substance use type: denies use current occupational status: retired Travel in the last 8 weeks: None household members: spouse housing: house marital status: current occupational exposures/hazards: No caffeine: No Review of Systems *Cardiovascular Cardiovascular: Reports system reviewed and no additional complaints, except as documented *Respiratory Respiratory: Reports cough *Gastrointestinal Gastrointestinal: Reports system reviewed and no additional complaints, except as documented *Genitourinary Genitourinary: Reports urinary incontinence *Musculoskeletal Musculoskeletal: Reports back pain *Neurologic Neurologic: Reports confusion Psychiatric Psychiatric: Reports confusion Meds Home Medications and Allergies Home Medications Medication Instructions Recorded Confirmed Type aspirin 81 mg tablet,delayed 81 mg PO DAILY 03/01/21 12/15/23 History release (Adult Low Dose Aspirin) atorvastatin 80 mg tablet 80 mg PO HS 10/09/21 12/15/23 History memantine 10 mg tablet 10 mg PO BID 05/02/22 12/15/23 History famotidine 20 mg tablet 20 mg PO DAILY 09/25/22 12/15/23 History losartan 100 mg tablet 100 mg PO DAILY 09/25/22 12/15/23 History rivaroxaban 20 mg tablet (Xarelto) 20 mg PO QPMWITHMEAL 09/25/22 12/15/23 History empagliflozin 25 mg tablet 25 mg PO DAILY 01/22/23 12/15/23 History (Jardiance) carvedilol 12.5 mg tablet 12.5 mg PO BID 04/23/23 12/15/23 History oxybutynin chloride 5 mg 5 mg PO DAILY 05/23/23 12/15/23 History tablet,extended release 24 hr insulin aspart U-100 100 unit/mL 14 unit SQ TID PRN Blood Sugar 11/04/23 12/15/23 History (3 mL) subcutaneous pen (Novolog FlexPen U-100 Insulin aspart) nitroglycerin 0.4 mg sublingual 0.4 mg sublingual Q5M PRN Chest 11/04/23 12/15/23 History tablet Pain terazosin 10 mg capsule 10 mg PO HS 11/04/23 12/15/23 History alprazolam 0.25 mg tablet 0.25 mg PO TID PRN Anxiety 5 days 11/11/23 12/15/23 Rx #15 tabs gabapentin 400 mg capsule 400 mg PO BID 10 days #20 caps 11/11/23 12/15/23 Rx oxycodone 5 mg tablet 5 mg PO Q6H PRN pain 3 days #12 11/11/23 12/15/23 Rx tabs amlodipine 5 mg tablet 5 mg PO HS 12/15/23 12/15/23 History insulin glargine 100 unit/mL (3 35 unit SQ HS 12/15/23 12/15/23 History mL) subcutaneous pen (Lantus Solostar U-100 Insulin) mirtazapine 15 mg tablet 15 mg PO HS 12/15/23 12/15/23 History New Prescriptions to Start Prescriptions: Allergies Allergy/AdvReac Type Severity Reaction Status Date / Time No Known Allergies Allergy Verified 12/03/23 10:42 Exam Data for Last 24 hours Vital signs and Labs for Last 24 Hours: Temp Pulse Resp BP Pulse Ox O2 Del Method O2 Flow Rate 98.2 F 89 15 149/67 H 95 Nasal Cannula 1 12/15/23 18:04 12/15/23 18:15 12/15/23 18:04 12/15/23 18:04 12/15/23 18:15 12/15/23 18:04 12/15/23 18:04 Laboratory Results - last 24 hr 12/15/23 18:07: WBC 9.3, RBC 3.59 L, Hgb 9.8 L, Hct 30.6 L, MCV 85.3, MCH 27.3, MCHC 32.0, RDW 16.7, Plt Count 304, MPV 8.3, Neut % (Auto) 54.8, Lymph % (Auto) 35.7, [place] % (Auto) 7.3, Eos % (Auto) 2.0, Baso % (Auto) 0.3, Neut # (Auto) 5.1, Lymph # (Auto) 3.3, [place] # (Auto) 0.7, Eos # (Auto) 0.2, Baso # (Auto) 0.0, Sodium 134 L, Potassium 4.4, Chloride 102, Carbon Dioxide 27, Anion Gap 9.4, BUN 55 H, Creatinine 2.00 H, Estimated Creat Clear 38, Estimated GFR 33 L, Est GFR ( Amer) 40 L, Glucose 105 H, Calcium 9.2, Total Bilirubin 0.5, AST 46, ALT 29, Alkaline Phosphatase 95, Total Protein 7.2, Albumin 4.1, Globulin 3.1, Albumin/Globulin Ratio 1.3 12/15/23 18:24: SARS-CoV-2 (PCR) Not detected, Influenza A Untype (PCR) Not detected, Influenza Type B (PCR) Not detected 12/15/23 18:25: VBG pH 7.30 L, VBG pCO2 48.3, VBG pO2 34.0, VBG HCO3 23.2, VBG Total CO2 24.7, VBG O2 Saturation 58.6, VBG Base Excess -3.2 L 12/15/23 19:15: Lactate 1.1 12/15/23 19:42: Urine Color Yellow, Urine Appearance Clear, Urine pH 6.0, Ur Specific [place] 1.010, Urine Protein Negative, Urine Glucose (UA) 3+, Urine Ketones Negative, Urine Blood Negative, Urine Nitrate Negative, Urine Bilirubin Negative, Urine Urobilinogen 0.2, Ur Leukocyte Esterase Negative, Urine RBC None, Urine WBC None, Ur Squamous Epith Cells Occasional, Urine Bacteria None I & O for Last 24 hours: Intake & Output 12/12/23 12/13/23 12/14/23 12/15/23 23:59 23:59 23:59 23:59 Weight 76.204 kg Constitutional Constitutional: chronically ill appearing *Routine HEENT Exam Head: Present normocephalic Eye: Present EOMI ENT: Present mucous membranes dry *Routine Neck Exam Neck: Present full ROM *Routine Respiratory Exam Respiratory: Present wheezes, crackles and symmetric chest movement *Routine Cardiovascular Exam Cardiovascular: Present RRR *Routine Abdominal Exam Abdominal: Present soft and normoactive bowel sounds; Absent tenderness *Routine Rectal Exam Rectal:: deferred *Routine Genitalia Exam Genitalia:: deferred *Routine Extremities Exam Extremities: Present full ROM Comments: 1 digit amputation on right foot *Routine Skin Exam Skin: Present intact *Routine Neurological Exam Neurological: Present alert and oriented X3 Assessment and Plan *Assessment and plan (1) HARSHAD (acute kidney injury): Status: Acute Category: Medical Code(s): N17.9 - Acute kidney failure, unspecified (2) CAP (community acquired pneumonia): Status: Acute Category: Medical Code(s): J18.9 - Pneumonia, unspecified organism (3) Diabetes type 2 with atherosclerosis of arteries of extremities: Status: Chronic Category: Medical Code(s): E11.51 - Type 2 diabetes mellitus with diabetic peripheral angiopathy without gangrene; I70.209 - Unspecified atherosclerosis of [place] arteries of extremities, unspecified extremity (4) HTN (hypertension): Status: Chronic Qualifiers: Hypertension type: essential hypertension Qualified Code(s): I10 - Essential (primary) hypertension Category: Medical Code(s): I10 - Essential (primary) hypertension (5) HLD (hyperlipidemia): Status: Chronic Qualifiers: Hyperlipidemia type: mixed hyperlipidemia Qualified Code(s): E78.2 - Mixed hyperlipidemia Category: Medical Code(s): E78.5 - Hyperlipidemia, unspecified (6) PAD (peripheral artery disease): Status: Chronic Category: Medical Code(s): I73.9 - Peripheral vascular disease, unspecified (7) ADRIANO (obstructive sleep apnea): Status: Chronic Category: Medical Code(s): G47.33 - Obstructive sleep apnea (adult) (pediatric) (8) CAD (coronary artery disease): Status: Chronic Qualifiers: Associated angina: without angina Coronary Disease-Associated [place] ry/Lesion type: [place] artery [place] vs. transplanted heart: [place] heart Qualified Code(s): I25.10 - Atherosclerotic heart disease of [place] coronary artery without angina pectoris Category: Medical Code(s): I25.10 - Atherosclerotic heart disease of [place] coronary artery without angina pectoris (9) CHRISTI (renal artery stenosis): Status: Chronic Category: Medical Code(s): I70.1 - Atherosclerosis of renal artery Plan 68 year old male presented to [facility] ED for reports of AMS via the . PMHX of vascular dementia, CVA, CAD, DM, HLD, HTN, ADRIANO, PAD, and CHRISTI. Prior to this admission, pt was admitted for a hernia ileocecal resection ileocecal anastomosisw which required a prolong hospital stay and 32 days of SNIF care at [place]. The pt was dx from [facility] on 12/11. The states that AMS started yesterday after waking up for the day. also reports urinary incontinence and febrile. The ED workup revealed an HARSHAD with creatinine of 2.0 and possible right basilar pneumonia. Blood cultures were obtained. The patient's flu/covid and UA are negative. He was started on IV antibiotics and given 1L of LR. The ED physician consulted the hospitalist team for further medical management. I admitted the pt to the medical surgical floor. Plan as to follow: HARSHAD -creatinine of 2.00 upon admission -ordered repeat bmp for morning -recieved 1 L LR in ED. Encourage oral hydration -hold nephrotoxic medications CAP -Chest xray reviewed and reveals possible right basilar pneumonia -blood cultures pending and lactate negative -continue IV Azithromycin and Rocpehin -ordered repeat cbc for morning. No leukocytosis upon admission DM -SSI -A1c pending HTN HLD PAD PSA CAD CHRISTI -duoneb q 6hr prn -CPAP -continue home medications of norvasc, aspirin, lipitor, coreg, pepcid, gabapentin, memantine, remeron, and xarelto FULL CODE DIABETIC DIET DVT: RIVAROXABAN 20MG
--- NOTE | 2023-12-15 20:56 | PC.NURSE ---
Patient arrived to floor via stretcher from ED at 20:54.
[2023-12-15 20:57] VITALS: BP 144/87; PULSE 89; RESP 18; TEMP 36.8; O2SAT 95
[2023-12-15 21:00] VITALS: BP 127/77; PULSE 101; RESP 24; TEMP 38.4; O2SAT 90; BMI 25.7
[2023-12-15 21:35] VITALS: PULSE 99
[2023-12-15 21:58] LABS: Hemoglobin A1C 7.3 % (4.0-6.0)
[2023-12-15] MEDS: ACETAMINOPHEN 325MG TAB 650 MG PO (22:54)
[2023-12-15 23:07] LABS: POC Glucose,Bedside 115 (70-110)
[2023-12-16] VITALS (7 sets, daily range): BP systolic 109–145; BP diastolic 47–71; PULSE 72–91; RESP 18–22; TEMP 36.9–38.1; O2SAT 90–98; BMI 25.7
[2023-12-16] MEDS: LACTATED RINGERS 1000ML 1,000 ML 100 ML IV ×3 (00:27→19:48)
[2023-12-16 05:40] LABS: POC Glucose,Bedside 105 (70-110)
--- NOTE | 2023-12-16 06:14 | PC.NURSE ---
Pt has been on CPAP since admission to the unit and has tolerated it well with sats above 90 %. Pt has maintained a mentation close to baseline of 15 throughout the night. Pt at times when nursing staff is in the room dances with hands in the air per and feels around the CPAP mask but does not attempt to remove it. Pt has not voiced any complaints to staff, was febrile upon arrival to floor with tylenol administered with positive effect and has been afebrile since.
[2023-12-16 06:39] LABS: Chloride 106 mmol/L (98-107)
[2023-12-16 06:40] LABS: Potassium 4.9 mmoL/L (3.5-5.1); Sodium 134 mmol/L (136-145)
[2023-12-16 06:43] LABS: Anion Gap 8.9 mEq/L (5-15); Blood Urea Nitrogen 45 mg/dl (9-20); Calcium 8.7 mg/dl (8.4-10.2); Carbon Dioxide 24 mmol/L (22.0-30.0); Creatinine Clearance Estimated 54 mL/min (50-200); Estimated Glomerular Filt Rate 43 ml/min (>60); GFR (African American) 52 ML/MIN (>60); Glucose 95 mg/dl (74-100)
[2023-12-16] MEDS: FAMOTIDINE 20MG TABLET 20 MG PO ×2 (06:53→08:36)
[2023-12-16 06:57] LABS: Basophils % 0.1 % (0.1-2.0); Eosinophils # 0.1 K/mm3 (0.0-0.4); Eosinophils % 1.8 % (0.1-12.0); Lymphocytes # 2.6 K/mm3 (0.7-4.5); Lymphocytes % 46.5 % (10-50); Mean Corpuscular HGB Conc 32.1 g/dL (31.8-35.4); Mean Corpuscular Hemoglobin 27.6 pg (27.0-31.2); Mean Platelet Volume 11.3 fl (7.4-10.4); Monocytes # 0.4 K/mm3 (0.1-1.0); Neutrophils # 2.4 K/mm3 (1.8-7.8); Neutrophils % 43.6 % (37.0-80.0); Red Blood Count 3.26 M/mm3 (4.60-6.20); Red Cell Distribution Width 16.5 % (11.5-17.5); White Blood Count 5.5 K/mm3 (4.8-10.8)
[2023-12-16 06:58] LABS: Platelet Count 263 K/mm3 (142-424)
--- NOTE | 2023-12-16 07:37 | HMH.PHAINT1 ---
Pharmacy Intervention Comments: Verified home medications using external fill history; spoke with patient at bedside to confirm he is taking ASA 81mg daily, insulin aspart 14 units TID (with meals) PRN, and insulin glargine 35 units daily at bedtime. Pt caregiver confirmed this was a recent dose increase.
[2023-12-16] MEDS: CARVEDILOL 12.5MG TABLET 12.5 MG PO ×2 (08:36→20:57)
[2023-12-16] MEDS: MEMANTINE 10MG TABLET 10 MG PO ×2 (08:36→20:58)
[2023-12-16] MEDS: ASPIRIN EC 81MG TABLET 81 MG PO (08:36)
[2023-12-16] MEDS: GABAPENTIN 400MG CAPSULE 400 MG PO ×2 (08:36→20:57)
--- NOTE | 2023-12-16 09:42 | P.PN_ITS ---
Subjective *Date: 12/16/23 *Time: 09:42 Exam Data for Last 24 hours Vital signs and Labs for Last 24 Hours: Temp Pulse Resp BP Pulse Ox O2 Del Method O2 Flow Rate 98.6 F 80 22 125/59 L 92 L Nasal Cannula 1 12/16/23 08:00 12/16/23 08:00 12/16/23 08:00 12/16/23 08:00 12/16/23 08:00 12/16/23 08:00 12/15/23 18:04 Laboratory Results - last 24 hr 12/15/23 18:07: WBC 9.3, RBC 3.59 L, Hgb 9.8 L, Hct 30.6 L, MCV 85.3, MCH 27.3, MCHC 32.0, RDW 16.7, Plt Count 304, MPV 8.3, Neut % (Auto) 54.8, Lymph % (Auto) 35.7, [place] % (Auto) 7.3, Eos % (Auto) 2.0, Baso % (Auto) 0.3, Neut # (Auto) 5.1, Lymph # (Auto) 3.3, [place] # (Auto) 0.7, Eos # (Auto) 0.2, Baso # (Auto) 0.0, Sodium 134 L, Potassium 4.4, Chloride 102, Carbon Dioxide 27, Anion Gap 9.4, BUN 55 H, Creatinine 2.00 H, Estimated Creat Clear 38, Estimated GFR 33 L, Est GFR ( Amer) 40 L, Glucose 105 H, Hemoglobin A1c 7.3 H, Calcium 9.2, Total Bilirubin 0.5, AST 46, ALT 29, Alkaline Phosphatase 95, Total Protein 7.2, Albumin 4.1, Globulin 3.1, Albumin/Globulin Ratio 1.3 12/15/23 18:24: SARS-CoV-2 (PCR) Not detected, Influenza A Untype (PCR) Not dete cted, Influenza Type B (PCR) Not detected 12/15/23 18:25: VBG pH 7.30 L, VBG pCO2 48.3, VBG pO2 34.0, VBG HCO3 23.2, VBG Total CO2 24.7, VBG O2 Saturation 58.6, VBG Base Excess -3.2 L 12/15/23 19:15: Lactate 1.1 12/15/23 19:42: Urine Color Yellow, Urine Appearance Clear, Urine pH 6.0, Ur Specific [place] 1.010, Urine Protein Negative, Urine Glucose (UA) 3+, Urine Ketones Negative, Urine Blood Negative, Urine Nitrate Negative, Urine Bilirubin Negative, Urine Urobilinogen 0.2, Ur Leukocyte Esterase Negative, Urine RBC None, Urine WBC None, Ur Squamous Epith Cells Occasional, Urine Bacteria None 12/15/23 22:55: POC Glucose 115 H 12/16/23 05:26: POC Glucose 105 12/16/23 05:37: WBC 5.5 D, RBC 3.26 L, Hgb 9.0 L, Hct 28.0 L, MCV 86.0, MCH 27.6, MCHC 32.1, RDW 16.5, Plt Count 263, MPV 11.3 H, Neut % (Auto) 43.6, Lymph % (Auto) 46.5, [place] % (Auto) 8.0, Eos % (Auto) 1.8, Baso % (Auto) 0.1, Neut # (Auto) 2.4, Lymph # (Auto) 2.6, [place] # (Auto) 0.4, Eos # (Auto) 0.1, Baso # (Auto) 0.0, Sodium 134 L, Potassium 4.9, Chloride 106, Carbon Dioxide 24, Anion Gap 8.9, BUN 45 H, Creatinine 1.60 H, Estimated Creat Clear 54, Estimated GFR 43 L, Est GFR ( Amer) 52 L D, Glucose 95, Calcium 8.7 I & O for Last 24 hours: Intake & Output 12/13/23 12/14/23 12/15/23 12/16/23 23:59 23:59 23:59 23:59 Intake Total 761 / 761 Output Total 805 / 805 Balance -44 / -44 Weight 86.046 kg 86.046 kg Assessment and Plan *Assessment and plan (1) HARSHAD (acute kidney injury): Status: Acute Category: Medical Code(s): N17.9 - Acute kidney failure, unspecified (2) CAP (community acquired pneumonia): Status: Acute Category: Medical Code(s): J18.9 - Pneumonia, unspecified organism (3) Diabetes type 2 with atherosclerosis of arteries of extremities: Status: Chronic Category: Medical Code(s): E11.51 - Type 2 diabetes mellitus with diabetic peripheral angiopathy without gangrene; I70.209 - Unspecified atherosclerosis of [place] arteries of extremities, unspecified extremity (4) HTN (hypertension): Status: Chronic Qualifiers: Hypertension type: essential hypertension Qualified Code(s): I10 - Essential (primary) hypertension Category: Medical Code(s): I10 - Essential (primary) hypertension (5) HLD (hyperlipidemia): Status: Chronic Qualifiers: Hyperlipidemia type: mixed hyperlipidemia Qualified Code(s): E78.2 - Mixed hyperlipidemia Category: Medical Code(s): E78.5 - Hyperlipidemia, unspecified (6) PAD (peripheral artery disease): Status: Chronic Category: Medical Code(s): I73.9 - Peripheral vascular disease, unspecified (7) ADRIANO (obstructive sleep apnea): Status: Chronic Category: Medical Code(s): G47.33 - Obstructive sleep apnea (adult) (pediatric) (8) CAD (coronary artery disease): Status: Chronic Qualifiers: Coronary Disease-Associated Artery/Lesion type: [place] artery [place] vs. transplanted heart: [place] heart Associated angina: without angina Qualified Code(s): I25.10 - Atherosclerotic heart disease of [place] coronary artery without angina pectoris Category: Medical Code(s): I25.10 - Atherosclerotic heart disease of [place] coronary artery without angina pectoris (9) CHRISTI (renal artery stenosis): Status: Chronic Category: Medical Code(s): I70.1 - Atherosclerosis of renal artery Plan 68 year old male presented to [facility] ED for reports of AMS via the . PMHX of vascular dementia, CVA, CAD, DM, HLD, HTN, ADRIANO, PAD, and CHRISTI. Prior to this admission, pt was admitted for a hernia ileocecal resection ileocecal anastomosisw which required a prolong hospital stay and 32 days of SNIF care at [place]. [facility] The states that AMS started yesterday after waking up for the day. also reports urinary incontinence and febrile. The ED workup revealed an HARSHAD with creatinine of 2.0 and possible right basilar pneumonia. Blood cultures were obtained. The patient's flu/covid and UA are negative. He was started on IV antibiotics and given 1L of LR. The ED physician consulted the hospitalist team for further medical management. I admitted the pt to the medical surgical floor. Plan as to follow: HARSHAD -creatinine of 2.00 upon admission, Cr today is 1.6 - improving -hold nephrotoxic medications monitor BMP CAP -Chest xray reviewed and reveals possible right basilar pneumonia -blood cultures pending and lactate negative -continue IV Azithromycin and Rocpehin -ordered repeat cbc for morning. -No leukocytosis upon admission DM -SSI HTN HLD PAD PSA CAD CHRISTI -duoneb q 6hr prn -CPAP -continue home medications of norvasc, aspirin, lipitor, coreg, pepcid, gabapentin, memantine, remeron, and xarelto FULL CODE DIABETIC DIET DVT: RIVAROXABAN 20MG DC 1-2 days pending clinical improvement
[2023-12-16] MEDS: ALPRAZolam 0.25MG TABLET 0.25 MG PO ×2 (10:53→20:59)
[2023-12-16] MEDS: humaLOG 100 UNITS/ML 3ML VIAL (SSI) SQ ×2 (10:58→21:49)
[2023-12-16] MEDS: GENTAMICIN 0.3% OPTH SOL 5ML OP (12:15)
--- NOTE | 2023-12-16 13:33 | HMH.PTEV ---
Physical Therapy Evaluation Rehab PT IP Evaluation Start: 12/16/23 10:07 Freq: ONCE Status: Active Protocol: Document 12/16/23 13:27 DYLAN (Rec: 12/16/23 13:33 DYLAN [email or web address]) Subjective/History History History Per H&P: 68 year old male presented to [facility] ED for reports of AMS via the . PMHX of vascular dementia, CVA, CAD, DM, HLD, HTN, ADRIANO, PAD, and CHRISTI. Prior to this admission, pt was admitted for a hernia ileocecal resection ileocecal anastomosisw which required a prolong hospital stay and 32 days of SNIF care at [place]. The pt was dx from [facility] on 12/11. The states AMS since yesterday after waking up, urinary incontinence and febrile. The ED workup revealed an HARSHAD with creatinine of 2.0 and possible right basilar pneumonia. Blood cultures were obtained. The patient's flu/ covid and UA are negative. He was started on IV antibiotics and given 1L of LR. The ED physician consulted the hospitalist team for further medical management. I admitted the pt to the medical surgical floor. Subjective Subjective PLOF per pt and report: IND with mobility using RW since being home from SNF. 18 DELMI second floor bedroom and 3STE house. Reports he has to use second floor bedroom. can provide limited assistance as she reports she is disabled. New diagnosis of cancer in past 12 No months? Rehab PT IP Eval Objective Appearance Patient Behavior Appropriate,Cooperative Patient Orientation Person,Place,Birthday Difficulty following instructions none Speech Pattern Clear,Appropriate Ambulation Patient Able to Ambulate Yes Ambulation Observation IP General Gait Pattern Observation Wide Based Gait Ambulation Distance (feet) 15 Ambulation Assistive Device None Ambulation Ability Contact Guard/Hand Hold Balance Ability to Arise Able, uses arms to help Sitting Balance Steady, safe Standing Balance Steady, wide stance Transfers Bed Transfer Ability Supervision/Stand by Sit to Stand Bed Transfer Ability Contact Guard/Hand Hold Rehab PT IP prob,goals,plan Problems Date of Evaluation: 12/16/23 PT IP Problems Transfers,Gait,Balance,Safety Rehab Potential Rehab Potential Good Equipment Needs Assistive Devices Rolling / Wheeled Walker Plan PT Intervention Plan Bed Mobility,Transfers,Gait, Balance,Safety,Therapeutic Exercise Other Intervention Plan 1-2 times PT Plan Frequency Daily Duration LOS Discharge Goals Bed Transfer Ability Independent Sit to Stand Chair Transfer Ability Independent Ambulation Assistive Device Rolling Walker Ambulation Distance (feet) 20 Discharge Plan PT Discharge Plan Pt would benefit from skilled PT while at [facility] to prevent further functional decline and maximize safety with mobility . Pt safe to d/c home when deemed medically necessary d/t current level of mobility and 's support. PT recommending services to address deficits. Eval Complexity Eval Charge Codes 42373 - High Complexity PHYSICIAN CERTIFICATION: I certify the specified therapy services for Roly Hollis are required, authorized, and reviewed every 30 days.
--- NOTE | 2023-12-16 13:44 | HMH.OTEV ---
OT Inpatient Evaluation Rehab OT IP Evaluation Start: 12/16/23 10:07 Freq: ONCE Status: Active Protocol: Document 12/16/23 13:[address] [facility] (Rec: 12/16/23 13:[address] [facility] [email or web address]) Rehab OT IP Assessment Subjective History Pt oriented x 3 on arrival. Pt agreeable to engage in therapy evaluation. Per H&P: 68 year old male presented to [facility] ED for reports of AMS via the . PMHX of vascular dementia, CVA, CAD, DM, HLD, HTN, ADRIANO, PAD, and CHRISTI. Prior to this admission, pt was admitted for a hernia ileocecal resection ileocecal anastomosisw which required a prolong hospital stay and 32 days of SNIF care at [place]. The pt was dx from [facility] on 12/11. The states AMS since yesterday after waking up, urinary incontinence and febrile. The ED workup revealed an HARSHAD with creatinine of 2.0 and possible right basilar pneumonia. Blood cultures were obtained. The patient's flu/ covid and UA are negative. He was started on IV antibiotics and given 1L of LR. The ED physician consulted the hospitalist team for further medical management. I admitted the pt to the medical surgical floor. Subjective PLOF per pt and report: IND with mobility using RW since being home from SNF. 18 DELMI second floor bedroom and 3STE house. Reports he has to use second floor bedroom. can provide limited assistance as she reports she is disabled. Pt claims normally he is independent with all ADLs. has been assisting with IADLs. Objective Patient Orientation Person,Place,Birthday Right Upper Extremity Gross ROM Min Limitation <25% Left Upper Extremity Gross ROM Min Limitation <25% Shoulder ROM Limitations Muscle Weakness Elbow ROM Limitations Muscle Weakness Wrist Limitations of Range of Motion Muscle Weakness Bed Mobility bed mobility-scooting,bed mobility - supine/sit Assist Level Contact Guard/Hand Hold Transfer Training Sit/Stand Transfer Assist Level Contact Guard/Hand Hold Rehab OT IP prob,goals,plan Problems Date of Evaluation: 12/16/23 OT IP Problems Bed Mobility,Transfers,Balance ,Self care,Safety Rehab Potential Rehab Potential Good Equipment Needs Assistive Devices Rolling / Wheeled Walker Plan OT intervention Plan Bed Mobility,Transfers,Balance ,Self care,Safety,Therapeutic Exercise OT Plan Frequency BID Duration LOS Discharge Goals Bed Mobility Ability Standby Assistance Sit to Stand Chair Transfer Ability Supervision/Stand by Chair Transfer Ability Supervision/Stand by Chair Transfer Technique Sit to/from Ambulatory Chair Transfer Assistive Devices Rolling Walker Feeding Ability Assist with Tray Set Up Lower Body Dressing Ability Minimal Assistance Upper Body Dressing Ability Standby Assistance Bathing Ability Minimal Assistance Performing Toilet Hygiene Ability Minimal Assistance Overall Commode/Toilet Transfer Ability Minimal Assistance Commode/Toilet Transfer Technique Sit to/from Ambulatory Commode/Toilet Transfer Assistive Grab Bars Devices Oral Care Assist Contact Guard Decrease in Endurance No Discharge Plan OT Discharge Plan Pt would benefit from skilled OT while at [facility] to prevent further functional decline and improve overall functional transfers and ADL independence . Pt safe to d/c home when deemed medically necessary d/t current level of mobility and 's support. OT recommending services to address deficits. Eval Complexity Eval Charge Codes 80178 - Moderate Complexity PHYSICIAN CERTIFICATION: I certify the specified therapy services for Roly Hollis are required, authorized, and reviewed every 30 days.
--- NOTE | 2023-12-16 13:59 | SW/DCPLANNER ---
Addendum entered by Missy Stoll 12/18/23 14:39: [facility] this [facility]. Addendum entered by Missy Stoll 12/18/23 11:14: Patient information/order has been faxed to [facility]. Patient will discharge home today. Original Note: I spoke w/ patient and his regarding plans once medically stable for discharge. PT/OT evaluated patient and recommended returning home w/ home health services. Patient and are agreeable w/ [facility] and he is currently established w/ [facility]. Patient information/order will be faxed at time of discharge. Per MD pending no setbacks patient may be ready for discharge tomorrow.
[2023-12-16] MEDS: RIVAROXABAN 10MG TABLET 20 MG PO (16:42)
--- NOTE | 2023-12-16 17:42 | PC.NURSE ---
A&OX4. TOLERATING 2LNC MOST OF DAY, HAVE TITRATED TO 1LNC AT THIS TIME. PT HAS NOT HAD CONFUSION BUT DOES SEEM AGITATED AND FORGETFUL T/O SHIFT. ALSO HAS REQUESTED TYLENOL FOR BACK AND VEE PAIN. GIVEN PER MAR, EFFECTIVENESS NOTED. ASKED PT IF HE WOULD BE WILLING TO GET UP TO THE CHAIR FOR MEALS AND WANTED TO REMAIN IN BED. HAS BEEN AT BEDSIDE. NO OTHER NEEDS OR C/O THUS FAR, VSS.
[2023-12-16] MEDS: CEFTRIAXONE SODIUM 1 GM in 0.9 % SODIUM CHLORIDE 50 ML IV (18:12)
[2023-12-16] MEDS: OXYCODONE 5MG IMMEDIATE RELEASE TABLET 5 MG PO (19:49)
[2023-12-16] MEDS: ATORVASTATIN 40MG TABLET 80 MG PO (20:56)
[2023-12-16] MEDS: AMLODIPINE 5MG TABLET 5 MG PO (20:56)
[2023-12-16] MEDS: AZITHROMYCIN 500 MG in 0.9 % SODIUM CHLORIDE 250 ML 250 MG IV (20:57)
[2023-12-16] MEDS: TERAZOSIN 5MG CAPSULE 10 MG PO (20:58)
[2023-12-16] MEDS: MIRTAZAPINE 15 MG TABLET PO (20:58)
[2023-12-16] MEDS: SENNA 8.6MG TABLET 8.59999999999999964 MG PO (21:49)
[2023-12-16 22:07] LABS: POC Glucose,Bedside 172 (70-110)
[2023-12-17] VITALS (7 sets, daily range): BP systolic 108–159; BP diastolic 48–79; PULSE 66–90; RESP 16–22; TEMP 36.5–37.4; O2SAT 93–97; BMI 25.9
--- NOTE | 2023-12-17 04:27 | PC.NURSE ---
pt remains on 1l/nc, slept well with c-pap. pt reported no bm in 3-4 days. abd soft, non tender, denies n/v. restarted senna. pt reported he takes oxycodone at home. med resumed
[2023-12-17 06:19] LABS: POC Glucose,Bedside 122 (70-110)
[2023-12-17] MEDS: FAMOTIDINE 20MG TABLET 20 MG PO ×2 (07:42→21:02)
[2023-12-17 08:02] LABS: POC Glucose,Bedside 136 (70-110)
[2023-12-17 08:02] LABS: POC Glucose,Bedside 154 (70-110)
[2023-12-17] MEDS: GABAPENTIN 400MG CAPSULE 400 MG PO ×2 (08:06→20:29)
[2023-12-17] MEDS: ASPIRIN EC 81MG TABLET 81 MG PO (08:06)
[2023-12-17] MEDS: CARVEDILOL 12.5MG TABLET 12.5 MG PO ×2 (08:06→20:29)
[2023-12-17] MEDS: MEMANTINE 10MG TABLET 10 MG PO ×2 (08:06→20:30)
[2023-12-17] MEDS: LACTATED RINGERS 1000ML 1,000 ML 100 ML IV (08:08)
[2023-12-17] MEDS: GENTAMICIN 0.3% OPTH SOL 5ML OP ×4 (08:12→20:30)
[2023-12-17] MEDS: ALPRAZolam 0.25MG TABLET 0.25 MG PO ×2 (08:12→20:31)
[2023-12-17 08:38] LABS: Basophils % 0.1 % (0.1-2.0); Eosinophils # 0.2 K/mm3 (0.0-0.4); Eosinophils % 2.8 % (0.1-12.0); Hematocrit 30.2 % (42.0-52.0); Hemoglobin 9.6 g/dL (14.1-18.0); Lymphocytes # 1.6 K/mm3 (0.7-4.5); Lymphocytes % 23.2 % (10-50); Mean Corpuscular HGB Conc 31.7 g/dL (31.8-35.4); Mean Corpuscular Hemoglobin 27.1 pg (27.0-31.2); Mean Corpuscular Volume 85.6 fl (80-94); Mean Platelet Volume 8.7 fl (7.4-10.4); Monocytes # 0.6 K/mm3 (0.1-1.0); Monocytes % 9.5 % (1.7-9.3); Neutrophils # 4.3 K/mm3 (1.8-7.8); Neutrophils % 64.4 % (37.0-80.0); Platelet Count 262 K/mm3 (142-424); Red Blood Count 3.53 M/mm3 (4.60-6.20); Red Cell Distribution Width 16.9 % (11.5-17.5); White Blood Count 6.7 K/mm3 (4.8-10.8)
[2023-12-17 09:04] LABS: Chloride 109 mmol/L (98-107); Potassium 3.6 mmoL/L (3.5-5.1); Sodium 138 mmol/L (136-145)
[2023-12-17 09:07] LABS: Alanine Aminotransferase 24 U/L (12-78); Albumin Level 3.5 g/dl (3.5-5.0); Albumin/Globulin Ratio 1.2 (1.1-1.8); Alkaline Phosphatase 99 U/L (38-126); Anion Gap 5.6 mEq/L (5-15); Aspartate Amino Transferase 33 U/L (17-59); Bilirubin,Total 0.4 mg/dl (0.2-1.3); Blood Urea Nitrogen 28 mg/dl (9-20); Calcium 8.8 mg/dl (8.4-10.2); Carbon Dioxide 27 mmol/L (22.0-30.0); Creatinine Clearance Estimated 67 mL/min (50-200); Estimated Glomerular Filt Rate 55 ml/min (>60); GFR (African American) 66 ML/MIN (>60); Glucose 130 mg/dl (74-100); Total Protein,Serum 6.5 g/dl (6.3-8.2)
[2023-12-17] MEDS: humaLOG 100 UNITS/ML 3ML VIAL (SSI) SQ ×3 (10:56→21:58)
[2023-12-17 11:05] LABS: POC Glucose,Bedside 243 (70-110)
--- NOTE | 2023-12-17 11:14 | P.PN_ITS ---
Subjective *Date: 12/17/23 *Time: 16:09 Interval history: Patient not as confused this morning but still deferring to or answering questions. Oriented to self and place. On 1 L nasal cannula ox and wean during rounds. Denies significant shortness of breath. No chest pain, nausea, vomiting. Minimal cough. Afebrile. Awaiting repeat labs this morning. Medical Exam Vital signs and Labs for Last 24 Hours: Vital Signs Temp Pulse Pulse Resp BP Pulse Ox O2 Del Method 12/17/23 10:38 Nasal Cannula 12/17/23 08:00 90 12/17/23 09:00 Nasal Cannula 12/17/23 08:00 Nasal Cannula 12/17/23 08:00 97.7 F 84 18 159/74 H 93 L Nasal Cannula 12/17/23 07:00 CPAP 12/17/23 05:00 Nasal Cannula 12/17/23 04:00 66 12/17/23 04:00 99.3 F 67 18 108/56 L 97 CPAP 12/17/23 03:00 Nasal Cannula 12/17/23 01:00 Nasal Cannula 12/16/23 23:00 Nasal Cannula 12/16/23 21:00 Nasal Cannula 12/17/23 00:00 66 12/17/23 00:00 98.8 F 68 18 108/48 L 96 CPAP 12/16/23 21:00 96 Nasal Cannula 12/16/23 20:00 72 12/16/23 20:00 98.4 F 76 18 142/70 H 93 L Nasal Cannula 12/16/23 18:33 Nasal Cannula 12/16/23 17:00 Nasal Cannula 12/16/23 16:00 98.9 F 81 20 145/71 H 98 CPAP 12/16/23 14:49 Nasal Cannula 12/16/23 13:00 Nasal Cannula 12/16/23 11:49 98.9 F 91 H 20 139/70 90 L Nasal Cannula O2 Flow Rate 12/17/23 10:38 1 12/17/23 08:00 12/17/23 09:00 1 12/17/23 08:00 1 12/17/23 08:00 1 12/17/23 07:00 12/17/23 05:00 1 12/17/23 04:00 12/17/23 04:00 1 12/17/23 03:00 1 12/17/23 01:00 1 12/16/23 23:00 1 12/16/23 21:00 1 12/17/23 00:00 12/17/23 00:00 1 12/16/23 21:00 1 12/16/23 20:00 12/16/23 20:00 2 12/16/23 18:33 1 12/16/23 17:00 2 12/16/23 16:00 12/16/23 14:49 2 12/16/23 13:00 2 12/16/23 11:49 Intake and Output 12/16/23 12/17/23 12/17/23 23:59 07:59 15:59 Intake Total 270 / 1301 450 / 450 Output Total 1500 / 3330 200 / 1125 925 / 1125 Balance -1230 / -2029 -200 / -675 -475 / -675 Intake: Intake, Oral Amount 270 / 810 450 / 450 Output: Output, Urine Amount 1500 / 3330 200 / 1125 925 / 1125 Other: Number of Unmeasured Voids 0 0 Number of Bowel Movements 1 Weight 87.09 kg Patient Weight 12/17/23 23:59 Weight 87.09 kg Laboratory Results - last 24 hr 12/16/23 10:55: POC Glucose 154 H 12/16/23 16:36: POC Glucose 136 H 12/16/23 20:54: POC Glucose 172 H 12/17/23 06:09: POC Glucose 122 H 12/17/23 08:13: WBC 6.7, RBC 3.53 L, Hgb 9.6 L, Hct 30.2 L, MCV 85.6, MCH 27.1, MCHC 31.7 L, RDW 16.9, Plt Count 262, MPV 8.7, Neut % (Auto) 64.4, Lymph % (Auto) 23.2, [place] % (Auto) 9.5 H, Eos % (Auto) 2.8, Baso % (Auto) 0.1, Neut # (Auto) 4.3, Lymph # (Auto) 1.6, [place] # (Auto) 0.6, Eos # (Auto) 0.2, Baso # (Auto) 0.0, Sodium 138, Potassium 3.6 D, Chloride 109 H, Carbon Dioxide 27, Anion Gap 5.6, BUN 28 H D, Creatinine 1.30 H, Estimated Creat Clear 67, Estimated GFR 55 L, Est GFR ( Amer) 66 D, Glucose 130 H, Calcium 8.8, Total Bilirubin 0.4, AST 33 D, ALT 24, Alkaline Phosphatase 99, Total Protein 6.5, Albumin 3.5, Globulin 3.0, Albumin/Globulin Ratio 1.2 12/17/23 10:52: POC Glucose 243 H I & O for Labs for Last 24 Hours: Intake & Output 12/14/23 12/15/23 12/16/23 12/17/23 23:59 23:59 23:59 23:59 Intake Total 1301 / 1301 450 / 450 Output Total 3330 / 3330 1125 / 1125 Balance -2028 / - / Weight 86.046 kg 86.046 kg 87.09 kg Constitutional: Present no acute distress and chronically ill appearing Head: Present atraumatic Respiratory: Present crackles (left base) and normal respiratory effort; Absent rhonchi or wheezes Cardiac: Present Reg Rate and Rhythm GI: Present soft, tenderness (Right lower abdomen) and normal bowel sounds; Absent distention Comments:: Surgical incisions clean dry and intact, no drainage Extremities: Present normal inspection and full ROM Skin: Present intact; Absent erythema Neuro: Present Grossly Intact, alert, awake and moves all extremities Comment:: oriented to self and place Assessment and Plan *Assessment and plan (1) CAP (community acquired pneumonia): Status: Acute Category: Medical Code(s): J18.9 - Pneumonia, unspecified organism (2) HARSHAD (acute kidney injury): Status: Acute Category: Medical Code(s): N17.9 - Acute kidney failure, unspecified (3) Diabetes type 2 with atherosclerosis of arteries of extremities: Status: Chronic Category: Medical Code(s): E11.51 - Type 2 diabetes mellitus with diabetic peripheral angiopathy without gangrene; I70.209 - Unspecified atherosclerosis of [place] arteries of extremities, unspecified extremity (4) HTN (hypertension): Status: Chronic Qualifiers: Hypertension type: essential hypertension Qualified Code(s): I10 - Essential (primary) hypertension Category: Medical Code(s): I10 - Essential (primary) hypertension (5) HLD (hyperlipidemia): Status: Chronic Qualifiers: Hyperlipidemia type: mixed hyperlipidemia Qualified Code(s): E78.2 - Mixed hyperlipidemia Category: Medical Code(s): E78.5 - Hyperlipidemia, unspecified (6) PAD (peripheral artery disease): Status: Chronic Category: Medical Code(s): I73.9 - Peripheral vascular disease, unspecified (7) ADRIANO (obstructive sleep apnea): Status: Chronic Category: Medical Code(s): G47.33 - Obstructive sleep apnea (adult) (pediatric) (8) CAD (coronary artery disease): Status: Chronic Qualifiers: Associated angina: without angina Coronary Disease-Associated Artery/Lesion type: [place] artery [place] vs. transplanted heart: [place] heart Qualified Code(s): I25.10 - Atherosclerotic heart disease of [place] coronary artery without angina pectoris Category: Medical Code(s): I25.10 - Atherosclerotic heart disease of [place] coronary artery without angina pectoris (9) CHRISTI (renal artery stenosis): Status: Chronic Category: Medical Code(s): I70.1 - Atherosclerosis of renal artery Plan 68 year old male presented to [facility] ED for reports of AMS via the . PMHX of vascular dementia, CVA, CAD, DM, HLD, HTN, ADRIANO, PAD, and CHRISTI. Prior to this a dmission, pt was admitted for a hernia ileocecal resection ileocecal anastomosisw which required a prolong hospital stay and 32 days of SNIF care at [place]. The pt was dx from [facility] on 12/11. The states that AMS started yesterday after waking up for the day. also reports urinary incontinence and febrile. The ED workup revealed an HARSHAD with creatinine of 2.0 and possible right basilar pneumonia. Blood cultures were obtained. The patient's flu/covid and UA are negative. He was started on IV antibiotics and given 1L of LR. The ED physician consulted the hospitalist team for further medical management. Admitted to medicine for further management. Weaning oxygen today. Continues to require inpatient management. Therapy evaluating for possible placement versus home health. Problems addressed as follows: HARSHAD -creatinine of 2.00 upon admission, creatinine has improved to 1.3 this morning. Repeat CBC, CMP, magnesium ordered for the morning -Discontinue IV fluids, hold nephrotoxins. Tolerating p.o. fluids. CAP -Chest xray reviewed and reveals possible right basilar pneumonia. White cell count remains normal at 6.7. -Blood and sputum cultures pending. Continue azithromycin and ceftriaxone daily. -Wean O2 as tolerated, goal sats >90%. on 1L at rounds. wean to room air as tolerated -ordered repeat cbc for morning. -No leukocytosis upon admission DM: Continue sliding scale insulin with fingersticks ACHS. Resume Lantus at reduced dose of 25 units nightly Continue terazosin 10 mg nightly, oxybutynin 5 mg daily Continue carvedilol 12.5 mg twice daily, losartan 100 mg daily, continue amlodipine 5 mg nightly Continue gabapentin 400 mg twice daily Continue mirtazapine 15 mg nightly for sleep Continue memantine 10 mg twice daily for memory FULL CODE DIABETIC DIET DVT: RIVAROXABAN 20MG PT and OT consulted and evaluated, recommend home health when stable for discharge.
[2023-12-17] MEDS: OXYCODONE 5MG IMMEDIATE RELEASE TABLET 5 MG PO ×2 (13:31→20:32)
[2023-12-17 16:46] LABS: POC Glucose,Bedside 198 (70-110)
--- NOTE | 2023-12-17 17:25 | PC.NURSE ---
A&OX4. PT HAS BEEN WEANED FROM 2LNC TO RA THIS SHIFT. TOLERATING WELL. CURRENT O2 SAT 92%. DID GET UP TO THE CHAIR FOR A LITTLE WHILE TODAY WITH PT. HAS OTHERWISE REMAINED IN BED. PT SEEMS VERY AGITATED AND STRESSED. HAS RECEIVED XANAX X1 PER MAR, EFFECTIVENESS NOTED. PT HAS ALSO C/O BACK/NECK PAIN X1 THIS SHIFT, TX PER MAR, EFFECTIVENESS NOTED. EDUCATED PT ON SHIFTING HIS WEIGHT IN THE BED SINCE HIS BOTTOM HAS BECOME SLIGHTLY RED. ALSO OFFERED TO HELP PT TURN. VERBALIZED UNDERSTANDING. PRESENT AT BEDSIDE T/O SHIFT. PT USING URINAL, ADEQUATE U/O. TOLERATING DIET WELL. VSS.
[2023-12-17] MEDS: CEFTRIAXONE SODIUM 1 GM in 0.9 % SODIUM CHLORIDE 50 ML IV (18:01)
[2023-12-17] MEDS: RIVAROXABAN 10MG TABLET 20 MG PO (18:01)
[2023-12-17] MEDS: AMLODIPINE 5MG TABLET 5 MG PO (20:28)
[2023-12-17] MEDS: ATORVASTATIN 40MG TABLET 80 MG PO (20:29)
[2023-12-17] MEDS: MIRTAZAPINE 15 MG TABLET PO (20:30)
[2023-12-17] MEDS: SENNA 8.6MG TABLET 8.59999999999999964 MG PO (20:30)
[2023-12-17] MEDS: TERAZOSIN 5MG CAPSULE 10 MG PO (20:31)
[2023-12-17 20:48] LABS: POC Glucose,Bedside 182 (70-110)
[2023-12-17] MEDS: CALCIUM CARBONATE 500MG CHEWTAB 1000 MG PO (21:02)
[2023-12-17] MEDS: AZITHROMYCIN 500 MG in 0.9 % SODIUM CHLORIDE 250 ML 250 MG IV (21:03)
[2023-12-18] VITALS: BP 126/52; PULSE 68; PULSE 72; RESP 16; TEMP 37.3; O2SAT 96
[2023-12-18 04:00] VITALS: BP 146/65; PULSE 69; PULSE 74; RESP 16; TEMP 36.7; O2SAT 98; BMI 25.9
[2023-12-18 06:49] LABS: POC Glucose,Bedside 133 (70-110)
[2023-12-18 07:18] LABS: Basophils % 0.2 % (0.1-2.0); Eosinophils # 0.2 K/mm3 (0.0-0.4); Eosinophils % 3.2 % (0.1-12.0); Hematocrit 28.8 % (42.0-52.0); Hemoglobin 9.1 g/dL (14.1-18.0); Lymphocytes # 2.1 K/mm3 (0.7-4.5); Lymphocytes % 37.9 % (10-50); Mean Corpuscular HGB Conc 31.7 g/dL (31.8-35.4); Mean Corpuscular Volume 85.2 fl (80-94); Mean Platelet Volume 9.1 fl (7.4-10.4); Monocytes # 0.5 K/mm3 (0.1-1.0); Monocytes % 9.4 % (1.7-9.3); Neutrophils # 2.8 K/mm3 (1.8-7.8); Neutrophils % 49.3 % (37.0-80.0); Platelet Count 266 K/mm3 (142-424); Red Blood Count 3.38 M/mm3 (4.60-6.20); Red Cell Distribution Width 16.7 % (11.5-17.5); White Blood Count 5.7 K/mm3 (4.8-10.8)
[2023-12-18 07:31] LABS: Chloride 109 mmol/L (98-107); Potassium 3.9 mmoL/L (3.5-5.1); Sodium 139 mmol/L (136-145)
[2023-12-18 07:33] LABS: Alanine Aminotransferase 20 U/L (12-78); Alkaline Phosphatase 86 U/L (38-126); Anion Gap 4.9 mEq/L (5-15); Aspartate Amino Transferase 27 U/L (17-59); Bilirubin,Total 0.3 mg/dl (0.2-1.3); Blood Urea Nitrogen 24 mg/dl (9-20); Carbon Dioxide 29 mmol/L (22.0-30.0); Creatinine Clearance Estimated 73 mL/min (50-200); Estimated Glomerular Filt Rate 60 ml/min (>60); GFR (African American) 73 ML/MIN (>60)
[2023-12-18 07:34] LABS: Albumin Level 3.2 g/dl (3.5-5.0); Albumin/Globulin Ratio 1.1 (1.1-1.8); Calcium 8.8 mg/dl (8.4-10.2); Globulin 2.8 g/dL (1.3-3.2); Glucose 130 mg/dl (74-100); Magnesium 2.2 mg/dl (1.6-2.3)
--- NOTE | 2023-12-18 07:44 | P.DS_ITS ---
General Admission date:: 12/15/23 Discharge date: 12/18/23 HPI HPI HPI: 68 year old male presented to [facility] ED for reports of AMS via the . PMHX of vascular dementia, CVA, CAD, DM, HLD, HTN, ADRIANO, PAD, and CHRISTI. Prior to this admission, pt was admitted for a hernia ileocecal resection ileocecal anastomosisw which required a prolong hospital stay and 32 days of SNIF care at [facility]. [facility] The states AMS since yesterday after waking up, urinary incontinence and febrile. The ED workup revealed an HARSHAD with creatinine of 2.0 and possible right basilar pneumonia. Blood cultures were obtained. The patient's flu/covid and UA are negative. He was started on IV antibiotics and given 1L of LR. The ED physician consulted the hospitalist team for further medical management. I admitted the pt to the medical surgical floor. Hospital Course Hospital Course Hospital Course: 68 year old male presented to [facility] ED for reports of AMS via the . PMHX of vascular dementia, CVA, CAD, DM, HLD, HTN, ADRIANO, PAD, and CHRISTI. Prior to this admission, pt was admitted for a hernia ileocecal resection ileocecal anastomosis which required a prolonged hospital stay and 32 days of SNIF care at [facility]. The [facility]. The states that AMS started yesterday after waking up for the day. also reports urinary incontinence and febrile. The ED workup revealed an HARSHAD with creatinine of 2.0 and possible right basilar pneumonia. Blood cultures were obtained. The patient's flu/covid and UA are negative. He was started on IV antibiotics and given 1L of LR. The ED physician consulted the hospitalist team for further medical management. Admitted to medicine for further management. Has been able to wean to room air for over 24 hours. Clinically improving. Tolerating antibiotics. Stable for discharge home. Problems addressed as follows: HARSHAD -creatinine of 2.0 upon admission, creatinine improved with gentle hydration, at baseline 1.2 by day of discharge. Tolerating p.o. fluids. CAP -Chest xray reviewed and reveals possible right basilar pneumonia. White cell count remains normal at 6.7. White count 5.7 on day of discharge. Oxygen weaned within first 24 hours. Completed 3 days of IV azithromycin. Will complete 3 more days of cefdinir to complete total treatment for community- acquired pneumonia. Given his stability on room air, absence of cough, no fever, normal white count, low suspicion for worsening pneumonia. Therapy evaluated patient, stable to discharge home with home health. Discussed patient's feelings about his recurrent admissions and prolonged hospitalizations over the past month and a half with his extensive history, patient states he feels depressed. Will refer to psychiatry for further management as an outpatient. Leanna Hendrix consulted. Patient agreeable to seeing her after discharge. DM: Continue home regimen for diabetes event eluding empagliflozin 25 mill Fco daily and NovoLog 14 units 3 times a day with meals along with glargine 35 units nightly. Continue terazosin 10 mg nightly, oxybutynin 5 mg daily Continue carvedilol 12.5 mg twice daily, losartan 100 mg daily, continue amlodipine 5 mg nightly Continue gabapentin 400 mg twice daily Continue mirtazapine 15 mg nightly for sleep Continue memantine 10 mg twice daily for memory Exam Data for Last 24 hours Vital signs and Labs for Last 24 Hours: Temp Pulse Resp BP Pulse Ox O2 Del Method O2 Flow Rate 98.0 F 74 16 146/65 H 98 CPAP 1 12/18/23 04:00 12/18/23 04:00 12/18/23 04:00 12/18/23 04:00 12/18/23 04:00 12/18/23 07:00 12/17/23 12:36 Laboratory Results - last 24 hr 12/16/23 10:55: POC Glucose 154 H 12/16/23 16:36: POC Glucose 136 H 12/17/23 08:13: WBC 6.7, RBC 3.53 L, Hgb 9.6 L, Hct 30.2 L, MCV 85.6, MCH 27.1, MCHC 31.7 L, RDW 16.9, Plt Count 262, MPV 8.7, Neut % (Auto) 64.4, Lymph % (Auto) 23.2, [place] % (Auto) 9.5 H, Eos % (Auto) 2.8, Baso % (Auto) 0.1, Neut # (Auto) 4.3, Lymph # (Auto) 1.6, [place]he # (Auto) 0.6, Eos # (Auto) 0.2, Baso # (Auto) 0.0, Sodium 138, Potassium 3.6 D, Chloride 109 H, Carbon Dioxide 27, Anion Gap 5.6, BUN 28 H D, Creatinine 1.30 H, Estimated Creat Clear 67, Estimated GFR 55 L, Est GFR ( Amer) 66 D, Glucose 130 H, Calcium 8.8, Total Bilirubin 0.4, AST 33 D, ALT 24, Alkaline Phosphatase 99, Total Protein 6.5, Albumin 3.5, Globulin 3.0, Albumin/Globulin Ratio 1.2 12/17/23 10:52: POC Glucose 243 H 12/17/23 16:31: POC Glucose 198 H 12/17/23 20:27: POC Glucose 182 H 12/18/23 06:01: POC Glucose 133 H 12/18/23 06:31: WBC 5.7, RBC 3.38 L, Hgb 9.1 L, Hct 28.8 L, MCV 85.2, MCH 27.0, MCHC 31.7 L, RDW 16.7, Plt Count 266, MPV 9.1, Neut % (Auto) 49.3, Lymph % (Auto) 37.9, [place] % (Auto) 9.4 H, Eos % (Auto) 3.2, Baso % (Auto) 0.2, Neut # (Auto) 2.8, Lymph # (Auto) 2.1, [place] # (Auto) 0.5, Eos # (Auto) 0.2, Baso # (Auto) 0.0, Sodium 139, Potassium 3.9, Chloride 109 H, Carbon Dioxide 29, Anion Gap 4.9 L, BUN 24 H, Creatinine 1.20, Estimated Creat Clear 73, Estimated GFR 60, Est GFR ( Amer) 73, Glucose 130 H, Calcium 8.8, Magnesium 2.2, Total Bilirubin 0.3, AST 27, ALT 20, Alkaline Phosphatase 86, Total Protein 6.0 L, Albumin 3.2 L, Globulin 2.8, Albumin/Globulin Ratio 1.1 I & O for Last 24 hours: Intake & Output 12/15/23 12/16/23 12/17/23 12/18/23 23:59 23:59 23:59 23:59 Intake Total 1301 / 1301 1640 / 1640 Output Total 3330 / 3330 3675 / 3675 Balance -2028 / -2028 -2034 / Weight 86.046 kg 86.046 kg 87 kg 87 kg Constitutional Constitutional: no acute distress, average body habitus, chronically ill appearing and cooperative *Routine HEENT Exam Head: Present normocephalic Eye: Present EOMI and PERRL ENT: Present mucous membranes moist *Routine Neck Exam Neck: Present supple; Absent lymphadenopathy *Routine Respiratory Exam Respiratory: Present CTA bilaterally and normal respiratory effort; Absent rhonchi, wheezes or crackles *Routine Cardiovascular Exam Cardiovascular: Present RRR *Routine Abdominal Exam Abdominal: Present soft and normoactive bowel sounds; Absent tenderness *Routine Rectal Exam Patient deferred: visual exam *Routine Exam Patient deferred: penile exam *Routine Extremities Exam Extremities: Absent cyanosis, clubbing or edema *Routine Skin Exam Skin: Present warm; Absent rash *Routine Neurological Exam Neurological: Present alert, oriented X3, altered mental status and moving all extremities Routine Psychiatric Exam Psychiatric: Present depressed Results Data Completed and Pending Labs on day of discharge: Labs from last 24 hours 12/18/23 12/18/23 12/17/23 06:31 06:01 20:27 WBC 5.7 RBC 3.38 L Hgb 9.1 L Hct 28.8 L MCV 85.2 MCH 27.0 MCHC 31.7 L RDW 16.7 Plt Count 266 MPV 9.1 Neut % (Auto) 49.3 Lymph % (Auto) 37.9 [place]he % (Auto) 9.4 H Eos % (Auto) 3.2 Baso % (Auto) 0.2 Neut # (Auto) 2.8 Lymph # (Auto) 2.1 [place] # (Auto) 0.5 Eos # (Auto) 0.2 Baso # (Auto) 0.0 Sodium 139 Potassium 3.9 Chloride 109 H Carbon Dioxide 29 Anion Gap 4.9 L BUN 24 H Creatinine 1.20 Estimated Creat Clear 73 Estimated GFR 60 Est GFR ( Amer) 73 Glucose 130 H POC Glucose 133 H 182 H Calcium 8.8 Magnesium 2.2 Total Bilirubin 0.3 AST 27 ALT 20 Alkaline Phosphatase 86 Total Protein 6.0 L Albumin 3.2 L Globulin 2.8 Albumin/Globulin Ratio 1.1 12/17/23 12/17/23 12/17/23 16:31 10:52 08:13 WBC 6.7 RBC 3.53 L Hgb 9.6 L Hct 30.2 L MCV 85.6 MCH 27.1 MCHC 31.7 L RDW 16.9 Plt Count 262 MPV 8.7 Neut % (Auto) 64.4 Lymph % (Auto) 23.2 [place] % (Auto) 9.5 H Eos % (Auto) 2.8 Baso % (Auto) 0.1 Neut # (Auto) 4.3 Lymph # (Auto) 1.6 [place] # (Auto) 0.6 Eos # (Auto) 0.2 Baso # (Auto) 0.0 Sodium 138 Potassium 3.6 D Chloride 109 H Carbon Dioxide 27 Anion Gap 5.6 BUN 28 H D Creatinine 1.30 H Estimated Creat Clear 67 Estimated GFR 55 L Est GFR ( Amer) 66 D Glucose 130 H POC Glucose 198 H 243 H Calcium 8.8 Magnesium Total Bilirubin 0.4 AST 33 D ALT 24 Alkaline Phosphatase 99 Total Protein 6.5 Albumin 3.5 Globulin 3.0 Albumin/Globulin Ratio 1.2 12/16/23 12/16/23 16:36 10:55 WBC RBC Hgb Hct MCV MCH MCHC RDW Plt Count MPV Neut % (Auto) Lymph % (Auto) [place] % (Auto) Eos % (Auto) Baso % (Auto) Neut # (Auto) Lymph # (Auto) [place] # (Auto) Eos # (Auto) Baso # (Auto) Sodium Potassium Chloride Carbon Dioxide Anion Gap BUN Creatinine Estimated Creat Clear Estimated GFR Est GFR ( Amer) Glucose POC Glucose 136 H 154 H Calcium Magnesium Total Bilirubin AST ALT Alkaline Phosphatase Total Protein Albumin Globulin Albumin/Globulin Ratio DS: Diagnosis Discharge Diagnosis (1) CAP (community acquired pneumonia): Status: Acute Code(s): J18.9 - Pneumonia, unspecified organism (2) HARSHAD (acute kidney injury): Status: Acute Code(s): N17.9 - Acute kidney failure, unspecified (3) Diabetes type 2 with atherosclerosis of arteries of extremities: Status: Chronic Code(s): E11.51 - Type 2 diabetes mellitus with diabetic peripheral angiopathy without gangrene; I70.209 - Unspecified atherosclerosis of [place] arteries of extremities, unspecified extremity (4) HTN (hypertension): Status: Chronic Code(s): I10 - Essential (primary) hypertension Qualifiers: Hypertension type: essential hypertension Qualified Code(s): I10 - Essential (primary) hypertension (5) HLD (hyperlipidemia): Status: Chronic Code(s): E78.5 - Hyperlipidemia, unspecified Qualifiers: Hyperlipidemia type: mixed hyperlipidemia Qualified Code(s): E78.2 - Mixed hyperlipidemia (6) PAD (peripheral artery disease): Status: Chronic Code(s): I73.9 - Peripheral vascular disease, unspecified (7) ADRIANO (obstructive sleep apnea): Status: Chronic Code(s): G47.33 - Obstructive sleep apnea (adult) (pediatric) (8) CAD (coronary artery disease): Status: Chronic Code(s): I25.10 - Atherosclerotic heart disease of [place] coronary artery without angina pectoris Qualifiers: Associated angina: without angina Coronary Disease-Associated Artery/Lesion type: [place] artery [place] vs. transplanted heart: [place] heart Qualified Code(s): I25.10 - Atherosclerotic heart disease of [place] coronary artery without angina pectoris (9) CHRISTI (renal artery stenosis): Status: Chronic Code(s): I70.1 - Atherosclerosis of renal artery Meds Home Medications and Allergies Home Medications Medication Instructions Recorded Confirmed Type aspirin 81 mg tablet,delayed 81 mg PO DAILY 03/01/21 12/15/23 History release (Adult Low Dose Aspirin) atorvastatin 80 mg tablet 80 mg PO HS 10/09/21 12/15/23 History memantine 10 mg tablet 10 mg PO BID 05/02/22 12/15/23 History famotidine 20 mg tablet 20 mg PO DAILY 09/25/22 12/15/23 History losartan 100 mg tablet 100 mg PO DAILY 09/25/22 12/15/23 History rivaroxaban 20 mg tablet (Xarelto) 20 mg PO QPMWITHMEAL 09/25/22 12/15/23 History empagliflozin 25 mg tablet 25 mg PO DAILY 01/22/23 12/15/23 History (Jardiance) carvedilol 12.5 mg tablet 12.5 mg PO BID 04/23/23 12/15/23 History oxybutynin chloride 5 mg 5 mg PO DAILY 05/23/23 12/15/23 History tablet,extended release 24 hr insulin aspart U-100 100 unit/mL 14 unit SQ TID PRN Blood Sugar 11/04/23 12/15/23 History (3 mL) subcutaneous pen (Novolog FlexPen U-100 Insulin aspart) nitroglycerin 0.4 mg sublingual 0.4 mg sublingual Q5M PRN Chest 11/04/23 12/15/23 History tablet Pain terazosin 10 mg capsule 10 mg PO HS 11/04/23 12/15/23 History alprazolam 0.25 mg tablet 0.25 mg PO TID PRN Anxiety 5 days 11/11/23 12/15/23 Rx #15 tabs gabapentin 400 mg capsule 400 mg PO BID 10 days #20 caps 11/11/23 12/15/23 Rx oxycodone 5 mg tablet 5 mg PO Q6H PRN pain 3 days #12 11/11/23 12/15/23 Rx tabs amlodipine 5 mg tablet 5 mg PO HS 12/15/23 12/15/23 History insulin glargine 100 unit/mL (3 35 unit SQ HS 12/15/23 12/15/23 History mL) subcutaneous pen (Lantus Solostar U-100 Insulin) mirtazapine 15 mg tablet 15 mg PO HS 12/15/23 12/15/23 History sennosides 8.6 mg tablet (senna) 8.6 mg PO HS 12/16/23 12/16/23 History cefdinir 300 mg capsule 300 mg PO BID 3 days #6 caps 12/18/23 Rx New Prescriptions to Start Prescriptions: Alan Santoyo Allergies Allergy/AdvReac Type Severity Reaction Status Date / Time No Known Allergies Allergy Verified 12/03/23 10:42 Discharge Plan Disposition Patient Disposition: Home Health Service Condition: Fair Discharge Order Discharge Orders: Discharge Order (Routine); Ordered 12/18/23 Ordered By: Alan Rodriguez Follow up Plan Follow up with: Sreedhar Chavez MD [Staff Physician] - 12/25/23 2:20 pm Leanna Hendrix APRN [Nurse Practitioner] - 01/02/24 2:15 pm Prescriptions/Medication Reconciliation: New cefdinir 300 mg capsule 300 mg PO BID 3 Days Qty: 6 0RF Continued aspirin [Adult Low Dose Aspirin] 81 mg tablet,delayed release (DR/EC) 81 mg PO DAILY atorvastatin 80 mg tablet 80 mg PO HS famotidine 20 mg tablet 20 mg PO DAILY losartan 100 mg tablet 100 mg PO DAILY Xarelto 20 mg tablet 20 mg PO QPMWITHMEAL Jardiance 25 mg tablet 25 mg PO DAILY oxybutynin chloride 5 mg tablet extended release 24hr 5 mg PO DAILY carvedilol 12.5 mg tablet 12.5 mg PO BID amlodipine 5 mg tablet 5 mg PO HS Patient Comments: TAKE 1 TABLET BY MOUTH EVERY NIGHT AT BEDTIME mirtazapine 15 mg tablet 15 mg PO HS Patient Comments: TAKE 1 TABLET BY MOUTH EVERY NIGHT AT BEDTIME insulin glargine [Lantus Solostar U-100 Insulin] 100 unit/mL (3 mL) insulin pen 35 unit SQ HS sennosides [senna] 8.6 mg Tablet 8.6 mg PO HS Rx Instructions: 2 tablets memantine 10 MG tablet 10 mg PO BID insulin aspart U-100 [Novolog FlexPen U-100 Insulin] 100 unit/mL (3 mL) Insulin Pen 14 unit SQ TID PRN (Reason: Blood Sugar) Patient Comments: give 14 units if blood sugar is elevated terazosin 10 mg capsule 10 mg PO HS nitroglycerin 0.4 mg tablet, sublingual 0.4 mg SUBLINGUAL Q5M PRN (Reason: Chest Pain ) Rx Instructions: Do not exceed 3 doses per episode alprazolam 0.25 mg tablet 0.25 mg PO TID PRN (Reason: Anxiety) 5 Days Qty: 15 0RF oxycodone 5 mg tablet 5 mg PO Q6H PRN (Reason: pain) 3 Days Qty: 12 0RF gabapentin 400 mg capsule 400 mg PO BID 10 Days Qty: 20 0RF Problem Reconciliation Problems Reviewed?: Yes Patient Discharge Instructions ACTIVITY: Continue current activity DIET: continue same diet Patient Instructions: DI for Pneumonia -- Adult, Acute Kidney Injury, DI for Acute Kidney Injury Providers Primary Care Provider: Provider,Referral Admit Provider: Rob Denson Attending Provider: Heike Dickson
[2023-12-18 08:00] VITALS: BP 157/68; PULSE 65; PULSE 66; RESP 18; TEMP 36.7; O2SAT 96
[2023-12-18] MEDS: GENTAMICIN 0.3% OPTH SOL 5ML OP (08:14)
[2023-12-18] MEDS: MEMANTINE 10MG TABLET 10 MG PO (08:14)
[2023-12-18] MEDS: CARVEDILOL 12.5MG TABLET 12.5 MG PO (08:14)
[2023-12-18] MEDS: FAMOTIDINE 20MG TABLET 20 MG PO (08:14)
[2023-12-18] MEDS: GABAPENTIN 400MG CAPSULE 400 MG PO (08:14)
[2023-12-18] MEDS: ASPIRIN EC 81MG TABLET 81 MG PO (08:14)
[2023-12-18] MEDS: ALPRAZolam 0.25MG TABLET 0.25 MG PO (08:18)
[2023-12-18] MEDS: OXYCODONE 5MG IMMEDIATE RELEASE TABLET 5 MG PO (08:18)
[2023-12-18] MEDS: humaLOG 100 UNITS/ML 3ML VIAL (SSI) SQ (10:47)
[2023-12-18 10:53] LABS: POC Glucose,Bedside 251 (70-110)
--- NOTE | 2023-12-19 15:24 | CARE MANAGER ---
Received call back from patient's . She states that he is doing ok but seems short of breath. Discussed seeing the MD sooner if shortness of breath progressed. They are aware of follow up appointments and have the antibiotic. OSY Lee
== END 2023-12-18 14:39 | disposition home health service (06) | DRG 194 ==
LOC: ER 20:18 → 2ND 20:31
PROVIDERS: Internal Medicine Adolescent Medicine; Admitting Provider Nurse Practitioner Critical Care Medicine; Emergency Provider Student in an Organized Health Care Education/Training Program; Visit Provider Internal Medicine
DX: J18.9 Pneumonia, unspecified organism (principal); N17.9 Acute kidney failure, unspecified; E11.51 Type 2 diabetes mellitus with diabetic peripheral angiopathy without gangrene; I70.209 Unspecified atherosclerosis of native arteries of extremities, unspecified extremity; I10 Essential (primary) hypertension; E78.2 Mixed hyperlipidemia; I73.9 Peripheral vascular disease, unspecified; G47.33 Obstructive sleep apnea (adult) (pediatric); I25.10 Atherosclerotic heart disease of native coronary artery without angina pectoris; I70.1 Atherosclerosis of renal artery; Z89.421 Acquired absence of other right toe(s); F01.50 Vascular dementia, unspecified severity, without behavioral disturbance, psychotic disturbance, mood disturbance, and anxiety
CPT/HCPCS: 36415; 70450; 71045; 80048; 80053; 81001; 82803; 82962; 83036; 83605; 83735; 85025; 87040; 87636; 93005; 97163; 97166; 97530; 97535; 99285; J0456; J0696

== ENCOUNTER 2023-12-25 15:15 | Outpatient (CLI) | payer MEDICARE, OTHER, SELFPAY ==
--- NOTE | 2023-12-25 15:22 | XR_ITS ---
FINAL REPORT CLINICAL HISTORY: PNEUMONIA COMPARISON: 12/15/2023 FINDINGS: PA and lateral views of the chest were obtained. The cardiac and mediastinal silhouettes are within normal limits. Changes of emphysema are identified. There is linear opacity in the right lower lobe, favor atelectasis or scar. There is no pleural effusion or pneumothorax. No acute osseous abnormality is identified. IMPRESSION: Right lower lobe atelectasis versus scar. Reviewed, Interpreted and Dictated by Elicia Sharp MD Transcribed by Eva Biswas Authenticated and [facility]
[2023-12-25 16:22] LABS: Basophils % 0.4 % (0.1-2.0); Eosinophils # 0.2 K/mm3 (0.0-0.4); Eosinophils % 2.9 % (0.1-12.0); Hematocrit 35.6 % (42.0-52.0); Hemoglobin 10.6 g/dL (14.1-18.0); Lymphocytes # 1.9 K/mm3 (0.7-4.5); Lymphocytes % 30.7 % (10-50); Mean Corpuscular HGB Conc 29.8 g/dL (31.8-35.4); Mean Corpuscular Hemoglobin 26.6 pg (27.0-31.2); Mean Corpuscular Volume 89.4 fl (80-94); Mean Platelet Volume 8.4 fl (7.4-10.4); Monocytes # 0.4 K/mm3 (0.1-1.0); Monocytes % 6.7 % (1.7-9.3); Neutrophils # 3.7 K/mm3 (1.8-7.8); Neutrophils % 59.4 % (37.0-80.0); Platelet Count 289 K/mm3 (142-424); Red Blood Count 3.98 M/mm3 (4.60-6.20); Red Cell Distribution Width 16.4 % (11.5-17.5); White Blood Count 6.2 K/mm3 (4.8-10.8)
[2023-12-25 16:42] LABS: Anion Gap 11.5 mEq/L (5-15); Blood Urea Nitrogen 41 mg/dl (9-20); Calcium 9.5 mg/dl (8.4-10.2); Carbon Dioxide 27 mmol/L (22.0-30.0); Chloride 104 mmol/L (98-107); Estimated Glomerular Filt Rate 47 ml/min (>60); GFR (African American) 56 ML/MIN (>60); Glucose 268 mg/dl (74-100); Potassium 4.5 mmoL/L (3.5-5.1); Sodium 138 mmol/L (136-145)
== END 2023-12-25 23:59 ==
PROVIDERS: PCP Internal Medicine; Visit Provider Internal Medicine
DX: D64.9 Anemia, unspecified (principal); E11.8 Type 2 diabetes mellitus with unspecified complications; M86.9 Osteomyelitis, unspecified; Z79.899 Other long term (current) drug therapy; J18.9 Pneumonia, unspecified organism
CPT/HCPCS: 36415; 71046; 80048; 85025

== ENCOUNTER 2024-04-07 17:07 | Outpatient (CLI) | payer MEDICARE, OTHER, SELFPAY ==
[2024-04-07 17:29] LABS: Basophils % 0.4 % (0.1-2.0); Eosinophils # 0.3 K/mm3 (0.0-0.4); Eosinophils % 3.6 % (0.1-12.0); Hemoglobin 13.5 g/dL (14.1-18.0); Lymphocytes # 2.5 K/mm3 (0.7-4.5); Lymphocytes % 30.2 % (10-50); Mean Corpuscular HGB Conc 32.2 g/dL (31.8-35.4); Mean Corpuscular Volume 86.9 fl (80-94); Mean Platelet Volume 9.5 fl (7.4-10.4); Monocytes # 0.6 K/mm3 (0.1-1.0); Monocytes % 7.1 % (1.7-9.3); Neutrophils # 4.8 K/mm3 (1.8-7.8); Neutrophils % 58.7 % (37.0-80.0); Platelet Count 228 K/mm3 (142-424); Red Blood Count 4.83 M/mm3 (4.60-6.20); Red Cell Distribution Width 17.9 % (11.5-17.5); White Blood Count 8.2 K/mm3 (4.8-10.8)
[2024-04-07 17:52] LABS: Hemoglobin A1C 7.5 % (4.0-6.0)
[2024-04-07 17:55] LABS: Anion Gap 16.3 mEq/L (5-15); Blood Urea Nitrogen 17 mg/dl (9-20); Calcium 9.5 mg/dl (8.4-10.2); Carbon Dioxide 25 mmol/L (22.0-30.0); Chloride 105 mmol/L (98-107); Estimated Glomerular Filt Rate 55 ml/min (>60); GFR (African American) 66 ML/MIN (>60); Glucose 167 mg/dl (74-100); Potassium 4.3 mmoL/L (3.5-5.1); Sodium 142 mmol/L (136-145)
== END 2024-04-07 23:59 | disposition home or self-care (01) ==
LOC: LAB.DROPOF 17:07
PROVIDERS: PCP Internal Medicine; Visit Provider Internal Medicine
DX: I10 Essential (primary) hypertension (principal); N17.9 Acute kidney failure, unspecified; E11.59 Type 2 diabetes mellitus with other circulatory complications; Z79.4 Long term (current) use of insulin; Z79.84 Long term (current) use of oral hypoglycemic drugs; Z87.891 Personal history of nicotine dependence
CPT/HCPCS: 80048; 83036; 85025

== ENCOUNTER 2024-05-14 10:32 | Outpatient (CLI) | payer MEDICARE, OTHER, SELFPAY | END 2024-05-14 23:59 | disposition home or self-care (01) | LOC: LAB.DROPOF 05-20 10:33 | PROVIDERS: PCP Internal Medicine; Visit Provider Urology | DX: M86.9 Osteomyelitis, unspecified (principal); E11.8 Type 2 diabetes mellitus with unspecified complications ==

== ENCOUNTER 2024-05-15 09:24 | Day surgery (SDC) | payer MEDICARE, OTHER, SELFPAY ==
[2024-05-15 09:57] VITALS: BP 141/57; PULSE 67; RESP 18; TEMP 36.3; O2SAT 96; BMI 26.6
[2024-05-15 09:59] LABS: POC Glucose,Bedside 93 (70-110)
[2024-05-15] MEDS: LIDOCAINE 2% UROJET 10ML 10 ML UR (10:15)
[2024-05-15 10:19] VITALS: BP 139/74; PULSE 58; RESP 16; TEMP 36.6; O2SAT 99
--- NOTE | 2024-05-16 07:15 | HMH.PROCNOTE ---
[facility] Procedure Note Date: 05/15/24 Time: 07:38 Procedure Note:: Chart review: Patient CT scan with infusion on 11/20 shows small bilateral renal cysts. The patient has an elevated PSA and I ordered a PSA before the procedure. He has been on Flomax. Preop diagnosis:bladder outlet obstruction Postop diagnosis: bladder outlet obstruction Operative procedure: The patient was brought to the cystoscopy suite. He was prepped and draped in the usual fashion. He underwent flexible cystoscopy. The patient has some mild membranous urethritis. He has a 5 cm prostatic urethra with lateral lobar prostatic obstruction. He has mild cystitis cystica. He has fine trabeculation throughout. I do not see a bladder stone tumor hemorrhage or infection. The ureteral orifices are normal bilaterally. He tolerated the procedure well.
[2024-05-16 10:23] LABS: PSA, Free 2.37 ng/mL; Prostate Specific Ag 6.7 ng/mL (0.0-4.0)
== END 2024-05-15 10:30 | disposition home or self-care (01) ==
PROVIDERS: PCP Internal Medicine; Visit Provider Urology
PROC: 0TJB8ZZ Inspection of Bladder, Via Natural or Artificial Opening Endoscopic (ICD-10-PCS; CPT 52000; principal; 2024-05-15 10:15)
DX: R97.20 Elevated prostate specific antigen [PSA] (principal); N32.0 Bladder-neck obstruction; Q61.02 Congenital multiple renal cysts; N34.2 Other urethritis; N30.80 Other cystitis without hematuria
CPT/HCPCS: 52000; 36415; 82962; 84153; 84154; 87086

== ENCOUNTER 2024-06-04 11:00 | Outpatient (RCR) | payer MEDICARE, OTHER, SELFPAY ==
--- NOTE | 2024-04-08 13:34 | HMH.RHREAS ---
Rehab Reassessment Rehab OP Re-assessment Start: 03/10/24 14:04 Freq: Status: Active Protocol: Document 04/07/24 11:47 DYLAN (Rec: 04/07/24 12:05 DYLAN [email or web address]) E-signed By Unique Kwan, PT SLADE Balance Evaluation Sitting to Standing Ability Independent w/out Hands Unsupported Stance Safely- 2 minutes Sitting Unsupported, Feet on Floor Safely- 2 minutes Standing to Sitting Ability Safely, Minimal Hand Use Transfer Ability Safely, Minimal Hand Use Unsupported Stance- Eyes Closed Safely, 10 seconds Unsupported Stance- Eyes Open Independent, 1 minute Reaching Forward Standing Confidently, 10 inches Pick- Up Object From Floor Independent/Safe Look Behind Shoulder - Standing Shifts Weight Well Turning 360 Degrees Turns Bilateral, < 4 secs Unsupported Stance, Alternating Feet on (I)- 8 Steps in > 20 secs Stair Unsupported Tandem Stance Assist to Step-15 seconds Unilateral Leg Stance Lifts Leg/Unable to Hold Total Score Balance Evaluation Total (out of 56 49 points) Rehab Re-assessment Subjective Subjective Pt reports he feels 75% better since IE. I've noticed my strength is better. Pt wishes to focus more on balance deficits. No reported falls but LOB noted throughout household tasks. Objective Objective Notes TU without hurrycane SLADE MMT BLE: Hip flexion 4/5 Hip ABD: 4/5 Hip ADD: 4/5 Knee ext: 4/5 Knee flexion: 4/5 Assessment Progress Assessment Progressing as Expected Assessment Notes This is a reassessment for Roly Bunny who presents to PT for c/o weakness. Since IE, pt has been seen for 6 visits that have consisted of education, NMR, and therapeutic exercises focusing on strength, balance, and gait. Pt with good attendance to scheduled PT visits and reports adherence to HEP. Since IE, pt with improvements in strength and balance assessment scores. Pt has met all of his STGs and one LTG. Pt still presents with impaired gait, balance, and BLE strength. Pt would continue to benefit from skilled outpatient physical therapy to address remaining deficits. Patient goals met STG: In 3 weeks, 1) Pt will progress through balance interventions with at most Mod A: MET 2) Pt will negotiate 10' of uneven surface with CGA: MET 3) Pt will tolerate 10 minutes of a moderate intensity endurance activity without rest break: MET LTG: In 6 weeks, 1) Pt will improve SLADE score to 45/56 to decrease fall risk ; MET 2) Pt will increase TUG score to <12sec using LRAD; In progress 3) Pt will independently navigate 24 6 steps with HRs as needed; In progress 4) Pt will hold SLS for 10+ seconds to improve functional balance; In progress 5) Improve BLE strength to 5/5 to improve functional tasks; In progress Plan Plan Continue POC Frequency of Therapy 2x a week Duration of therapy 3 weeks Time and Billing Re-Eval Time 10 Re-Eval Billing Units 1 PHYSICIAN CERTIFICATION: I certify the specified therapy services for Roly Hollis are required, authorized, and reviewed every 30 days.
--- NOTE | 2024-05-07 15:09 | HMH.RHREAS ---
Rehab Reassessment Rehab OP Re-assessment Start: 03/10/24 14:04 Freq: Status: Active Protocol: Document 05/07/24 14:12 DYLAN (Rec: 05/07/24 15:02 DYLAN [email or web address]) E-signed By Unique Kwan, PT SLADE Balance Evaluation Sitting to Standing Ability Independent w/out Hands Unsupported Stance Safely- 2 minutes Sitting Unsupported, Feet on Floor Safely- 2 minutes Standing to Sitting Ability Safely, Minimal Hand Use Transfer Ability Safely, Minimal Hand Use Unsupported Stance- Eyes Closed Safely, 10 seconds Unsupported Stance- Eyes Open Independent, 1 minute Reaching Forward Standing Confidently, 10 inches Pick- Up Object From Floor Independent/Safe Look Behind Shoulder - Standing Shifts Weight Well Turning 360 Degrees Turns Bilateral, < 4 secs Unsupported Stance, Alternating Feet on (I)- 8 Steps in > 20 secs Stair Unsupported Tandem Stance Assist to Step-15 seconds Unilateral Leg Stance Lifts Leg/Holds > 3 secs Total Score Balance Evaluation Total (out of 56 50 points) Rehab Re-assessment Subjective Subjective Pt reports he feels 75% better since IE. Pt reports his balance is much better but he still believes he is not 100% where he wishes to be with his strength and balance. Denies falls in past 30 days. Pt still uses Hurrycane during ambulation. Objective Objective Notes TU.55 without hurrycane SLADE MMT BLE: Hip flexion 4/5 Hip ABD: 4+/5 Hip ADD: 4+/5 Knee ext: 4/5 Knee flexion: 4/5 Balance: Multiple LOB when performing dynamic standing or SL tasks on uneven surfaces. Min A required. Assessment Progress Assessment Progressing as Expected Assessment Notes This is a reassessment for Roly Hollis who presents to PT for c/o weakness. Since IE, pt has been seen for 9 visits that have consisted of education, NMR, and therapeutic exercises focusing on strength, balance, and gait. Pt with good attendance to scheduled PT visits and reports adherence to HEP. Since last RA, pt with improvements in strength and TUG score. Pt has met all of his STGs and two LTGs. PT added LTG to reflect pt's progress and decrease community fall risk. Pt still presents with impaired gait, balance, and BLE strength. Pt would continue to benefit from skilled outpatient physical therapy to address remaining deficits and improve safety. Patient goals met STG: In 3 weeks, 1) Pt will progress through balance interventions with at most Mod A: MET 2) Pt will negotiate 10' of uneven surface with CGA: MET 3) Pt will tolerate 10 minutes of a moderate intensity endurance activity without rest break: MET LT) Pt will improve SLADE score to 45/56 to decrease fall risk ; MET 2) Pt will increase TUG score to <12sec using LRAD; In progress 3) Pt will independently navigate 24 6 steps with HRs as needed; MET 4) Pt will hold SLS for 10+ seconds to improve functional balance; In progress 5) Improve BLE strength to 5/5 to improve functional tasks; In progress. Revised Goals Added LTG reflect progress: 1) Pt will improve SLADE score to 52/56 to decrease fall risk Plan Plan Continue POC 2x a week for ~3 weeks Frequency of Therapy 2x Duration of therapy 3 weeks Time and Billing Re-Eval Time 10 Re-Eval Billing Units 1 PHYSICIAN CERTIFICATION: I certify the specified therapy services for Roly Hollis are required, authorized, and reviewed every 30 days.
== END 2024-06-04 11:05 | disposition home or self-care (01) ==
LOC: PT 11:00
PROVIDERS: Visit Provider Internal Medicine
DX: R53.1 Weakness (principal)
CPT/HCPCS: 97110; 97163; 97164; 97530; 97535

== ENCOUNTER 2024-07-07 14:10 | Outpatient (CLI) | payer MEDICARE, OTHER, SELFPAY ==
[2024-07-07 17:15] LABS: Basophils % 0.5 % (0.1-2.0); Eosinophils # 0.4 K/mm3 (0.0-0.4); Eosinophils % 5.6 % (0.1-12.0); Hematocrit 40.8 % (42.0-52.0); Hemoglobin 12.5 g/dL (14.1-18.0); Lymphocytes # 2.3 K/mm3 (0.7-4.5); Lymphocytes % 31.1 % (10-50); Mean Corpuscular HGB Conc 30.6 g/dL (31.8-35.4); Mean Corpuscular Hemoglobin 28.4 pg (27.0-31.2); Mean Corpuscular Volume 92.8 fl (80-94); Mean Platelet Volume 9.7 fl (7.4-10.4); Monocytes # 0.5 K/mm3 (0.1-1.0); Monocytes % 6.6 % (1.7-9.3); Neutrophils # 4.2 K/mm3 (1.8-7.8); Neutrophils % 56.1 % (37.0-80.0); Platelet Count 274 K/mm3 (142-424); Red Cell Distribution Width 15.2 % (11.5-17.5); White Blood Count 7.5 K/mm3 (4.8-10.8)
[2024-07-07 17:33] LABS: Alanine Aminotransferase 64 U/L (12-78); Albumin Level 3.9 g/dl (3.5-5.0); Albumin/Globulin Ratio 1.3 (1.1-1.8); Alkaline Phosphatase 116 U/L (38-126); Anion Gap 10.5 mEq/L (5-15); Aspartate Amino Transferase 109 U/L (17-59); Bilirubin,Total 0.6 mg/dl (0.2-1.3); Blood Urea Nitrogen 29 mg/dl (9-20); Calcium 9.6 mg/dl (8.4-10.2); Carbon Dioxide 28 mmol/L (22.0-30.0); Chloride 107 mmol/L (98-107); Chol/HDL Ratio 2.5 (1-3.5); Cholesterol 108 mg/dl (140-200); Estimated Glomerular Filt Rate 55 ml/min (>60); GFR (African American) 66 ML/MIN (>60); Globulin 2.9 g/dL (1.3-3.2); Glucose 124 mg/dl (74-100); HDL Cholesterol 44 mg/dl (40-60); Potassium 4.5 mmoL/L (3.5-5.1); Sodium 141 mmol/L (136-145); Total Protein,Serum 6.8 g/dl (6.3-8.2); Triglycerides 91 mg/dl (30-150); VLDL Cholesterol 18 mg/dL (0-40)
[2024-07-07 17:44] LABS: Direct LDL Cholesterol 40.02 mg/dL (100-129)
[2024-07-07 18:13] LABS: Hemoglobin A1C 4.9 % (4.0-6.0)
[2024-07-07 18:23] LABS: Microalbumin/Creatinine Ratio 47.8
[2024-07-07 18:35] LABS: Creatinine,Urine Random 101 mg/dL (Not Estab.)
== END 2024-07-07 23:59 | disposition home or self-care (01) ==
LOC: LAB.DROPOF 07-08 10:42
PROVIDERS: PCP Internal Medicine; Visit Provider Internal Medicine
DX: E11.42 Type 2 diabetes mellitus with diabetic polyneuropathy (principal); E11.59 Type 2 diabetes mellitus with other circulatory complications; I10 Essential (primary) hypertension; E78.5 Hyperlipidemia, unspecified
CPT/HCPCS: 80053; 80061; 82043; 82570; 83036; 85025

== ENCOUNTER 2024-09-07 14:33 | Outpatient (CLI) | payer MEDICARE, OTHER, SELFPAY ==
[2024-09-08 12:29] LABS: PSA, Free 2.33 ng/mL
== END 2024-09-07 23:59 | disposition home or self-care (01) ==
LOC: LAB 14:35
PROVIDERS: PCP Internal Medicine; Visit Provider Urology
DX: N40.1 Benign prostatic hyperplasia with lower urinary tract symptoms (principal)
CPT/HCPCS: 36415; 84153; 84154

== ENCOUNTER 2024-12-22 15:24 | Outpatient (CLI) | payer MEDICARE, OTHER, SELFPAY ==
[2024-12-22 16:28] LABS: Basophils % 0.4 % (0.1-2.0); Eosinophils # 0.1 K/mm3 (0.0-0.4); Eosinophils % 1.4 % (0.1-12.0); Hematocrit 41.7 % (42.0-52.0); Lymphocytes # 2.6 K/mm3 (0.7-4.5); Lymphocytes % 33.5 % (10-50); Mean Corpuscular HGB Conc 31.2 g/dL (31.8-35.4); Mean Corpuscular Hemoglobin 27.3 pg (27.0-31.2); Mean Corpuscular Volume 87.4 fl (80-94); Mean Platelet Volume 11.4 fl (7.4-10.4); Monocytes # 0.6 K/mm3 (0.1-1.0); Monocytes % 8.1 % (1.7-9.3); Neutrophils # 4.3 K/mm3 (1.8-7.8); Neutrophils % 56.3 % (37.0-80.0); Platelet Count 210 K/mm3 (142-424); Red Blood Count 4.77 M/mm3 (4.60-6.20); Red Cell Distribution Width 14.4 % (11.5-17.5); White Blood Count 7.6 K/mm3 (4.8-10.8)
[2024-12-22 17:00] LABS: Alanine Aminotransferase 65 U/L (12-78); Albumin Level 4.2 g/dl (3.5-5.0); Alkaline Phosphatase 124 U/L (38-126); Anion Gap 11.6 mEq/L (5-15); Aspartate Amino Transferase 56 U/L (17-59); Bilirubin,Direct 0.3 mg/dl (0.0-0.4); Bilirubin,Indirect 0.1 mg/dL (0.0-0.9); Bilirubin,Total 0.4 mg/dl (0.2-1.3); Bilirubin,Unconjugated 0.1 mg/dL (0.0-1.1); Blood Urea Nitrogen 33 mg/dl (9-20); Calcium 9.7 mg/dl (8.4-10.2); Carbon Dioxide 25 mmol/L (22.0-30.0); Chloride 107 mmol/L (98-107); Chol/HDL Ratio 3.1 (1-3.5); Cholesterol 123 mg/dl (140-200); Estimated Glomerular Filt Rate 60 ml/min (>60); GFR (African American) 73 ML/MIN (>60); Glucose 264 mg/dl (74-100); HDL Cholesterol 40 mg/dl (40-60); Potassium 4.6 mmoL/L (3.5-5.1); Sodium 139 mmol/L (136-145); Total Protein,Serum 6.6 g/dl (6.3-8.2); Triglycerides 196 mg/dl (30-150); VLDL Cholesterol 39 mg/dL (0-40)
[2024-12-22 17:10] LABS: Direct LDL Cholesterol 42.86 mg/dL (100-129)
[2024-12-22 17:13] LABS: Free T4 (Free Thyroxine) 0.77 ng/dl (0.78-2.19)
== END 2024-12-22 23:59 | disposition home or self-care (01) ==
LOC: LAB 15:26
PROVIDERS: PCP Internal Medicine; Visit Provider Physician Assistant
DX: I25.10 Atherosclerotic heart disease of native coronary artery without angina pectoris (principal); I10 Essential (primary) hypertension; E78.5 Hyperlipidemia, unspecified; Z45.09 Encounter for adjustment and management of other cardiac device
CPT/HCPCS: 36415; 80048; 80061; 80076; 84439; 84443; 85025

== ENCOUNTER 2024-12-31 15:15 | Outpatient (CLI) | payer MEDICARE, OTHER, SELFPAY ==
[2024-12-31 17:46] LABS: Albumin Level 4.3 g/dl (3.5-5.0); Chloride 105 mmol/L (98-107)
[2024-12-31 17:47] LABS: Potassium 4.9 mmoL/L (3.5-5.1); Sodium 138 mmol/L (136-145)
[2024-12-31 17:49] LABS: Alanine Aminotransferase 52 U/L (12-78); Albumin/Globulin Ratio 1.8 (1.1-1.8); Anion Gap 10.9 mEq/L (5-15); Aspartate Amino Transferase 40 U/L (17-59); Blood Urea Nitrogen 28 mg/dl (9-20); Carbon Dioxide 27 mmol/L (22.0-30.0); Estimated Glomerular Filt Rate 60 ml/min (>60); GFR (African American) 73 ML/MIN (>60); Globulin 2.4 g/dL (1.3-3.2); Total Protein,Serum 6.7 g/dl (6.3-8.2)
[2024-12-31 17:50] LABS: Alkaline Phosphatase 132 U/L (38-126); Bilirubin,Total 0.3 mg/dl (0.2-1.3); Calcium 9.5 mg/dl (8.4-10.2); Chol/HDL Ratio 3.1 (1-3.5); Cholesterol 125 mg/dl (140-200); Glucose 261 mg/dl (74-100); HDL Cholesterol 40 mg/dl (40-60); Triglycerides 259 mg/dl (30-150); VLDL Cholesterol 52 mg/dL (0-40)
[2024-12-31 18:01] LABS: Direct LDL Cholesterol 46.44 mg/dL (100-129)
== END 2024-12-31 23:59 | disposition home or self-care (01) ==
LOC: LAB.DROPOF 01-04 15:16
PROVIDERS: PCP Internal Medicine; Visit Provider Internal Medicine
DX: I10 Essential (primary) hypertension (principal); E78.5 Hyperlipidemia, unspecified; E11.59 Type 2 diabetes mellitus with other circulatory complications; E11.42 Type 2 diabetes mellitus with diabetic polyneuropathy; Z79.4 Long term (current) use of insulin; Z79.84 Long term (current) use of oral hypoglycemic drugs
CPT/HCPCS: 80053; 80061; 83036

== ENCOUNTER 2025-01-06 10:54 | Day surgery (SDC) | payer MEDICARE, OTHER, SELFPAY ==
[2025-01-06 11:33] VITALS: BMI 28.3
[2025-01-06 11:36] VITALS: BP 117/75; PULSE 78; RESP 18; O2SAT 94
[2025-01-06 11:46] VITALS: PULSE 70
[2025-01-06] MEDS: LIDOCAINE 2% W/EPI 1:100,000 20ML VIAL 20 ML SUBCUT (11:54)
[2025-01-06] MEDS: CEFAZOLIN SODIUM 1 GM in 0.9 % SODIUM CHLORIDE 50 ML IV (11:55)
--- NOTE | 2025-01-14 12:17 | P.PCN_ITS ---
[facility] Loop Recorder Date: 01/06/25 Time: 12:00 Procedure Performed:: Removal of loop recorder Indication:: Battery at DU Technique:: Patient was brought to the cardiac Hazard Mitigation Officer as an outpatient. After informed consent was obtained, lidocaine was used anesthetize the area over the existing device and a scalpel was used for dissection down to the device. Forceps used to help remove the device. Surgical glue and Steritapes used to approximate the edges with sterile dressing applied and Tegaderm over that. Patient tolerated the procedure without complications. Impression:: Successful removal of loop recorder Serial Number:: Not available Plan:: Routine postop care.
== END 2025-01-06 12:42 | disposition home or self-care (01) ==
PROVIDERS: PCP Internal Medicine; Visit Provider Internal Medicine
DX: Z45.09 Encounter for adjustment and management of other cardiac device (principal); I25.10 Atherosclerotic heart disease of native coronary artery without angina pectoris; I70.1 Atherosclerosis of renal artery; Z79.899 Other long term (current) drug therapy; Z87.891 Personal history of nicotine dependence; I65.23 Occlusion and stenosis of bilateral carotid arteries; G47.33 Obstructive sleep apnea (adult) (pediatric); I10 Essential (primary) hypertension; Z79.01 Long term (current) use of anticoagulants; E11.9 Type 2 diabetes mellitus without complications; Z79.4 Long term (current) use of insulin
CPT/HCPCS: 33286; J0690

== ENCOUNTER 2025-01-29 11:30 | Outpatient (CLI) | payer MEDICARE, OTHER, SELFPAY ==
--- NOTE | 2025-01-29 11:15 | CA_ITS ---
APPROVED REPORT EXAM: Comprehensive 2D, Doppler, and color-flow Echocardiogram Presales Consultant: Ethel Reid RDCS Ht: 5 ft 8 in Wt: 189lbs BSA: 1.99 BP: 117/50 mmHg Indications: ABN EKG,HTN,DM,GILL.,HLP,ADRIANO,CAD M-Mode Dimensions RVDd 3.24 cm (0.9-2.6) LA Diam 3.86 cm (1.9-4.0) LVDd 4.55 cm (3.5-5.7) LVDs 3.29 cm (3.5-5.7) IVSd 0.94 cm (0.6-1.1) PWd 0.99 cm (0.6-1.1) EF (Teich) 53.80% FS 27.70% EDV (Teich) 94.90 mL TAPSE 2.26 (<1.7) ESV (Teich) 43.80 mL LV Diastology E Decel Time 203 (160-240 msec) E/A Ratio 0.8 Mitral Valve MV E Max Avelino. 76.0 (40-130 cm/s) MV A Velocity 92.0 (40-130 cm/s) E/A Ratio 0.82 MV PHT 60.0 ms Left Ventricle The left ventricle is normal size. The left ventricular systolic function is normal. The left ventricular ejection fraction is within the normal range. There is increased LV wall thickness. There is normal LV segmental wall motion. The left ventricular diastolic function is normal. LVEF is 55%. Right Ventricle The right ventricle is normal size. The right ventricular systolic function is normal. Atria The left atrium size is normal. The right atrium size is normal. There is no Doppler evidence of interatrial shunt. Aortic Valve The aortic valve is mildly thickened. There is no aortic valvular stenosis. No aortic regurgitation is present. Mitral Valve The mitral valve is normal in structure. No evidence of mitral valve stenosis. Trace mitral regurgitation. Tricuspid Valve Tricuspid valve is grossly normal in structure and function. Trace tricuspid regurgitation. There is insufficient TR jet to estimate RVSP. Pulmonic Valve The pulmonary valve is normal in structure. Trace pulmonic regurgitation. Great Vessels The aortic root is normal in size. IVC is normal in size and collapses >50% with inspiration. Pericardium There is no pericardial effusion. Other Information Study Quality: Fair Conclusion Normal biventricular systolic function. No significant valvular stenosis or regurgitation. Electronically signed by : Sade Yousif MD 02/07/2025 15:09:35
[2025-01-29 12:19] VITALS: BP 115/64; PULSE 59; RESP 17; O2SAT 95
[2025-01-29 12:22] VITALS: BMI 28.5
[2025-01-29] MEDS: IOPAMIDOL-370 (76%);100ML BOTTLE 85 ML IV (12:57)
[2025-01-29] MEDS: 0.9 % SODIUM CHLORIDE 50 ML VIAL IV (12:57)
[2025-01-29] MEDS: SODIUM CHLORIDE 0.9% 10ML SYR (RAD ONLY) 10 ML IV (12:57)
--- NOTE | 2025-01-29 13:00 | CT_ITS ---
APPROVED REPORT Night Manager: CLINICAL INDICATION Chest Pain TECHNIQUE Image Acquisition: A 128 slice MDCT scanner (TeleDNAa View) was used for data acquisition. A noncontrast coronary calcium scan was performed. A CT attenuation threshold of 130 Hounsfield units (HU) was used for the detection of calcium in contiguous voxels of 1 sq mm in area to be counted as individual lesions. Bolus tracking in the ascending aorta with a threshold of 180 HU was performed. Immediately afterwards, ECG synchronized cardiac CT was then performed from the cardiac base to apex using retrospective gating with ECG tube current modulation. A total of 85 mL of Isovue 370 mg/mL contrast medium was administered at 5 mL/sec followed by a saline flush using a biphasic injection protocol. A tube voltage of 120 KVp was used. The patient received the following medications prior to the cardiac CT. 0.8 mg of sublingual nitroglycerin The average heart rate at the time of acquisition was 55 bpm and regular. Image Reconstruction Transaxial images were reconstructed at 0.67 mm slide thickness. Data was reviewed interactively on an advanced workstation capable of 2 and 3-dimensional displays in all conventional reconstruction formats, including multiplanar reformations, maximum intensity projections, curved multiplanar reformations, and volume rendered reconstructions. When applicable, selected routine images describing the relevant coronary anatomy and pathology were saved and sent to PACS. Complications None Technical Quality Overall image quality was fair, due to significant motion and blurring artifact. Coronary artery opacification was adequate. Total DLP (Dose-Length Product) is 1422.6 mGy-cm. The reported value represents the total of one or more individual components during the CT acquisition of this date and at this time, and as such, the same value may appear in more than one CT report depending on the interpreting/reporting physicians. COMPARISON None FINDINGS CT Coronary Calcium Scoring LMA (Left Main Artery) = 55 LAD (Left Anterior Descending) = 431 LCX (Left Coronary Circumflex) = 0 RCA (Right Coronary Artery) = 281 Total Calcium Score = 767 using the AJ-130 method. The observed calcium score of 767 is at 82nd percentile for subjects of the same age, sex, and race/ethnicity. The interpretation of the calcium heart score is based on the following continuum*: 0 = no calcified plaque detected (risk of coronary artery disease is very low ??? less than 5%) 1-10 = calcium detected in extremely minimal levels (risk of coronary diseases is still low ??? less than 10%) 11-100 = mild levels of plaque detected with certainty (mild or minimal narrowing of heart arteries is likely) 101-400 = definite,at least moderate levels of plaque detected (relatively high risk of a heart attack within 3-5 years) >401-999 = extensive levels of plaque detected (high risk of heart attack, high levels of vascular disease are present, high likelihood of at least one significant coronary narrowing) *The calcium heart score quantifies the burden of coronary calcification/plaque in the coronary arteries. The calcium heart score is not able to evaluate the presence or burden of non-calcified (i.e. soft) plaque. There is also calcification in the aortic valve, mitral annulus, and the ascending, transverse, and descending thoracic aorta. Coronary CT Angiography The coronary arterial system is right dominant. Quantitative Stenosis Grading: Left Main (LM): The left main originates normally from the left sinus of Valsalva. The LM bifurcates into the left anterior descending artery and left circumflex artery. There is mixed calcified/noncalcified plaque in the ostial and proximal and with < 25% luminal stenosis. Left Anterior Descending (LAD) and Diagonal Branches: The LAD gives off 3 diagonal branch(es). There is mixed calcified/noncalcified plaque in the proximal and mid LAD segments with up to 70-90% luminal stenosis. There is no evidence of LAD-myocardial bridge. Left Circumflex (LCX) and Obtuse Marginals (OM): The LCX gives off 2 Obtuse Marginal (OM) branch(es). There is mixed calcified/noncalcified plaque in the proximal LCx, with up to 50-70% luminal stenosis. Right Coronary Artery (RCA): The RCA originates normally from the right sinus of Valsalva. The RCA gives off a posterior descending artery (PDA) and posterolateral (PL) branches. The RCA is difficult to visualize due to significant motion., Grossly, there is calcified plaque along the trajectory of the RCA, with up to 50-70% luminal stenosis. Non-Coronary Cardiac Findings: Analysis of the left ventricular (LV) structure and function was performed after 3-D reconstruction of the LV from axial images, with user-corrected automatic contouring for assessment of LV volumes and user-defined reconstruction from oblique planes for measurement of 3-D cardiac structure and function. -The left ventricle systolic function is normal. -There is no left atrial appendage filling defect. Two right pulmonary veins and two left pulmonary veins drain normally into the left atrium. -No pericardial thickening or calcification. -Central and branch pulmonary arteries in the [id number] are unremarkable. -Thoracic aorta within the visualized thoracic aortic-branches in the [id number] is unremarkable. Extracardiac Structures No significant extra-cardiac findings. Note, however, that this study is focused on the cardiac findings. IMPRESSION -Fair image quality due to significant motion and blurring artifact. This may affect diagnostic interpretation of the study findings. - Presence of coronary calcification with an Agatston score = 767 using the AJ-130 method. -The observed calcium score of 767 is at 82nd percentile for subjects of the same age, sex, and race/ethnicity. - Multivessel atherosclerotic coronary disease with possible evidence of significant flow-limiting atherosclerosis of the mid-LAD and the proximal LCX segments. The RCA is difficult to visualize, but mixed plaque is also present along its trajectory, with overall indeterminant severity of luminal stenosis. -CAD-RADS 4A. Management recommendations per ACC/AHA guidelines*, as clinically appropriate. *Recommendations: CAD RADS 0: Reassurance. Consider non-atherosclerotic causes of chest pain. CAD RADS 1: Consider non-atherosclerotic causes of chest pain. Consider preventive therapy and risk factor modification. CAD RADS 2: Consider non-atherosclerotic causes of chest pain. Consider preventive therapy and risk factor modification, particularly for patients with nonobstructive plaque in multiple segments. CAD RADS 3: Consider further functional testing. Consider symptom-guided anti-ischemic and preventive pharmacotherapy as well as risk factor modification per published guideline statements. CAD RADS 4A: Consider further functional testing or invasive coronary angiography with revascularization per published guideline statements. Consider symptom-guided anti-ischemic and preventive pharmacotherapy as well as risk factor modification per published guideline statements. CAD RADS 4B: Invasive coronary angiography recommended with revascularization per published guideline statements. Consider symptom-guided anti-ischemic and preventive pharmacotherapy as well as risk factor modification per published guideline statements. CAD RADS 5: Consider invasive angiography and/or viability assessment with revascularization per published guideline statements. Consider symptom-guided anti-ischemic and preventive pharmacotherapy as well as risk factor modification per published guideline statements. CRITICAL RESULT None COMMUNICATION Per this written report The coronary and cardiac findings of this CCTA were reviewed, reported, and signed by Byron Yousif MD (Batch Mixer Operator) Conclusion Electronically signed by : Sade Yousif MD 02/02/2025 12:52:36
--- OUTSIDE RECORDS SUMMARY | 2025-02-04 19:33 | XMS_ITS ---
Author Organization Unknown TREATMENT PLAN Planned Care Start Date Provider Encounter for Check-up [id number] [facility]
--- OUTSIDE RECORDS SUMMARY | 2025-02-04 19:34 | XMS_ITS | Data Portability ---
Author Organization [facility] - [place] & VIANNEY Randle ADMIN Address [address] [place] [address] Care Team Providers Care Home Aid Name Role Phone VANDANA DAMON Primary Care Provider Assessment No assessment recorded. Plan of Treatment Reminders Order Date Submit Date Provider Last Modified By Organization Details Last Modified Time Details Appointments None recorded. Lab PSA, serum or plasma 2022 023 [facility], [address], [place], [address], 3 15:41:42 urinalysis, dipstick 2022 023 [email or web address] [facility], [address] [facility] [address], [address], [place], [address], 3 15:37:25 Referral None recorded. Procedures None recorded. Surgeries None recorded. Imaging None recorded. Medication Orders terazosin 10 mg capsule 2022 023 [email or web address] [facility], [address] [place] [address], [address], 3 08:49:44 oxybutynin chloride ER 5 mg tablet,exte nded release 24 hr 2022 023 [facility], [facility] [place], [address], 3 14:24:16 Patient TargetsNo targets recorded. Patient InstructionsNo instructions recorded. Reason for Referral None Reported. Results Created Date Observation Date Name Description Value Unit Range Abnormal Flag Note LastModifiedBy Organization Detail LastModifiedTime 08/27/2008/27/2023 PROST ATE SPECI FIC AG (PSA) prostate specific Ag (PSA) 12.6 NG/mL 0-4.0 high Not Available [facility] ([facility]) [address] [facility] [address], [place], [address], 08/27/2023 15:41:42 08/27/2008/27/2023 urina lysis , dipst ick Leukocytes (reference range) negati ve Not Available [facility] [address] [place] [address] [address], [place], [address], 08/27/2023 13:59:36 08/27/2008/27/2023 urina lysis , dipst ick Nitrite (reference range:) negati ve Not Available [facility], [place], [address], 08/27/2023 13:59:36 08/27/2008/27/2023 urina lysis , dipst ick Urobilinogen (reference range) 0.2 Not Available [facility], [place], [address], 08/27/2023 13:59:36 08/27/2008/27/2023 urina lysis , dipst ick Protein (reference range) negati ve Not Available [address], [place], [address], 08/27/2023 13:59:36 08/27/2008/27/2023 urina lysis , dipst ick pH (reference range 5-8.5) 6.0 Not Available [facility], [place], [address], 08/27/2023 13:59:36 08/27/20 23 08/27/2023 urina lysis , dipst ick Blood (reference range:) negati ve Not Available [facility] [address], [place], [address], 08/27/2023 13:59:36 08/27/2008/27/2023 urina lysis , dipst ick Specific [place] (reference range) 1.015 Not Available [facility] [address] [place] [address] [address], [place], [address], 08/27/2023 13:59:36 08/27/2008/27/2023 urina lysis , dipst ick Ketone (reference range) negati ve Not Available [facility] [address] [place] [address] [address], [place], [address], 08/27/2023 13:59:36 08/27/2008/27/2023 urina lysis , dipst ick Bilirubin (reference range) negati ve Not Available [facility] [address] [place] [address] [address], [place], [address], 08/27/2023 13:59:36 08/27/2008/27/2023 urina lysis , dipst ick Glucose (reference range) negati ve Not Available [facility] [address] [place] [address] [address], [place], [address], 08/27/2023 13:59:36 08/27/2008/27/2023 urina lysis , dipst ick Color (reference range: yellow-brown ) Yellow Not Available [facility] [address] [place] [address] [address], [place], [address], 08/27/2023 13:59:36 Result Notes None recorded. Problems Name Problem SNOMED Code Status Onset Date Resolution Date Notes Provider Name and Address Organization Details Recorded Time Acute stroke 2499798339506 04 Active 2022 JEFF West - [facility] - [place] & [place] 13:31:15 Sleep apnea 21286348 Active 2022 Gerda prince, JEFF FAITH [facility] & [place] 3 13:31:22 Gastroesoph ageal reflux disease 367775563 Active 2022 Gerda Mac null, JEFF [facility] - [place] & [place] 3 13:31:28 Hypercholes terolemia 01297738 Active 2022 Gerda prince, JEFF [facility] Jos[facility] [place] & [place] 3 13:31:38 Diabetes mellitus 20221807 Active 2022 Gerda Mac null, JEFF [facility] Jos[facility] [place] & [place] 3 13:31:46 Heart disease 35229677 Active 2022 Gerda prince, JEFF Ferrara [place] & [place] 3 13:31:56 Depressive disorder 04220694 Active 2022 Gerda prince, JEFF FAITH [facility] & [place] 3 13:32:06 Hypertensiv e disorder 76315591 Active 2022 Gerda prince, JEFF FAITH [facility] & [place] 3 13:32:17 Problem Notes None recorded. Procedures Surgical History Date Name Laterality Status Provider Name and Address Organization Details Recorded Time implantation of patient-activated cardiac event recorder completed Gerda FAITH [facility] & [place] 08/27/2023 13:33:03 Imaging Results None recorded. Procedure Notes None recorded. Medical Equipment None Reported. Allergies No known drug allergies Medications Name Sig Start Date Stop Date Status Note LastModified by Organization Details LastModified Time senna s 8.6-50mg tablets TAKE 2 TABLETS BY MOUTH EVERY NIGHT AT BEDTIME 08/27 completed Not Available Not Available Not Available senna tablets TAKE 2 TABLETS BY MOUTH AT BEDTIME active Not Available Not Available No t Available atorvastati n 80 mg tablet TAKE 1 TABLET BY MOUTH ONCE DAILY active Not Available Not Available No t Available gabapentin 600 mg tablet 08/27 completed Not Available Not Available Not Available carvedilol 12.5 mg tablet active Not Available Not Available Not Available tizanidine 2 mg tablet TAKE 1 TABLET BY MOUTH AT BEDTIME active Not Available Not Available No t Available ammonium lactate 12 % lotion APPLY TO LOWER EXTREMITI ES DAILY 08/27 completed Not Available Not Available Not Available senna 8.6 mg tablet TAKE 2 TABLETS BY MOUTH ONCE DAILY AT BEDTIME 08/27 completed Not Available Not Available Not Available gabapentin 400 mg capsule TAKE 1 CAPSULE BY MOUTH TWICE DAILY active Not Available Not Available No t Available amlodipine 5 mg tablet TAKE 1 TABLET BY MOUTH TWICE DAILY 08/27 completed Not Available Not Available Not Available sulfamethox azole 800 mg-trimetho prim 160 mg tablet TAKE 1 TABLET BY MOUTH TWICE DAILY FOR 10 DAYS 08/27 completed Not Available Not Available Not Available terbinafine HCl 250 mg tablet 08/27 completed Not Available Not Available Not Available famotidine 20 mg tablet TAKE 1 TABLET BY MOUTH TWICE DAILY FOR GERD active Not Available Not Available No t Available Xanax 0.25 mg tablet TAKE 1 TABLET BY MOUTH THREE TIMES DAILY FOR 14 DAYS NEEDED FOR NERVES active Not Available Not Available No t Available lidocaine 5 % topical patch APPLY 1 PATCH TO THE AFFECTED AREA DAILY. MAY LEAVE ON UP TO 12 HOURS THEN OFF FOR 12 HOURS 08/27 completed Not Available Not Available Not Available oxybutynin chloride ER 5 mg tablet,exte nded release 24 hr Take 1 tablet every day by oral route for 90 days. active Not Available Not Available No t Available gabapentin 300 mg capsule 08/27 completed Not Available Not Available Not Available levofloxaci n 500 mg tablet TAKE 1 TABLET BY MOUTH ONCE DAILY FOR 10 DAYS 08/27 completed Not Available Not Available Not Available losartan 100 mg tablet TAKE 1 TABLET BY MOUTH ONCE DAILY active Not Available Not Available No t Available fluticasone propionate 50 mcg/actuati on nasal spray,suspe nsion SHAKE LIQUID AND USE 2 SPRAYS IN EACH NOSTRIL DAILY FOR ALLERGIES active Not Available Not Available No t Available sertraline 50 mg tablet active Not Available Not Available Not Available terazosin 10 mg capsule Take 1 capsule every day by oral route for 90 days. 2022 active Not Available Not Available Not Avai lable oxycodone 5 mg tablet TAKE 1 TABLET BY MOUTH EVERY 4 HOURS NEEDED 08/27 completed Not Available Not Available Not Available Novolog FlexPen U-100 Insulin aspart 100 unit/mL (3 mL) subcutaneou s INJECT 7 UNITS SUBCUTANE OUSLY THREE TIMES DAILY WITH MEALS active Not Available Not Available No t Available memantine 10 mg tablet TAKE 1 TABLET BY MOUTH TWICE DAILY active Not Available Not Available No t Available [place] Saline 0.65 % nasal spray aerosol 08/27 completed Not Available Not Available Not Available solifenacin 10 mg tablet TAKE 1 TABLET BY MOUTH ONCE DAILY 08/27 completed Not Available Not Available Not Available Lantus Solostar U-100 Insulin 100 unit/mL (3 mL) subcutaneou s pen INJECT 23 UNITS SUBCUTANE OUSLY EVERY NIGHT AT BEDTIME active Not Available Not Available No t Available oxycodone 10 mg tablet TAKE 1 TABLET BY MOUTH EVERY 6 HOURS NEEDED FOR PAIN active Not Available Not Available No t Available GaviLyte-G 236 gram-22.74 gram-6.74 gram-5.86 gram oral solution MIX AND DRINK 240ML BY MOUTH EVERY 10 MINUTES UNTIL FECAL EFFLUENT IS CLEAR. FOLLOW MAILED INSTRUCTI ONS 08/27 completed Not Available Not Available Not Available Xarelto 20 mg tablet TAKE 1 TABLET BY MOUTH EVERY DAY IN THE EVENING active Not Available Not Available No t Available Jardiance 25 mg tablet active Not Available Not Available Not Available True Metrix Glucose Test Strip USE DIRECTED TO TEST SUGAR 3 TIMES DAILY active Not Available Not Available No t Available TechLITE Pen Needle 31 gauge x 3/16 active Not Available Not Available Not Available BinaxNOW COVID-19 Ag Self Test kit TEST DIRECTED TODAY 08/27 completed Not Available Not Available Not Available Vitals Date Recorded Body height Body mass index (BMI) Body weight Systolic blood pressure Diastolic blood pressure Provider Name and Address Organization Details Last Updated DateTime 08/27/2023 172.72 cm 25.8 kg/m2 01037.7 g 132 mm[Hg] 70 mm[Hg] Gerda Bridgesse JEFF FAITH [facility] & [place] 13:59:18 Social History Question Answer Notes LastModified by Organizat ion Details LastModified Time Tobacco Smoking Status Former Smoker Gerda Mac suresh JEFF Josias FAITH [facility] & [place] 08/27/2023 13:34:20 What Is Your Level Of Alcohol Consumption? None Information not available 08/27/2023 Do You Use Any Illicit Or Recreational Drugs? No Information not available 08/27/2023 Sex: Unknown Functional Status None recorded. Mental Status None recorded. Family History Nothing Reported Notes:Mother- diabetic, asth ma, emphysema, COPD () Father- heart bypass, Stroke() Medical History Condition Response Enlarged Prostate Y Depression Y Diabetes Y Hyperlipidemia Y Heart Disease Y Past Encounters Encounter ID Performer Location Encounter Start Date Encounter Closed Date Diagnosis/Indication Diagnosis SNOMED-CT Code Diagnosis ICD10 Code Diagnosis Note [id number] Autumn Seymour NP, [facility] [address] [facility] [address] [place] [address] 08/27/2023 13:19:42 08/27/2023 14:20:12 Large prostate 798984680 N40.0 UA clearbladd er scan 82mlContin ue Terazosin 10mg dailyConti nue Oxybutynin 5mg dailyScree godfrey PSA, will call with [facility] in 1 year for f/u Received PSA from last year from [facility] and PSA was 7.6 on 05/29/2022 Screening for malignant neoplasm of prostate 914006505 Z12.5 Nocturia 223036368 R35.1 History of diabetes mellitus 529460826 Z86.39 Long-term current use of anticoagulant 873913519 Z79.01 Health Concerns Section Related Observation LastModified by Organization Detai ls LastModified Time None Recorded Concern Status LastModified by Organization Details LastModified Time None Recorded Advance Directives Directive None Recorded Payers Encounter Date Sequence Insurance Name Policy Number Policy Aguiar Covered Member ID Aguiar Member ID Guarantor Name 08/27/2023 1 [place] Roly Dinh Bunny [id number] 08/27/2023 2 WPS - FOR LIFE (MEDICARE SUPPLEMENT) Roly Dinh Bunny [id number] Notes Date Note Type Note Provider Name and Address Organization Details Recorded Time 08/27/2023 text/html 68 yowm presents to clinic to establish care. Pt was formerly under the care of Dr Fischer until 2021. Pt has a longstanding h/o enlarged prostate. Pt has been managed with Terazosin 10mg daily and Oxybutynin 5mg daily. Reports stream stable nocturia x2. Bowels move regularly. He denies any dysuria or gross hematuria. He denies any history of UTIs or kidney. Denies any urinary incontinence. Denies any family history of prostate cancer. History CVAs, last 1 was January 2021. Patient is on chronic anticoagulation with Xarelto daily related to coronary artery disease and heart stents. Patient's manager merchandise is Dr. Alejandra. patient is an insulin-dependent diabetic for 20 years, last hemoglobin A1c was 11 point on 11/30/2022. Patient had a bladder ultrasound on 01/02/2023 that revealed 63 mL. Autumn Seymour, [facility], [address], [place], [address], [facility] - [place] - [place] & [place] 08/28/2023 08:50:00
== END 2025-01-29 12:59 | disposition home or self-care (01) ==
LOC: RT 11:31 → RAD 12:33
PROVIDERS: PCP Internal Medicine; Visit Provider Physician Assistant
DX: E78.5 Hyperlipidemia, unspecified (principal); I10 Essential (primary) hypertension; I25.10 Atherosclerotic heart disease of native coronary artery without angina pectoris
CPT/HCPCS: 75574; 93306; Q9967

== ENCOUNTER 2025-03-18 10:12 | Day surgery (SDC) | payer MEDICARE, OTHER, SELFPAY ==
[2025-03-18] VITALS (9 sets, daily range): BP systolic 97–155; BP diastolic 54–79; PULSE 52–72; RESP 18; O2SAT 90–98; BMI 27.8
--- NOTE | 2025-03-18 07:25 | IR_ITS ---
APPROVED REPORT Patient Location: Outpatient PROCEDURES Left heart catheterization Left ventriculogram Selective coronary angiogram INDICATION Angina pectoris, Abnormal Myoview, Known coronary artery disease Informed consent was obtained prior to the procedure. COMPLICATIONS NONE Estimated Blood Loss: LESS THAN 10 ML TECHNIQUE One percent lidocaine used to anesthetize the right anterior aspect of the wrist. The right radial artery was accessed via the Seldinger technique. A 6 [place] sheath was placed in the right radial artery. 2.5 mg of Verapamil, 800 mcg of nitroglycerin, 1mg Lidocaine and 5000 U Heparin were given through the arterial sheath. The JL3 catheter was also used to perform left heart catheterization, left ventriculogram and selective coronary angiogram. At the end of the procedure the sheath was removed good hemostasis was achieved using Traclet band, patient was transferred to the postop holding area in stable condition. ANGIOGRAPHIC RESULTS The left main artery Has an ostial 10 to 20% stenosis The left anterior descending artery Has proximal and mid vessel 30 to 40% diffuse calcifications however the LAD is widely patent to the apex as it wraps the apex. First diagonal artery has proximal diffuse 30% calcified stenoses The circumflex artery obtuse marginal artery. Distal to the obtuse marginal artery the circumflex artery is occluded in the terminal OM which is small to medium in size fills via left to left collaterals The right coronary artery Small nondominant with diffuse 60 to 70% calcified stenoses. 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 Medical management for coronary artery disease and treatment of hyperdynamic state Electronically signed by : Aneudy Alejandra MD 03/19/2025 13:37:39
[2025-03-18 10:35] LABS: Basophils % 0.2 % (0.1-2.0); Eosinophils # 0.2 Kmm3 (0.0-0.4); Eosinophils % 2.1 % (0.1-12.0); Hemoglobin 14.6 g/dL (14.1-18.0); Immature Granulocytes # 0.01 10^3uL; Immature Granulocytes % 0.1 %; Lymphocytes # 3.5 K/mm3 (0.7-4.5); Mean Corpuscular HGB Conc 31.7 g/dL (31.8-35.4); Mean Corpuscular Hemoglobin 28.2 pg (27.0-31.2); Mean Platelet Volume 10.5 fl (7.4-10.4); Monocytes # 0.8 K/mm3 (0.1-1.0); Neutrophils # 4.6 K/mm3 (1.8-7.8); Neutrophils % 50.6 % (37.0-80.0); Nucleated Red Blood Cells # 0 10^3/uL; Nucleated Red Blood Cells % 0 %; Platelet Count 232 K/mm3 (142-424); Red Blood Count 5.17 M/mm3 (4.60-6.20); Red Cell Distribution Width 14.5 % (11.5-17.5); Red Cell Distribution Width-SD 46.4 fL; White Blood Count 9.2 K/mm3 (4.8-10.8)
[2025-03-18 10:43] LABS: Chloride 108 mmol/L (98-107); Potassium 3.6 mmoL/L (3.5-5.1); Sodium 143 mmol/L (136-145)
[2025-03-18 10:46] LABS: Anion Gap 9.6 mEq/L (5-15); Blood Urea Nitrogen 16 mg/dl (9-20); Calcium 10.2 mg/dl (8.4-10.2); Carbon Dioxide 29 mmol/L (22.0-30.0); Creatinine Clearance Estimated 63 mL/min (50-200); Estimated Glomerular Filt Rate 55 ml/min (>60); GFR (African American) 66 ML/MIN (>60)
[2025-03-18 10:47] LABS: Glucose 38 mg/dl (74-100)
--- NOTE | 2025-03-18 10:52 | SUR.PREOP ---
pt alert and oriented sitting up in bed drinking orange juice. lab called with critical glucose-38, spoke with Dr. Alejandra who states to have patient drink orange juice at this time.
[2025-03-18] MEDS: HEPARIN 1,000 UNITS/ML 10ML VIAL (CATH LAB) 5000 UNIT IV (11:05)
[2025-03-18] MEDS: NITROGLYCERIN 800MCG/8ML SYR (CATH LAB) 800 MCG IA (11:05)
[2025-03-18] MEDS: diphenhydrAMINE 50MG/ML VIAL 50 MG IV (11:05)
[2025-03-18] MEDS: VERAPAMIL 2.5MG/ML 2ML VIAL 2.5 MG IV (11:05)
[2025-03-18] MEDS: HEPARIN 1,000 UNITS/500ML NS (CATH LAB) 3000 UNIT IV (11:05)
[2025-03-18] MEDS: LIDOCAINE 1% 10ML MDV 10 ML IJ (11:06)
[2025-03-18] MEDS: 0.9 % SODIUM CHLORIDE 500 ML 25 ML IV (11:06)
[2025-03-18] MEDS: MIDAZOLAM HCL 1MG/ML 5ML VIAL 1 MG IV (11:11)
[2025-03-18] MEDS: FENTANYL 100MCG/2ML VIAL 50 MCG IV (11:11)
[2025-03-18] MEDS: NITROGLYCERIN SPRAY 0.4MG/SPRAY 4.9GM 0.4 MG TL (11:38)
[2025-03-18 13:07] LABS: POC Glucose,Bedside 58 (70-110)
[2025-03-18 13:07] LABS: POC Glucose,Bedside 74 (70-110)
[2025-03-18] MEDS: IOPAMIDOL-370 (76%);100ML BOTTLE 60 ML IV (14:09)
[2025-03-18 15:12] LABS: POC Glucose,Bedside 54 (70-110)
== END 2025-03-18 14:01 | disposition home or self-care (01) ==
LOC: CATHLAB 10:13
PROVIDERS: PCP Internal Medicine; Visit Provider Internal Medicine
PROC: 4A023N7 Measurement of Cardiac Sampling and Pressure, Left Heart, Percutaneous Approach (ICD-10-PCS; CPT 93452; principal; 2025-03-18 08:30)
DX: I25.118 Atherosclerotic heart disease of native coronary artery with other forms of angina pectoris (principal); R93.1 Abnormal findings on diagnostic imaging of heart and coronary circulation; I77.1 Stricture of artery; Z79.4 Long term (current) use of insulin; Z79.01 Long term (current) use of anticoagulants; Z79.82 Long term (current) use of aspirin; I70.1 Atherosclerosis of renal artery; Z95.5 Presence of coronary angioplasty implant and graft; Z87.891 Personal history of nicotine dependence; I65.23 Occlusion and stenosis of bilateral carotid arteries; E78.5 Hyperlipidemia, unspecified; Z95.820 Peripheral vascular angioplasty status with implants and grafts; I69.391 Dysphagia following cerebral infarction; R13.10 Dysphagia, unspecified
CPT/HCPCS: 80048; 82962; 85025; 93458; 99152; 99153; C1725; C1769; J1200; J1644; J3010; Q9967

== ENCOUNTER 2025-06-30 16:07 | Outpatient (CLI) | payer MEDICARE, OTHER, SELFPAY ==
--- OUTSIDE RECORDS SUMMARY | 2025-06-30 14:35 | XMS_ITS | Continuity of Care Document ---
Author Name [facility] Organization [facility] Care Team Providers Care Corn Grinder Name Role Phone [facility] Unavailable Unavailable Medications Combined list of outpatient medications from Department of Defense and Veterans Affairs facilities.Medications provided include 1) outpatient medications from the last 15 months, and 2) patient-reported medications. Medication Details Route Status Patient Instructions Prescription Expires Prescription Number Last Dispense Date Ordering Provider Order Date Order Qty Source ATORVASTATI N CALCIUM (atorvastat in calcium), 80 MG, TABLET, ORAL, DULCE [employer]ARMACEU, 500 ea. BOTTLE Active [id number] 4 2023 90 Pharmac y Data Transac tion Service Facilit y MIRTAZAPINE (mirtazapin e), 15 MG, TABLET, ORAL, [employer] 1000 ea. BOTTLE Active [id number] 4 2023 90 Pharmac y Data Transac tion Service Facilit y OXYCODONE HCL (OXYCODONE HCL), 5MG, TABLET, ORAL, [employer] 100 ea. BOTTLE Active [id number] 4 2023 120 Pharmac y Data Transac tion Service Facilit y TAMSULOSIN HCL (TAMSULOSIN HCL), 0.4 MG, CAP.SR 24H, ORAL, [employer], 100 ea. BOTTLE Active [id number] 4 2023 90 Pharmac y Data Transac tion Service Facilit y TAMSULOSIN HCL (TAMSULOSIN HCL), 0.4 MG, CAP.SR 24H, ORAL, [employer], 1000 ea. BOTTLE Cancele d [id number] : 2023 0 Pharmac y Data Transac tion Service Facilit y TAMSULOSIN HCL (TAMSULOSIN HCL), 0.4 MG, CAP.SR 24H, ORAL, [employer], 1000 ea. BOTTLE Active [id number] 4 2023 30 Pharmac y Data Transac tion Service Facilit y Social History Combined list of available smoking, tobacco, and other social history from Department of Defense and Veterans Affairs facilities. Social History Type Response Date Comment Sourc e This section is an empty social history section. DoD
--- OUTSIDE RECORDS SUMMARY | 2025-06-30 16:10 | XMS_ITS | Encounter Summary ---
Author Organization Healthcare Address [address] [place] [address] Care Team Providers Care Securities Consultant Name Role Phone Sreedhar Chavez MD Primary Care Provider [phone] Margaret Britton MD Unavailable [phone] Martha Miller Unavailable [phone] Reason for Visit * Reason Onset Date Comments Appt Changes 06/23/2025 Encounter Details Date Type Department Care Team (Late st Contact Info) Description 06/23/2025 Telephone [facility] [address] [place] [address] Martha Miller PA [address] [place] [address] Appt Changes Social History Tobacco Use Types Packs/Day Years Used Date Smoking Tobacco: Former Cigarettes 1 50 1 971 - 2020 Passive Smoke Exposure: Past Smokeless Tobacco: Never Alcohol Use Standard Drinks/Week Comments Not Currently 0 (1 standard drink = 0.6 oz pur e alcohol) PHQ-2 Answer Date Recorded Patient Health Questionnaire-2 Score 0 01/09/2024 AUDIT-C Answer Date Recorded Q1: How often do you have a drink containing alcohol? Never 04/08/2025 Q2: How many drinks containi ng alcohol do you have on a typical day when you are drinking? Patient does not drink Q3: How often do you have si x or more drinks on one occasion? Never 04/08/2025 PHQ-2A Answer Date Recorded Patient Health Questionnaire-2 Score 0 04/08/2023 Sex and Gender Information Value Date Recorded Sex Assigned at Male 06/27/2022 9:34 AM EDT Legal Sex Male 8:02 PM EDT Gender Identity Male 06/27/2022 9:34 AM EDT Sexual Orientation Not on file documented as of this encounter Miscellaneous Notes * Telephone Encounter - Fany Aden - 06/23/2025 2:03 PM EDT Left detailed voice mail regarding time changes for patient on 07/27, asking the patient to return call if he needs to reschedule. documented in this encounter Plan of Treatment Upcoming Encounters Date Type Department Care Team (Late st Contact Info) Description 07/27/2025 10:50 AM EDT Clinical Support [facility] [address] [place] [address] 07/27/2025 11:50 AM EDT Office Visit [facility] [address] [place] [address] Martha Miller PA [address] [place] [address] documented as of this encounter Visit Diagnoses Not on filedocumented in this encounter Additional Health Concerns Assessment Noted Time A fall risk assessment has been complete d for the patient 04/08/2025 1:01 PM EDT A Body Mass Index follow-up plan has been documented for the patient 04/08/2025 2:13 PM EDT documented as of this encounter Care Teams Securities Consultant Relationship Specialty Start Date End Date Sreedhar Chavez MD [id number] [place] [address] PCP - General 09/15/21 Margaret Britton MD [address] [place] [address] Surgeon Neurosurgery 09/15/21 Martha Miller PA [address] [place] [address] Physician [facility] Urology 11/10/24 documented as of this encounter
--- OUTSIDE RECORDS SUMMARY | 2025-06-30 16:10 | XMS_ITS | Clinical Summary ---
Author Organization Healthcare Address [address] [place] [address] Care Team Providers Care Mail Carrier Technician Name Role Phone Sreedhar Chavez MD Primary Care Provider [phone] Margaret Britton MD Unavailable [phone] Martha Miller Unavailable Allergies No known active allergies Medications aspirin 81 MG EC tablet Take 1 tablet (81 mg) by mouth 1 (one) time each day with dinner. Act phill nitroglycerin (Nitrostat) 0.[address] 1 tablet (0.4 mg) under the tongue every 5 (five) minutes if needed for chest pain. Active gabapentin (Neurontin) 400 MG capsule Take 1 capsule (400 mg) by mouth 2 (two) times a day. Active diclofenac (Voltaren) 1 % topical gel Place 1 application. on the skin 2 (two) times a day. Active famotidine (Pepcid) 20 MG tablet Take 1 tablet (20 mg) by mouth 1 (one) time each day in the morning. Active ALPRAZolam (Xanax) 0.25 MG tablet Take 1 tablet (0.25 mg) by mouth 3 (three) times a day if needed. 08/14/20 21 Active atorvastatin (Lipitor) 80 MG tablet Take 1 tablet (80 mg) by mouth 1 (one) time each day in the morning. 09/25/20 21 Active memantine (Namenda) 10 MG tablet Take 1 tablet (10 mg) by mouth 2 (two) times a day. 02/19/20 22 Active calcium carbonate (Tums) 500 MG chewable tablet Chew 2 tablets (1,000 mg) 4 (four) times a day if needed for indigestion or heartburn. Active carvedilol (Coreg) 12.5 MG tablet Take 1 tablet (12.5 mg total) by mouth 2 (two) times a day with meals. 60 tablet 2 07/05/20 Active Lantus SoloStar 100 UNIT/ML injection pen Inject 30 Units under the skin every night. 15 mL 3 07/05/20 Active Additional Information Patient taking differently: 38 UnitsSubcutaneous Nightly, Reported on 04/08/2025 rivaroxaban (Xarelto) 20 MG tablet Take 1 tablet (20 mg total) by mouth 1 (one) time each day with dinner. Take with food. 30 tablet 11 07/05/20 Active Additional Information Patient taking differently: 2.5 mgOral 2 times daily, Take with food.Reports taking., Reported on 04/08/2025 losartan (Cozaar) 100 MG tablet Take 1 tablet (100 mg total) by mouth 1 (one) time each day. 30 tablet 3 07/06/20 Active Additional Information Patient taking differently:100 mg Oral Daily,Reports taking., Reported on 04/08/2025 TechLite Pen [place] 31G X 5 MM misc 07/12/20 Active lidocaine (Lidoderm) 5 % patch 08/03/20 Active oxyCODONE HCl 10 MG tablet 3 (three) times a day. 07/24/20 Active amLODIPine (Norvasc) 5 MG tablet Take 1 tablet (5 mg) by mouth 1 (one) time each day. 09/13/20 Active ammonium lactate (AmLactin) 12 % lotion Apply to lower extremities daily 500 g 11/19/19 23 Active Additional Information Patient not taking.Reported on 04/08/2025 insulin aspart (NovoLOG) 100 UNIT/ML injection vial Inject 14 Units under the skin 3 (three) times a day before meals. Active Jardiance 25 MG 12/19/19 23 Active NovoLOG FLEXPEN 100 UNIT/ML injection pen 03/22/20 23 Active fluticasone (Flonase) 50 MCG/ACT nasal spray Takes as needed Acti ve ProFe 391.3 (180 Fe) MG capsule TAKE 1 CAPSULE BY MOUTH DAILY WITH FOOD 03/18/20 24 Active mirtazapine (Remeron) 15 MG tablet 09/03/20 24 Active finasteride (Proscar) 5 MG tablet Take 1 tablet (5 mg) by mouth 1 (one) time each day. Do not crush, chew, or split. 90 tablet 3 11/10/19 25 Active tamsulosin (Flomax) 0.4 MG 24 hr capsule Take 1 capsule (0.4 mg) by mouth every night. 90 capsule 3 11/10/19 Active FREESTYLE LITE test strip 12/10/19 Active psyllium (Metamucil) 58.6 % powder Take 1 packet by mouth 3 times a day. Acti ve polyethylene glycol (Miralax) 17 g packet Take 17 g by mouth daily. Active Active Problems Problem Noted Date Diagnosed Date HARSHAD (acute kidney injury) 12/18/2024 Appendicitis 12/18/2024 CAP (community acquired pneumonia) 12/18/2024 Closed head injury 12/18/2024 Dysphagia 12/18/2024 Encephalopathy 12/18/2024 Syncope 12/18/2024 General weakness 12/18/2024 Hematochezia 12/18/2024 Hoarseness or changing voice 12/18/2024 Hypokalemia 12/18/2024 Incarcerated hernia 12/18/2024 Incarcerated inguinal hernia 12/18/2024 Laceration of face 12/18/2024 Physical deconditioning 12/18/2024 Postoperative abdominal pain 12/18/2024 Postoperative anemia 12/18/2024 Abnormal ankle brachial index (YOSEF) 01/09/2024 Bilateral carotid artery stenosis 01/09/2024 Claudication 01/09/2024 CHRISTI (renal artery stenosis) 01/09/2024 Tobacco dependence syndrome 01/09/2024 Acute cerebrovascular accident (CVA) 08/27/2023 Depressive disorder 08/27/2023 Open wound 10/11/2022 Pain management 07/04/2022 Overview (07/05/2022): Acetaminophen 1,000 mg by mouth every 6 (six) hours if needed. Gabapentin (Neurontin) 300 MG capsule by mouth 3 times a day. Methocarbamol 500 mg 3 by mouth 3 times a day. Oxycodone 5 mg -10 mg by mouth every 6 hours if needed. Continue management on discharge per facility ABLA (acute blood loss anemia) 07/03/2022 Overview (07/05/2022): -Hgb 7.7/ Hct 23 Follow up per [facility] Dementia 07/01/2022 Overview (07/05/2022): -Delirium precautions -Namenda 10mg BID -Encourage OOB to chair during day & limited interruptions at night -follow up with PCP Acute, mixed level of activi ty, delirium due to multiple etiologies 07/01/2022 Overview (07/05/2022): -Seroquel 12.5mg discontinued -resolved Urinary retention 07/01/2022 Overview (07/05/2022): -Terazosin dosage 10mg daily -follow up with urology outpatient Osteomyelitis 07/01/2022 Overview (07/05/2022): -Bone culture 06/27/2022 positive MSSA -all blood cultures No growth to date, day of discharge -ID consulted. OPAT to follow out patient -PICC line placed 07/04 -Antimicrobial Regimen: *Cefazolin 2g IV q8h while at rehab/inpatient *Cefazolin 6g IV q24h continuous infusion at home - Start date: 06/27/22 Projected End Date: 08/07/22 Transition to oral therapy: No If yes, antimicrobial (with dose/end dates): Lab Monitoring (weekly, preferably on Mondays unless otherwise specified): CBC w/ differential *CRP for patients with bone/joint infections and endocarditis or endovascular infections *Antimicrobial specific labs: Other Cephalosporins: BUN, SrCr *Please fax all labs to: ID OPAT Team Attn: Noreen Edouard Fax #: [phone] Appointments: With Noreen Edouard APRN on 08/06/22 at 3:30PM [address] [place] [id number] (Select Option 3 for IV Antibiotic / PICC line related issues) Discharge teaching provided. All questions regarding outpatient parenteral antimicrobials after discharge should be directed to the OPAT nurse navigator at (Select Option 3 for IV Antibiotics/PICC Issues) between 8am-5pm. After 5 pm, or during weekends/[place] holidays, please call the paging steam cleaning machine operator at to reach the on-call ID fellow. PLEASE NOTIFY THE ID CONSULTING SERVICE OF ANY QUESTIONS REGARDING THESE RECOMMENDATIONS OR WITH ANY ANTIMICROBIAL CHANGES THAT OCCUR AFTER THE DATE/TIME OF THIS OPAT INTAKE NOTE. GERD (gastroesophageal reflux disease) Overview (07/05/2022): -Pepcid 20mg daily, continue on discharge Follow up with PCP ADRIANO (obstructive sleep apnea) 07/01/2022 Overview (07/05/2022): Resume afrin Continue CPAP HLD (hyperlipidemia) 07/01/2022 Overview (07/05/2022): -atorvastatin 80mg daily, continue Follow up with PCP Hypertension 06/28/2022 Overview (07/05/2022): -Amlodipine 10mg daily,Coreg 12.5mg BID, losartan 100mg daily -Goal of normotension Follow up with PCP Depression 06/28/2022 Overview (07/05/2022): Continue home zoloft Follow up with PCP Diabetes mellitus type 2 with complications 10/2021 Overview (07/05/2022): -resume home Trijardy -Lantus 30units at bedtime, Lispro 3 units TID + sliding scale insulin coverage -Hgb A1c 8.4 -Ongoing management per PCP following discharge Severe protein-calorie malnutrition 06/19/2022 Overview (07/05/2022): -CCO3 diet -Diet supplements -Recommend Nutrition consult on arrival to . - Continue Boost Glucose Control TID, any flavor - Will send snacks TID. - Recommend MVI daily for healing. PAD (peripheral artery disease) 06/16/2022 Lower limb ischemia 06/15/2022 Overview (07/04/2022): -s/p right fem-pop bypass & right 1st ray amputation on 06/[address] Santiago -aspirin 81mg daily -atorvastatin 80mg daily, -coreg 12.5mg BID -amlodipine 10mg daily -Cozaar 100mg daily -Xarleto 20mg daily -Wound vac change MWF, next due on 07/06 Follow up in 1 month with RLE arteria duplex and ABIs with Dr. Santiago. Follow up in wound care clinic after discharge from [facility] [address] Coronary artery disease invo lving [place] coronary artery of [place] heart without angina pectoris 06/15/2022 Overview (07/05/2022): -Aspirin 81mg daily, atorvastatin 80mg daily, coreg 12.5mg BID, amlodipine 10mg daily, Cozaar 100mg daily, Xarelto 20mg daily -Nitroglycerin prn Follow up with Cardiology Neck pain 02/24/2021 Cervical stenosis of spine 02/16/2021 Resolved Problems Problem Noted Date Diagnosed Date Resolved Date Subacute osteomyelitis of right foot 06/16/2022 07/03/2022 Dry gangrene 06/15/2022 07/03/2022 Cellulitis of right lower extremity 06/15/2022 07/03/2022 Overview (06/18/2022): Added automatically from request for surgery [id number] Decreased pulses in feet 06/15/202201/2022 Overview (06/19/2022): Added automatically from request for surgery [id number] Encounters Date Type Department Care Team Description 06/23/[address] [facility] [address], [address] [place] [phone] Martha Miller PA HCN Same Day Appt/Overbook Request 06/23/[address] [facility] [address], [address] [place] [address] Martha Miller PA Appt Changes 05/26/[address] [facility] [address], [address] [place] [address] Martha Miller PA Appt Changes 04/08/2025 1:00 PM EDT Office Visit [facility] [address] [facility] 5th Floor [address], [address] [place] [address] Bennett Santiago MD Peripheral arterial disease (CMS/HCC) (Primary Dx); Renal artery stenosis (CMS/HCC); Bilateral carotid artery stenosis; PAD (peripheral artery disease) (CMS/HCC); Claudication (CMS/HCC); Iliac artery stenosis, bilateral (CMS/HCC); Aortoiliac occlusive disease (CMS/HCC) 04/08/2025 9:20 AM EDT - 04/08/2025 11:59 PM EDT Hospital Encounter [facility] [address], [address] [place] [address] Renal artery stenosis (CMS/HCC) Discharge Disposition: Home or Self Care 04/08/2025 9:20 AM EDT - 04/08/2025 11:59 PM EDT Hospital Encounter [facility] [address], [address] [place] [address] Peripheral arterial disease (CMS/HCC); Aortoiliac stenosis (CMS/HCC) Discharge Disposition: Home or Self Care 04/08/2025 9:20 AM EDT - 04/08/2025 11:59 PM EDT Hospital Encounter [facility] [address], [address] [place] [address] Peripheral arterial disease (CMS/HCC) Discharge Disposition: Home or Self Care 04/08/2025 9:20 AM EDT - 04/08/2025 11:59 PM EDT Hospital Encounter [facility] [address], [address] [place] [address] Peripheral arterial disease (CMS/HCC) Discharge Disposition: Home or Self Care 04/08/2025 9:00 AM EDT - 04/08/2025 9:19 AM EDT [facility] [address] [facility] 5th Floor [address], [address] [place] [address] Carotid stenosis, bilateral Discharge Disposition: Home or Self Care 04/08/2025 Travel from Last 3 Months Immunizations Immunization Administration Dates Next Due Influenza, High-dose, Split Virus, Trivalent, Injectable, preservative free 09/07/2024 Pneumococcal Conjugate PCV 13 10/11/2021 Rsvpref, Recombinant, Protein Subunit, Adjuvent 09/07/2024 Tdap 11/11/2023 Family History Medical History Relation Name Comments Cardiac disorder Father Diabetes Father Hypertension Father Stroke Father Cardiac disorder Mother Diabetes Mother Hypertension Mother Stroke Mother Cardiac disorder Other 1 Stroke Other 2 Diabetes Other 3 Hypertension Other 4 Relation Name Status Comments Father Mother Other 1 Other 2 Other 3 Other 4 Social History Tobacco Use Types Packs/Day Years Used Date Smoking Tobacco: Former Cigarettes 1 50 1 971 - 2020 Passive Smoke Exposure: Past Smokeless Tobacco: Never Tobacco Cessation:Counseling Given: Not Answered Alcohol Use Standard Drinks/Week Comments Not Currently [...] AM EDT Sexual Orientation Not on file Last Filed Vital Signs Vital Sign Reading Time Taken Comments Blood Pressure 135/68 04/08/2025 1:02 PM EDT Pulse 57 04/08/2025 12:51 PM EDT Temperature 36.7 C (98 F) 04/08/2025 12:51 PM EDT Respiratory Rate 18 11/15/2022 9:34 AM EST Oxygen Saturation 95% 04/08/2025 12:51 PM EDT Inhaled Oxygen Concentration - - Weight 83.7 kg (184 lb 8.4 oz) 04/08/2025 12:51 PM EDT Height 172.7 cm (5' 8 ) 04/08/2025 12:51 PM EDT Body Mass Index 28.06 04/08/2025 12:51 PM EDT Plan of Treatment Upcoming Encounters Date Type Department Care Team (Late st Contact Info) Description 07/27/2025 10:50 AM EDT Clinical Support [facility] [address], [address] [place] [address] 07/27/2025 11:50 AM EDT Office Visit [facility] [address], [address] [place] [address] Martha Miller PA [address] [place] [address] Health Maintenance Due Date Last Done Comments [facility]-Medicare Annual Wellness (AWV) 1955 [facility]-Infant/Child/Adol SDOH Screenings 1955 Diabetes: Dental Exam 1965 [facility]- SDOH Screenings 1973 [facility]-Adult SDOH Screenings 1973 CT Colonography 2000 Colonoscopy 2000 FIT-DNA 2000 FIT 2000 FOBT 2000 Sigmoidoscopy 2000 [facility]-Colorectal Cancer Screening 2000 [facility]-Zoster Vaccines (1 of 2) 2005 [facility]-Abdominal Aortic Aneurysm (AAA) Screening 2020 [facility]-Pneumococcal Vaccine: 50+ Years (2 of 2 - PPSV23) 12/06/2021 10/11/2021 [facility]-Lung Cancer Screening 02/07/2022 02/07/2021 [facility]-Diabetes: Hemoglobin A1C 12/13/2022 06/15/2022, 02/06/2021 [id number] Vaccine (3 - season) 2024 06/27/2021, 05/30/2021 [facility]-Depression Screening 01/08/2025 01/09/2024 [facility]-Influenza Vaccine (#1) 2025 09/07/2024 [facility]-DTaP,Tdap,and Td Vaccines (2 - Td or Tdap) 11/11/2033 11/11/2023 [facility]-Hepatitis C Screening Completed 06/15/2022, 09/2021 [facility]-RSV Vaccine: 60+ Years or Completed 09/07/2024 [facility]-Obesity Intervention Completed 025, 11/10/2024, 10/08/2024, Additional history exists HPV Vaccines Aged Out No longer eligi ble based on patient's age to complete this topic [facility]-HIB Vaccines Aged Out No longer e ligible based on patient's age to complete this topic [facility]-Hepatitis A Vaccines Aged Out No longer eligible based on patient's age to complete this topic [facility]-IPV Vaccines Aged Out No longer e ligible based on patient's age to complete this topic [facility]-Rotavirus Vaccines Aged Out No lo nger eligible based on patient's age to complete this topic Medical Devices Implanted Type Area Director Speech Language Device Identifier Shelf Expiration Date Model / Serial / Lot Total [employer] Implantable Loop Recorder-2020 Implanted:10/2020 (Quantity not on file) Implantable Loop Recorder Chest [employer] [place] [id number] / [id number] / Visi-Pro Stent- Implanted:02/25 (Quantity not on file) Stent Arterial [employer] [id number] -57-135 / / Visi-Pro Stent- Implanted:02/25 (Quantity not on file) Stent Left: Arterial Medtronic [id number] -57-135 / / Description:LEFT ILIAC Visi-Pro Stent- Implanted:02/25 (Quantity not on file) Stent Aorta [employer] [id number] -17-135 / / Description:Distal Aorta Protege Gps Ev3-03/06/2021 Implanted:02/25 (Quantity not on file) Stent Arterial Description:LT ILIAC Rx Herculink Elite- 1 Implanted:Qty: 2 on 07/19/2021 Stent Kidney Description:RT and LT Renal implanted on 07/19/21 Visi-Pro Stent- 1 Implanted:06/29 (Quantity not on file) Stent Arterial Medtronic [id number] -37-135 / / Description:RT external Edvin c Graft Propaten Ring W/Hep 6x80 - [id number] Implanted:Qty: 1 on 06/27/2022 by Bennett Santiago MD at [facility] [employer]-[id number] 07/26/2025 [id number] / [id number] / [id number] Nuield 2x4 - [id number] Implanted:Qty: 1 on 10/11/2022 at [facility] [employer]-[id number] 09/01/2026 [id number] / / [id number] Puraply Am 2x4 8 Sq Cm - [id number] Implanted:Qty: 1 on 10/24/2022 by Aubree Duggan PA at [facility] [employer]-[id number] 11/27/2024 PURAPLY- COM 2X4 / / [id number] .1.1B Procedures Procedure Name Priority Date/Time Associated Diagnosis Comments VAS US ARTERIAL DUPLEX LOWER EXTREMITY UNILATERAL Routine 04/08/2025 11:45 AM EDT Peripheral arterial disease (CMS/HCC) VAS US RENAL ARTERY DUPLEX Routine 04/08/2025 11:26 AM EDT Renal artery stenosis (CMS/HCC) VAS US AORTA IVC ILIAC VESSELS DUPLEX Routine 04/08/2025 11:26 AM EDT Peripheral arterial disease (CMS/HCC) Aortoiliac stenosis (CMS/HCC) VAS US CAROTID DUPLEX BILATERAL Routine 04/08/2025 11:26 AM EDT Carotid stenosis, bilateral VAS ANKLE BRACHIAL INDEX - YOSEF ONLY Routine 04/08/2025 10:15 AM EDT Peripheral arterial disease (CMS/HCC) HEMOGLOBIN A1C Add-On 06/15/2022 5:44 PM EDT HEPATITIS C ANTIBODY - ED W/REFLEX TO HCV QUANT PCR STAT 06/15/2022 11:[address] CHEST W IV CONTRAST Routine 02/07/2021 7:09 PM EDT from Last 3 Months or Most Recently Relevant to Health Maintenance Results * VAS US Arterial Duplex Lower Extremity Unilateral Bypass Graft (04/08/2025 11:45 AM EDT) Anatomical Region Laterality Modality Lower Extremities Ultrasound Impressions 04/12/2025 8:24 AM EDT Right: The common femoral to peroneal artery PTFE bypass graft is patent with no areas of hemodynamically significant stenosis identified. No significant change compared to the previous exam. COMMUNICATION: Per this written report. Preliminary report signed by Caterina Quigley on 04/08/2025 5:29 PM By electronically signing this report, I, the attending physician, attest that I have personally reviewed the images/data for the above examination(s) and I agree with the final edited report. Drafted by Caterina Quigley on 04/08/2025 12:11 PM Final report signed by Live Chery MD on 04/12/2025 8:24 AM Narrative 04/12/2025 8:24 AM EDT CLINICAL INDICATION: Surveillance of bypass graft; S/P Right femoral-peroneal bypass with composite graft placed on 06/27/2022 TECHNIQUE: Non-invasive, real time duplex exam of the lower extremity arterial circulation with Doppler ultrasonic waveform and spectral analysis was performed. COMPARISON: Previous arterial duplex performed on (10/08/2024); patent bypass graft YOSEF performed same day (04/08/2025). R: 0.99 L: 0.54 FINDINGS: RIGHT: Arterial duplex demonstrates multiphasic waveforms in the common femoral, GUT SORTER to peroneal artery bypass graft, peroneal artery, posterior tibial artery, and dorsalis pedis artery. The following flow velocities are recorded: Common femoral artery: 124 cm/s GUT SORTER to peroneal artery PTFE bypass graft: prox anastomosis: 81 cm/s prox thigh: 47 cm/s mid thigh: 67 cm/s distal thigh: 53 cm/s pop fossa: 50 cm/s prox calf: 43 cm/s mid calf, distal anastomosis: 38 cm/s peroneal artery distal to anastomosis: 116 cm/s Posterior tibial artery: 72 cm/s Dorsalis pedis artery:46 cm/s LEFT: Arterial duplex demonstrates monophasic waveforms in the common femoral artery, imaged for comparison purposes. The following flow velocities are recorded: Common femoral artery: 228 cm/s Procedure Note Live Chery MD - 04/12/2025 CLINICAL INDICATION: Surveillance of bypass graft; S/P Right femoral-peroneal bypass withcomposite graft placed on 06/27/2022 TECHNIQUE: Non-invasive, real time duplex exam of the lower extremity arterialcirculation with Doppler ultrasonic waveform and spectral analysis wasperformed. COMPARISON: Previous arterial duplex performed on (10/08/2024); patent bypass graft YOSEF performed same day (04/08/2025). R: 0.99 L: 0.54 FINDINGS: RIGHT: Arterial duplex demonstrates multiphasic waveforms in the common femoral,GUT SORTER to peroneal artery bypass graft, peroneal artery, posterior tibialartery, and dorsalis pedis artery. The following flow velocities are recorded: Common femoral artery: 124 cm/s GUT SORTER to peroneal artery PTFE bypass graft: prox anastomosis: 81 cm/s prox thigh: 47 cm/s mid thigh: 67 cm/s distal thigh: 53 cm/s pop fossa: 50 cm/s prox calf: 43 cm/s mid calf, distal anastomosis: 38 cm/s peroneal artery distal to anastomosis: 116 cm/s Posterior tibial artery: 72 cm/s Dorsalis pedis artery:46 cm/s LEFT: Arterial duplex demonstrates monophasic waveforms in the common femoralartery, imaged for comparison purposes. The following flow velocities are recorded: Common femoral artery: 228 cm/s IMPRESSION: Right: The common femoral to peroneal artery PTFE bypass graft is patentwith no areas of hemodynamically significant stenosis identified. No significant change compared to the previous exam. COMMUNICATION: Per this written report. Preliminary report signed by Caterina Quigley on 04/08/2025 5:29 PM By electronically signing this report, I, the attending physician, attestthat I have personally reviewed the images/data for the aboveexamination(s) and I agree with the final edited report. Drafted by Caterina Quigley on 04/08/2025 12:11 PM Final report signed by Live Chery MD on 04/12/2025 8:24 AM us Loki Galvan MD CV VASCULAR PROCEDURES Final Result * VAS US Renal Artery Duplex Stent (04/08/2025 11:26 AM EDT) Anatomical Region Laterality Modality Vascular, Kidney Ultrasound Impressions 04/12/2025 8:24 AM EDT Right: Normal study, no evidence of a hemodynamically significant renal artery stenosis. Kidney size is within normal limits. Left: Normal study, no evidence of a hemodynamically significant renal artery stenosis. Kidney size is within normal limits. COMMUNICATION: Per this written report. Preliminary report signed by CHRISTA Young on 04/08/2025 4:11 PM By electronically signing this report, I, the attending physician, attest that I have personally reviewed the images/data for the above examination(s) and I agree with the final edited report. Drafted by CHRISTA Young on 04/08/2025 4:05 PM Final report signed by Live Chery MD on 04/12/2025 8:24 AM Narrative 04/12/2025 8:24 AM EDT CLINICAL INDICATION: S/P right renal artery stent TECHNIQUE: Non-invasive, real time duplex exam of the renal arterial circulation with Doppler ultrasonic waveform and spectral analysis was performed. COMPARISON: Aorta duplex performed same day FINDINGS: Right: The kidney length measures 10.9 cm. The peak renal artery velocities are 122 cm/s with a Renal/Aorta ratio of 3.4. Parenchymal blood flow pattern is normal with a resistive index range of 0.72 - 0.81 . Venous spectral analysis demonstrates a spontaneous flow signal. Left: The kidney length measures 10.2 cm. The peak renal artery velocities are 125 cm/s with a Renal/Aorta ratio of 3.5. Parenchymal blood flow pattern is normal with a resistive index range of 0.68 - 0.72. Venous spectral analysis demonstrates a spontaneous flow signal. Procedure Note Live Chery MD - 04/12/2025 CLINICAL INDICATION: S/P right renal artery stent TECHNIQUE: Non-invasive, real time duplex exam of the renal arterial circulation withDoppler ultrasonic waveform and spectral analysis was performed. COMPARISON: Aorta duplex performed same day FINDINGS: Right: The kidney length measures 10.9 cm. The peak renal arteryvelocities are 122 cm/s with a Renal/Aorta ratio of 3.4. Parenchymalblood flow pattern is normal with a resistive index range of 0.72 - 0.81 .Venous spectral analysis demonstrates a spontaneous flow signal. Left: The kidney length measures 10.2 cm. The peak renal arteryvelocities are 125 cm/s with a Renal/Aorta ratio of 3.5. Parenchymalblood flow pattern is normal with a resistive index range of 0.68 - 0.72.Venous spectral analysis demonstrates a spontaneous flow signal. IMPRESSION: Right: Normal study, no evidence of a hemodynamically significant renalartery stenosis. Kidney size is within normal limits. Left: Normal study, no evidence of a hemodynamically significant renalartery stenosis. Kidney size is within normal limits. COMMUNICATION: Per this written report. Preliminary report signed by CHRISTA Young on 04/08/2025 4:11 PM By electronically signing this report, I, the attending physician, attestthat I have personally reviewed the images/data for the aboveexamination(s) and I agree with the final edited report. Drafted by CHRISTA Young on 04/08/2025 4:05 PM Final report signed by Live Chery MD on 04/12/2025 8:24 AM us Loki Galvan MD CV VASCULAR PROCEDURES Final Result * VAS US Aorta IVC Iliac Vessels Duplex (04/08/2025 11:26 AM EDT) Anatomical Region Laterality Modality Abdominal aorta Ultrasound Impressions 04/12/2025 8:24 AM EDT Normal study. Endovascular bilateral iliac stents are patent with no areas of hemodynamically significant stenosis. COMMUNICATION: Per this written report. Preliminary report signed by CHRITSA Young on 04/08/2025 4:05 PM By electronically signing this report, I, the attending physician, attest that I have personally reviewed the images/data for the above examination(s) and agree with the final edited report. Drafted by CHRISTA Young on 04/08/2025 3:12 PM Final report signed by Live Chery MD on 04/12/2025 8:24 AM Narrative 04/12/2025 8:24 AM EDT CLINICAL INDICATION: S/P Endovascular repair TECHNIQUE: Non-invasive, real time duplex exam of the aorta with Doppler ultrasonic waveform and spectral analysis was performed. COMPARISON: YOSEF performed same day Rt: 0.99 Lt: 0.54 FINDINGS: Aorta duplex demonstrates the following transverse measurements and flow velocities: MEASUREMENTS: Suprarenal:2.2 x 1.8 cm Juxtarenal:2.2 x 2.4 cm Infrarenal:2.7 x 3.5 cm FLOW VELOCITIES: Suprarenal:100 cm/s Juxtarenal:47 cm/s Infrarenal, proximal to limbs:45 cm/s Infrarenal aorta, right limb proximal end: 31 cm/s Distal aorta, right limb proximal: 31 cm/s Right common iliac artery at bifurcation, right limb mid: 161 cm/s Right common iliac mid, right limb distal: 154 cm/s Right common iliac distal, right limb distal end: 98 cm/s Right external iliac distal to: 160 cm/s Infrarenal aorta, left limb proximal end: 28 cm/s Distal aorta, left limb proximal: 40 cm/s Left common iliac artery at bifurcation, left limb mid: 58 cm/s Left common iliac artery mid, left limb distal: 69 cm/s Left common iliac artery distal, left limb distal end: 107 cm/s Left external iliac artery distal to: 141 cm/s Procedure Note Live Chery MD - 04/12/2025 CLINICAL INDICATION: S/P Endovascular repair TECHNIQUE: Non-invasive, real time duplex exam of the aorta with Doppler ultrasonicwaveform and spectral analysis was performed. COMPARISON: YOSEF performed same day Rt: 0.99 Lt: 0.54 FINDINGS: Aorta duplex demonstrates the following transverse measurements and flowvelocities: MEASUREMENTS: Suprarenal:2.2 x 1.8 cm Juxtarenal:2.2 x 2.4 cm Infrarenal:2.7 x 3.5 cm FLOW VELOCITIES: Suprarenal:100 cm/s Juxtarenal:47 cm/s Infrarenal, proximal to limbs:45 cm/s Infrarenal aorta, right limb proximal end: 31 cm/s Distal aorta, right limb proximal: 31 cm/s Right common iliac artery at bifurcation, right limb mid: 161 cm/s Right common iliac mid, right limb distal: 154 cm/s Right common iliac distal, right limb distal end: 98 cm/s Right external iliac distal to: 160 cm/s Infrarenal aorta, left limb proximal end: 28 cm/s Distal aorta, left limb proximal: 40 cm/s Left common iliac artery at bifurcation, left limb mid: 58 cm/s Left common iliac artery mid, left limb distal: 69 cm/s Left common iliac artery distal, left limb distal end: 107 cm/s Left external iliac artery distal to: 141 cm/s IMPRESSION: Normal study. Endovascular bilateral iliac stents are patent with no areasof hemodynamically significant stenosis. COMMUNICATION: Per this written report. Preliminary report signed by CHRISTA Young on 04/08/2025 4:05 PM By electronically signing this report, I, the attending physician, attestthat I have personally reviewed the images/data for the aboveexamination(s) and agree with the final edited report. Drafted by CHRISTA Young on 04/08/2025 3:12 PM Final report signed by Live Chery MD on 04/12/2025 8:24 AM us Loki Galvan MD CV VASCULAR PROCEDURES Final Result * VAS US Carotid Duplex Bilateral (04/08/2025 11:26 AM EDT) Anatomical Region Laterality Modality Head, Neck, Vascular Ultrasound Impressions 04/12/2025 8:24 AM EDT Right: Moderate, irregular and calcific plaque with acoustic shadowing is demonstrated in the distal CCA and carotid bifurcation. Flow is present in the CCA, ICA, and ECA. ICA velocities demonstrate evidence of a hemodynamically significant stenosis (50-69%). ECA stenosis is identified. Left: Moderate, irregular and calcific plaque with acoustic shadowing is demonstrated in the carotid bifurcation. Flow is present in the CCA, ICA, and ECA. ICA velocities do not demonstrate evidence of a hemodynamically significant stenosis (less than 50%). ECA stenosis is identified. Vertebral artery flow is antegrade, bilaterally. Subclavian artery flow is multiphasic, bilaterally. COMMUNICATION: Per this written report. Preliminary report signed by CHRISTA Young on 04/08/2025 3:11 PM By electronically signing this report, I, the attending physician, attest that I have personally reviewed the images/data for the above examination(s) and I agree with the final edited report. Drafted by CHRISTA Young on 04/08/2025 3:06 PM Final report signed by Live Chery MD on 04/12/2025 8:24 AM Narrative 04/12/2025 8:24 AM EDT CLINICAL INDICATION: Surveillance for carotid artery stenosis. TECHNIQUE: Non-invasive, real time duplex exam of the extracranial carotid circulation with Doppler ultrasonic waveform and spectral analysis was performed. COMPARISON: Previous carotid performed 01/09/24 FINDINGS: Right: CCA: 98 cm/s ECA: 290 cm/s; velocity ratio: 2.9 ICA: 231/49 cm/s; ICA/CCA ratio: 2.3 Vertebral A: 79 cm/s Subclavian A: 170 cm/s Left: CCA: 42 cm/s ECA: 550/81 cm/s; velocity ratio: 13.0 ICA: 69/23 cm/s; ICA/CCA ratio: 1.6 Vertebral A: 41 cm/s Subclavian A: 218 cm/s Procedure Note Live Chery MD - 04/12/2025 CLINICAL INDICATION: Surveillance for carotid artery stenosis. TECHNIQUE: Non-invasive, real time duplex exam of the extracranial carotidcirculation with Doppler ultrasonic waveform and spectral analysis wasperformed. COMPARISON: Previous carotid performed 01/09/24 FINDINGS: Right: CCA: 98 cm/s ECA: 290 cm/s; velocity ratio: 2.9 ICA: 231/49 cm/s; ICA/CCA ratio: 2.3 Vertebral A: 79 cm/s Subclavian A: 170 cm/s Left: CCA: 42 cm/s ECA: 550/81 cm/s; velocity ratio: 13.0 ICA: 69/23 cm/s; ICA/CCA ratio: 1.6 Vertebral A: 41 cm/s Subclavian A: 218 cm/s IMPRESSION: Right: Moderate, irregular and calcific plaque with acoustic shadowing isdemonstrated in the distal CCA and carotid bifurcation. Flow is presentin the CCA, ICA, and ECA. ICA velocities demonstrate evidence of ahemodynamically significant stenosis (50-69%). ECA stenosis isidentified. Left: Moderate, irregular and calcific plaque with acoustic shadowing isdemonstrated in the carotid bifurcation. Flow is present in the CCA, ICA,and ECA. ICA velocities do not demonstrate evidence of a hemodynamicallysignificant stenosis (less than 50%). ECA stenosis is identified. Vertebral artery flow is antegrade, bilaterally. Subclavian artery flow is multiphasic, bilaterally. COMMUNICATION: Per this written report. Preliminary report signed by CHRISTA Young on 04/08/2025 3:11 PM By electronically signing this report, I, the attending physician, attestthat I have personally reviewed the images/data for the aboveexamination(s) and I agree with the final edited report. Drafted by CHRISTA Young on 04/08/2025 3:06 PM Final report signed by Live Chery MD on 04/12/2025 8:24 AM us Loki Galvan MD CV VASCULAR PROCEDURES Final Result * VAS Ankle Brachial Index - YOSEF Only (04/08/2025 10:15 AM EDT) Anatomical Region Laterality Modality Vascular Ultrasound Impressions 04/12/2025 8:24 AM EDT Right: Normal study; No evidence of hemodynamically significant arterial disease at rest. No significant change as compared with previous exam. 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 No significant change from the previous exam. COMMUNICATION: Per this written report. Preliminary report signed by Caterina Quigley on 04/08/2025 4:10 PM By electronically signing this report, I, the attending physician, attest that I have personally reviewed the images/data for the above examination(s) and I agree with the final edited report. Drafted by Caterina Quigley on 04/08/2025 10:51 AM Final report signed by Live Chery MD on 04/12/2025 8:24 AM Narrative 04/12/2025 8:24 AM EDT CLINICAL INDICATION: Surveillance of right GUT SORTER to peroneal artery bypass graft TECHNIQUE: Non-invasive, continuous wave Doppler exam with segmental pressures and spectral analysis of the lower extremity was performed. COMPARISON: Previous YOSEF performed 10/08/2024 R: 0.94 L: 0.43 Arterial duplex performed same day (04/08/2025). FINDINGS: Right: Multiphasic waveforms are demonstrated at the levels of the GUT SORTER (imaged on same day arterial duplex). Monophasic waveforms are demonstrated at the PASTE UP WORKER and DPA. Segmental pressures are within normal limits with a PASTE UP WORKER YOSEF of 0.83 (114 mmHg) and a DPA YOSEF of 0.99 (135 mmHg). 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 Digit waveforms were obtained from the second digit. Left: Monophasic waveforms are demonstrated at the level of the GUT SORTER (imaged on same day arterial duplex), PASTE UP WORKER and DPA. Segmental pressures are below normal limits with a PASTE UP WORKER YOSEF of 0.51 (70 mmHg) and a DPA YOSEF of 0.54 (74 mmHg). Digit pressures are 40 mmHg. Procedure Note Live Chery MD - 04/12/2025 CLINICAL INDICATION: Surveillance of right GUT SORTER to peroneal artery bypass graft TECHNIQUE: Non-invasive, continuous wave Doppler exam with segmental pressures andspectral analysis of the lower extremity was performed. COMPARISON: Previous YOSEF performed 10/08/2024 R: 0.94 L: 0.43 Arterial duplex performed same day (04/08/2025). FINDINGS: Right: Multiphasic waveforms are demonstrated at the levels of the GUT SORTER(imaged on same day arterial duplex). Monophasic waveforms aredemonstrated at the PASTE UP WORKER and DPA. 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 Digitwaveforms were obtained from the second digit. Left: Monophasic waveforms are demonstrated at the level of the GUT SORTER(imaged on same day arterial duplex), PASTE UP WORKER and DPA. Segmental pressuresare below normal limits with a PASTE UP WORKER YOSEF of 0.51 (70 mmHg) and a DPA YOSEF of0.54 (74 mmHg). Digit pressures are 40 mmHg. IMPRESSION: Right: Normal study; No evidence of hemodynamically significant arterialdisease at rest. No significant change as compared with previous exam. Left: Abnormal study consistent with hemodynamically significantinfrainguinal arterial disease resulting in a moderate insufficiency atrest. No significant change from the previous exam. COMMUNICATION: Per this written report. Preliminary report signed by Caterina Quigley on 04/08/2025 4:10 PM By electronically signing this report, I, the attending physician, attelsaat I have personally reviewed the images/data for the aboveexamination(s) and I agree with the final edited report. Drafted by Caterina Quigley on 04/08/2025 10:51 AM Final report signed by Live Chery MD on 04/12/2025 8:24 AM us Loki Galvan MD CV VASCULAR PROCEDURES Final Result * (ABNORMAL) Hemoglobin A1c (06/15/2022 5:44 PM EDT) Hemoglobin A1c 8.4(H) <5.7 % 06/15/2022 10:15 PM EDT [facility] Blood Venous blood specimen / Unknown Venipuncture / Unknown 06/15/2022 5:44 PM EDT 06/15/2022 5:48 PM EDT Narrative [facility] - 06/15/2022 10:15 PM EDT HA1C Interpretive Data: Diagnosis of Diabetes: Diabetic > or = 6.5% Pre-diabetic 5.7 to 6.4% Non-diabetic < or = 5.6% Glycemic Targets for Type I and Type II Diabetics: Non- Adults <7.0% Adults <6.0% Children and Adolescents <7.5% Source: [employer]. Standards of medical care in diabetes,2017. Diabetes Care.2017:40 (suppl 1):S1-S135. HbA1c assay performed by an ion-exchange chromatography method that is certified traceable to the DCCT. us Zita Arias MD LAB BLOOD ORDERABLES Final R esult [facility] [address] [id number] * Hepatitis C Antibody - ED (06/15/2022 11:02 AM EDT) Hepatitis C Antibody Negative Negative 06/15/2022 1:02 PM EDT [facility] Blood Venous blood specimen / Unknown Venipuncture / Unknown 06/15/2022 11:02 AM EDT 06/15/2022 11:41 AM EDT us Ander Corona MD LAB BLOOD ORDERABLES Final Re sult [facility] [address] [place] [address] * CT Chest w IV Contrast (02/07/2021 7:09 PM EDT) Anatomical Region Laterality Modality Chest Computed Tomogra phy Narrative 02/08/2021 7:22 AM EDT REQUESTING PHYSICIAN: NOHELIA CHRISTINE REASON FOR EXAMINATION/PROCEDURE: RAD PDP:Y*Lytic lesions in cervical spine, concern for malignancy EXAMINATION / PROCEDURE: CT Chest W IVCON Feb 07 2021 - 19:09; CLINICAL INDICATION: Lytic le ira in cervical spine. Concern for malignancy. TECHNIQUE: Multiple CT helical images were obtained from thoracic inlet through upper abdomen with administration of IV contrast. 100mL of Omnipaque-300 were administered intravenously. Tot al DLP (Dose-Length Product): 544.03 mGy.cm. Please note: The reported value represents the total of one or more individual components during the CT acquisition on this date and at this time, and as such, the same value may appear in more than o ne CT report depending on the interpreting/reporting physicians. COMPARISON: None. FINDINGS: Mediastinum and Pleura: No mediastinal or hilar adenopathy. No pleural or pericardial effusion. Atherosclerosis of the aorta and its branch vessel s including severe coronary artery calcification. Probable left ventricular hypertrophy, not well evaluated by this technique. Lungs: Moderate centrilobular emphysema. Some lower lung multifocal scarring. No suspicious nodules. Upper Abdom en: Please see separate report for findings of the concurrently performed abdominal CT. Musculoskeletal: No suspicious lytic or sclerotic lesion. IMPRESSION: No evidence of thoracic malignancy. CRITICAL RESULT: No. COMMUNICATION: P er this written report. Verified by: SAQIB MALLOY M.D. on Feb 08:21A Transcribed by: PSCB on Feb 08A Dictated by: SAQIB MALLOY M.D. on Feb 08:17A Procedure Note Saqib Malloy MD - 05/19/2021 REQUESTING PHYSICIAN: NOHELIA CHRISTINE REASON FOR EXAMINATION/PROCEDURE: RAD PDP:Y*Lytic lesions in cervical spine, concern for malignancy EXAMINATION / PROCEDURE: CT Chest W IVCON Feb 07 2021 - 19:09; CLINICAL INDICATION: Lytic le ira in cervical spine. Concern for malignancy. TECHNIQUE: Multiple CT helical images were obtained from thoracic inlet through upper abdomen with administration of IV contrast. 100mL of Omnipaque-300 were administered intravenously. Tot al DLP (Dose-Length Product): 544.03 mGy.cm. Please note: The reported value represents the total of one or more individual components during the CT acquisition on this date and at this time, and as such, the same value may appear in more than o ne CT report depending on the interpreting/reporting physicians. COMPARISON: None. FINDINGS: Mediastinum and Pleura: No mediastinal or hilar adenopathy. No pleural or pericardial effusion. Atherosclerosis of the aorta and its branch vessel s including severe coronary artery calcification. Probable left ventricular hypertrophy, not well evaluated by this technique. Lungs: Moderate centrilobular emphysema. Some lower lung multifocal scarring. No suspicious nodules. Upper Abdom en: Please see separate report for findings of the concurrently performed abdominal CT. Musculoskeletal: No suspicious lytic or sclerotic lesion. IMPRESSION: No evidence of thoracic malignancy. CRITICAL RESULT: No. COMMUNICATION: P er this written report. Verified by: SAQIB MALLOY M.D. on Feb 08:21A Transcribed by: PSCB on Feb 08:21A Dictated by: SAQIB MALLOY M.D. on Feb 08:17A Nohelia Christine DO IMG CT PROCEDURES Final Result from Last 3 Months or Most Recently [place] [address] [place] [address] [facility] Advance Directives * Full Code (Latest Code Status on File) Date Activated Date Inactivated Comments 06/27/2022 6:23 PM 07/05/2022 3:57 PM Question Answer Comments Patient has decision-making capacity? Yes * Full Code Date Activated Date Inactivated Comments 06/20/2022 1:48 PM 06/27/2022 6:23 PM Question Answer Comments Patient has decision-making capacity? Yes * Full Code Date Activated Date Inactivated Comments 06/15/2022 4:56 PM 06/20/2022 1:48 PM Question Answer Comments Patient has decision-making capacity? Yes Care Teams Mail Carrier Technician Relationship Specialty Start Date End Date Sreedhar Chavez MD [address] [place] [address] [address] [place] [address] PCP - General 09/15/21 Margaret Britton MD [address] [place] [address] Surgeon Neurosurgery 09/15/21 Matrha Miller PA [address] [place] [address] Physician Sandfill Operator Urology 11/10/24
--- OUTSIDE RECORDS SUMMARY | 2025-06-30 16:10 | XMS_ITS | Encounter Summary ---
Author Organization Healthcare Address [address] [place] [address] Care Team Providers Care Fish Bait Picker Name Role Phone Sreedhar Chavez MD Primary Care Provider [phone] Margaret Britton MD Unavailable [phone] Martha Miller Unavailable [phone] Reason for Visit * Reason Onset Date Comments [facility] Same Day Appt/Overbook Request 06/23/2025 Encounter Details Date Type Department Care Team (Late st Contact Info) Description 06/23/2025 Telephone [facility] [address] [place] [address] Martha Miller PA [address] [place] [address] [facility] Same Day Appt/Overbook Request Social History Tobacco Use Types Packs/Day Years Used Date Smoking Tobacco: Former Cigarettes 1 50 1 971 - 2021 Passive Smoke Exposure: Past Smokeless Tobacco: Never [...] encounter Miscellaneous Notes * Telephone Encounter - Paulette Gonzalez - 06/23/2025 2:12 PM EDT Same Day Appt/Overbook Request Reason for Call: Pt's appt was rescheduled for the morning on 07/27. Pt's said that is too early. They need something later in the day with Martha Miller and dereck. Thanks! Best contact number: [phone] (mobile) pt said she cannot be reached via phone. She asked if wecan text her. Declined signing up for [facility]. Optimal time of day to reach caller: ANYTIME Additional comments/information from caller: None Note: Please do not reply to this message. Follow-up communication and further actions as a result of this message need to be communicated with the patient directly, if the patient is not active onMyChart. If the patient is active on MyChart, they will receive notification of the communication/outcome via [facility]. documented in this encounter Plan of Treatment Upcoming Encounters Date Type Department Care Team (Late st Contact Info) Description 07/27/2025 10:50 AM EDT Clinical Support [facility] [address] [place] [address] 07/27/2025 11:50 AM EDT Office Visit [facility] Urology [address] [place] [address] Martha Miller PA [address] [place] [address] documented as of this encounter Visit Diagnoses Not on filedocumented in this encounter Additional Health Concerns Assessment Noted Time A fall risk assessment has been complete d for the patient 04/08/2025 1:01 PM EDT A Body Mass Index follow-up plan has been documented for the patient 04/08/2025 2:13 PM EDT documented as of this encounter Care Teams Fish Bait Picker Relationship Specialty Start Date End Date Sreedhar Chavez MD [address] [place] [address] [address] [place] [id number] PCP - General 09/15/21 Margaret Brittno MD [address] [place] [address] Surgeon Neurosurgery 09/15/21 Martha Miller PA [address] [place] [address] Physician Hatchery Man Urology 11/10/24 documented as of this encounter
--- OUTSIDE RECORDS SUMMARY | 2025-06-30 16:10 | XMS_ITS | Clinical Summary ---
Author Organization [facility] Address [address] [place] [address] Care Team Providers Care Morning Babysitter Name Role Phone Unavailable Primary Care Provider Unavailabl e Social History Tobacco Use Types Packs/Day Years Used Date Smoking Tobacco: Never Assessed Abuse Screen Answer Date Recorded Unsafe at Home or Work/School Not on file Feels Threatened by Someone? Not on file 06/2023 Does Anyone Keep You from Co ntacting Others or Doint Things Outside the Home? Not on file 08/05/2023 Physical Sign of Abuse Present Not on file 1 Housing Stability Answer Date Recorded Current Living Arrangements Not on file 06/2023 Potentially Unsafe Housing Conditions Not on mars e 08/05/2023 Family and Community Support Answer Luis e Recorded Help with Day-to-Day Activities Not on file 08/05/2023 Lonely or Isolated Not on file 08/05/2023 Employment Answer Date Recorded Do you want help finding or keeping work or a batool b? Not on file 08/05/2023 Disabilities Answer Date Recorded Concentrating, Remembering, or Making Decisions Difficulty Not on file 08/05/2023 Doing Errands Independently Difficulty Not on fi le 08/05/2023 Education Answer Date Recorded Help with school or training? Not on file Preferred Language Not on file 08/05/2023 Sex and Gender Information Value Date Recorded Sex Assigned at Not on file Legal Sex Male 6:53 AM EDT Gender Identity Not on file Sexual Orientation Not on file Plan of Treatment Health Maintenance Due Date Last Done Comments ANNUAL PHYSICAL 1955 HEPATITIS C SCREENING 1955 TDAP/TD VACCINES (1 - Tdap) 1974 COLOGUARD 2000 COLON CANCER SCREENING 5 YEAR SIGMOIDOSCOPY 2000 COLONOSCOPY 2000 [address] CANCER SCREENING 2000 CT COLONOGRAPHY 2000 FECAL OCCULT BLOOD TEST 2000 FIT Testing (1 year) 2000 Pneumococcal Vaccine 50+ (1 of 1 - PCV) 2005 ZOSTER VACCINE (1 of 2) 2005 AAA SCREEN ONCE 2020 COVID-19 Vaccine ( - 2023- season) 2024 INFLUENZA VACCINE 07/28/2025
--- OUTSIDE RECORDS SUMMARY | 2025-06-30 16:10 | XMS_ITS | Encounter Summary ---
Author Organization Healthcare Address [address] [place] [address] Care Team Providers Care Forestry Aide Name Role Phone Sreedhar Chavez MD Primary Care Provider [phone] Margaret Britton MD Unavailable [phone]- [phone] Martha Miller Unavailable [phone] Reason for Visit * Reason Onset Date Comments Appt Changes 05/26/2025 Encounter Details Date Type Department Care Team (Late st Contact Info) Description 05/26/2025 Telephone [facility] [address] [place] [address] Martha Miller PA [address] [place] [address] Appt Changes Social History Tobacco [...] * Telephone Encounter - Fany Aden - 05/26/2025 9:19 AM EDT Left detailed message regarding appt changes from 07/06 to 07/27 both labs and office visit and mailednew reminder. documented in this encounter Plan of Treatment Upcoming Encounters Date Type Department Care Team (Late st Contact Info) Description 07/27/2025 10:50 AM EDT Clinical Support [facility] Lab [address], [address] [place] [address] 07/27/2025 11:50 AM EDT Office Visit [facility] Urology [address], [address] [place] [address] Martha Miller PA [address] [place] [address] documented as of this encounter Visit Diagnoses Not on filedocumented in this encounter Additional Health Concerns Assessment Noted Time A fall risk assessment has been complete d for the patient 04/08/2025 1:01 PM EDT A Body Mass Index follow-up plan has been documented for the patient 04/08/2025 2:13 PM EDT documented as of this encounter Care Teams Forestry Aide Relationship Specialty Start Date End Date Sreedhar Chavez MD [id number] [place] [address] PCP - General 09/15/21 Margaret Britton MD [address] [place] [address] Surgeon Neurosurgery 09/15/21 Martha Miller PA [address] [place] [address] Physician Oil Well Drilling Manager Urology 11/10/24 documented as of this encounter
--- NOTE | 2025-06-30 16:13 | XR_ITS ---
FINAL REPORT CLINICAL HISTORY: Chronic low back pain and stiffness COMPARISON: None FINDINGS: LUMBOSACRAL SPINE SERIES Five views of the lumbosacral spine were obtained. There is 30% loss of height of the L2 vertebra and 10% loss of height at the L4 vertebra. Moderately advanced hypertrophic changes of degenerative disc disease are noted at L1-2, L2-3, and L3-4. Bilateral iliac stents are present. IMPRESSION: Significant loss of height of the L2 and L4 vertebra. Reviewed, Interpreted and Dictated by Yovani Garcia MD Transcribed by Lisy Garsia Authenticated and [facility]
[2025-06-30 18:08] LABS: Hematocrit 43.9 % (42.0-52.0); Hemoglobin 13.5 g/dL (14.1-18.0); Immature Granulocytes % 0.3 %; Mean Corpuscular HGB Conc 30.8 g/dL (31.8-35.4); Mean Corpuscular Hemoglobin 28.1 pg (27.0-31.2); Mean Corpuscular Volume 91.5 fl (80-94); Nucleated Red Blood Cells % 0 %; Platelet Count 203 K/mm3 (142-424); Red Blood Count 4.80 M/mm3 (4.60-6.20); Red Cell Distribution Width-SD 46.9 fL; White Blood Count 7.8 K/mm3 (4.8-10.8)
[2025-06-30 19:20] LABS: Alanine Aminotransferase 49 U/L (12-78); Albumin Level 4.0 g/dl (3.5-5.0); Albumin/Globulin Ratio 1.5 (1.1-1.8); Alkaline Phosphatase 116 U/L (38-126); Aspartate Amino Transferase 48 U/L (17-59); Bilirubin,Total 0.4 mg/dl (0.2-1.3); Blood Urea Nitrogen 31 mg/dl (9-20); Calcium 9.3 mg/dl (8.4-10.2); Carbon Dioxide 28 mmol/L (22.0-30.0); Chloride 102 mmol/L (98-107); Cholesterol 136 mg/dl (140-200); Creatinine,Serum 1.30 mg/dl (0.66-1.25); Estimated Glomerular Filt Rate 55 ml/min (>60); GFR (African American) 66 ML/MIN (>60); Globulin 2.7 g/dL (1.3-3.2); Glucose 252 mg/dl (74-100); HDL Cholesterol 45 mg/dl (40-60); Sodium 139 mmol/L (136-145); Total Protein,Serum 6.7 g/dl (6.3-8.2); Triglycerides 205 mg/dl (30-150)
[2025-06-30 20:46] LABS: Hemoglobin A1C 7.2 % (4.0-6.0)
[2025-06-30 21:45] LABS: Anion Gap 13.4 mEq/L (5-15); Potassium 4.4 mmoL/L (3.5-5.1)
== END 2025-06-30 23:59 | disposition home or self-care (01) ==
LOC: RAD 16:08
PROVIDERS: PCP Internal Medicine; Visit Provider Internal Medicine
DX: M48.8X6 Other specified spondylopathies, lumbar region (principal); M47.817 Spondylosis without myelopathy or radiculopathy, lumbosacral region; I10 Essential (primary) hypertension; E78.5 Hyperlipidemia, unspecified; E11.59 Type 2 diabetes mellitus with other circulatory complications; E11.42 Type 2 diabetes mellitus with diabetic polyneuropathy
CPT/HCPCS: 72110; 80053; 80061; 83036; 85025

== ENCOUNTER 2025-08-05 15:40 | Outpatient (CLI) | payer MEDICARE, OTHER, SELFPAY ==
--- NOTE | 2025-08-05 15:46 | XR_ITS ---
FINAL REPORT CLINICAL HISTORY: Shortness of breath x 6 months COMPARISON: 12/25/2023 FINDINGS: Two views of the chest were obtained. The lungs are hyperinflated but appear clear without effusion or other pleural disease. The heart and mediastinum appear normal. No pneumothorax is identified. The bony thorax appears intact. IMPRESSION: No acute cardiopulmonary process. Reviewed, Interpreted and Dictated by Samy Mejia MD Transcribed by Leonie Bell Authenticated and [facility]
== END 2025-08-05 23:59 | disposition home or self-care (01) ==
LOC: RAD 15:42
PROVIDERS: PCP Internal Medicine; Visit Provider Internal Medicine
DX: R06.02 Shortness of breath (principal)
CPT/HCPCS: 71046

== ENCOUNTER 2025-08-11 15:13 | Outpatient (CLI) | payer MEDICARE, OTHER, SELFPAY ==
--- OUTSIDE RECORDS SUMMARY | 2025-07-27 11:50 | XMS_ITS | Encounter Summary ---
Author Organization Healthcare Address [address] [place] [address] Care Team Providers Care Instructor Flying Name Role Phone Sreedhar Chavez MD Primary Care Provider [phone] Margaret Britton MD Unavailable [phone]- [phone] Martha Miller Unavailable Reason for Visit * Reason Comments Elevated PSA Encounter Details Date Type Department Care Team (Late st Contact Info) Description 07/27/2025 11:50 AM EDT Office Visit [facility] [address] [place] [address] Martha Miller PA [address] [place] [address] Elevated PSA (Primary Dx) Social [...] Description 01/25/2026 1:40 PM EDT Clinical Support [facility] Lab [address] [place] [address] 01/25/2026 2:40 PM EDT Office Visit [facility] Urology [address] [place] [address] Martha Miller PA [address] [place] [address] Scheduled Orders Name Type Priority Associated Diagnoses [...] documented as of this encounter Care Teams Instructor Flying Relationship Specialty Start Date End Date Sreedhar Chavez MD [address] [place] [address] [address] [place] [address] PCP - General 09/15/21 Margaret Britton MD [address] [place] [address] Surgeon Neurosurgery 09/15/21 Martha Miller PA [address] [place] [address] Physician Bin Tripper Operator Urology 11/10/24 documented as of this encounter
--- OUTSIDE RECORDS SUMMARY | 2025-08-11 15:16 | XMS_ITS | Data Portability ---
Author Organization [facility] Razia [facility] ADMIN Address [address] [place] [address] Care Team Providers Care In Mold Coater Name Role Phone VANDANA DAMON Primary Care Provider Assessment No assessment recorded. Plan of Treatment Reminders Order Date Submit Date Provider Last Modified By Organization Details Last Modified Time Details Appointments None recorded. Lab PSA, serum or plasma 2022 [facility], [facility], [place], [address], 3 15:41:42 urinalysis, dipstick 2022 023 [email or web address] [facility], [address] [facility], [address], [place], [address], 15:37:25 Referral None recorded. Procedures None recorded. Surgeries None recorded. Imaging None recorded. Medication Orders terazosin 10 mg capsule 2022 023 [email or web address] [facility] [facility], [address] [place] [address], [address], 3 08:49:44 oxybutynin chloride ER 5 mg tablet,exte nded release 24 hr 2022 023 [facility] [employer] [facility], [address] [place] [address], [address], 3 14:24:16 Patient TargetsNo targets recorded. Patient InstructionsNo instructions recorded. Reason for Referral None Reported. Results Created Date Observation Date Name Description Value Unit Range Abnormal Flag Note LastModifiedBy Organization Detail LastModifiedTime 08/27/2008/27/2023 PROST ATE SPECI FIC AG (PSA) prostate specific Ag (PSA) 12.6 NG/mL 0-4.0 high Not Available [facility] [address] [facility], [place], [address], 08/27/2023 15:41:42 08/27/2008/27/2023 urina lysis , dipst ick Leukocytes (reference range) negati ve Not Available [facility] [address] [place] [address] [address], [place], [address], 08/27/2023 13:59:36 08/27/2008/27/2023 urina lysis , dipst ick Nitrite (reference range:) negati ve Not Available [facility], [place], [address], 08/27/2023 13:59:36 08/27/2008/27/2023 urina lysis , dipst ick Urobilinogen (reference range) 0.2 Not Available [facility] [address], [place], [address], 08/27/2023 13:59:36 08/27/2008/27/2023 urina lysis , dipst ick Protein (reference range) negati ve Not Available [facility], [place], [address], 08/27/2023 13:59:36 08/27/2008/27/2023 urina lysis , dipst ick pH (reference range 5-8.5) 6.0 Not Available [facility] [address] [place] [address] [address], [place], [address], 08/27/2023 13:59:36 08/27/20 23 08/27/2023 urina lysis , dipst ick Blood (reference range:) negati ve Not Available [facility] [address] [place] [address] [address], [place], [address], 08/27/2023 13:59:36 08/27/2008/27/2023 urina lysis , dipst ick Specific Mcwilliams (reference range) 1.015 Not Available [facility] [address] [place] [address] [address], [place], [address], 08/27/2023 13:59:36 08/27/2008/27/2023 urina lysis , dipst ick Ketone (reference range) negati ve Not Available [facility] [address] [place] [address] [address], [place], [address], 08/27/2023 13:59:36 08/27/2008/27/2023 urina lysis , dipst ick Bilirubin (reference range) negati ve Not Available [facility] [address] [place] [address] [address], [place], [address], 08/27/2023 13:59:36 08/27/2008/27/2023 urina lysis , dipst ick Glucose (reference range) negati ve Not Available [facility] [address] [place] [address] [address], [place], [address], 08/27/2023 13:59:36 08/27/2008/27/2023 urina lysis , dipst ick Color (reference range: yellow-brown ) Yellow Not Available [facility] [address] [place] [address] [address], [place], [address], 08/27/2023 13:59:36 Result Notes None recorded. Problems Name Problem SNOMED Code Status Onset Date Resolution Date Notes Provider Name and Address Organization Details Recorded Time Acute stroke 5877028234509 04 Active 2022 Gerda prince, [facility] [place] 13:31:15 Sleep apnea 71856771 Active 2022 Gerda prince, [facility] [place] [facility] [place] 3 13:31:22 Gastroesoph ageal reflux disease 823963200 Active 2022 Gerda prince, [facility] - [place] [facility] [place] 3 13:31:28 Hypercholes terolemia 72129942 Active 2022 Gerda prince, [facility] - [place] [facility] [place] 3 13:31:38 Diabetes mellitus 75806573 Active 2022 Gerda prince, [facility] - [place] & [place] 3 13:31:46 Heart disease 92969284 Active 2022 Gerda prince, [facility] - [place] [facility] [place] 3 13:31:56 Depressive disorder 52940687 Active 2022 Gerda prince, [facility] [place] [facility] [place] 3 13:32:06 Hypertensiv e disorder 90111250 Active 2022 Gerda prince, [facility] - [place] & [place] 3 13:32:17 Problem Notes None recorded. Procedures Surgical History Date Name Laterality Status Provider Name and Address Organization Details Recorded Time implantation of patient-activated cardiac event recorder completed Gerda Ferrara [place] [facility] [place] 08/27/2023 13:33:03 Imaging Results None recorded. Procedure [...] Not Available Not Available No t Available [place] [facility] 0.65 % nasal spray aerosol 08/27 [...] Body mass index (BMI) Body weight Systolic And Diastolic Provider Name and Address Organization Details Last Updated DateTime 08/27/2023 172.72 cm 25.8 kg/m2 64739.7 g 132/70 mm[Hg] Gerda Bubba [facility] - [place] & [place] 08/27/2023 13:59:18 Social History None recorded. Functional Status Question Answer Note LastModified by Organizat ion Details LastModified Time Do you use any illicit or recreational drugs? No Information not available 08/27/2023 What is your level of alcohol consumption? None Information not available 08/27/2023 Mental Status None recorded. Family History Nothing Reported Notes:Mother- diabetic, asth ma, emphysema, COPD () Father- heart bypass, Stroke() Medical History Condition Response Diabetes Y Enlarged Prostate Y Hyperlipidemia Y Heart Disease Y Depression Y Past Encounters Encounter ID Performer Location Encounter Start Date Encounter Closed Date Diagnosis/Indication Diagnosis SNOMED-CT Code Diagnosis ICD10 Code Diagnosis IMO Codes Diagnosis Note [id number] Autumn Seymour NP, [facility] [address] [facility] [place] [address] 08/27/2023 13:19:42 08/27/2023 14:20:12 Large prostate 880688573 N40.0 UA clearbladd er scan 82mlContin ue Terazosin 10mg dailyConti nue Oxybutynin 5mg dailyScree godfrey PSA, will call with [facility] in 1 year for f/u Received PSA from last year from [facility] and PSA was 7.6 on 05/29/2022 Screening for malignant neoplasm of prostate 577731831 Z12.5 Nocturia 078251026 R35.1 History of diabetes mellitus 335024517 Z86.39 Long-term current use of anticoagulant 228930322 Z79.01 Health Concerns Section Related Observation LastModified by Organization Detai ls LastModified Time None Recorded Concern Status LastModified by Organization Details LastModified Time None Recorded Advance Directives Directive None Recorded Payers Insurance Date Sequence Insurance Name Policy Number Policy Aguiar Covered Member ID Aguiar Member ID Guarantor Name 09/09/2023 2 FOR LIFE ( - MEDICARE SUPPLEMENT) Roly Fabrizio Bunny [id number] 09/09/2023 1 [place] Roly Dinh Bunny [id number] Notes Date Note Type Note Provider Name [...] coronary artery disease and heart stents. Patient's mill and coal transport operator is Dr. Alejandra. patient is an insulin-dependent diabetic for 20 years, last hemoglobin A1c was 11 point on 11/30/2022. Patient had a bladder ultrasound on 01/02/2023 that revealed 63 mL. Autumn Seymour, [facility], [address], [place], [address], [facility] - [place] & [place] 08/28/2023 08:50:00
--- OUTSIDE RECORDS SUMMARY | 2025-08-11 15:16 | XMS_ITS | Clinical Summary ---
Author Organization Healthcare Address [address] [place] [address] Care Team Providers Care Optician Apprentice Name Role Phone Sreedhar Chaevz MD Primary Care Provider [phone] Margaret Britton MD Unavailable [phone] Martha Miller Unavailable [phone] Allergies No known active allergies Medications aspirin 81 MG EC tablet Take 1 tablet (81 mg) by mouth 1 (one) time each day with dinner. Active nitroglycerin (Nitrostat) 0.[address] [...] taking differently: 38 UnitsSubcutaneous Nightly, Reported on 07/27/2025 rivaroxaban (Xarelto) 20 MG tablet Take 1 tablet (20 mg total) by mouth 1 (one) time each day with dinner. Take with food. 30 tablet 11 07/05/20 Active Additional Information Patient taking differently: 2.5 mgOral 2 times daily, Take with food.Reports taking., Reported on 07/27/2025 losartan (Cozaar) 100 MG tablet Take 1 tablet (100 mg total) by mouth 1 (one) time each day. 30 tablet 3 07/06/20 Active Additional Information Patient taking differently:100 mg Oral Daily,Reports taking., Reported on 07/27/2025 TechLite Pen [place] 31G X 5 MM misc 07/12/20 Active lidocaine (Lidoderm) 5 % patch 08/03/20 22 Active oxyCODONE HCl 10 MG tablet 3 (three) times a day. 07/24/20 Active amLODIPine (Norvasc) 5 MG tablet Take 1 tablet (5 mg) by mouth 1 (one) time each day. 09/13/20 Active ammonium lactate (AmLactin) 12 % lotion Apply to lower extremities daily 500 g 11/19/19 23 Active Additional Information Patient not taking.Reported on 07/27/2025 insulin aspart (NovoLOG) 100 UNIT/ML injection vial [...] (Remeron) 15 MG tablet 09/03/20 24 Active FREESTYLE LITE test strip 12/10/19 25 Active psyllium (Metamucil) 58.6 % powder Take 1 packet by mouth 3 times a day. Acti ve polyethylene glycol (Miralax) 17 g packet Take 17 g by mouth daily. Active finasteride (Proscar) 5 MG tablet Take 1 tablet by mouth daily. Do not crush, chew, or split. 90 tablet 3 07/27/20 25 026 Active tamsulosin (Flomax) 0.4 MG 24 hr capsule Take 1 capsule by mouth nightly. 90 capsule 3 07/27/20 25 026 Active finasteride (Proscar) 5 MG tablet Take 1 tablet (5 mg) by mouth 1 (one) time each day. Do not crush, chew, or split. 90 tablet 3 11/10/19 25 025 Discontin ued(Reord er) tamsulosin (Flomax) 0.4 MG 24 hr capsule Take 1 capsule (0.4 mg) by mouth every night. 90 capsule 3 11/10/19 025 Discontin ued(Reord er) Active Problems Problem Noted Date Diagnosed Date Appendicitis 12/18/2024 Closed head injury 12/18/2024 Dysphagia 12/18/2024 Syncope 12/18/2024 General weakness 12/18/2024 Hematochezia 12/18/2024 Hoarseness or changing voice 12/18/2024 Hypokalemia 12/18/2024 Incarcerated hernia 12/18/2024 Incarcerated inguinal hernia 12/18/2024 Laceration of face 12/18/2024 Postoperative anemia 12/18/2024 Bilateral carotid artery stenosis 01/09/2024 Claudication 01/09/2024 CHRISTI (renal artery stenosis) 01/09/2024 Tobacco dependence syndrome 01/09/2024 Acute cerebrovascular accident (CVA) 08/27/2023 Depressive disorder 08/27/2023 ABLA (acute blood loss anemia) 07/03/2022 Overview [...] OPAT Team Attn: Noreen Edouard Fax #: [phone] Appointments: With Noreen Edouard APRN on 08/06/22 at 3:30PM [address] [place] [phone] (Select Option 3 for IV Antibiotic / PICC line related issues) Discharge teaching provided. All questions regarding outpatient parenteral antimicrobials after discharge should be directed to the OPAT nurse navigator at (Select Option 3 for IV Antibiotics/PICC Issues) between 8am-5pm. After 5 pm, or during weekends/ holidays, please call the paging dehydrating press operator at to reach the on-call ID [...] 8.4 -Ongoing management per PCP following discharge PAD (peripheral artery disease) 06/16/2022 Lower limb [...] in wound care clinic after discharge from [facility] [address] Coronary artery disease invo [place]ving [place] coronary artery of [place] heart without angina pectoris 06/15/2022 Overview (07/05/2022): -Aspirin 81mg daily, atorvastatin 80mg daily, coreg 12.5mg BID, amlodipine 10mg daily, Cozaar 100mg daily, Xarelto 20mg daily -Nitroglycerin prn Follow up with Cardiology Neck pain 02/24/2021 Cervical stenosis of spine 02/16/2021 Resolved Problems Problem Noted Date Diagnosed Date Resolved Date HARSHAD (acute kidney injury) 12/18/2024 CAP (community acquired pneumonia) 12/18/2024 07/18/2025 Encephalopathy 12/18/2024 07/18/2025 Physical deconditioning 12/18/202406/29 Postoperative abdominal pain 12/18/2024 07/18/2025 Abnormal ankle brachial index (YOSEF) 01/09/2024 07/18/2025 Open wound 10/11/2022 07/18/2025 Pain management 07/04/2022 07/18/2025 Overview (07/05/2022): Acetaminophen 1,000 mg by mouth every 6 (six) hours if needed. Gabapentin (Neurontin) 300 MG capsule by mouth 3 times a day. Methocarbamol 500 mg 3 by mouth 3 times a day. Oxycodone 5 mg -10 mg by mouth every 6 hours if needed. Continue management on discharge per facility Severe protein-calorie malnutrition 06/19/2022 07/18/2025 Overview (07/05/2022): -CCO3 diet -Diet supplements -Recommend Nutrition consult on arrival to . - Continue Boost Glucose Control TID, any flavor - Will send snacks TID. - Recommend MVI daily for healing. Subacute osteomyelitis of right foot 06/16/2022 07/03/2022 Dry gangrene 06/15/2022 07/03/2022 Cellulitis of right lower extremity 06/15/2022 07/03/2022 Overview (06/18/2022): Added automatically from request for surgery [id number] Decreased pulses in feet 06/15/202201/2022 Overview (06/19/2022): Added automatically from request for surgery [id number] Encounters Date Type Department Care Team Description 07/27/2025 11:50 AM EDT Office Visit [facility] Urology [address], [address] [place] [address] Martha Miller PA Elevated PSA (Primary Dx) 07/27/2025 Results Follow-Up [facility] [address], [facility] [place] [address] Martha Miller PA 07/27/2025 Travel 06/23/2025 Telephone [facility] [address], [address] [place] [address] Martha Miller PA [facility] Same Day Appt/Overbook Request 06/23/2025 Telephone [facility]rology [address], [facility] [place] [address] Martha Miller PA Appt Changes 05/26/2025 Telephone [facility]rology [address], [facility] [place] [address] Martha Miller PA Appt Changes from Last 3 Months Immunizations Immunization Administration [...] Pulse 69 07/27/2025 11:59 AM EDT Temperature 36.7 C (98 F) 04/08/2025 12:51 PM EDT Respiratory Rate 15 07/27/2025 11:5 9 AM EDT Oxygen Saturation 95% 07/27/2025 11: 59 AM EDT Inhaled Oxygen Concentration - - Weight 81.1 kg (178 lb 12.7 oz) 025 11:59 AM EDT Height 172.7 cm (5' 8 ) 07/27/2025 11:5 9 AM EDT Body Mass Index 27.19 07/27/2025 11:59 AM EDT Plan of Treatment Upcoming Encounters Date Type Department Care Team (Late st Contact Info) Description 01/25/2026 1:40 PM EDT Clinical Support [facility] [address], [address] [place] [address] 01/25/2026 2:40 PM EDT Office Visit [facility]rology [address], [address] [place] [phone] Martha Miller PA [address] [place] [address] Health Maintenance Due Date Last Done Comments [facility]-Medicare Annual Wellness (AWV) 1955 [facility]-Infant/Child/Adol SDOH Screenings 1955 Diabetes: Dental Exam 1965 [facility]- SDOH Screenings 1973 [facility]-Adult SDOH Screenings 1973 CT Colonography 2000 Colonoscopy 2000 FIT-DNA 2000 FIT 2000 FOBT 2000 Sigmoidoscopy 2000 [facility]-Colorectal Cancer Screening 2000 [facility]-Zoster Vaccines (1 of 2) 2005 [facility]-Abdominal Aortic Aneurysm (AAA) Screening 2020 [facility]-Pneumococcal Vaccine: 50+ Years (2 of 2 - PPSV23, PCV20, or PCV21) 12/06/2021 10/11/2021 [facility]-Lung Cancer Screening 02/07/2022 02/07/2021 [facility]-Diabetes: Hemoglobin A1C 12/13/2022 06/15/2022, 02/06/2021 [id number] Vaccine (3 - season) 2025 06/27/2021, 05/30/2021 [facility]-Influenza Vaccine (#1) 2025 09/07/2024 [facility]-Depression Screening 07/27/2026 07/27/2025 [facility]-DTaP,Tdap,and Td Vaccines (2 - Td or Tdap) 11/11/2033 11/11/2023 [facility]-Hepatitis C Screening Completed 06/15/2022, 09/2021 [facility]-RSV Vaccine: 60+ Years or Completed 09/07/2024 [facility]-Obesity Intervention Completed 025, 04/08/2025, 11/10/2024, Additional history exists HPV Vaccines Aged Out [...] this topic Medical Devices Implanted Type Area Fitness And Wellness Manager Device Identifier Shelf Expiration Date Model / Serial / Lot Spill Inc Scientific Implantable Loop Recorder-2020 Implanted:10/2020 (Quantity not on file) Implantable Loop Recorder Chest [employer] [id number] / [id number] / Visi-Pro Stent- 1 Implanted:02/25 (Quantity not on file) Stent Arterial Medtronic [id number] -57-135 / / Visi-Pro Stent- Implanted:02/25 (Quantity not on file) Stent Left: Arterial Medtronic [id number] -57-135 / / Description:LEFT ILIAC Visi-Pro Stent- Implanted:02/25 (Quantity not on file) Stent Aorta Medtronic [id number] -17-135 / / Description:Distal Aorta Protege Gps Ev3-03/06/2021 Implanted:02/25 (Quantity not on file) Stent Arterial Description:LT ILIAC Rx Herculink Elite- 1 Implanted:Qty: 2 on 07/19/2021 Stent Kidney Description:RT and LT Renal implanted on 07/19/21 Visi-Pro Stent- 1 Implanted:06/29 (Quantity not on file) Stent Arterial Medtronic [id number] -37-135 / / Description:RT external Edvin c Graft Propaten Ring W/Hep 6x80 - [id number] Implanted:Qty: 1 on 06/27/2022 by Bennett Santiago MD at [facility] [employer]-[id number] 07/26/2025 [id number] / [id number] / [id number] [facility] 2x4 - [id number] Implanted:Qty: 1 on 10/11/2022 at [facility] [employer]-[id number] 09/01/2026 NO-[id number] / / [id number] Puraply Am 2x4 8 Sq Cm - [id number] Implanted:Qty: 1 on 10/24/2022 by Aubree Duggan PA at [facility] [employer]-[id number] 11/27/2024 Arden Reed 2X4 / / [id number] .1.1B Procedures Procedure Name Priority Date/Time Associated Diagnosis Comments PROSTATE SPECIFIC ANTIGEN, DIAGNOSTIC, SERUM Routine 07/27/2025 11:12 AM EDT Elevated PSA POC US BLADDER SCAN FOR VOLUME Routine 07/27/2025 HEMOGLOBIN A1C Add-On 06/15/2022 5:44 PM EDT HEPATITIS C ANTIBODY - ED W/REFLEX TO HCV QUANT PCR STAT 06/15/2022 11:[address] CHEST W IV CONTRAST Routine 02/07/2021 7:09 PM EDT from Last 3 Months or Most Recently Relevant to Health Maintenance Results * PSA, diagnostic (07/27/2025 11:12 AM EDT) PSA, Diagnostic, Serum 3.24 0.00 - 6.50 ng/mL 07/27/2025 1:16 PM EDT [facility] Blood Venous blood specimen / Unknown Venipuncture / Unknown 07/27/2025 11:12 AM EDT 07/27/2025 11:12 AM EDT Narrative [facility] - 07/27/2025 1:16 PM EDT Performed by Sneha electrochemiluminescent immunoassay which is standardized against the PSA [place] Reference Standard (WHO 96/670). Results obtained with different test methods or kits cannot be used interchangeably. Martha KELLOGG LAB BLOOD ORDERABLES Final Result [facility] [address] [place] [address] * POC US Bladder Volume (07/27/2025) Urine, Volume 59 mL IMAGING Anatomical Region Laterality Modality Other Urine 07/27/2025 Martha KELLOGG IMG POINT OF CARE ULTRASOUN D Final Result * (ABNORMAL) Hemoglobin A1c (06/15/2022 5:44 PM EDT) Hemoglobin A1c 8.4(H) <5.7 % 06/15/2022 10:15 PM EDT [facility] Blood Venous blood specimen / Unknown Venipuncture / Unknown 06/15/2022 5:44 PM EDT 06/15/2022 5:48 PM EDT Narrative [facility] - 06/15/2022 10:15 PM EDT HA1C Interpretive Data: Diagnosis of Diabetes: Diabetic > or = 6.5% Pre-diabetic 5.7 to 6.4% Non-diabetic < or = 5.6% Glycemic Targets for Type I and Type II Diabetics: Non- Adults <7.0% Adults <6.0% Children and Adolescents <7.5% Source: [place] Diabetes Association. Standards of medical care in diabetes,2017. Diabetes Care.2017:40 (suppl 1):S1-S135. HbA1c assay performed by an ion-exchange chromatography method that is certified traceable to the DCCT. Zita Arias MD LAB BLOOD ORDERABLES Final R esult Performing Organization Address City/[facility] Co de Phone Number [facility] [address] [place] [address] * Hepatitis C Antibody - ED (06/15/2022 11:02 AM EDT) Hepatitis C Antibody Negative Negative 06/15/2022 1:02 PM EDT [facility] Blood Venous blood specimen / Unknown Venipuncture / Unknown 06/15/2022 11:02 AM EDT 06/15/2022 11:41 AM EDT Ander Corona MD LAB BLOOD ORDERABLES Final Re sult Performing Organization Address [facility] de Phone Number [facility] [address] [place] [address] * CT Chest w IV Contrast (02/07/2021 7:09 PM EDT) Anatomical Region Laterality Modality Chest Computed Tomogra phy Narrative 02/08/2021 7:22 AM EDT REQUESTING PHYSICIAN: NOHELIA CHRISTINE REASON FOR EXAMINATION/PROCEDURE: RAD PDP:Y*Lytic lesions in cervical spine, concern for malignancy EXAMINATION / PROCEDURE: CT Chest W IVCON Feb 07 2021 - :; CLINICAL INDICATION: Lytic le ira in cervical [...] MALLOY M.D. on Feb 08:21A Transcribed by: [facility] on Feb 08:21A Dictated by: SAQIB MALLOY [...] MALLOY M.D. on Feb 08:21A Transcribed by: [facility] on Feb 08:21A Dictated by: SAQIB MALLOY M.D. on Feb 08:17A Nohelia Christine DO IMG CT PROCEDURES Final Result from Last 3 Months or Most Recently Relevant to Health Maintenance Insurance MEDICARE [employer] Advance Directives * Full Code (Latest Code [...] Patient has decision-making capacity? Yes Care Teams Optician Apprentice Relationship Specialty Start Date End Date Sreedhar Chavez MD [facility] [place] [address] PCP - General 09/15/21 Margaret Britton MD [address] [place] [address] Surgeon Neurosurgery 09/15/21 Martha Miller PA [address] [place] [address] Physician Quality Control Auditor Urology 11/10/24
--- OUTSIDE RECORDS SUMMARY | 2025-08-11 15:16 | XMS_ITS | Encounter Summary ---
Author Organization Healthcare Address [address] [place] [address] Care Team Providers Care Animal Care Service Worker Name Role Phone Sreedhar Chavez MD Primary Care Provider Margaret Britton MD Unavailable [phone] Martha Miller Unavailable [phone] Reason for Visit * Reason Onset Date Comments Appt Changes 06/23/2025 Encounter Details Date Type Department Care Team (Late st Contact Info) Description 06/23/2025 Telephone [facility] [address], [address] [place] [address] Martha Miller PA [address] [place] [address] Appt Changes Social History Tobacco [...] Description 01/25/2026 1:40 PM EDT Clinical Support [facility] [address], [address] [place] [address] 01/25/2026 2:40 PM EDT Office Visit [facility] Urology [address], [address] [place] [address] Martha Miller PA [address] [place] [address] documented as of this encounter Visit Diagnoses Not on filedocumented in this encounter Additional Health Concerns Assessment Noted Time A fall risk assessment has been complete d for the patient 04/08/2025 1:01 PM EDT A Body Mass Index follow-up plan has been documented for the patient 04/08/2025 2:13 PM EDT documented as of this encounter Care Teams Animal Care Service Worker Relationship Specialty Start Date End Date Sreedhar Chavez MD [address] [place] [address] PCP - General 09/15/21 Margaret Britton MD [address] [place] [address] Surgeon Neurosurgery 09/15/21 Martha Miller PA [address] [place] [address] Physician Supervisor Cabinetmaker Urology 11/10/24 documented as of this encounter
--- OUTSIDE RECORDS SUMMARY | 2025-08-11 15:16 | XMS_ITS | Clinical Summary ---
Author Organization [facility] Address [address] [place] [address] Care Team Providers Care Hand Developer Name Role Phone Unavailable Primary Care Provider [...] of 2) 2005 AAA SCREEN ONCE 2020 INFLUENZA VACCINE 05/28/2025 COVID-19 Vaccine ( - 2023- season) 2025
--- OUTSIDE RECORDS SUMMARY | 2025-08-11 15:16 | XMS_ITS | Encounter Summary ---
Author Organization Healthcare Address [address] [id number] Care Team Providers Care Turret Press Operator Name Role Phone Sreedhar Chavez MD Primary Care Provider [phone] Margaret Britton MD Unavailable [phone] Martha Miller Unavailable [phone] Encounter Details Date Type Department Care Team (Latest Contact Info) Description 07/27/2025 Travel Social History Tobacco Use Types Packs/Day Years Used Date Smoking Tobacco: Former Cigarettes 1 50 1 971 - 1 Passive Smoke Exposure: Past Smokeless Tobacco: Never [...] on file documented as of this encounter Functional Status * Over the [...] Jackson LPN documented as of this encounter Plan of Treatment Upcoming Encounters Date Type Department Care Team (Late st Contact Info) Description 01/25/2026 1:40 PM EDT Clinical Support [facility] Lab [address], [address] [place] [address] 01/25/2026 2:40 PM EDT Office Visit [facility] Urology [address], [address] [place] [address] Martha Miller PA [address] [place] [address] documented as of this encounter Visit Diagnoses Not on filedocumented in this encounter Additional Health Concerns Assessment Noted Time A fall risk assessment has been complete d for the patient 07/27/2025 12:04 PM EDT A Body Mass Index follow-up plan has been documented for the patient 07/27/2025 2:12 PM EDT documented as of this encounter Care Teams Turret Press Operator Relationship Specialty Start Date End Date Sreedhar Chavez MD [address] [place] [address] PCP - General 09/15/21 Margaret Britton MD [address] [place] [address] Surgeon Neurosurgery 09/15/21 Marhta Miller PA [address] [place] [address] Physician Escalator Attendant Urology 11/10/24 documented as of this encounter
--- OUTSIDE RECORDS SUMMARY | 2025-08-11 15:16 | XMS_ITS | Encounter Summary ---
Author Organization Healthcare Address [address] [place] [address] Care Team Providers Care X Ray Equipment Tester Name Role Phone Sreedhar Chavez MD Primary Care Provider [phone] Margaret Britton MD Unavailable [phone] Martha Miller Unavailable Encounter Details Date Type Department Care Team (Late st Contact Info) Description 07/27/2025 Results Follow-Up [facility] Urology [address], [address] [place] [address] Martha Miller PA [address] [place] [address] Social History Tobacco Use Types Packs/Day Years Used Date Smoking Tobacco: Former Cigarettes 1 50 1 971 - 202 Passive Smoke Exposure: Past Smokeless Tobacco: Never [...] Description 01/25/2026 1:40 PM EDT Clinical Support [facility] Lab [address], [address] [place] [address] 01/25/2026 2:40 PM EDT Office Visit [facility] Urology [address], [address] [place] [address] Martha Miller PA [address] [place] [address] documented as of this encounter Visit Diagnoses Not on filedocumented in this encounter Additional Health Concerns Assessment Noted Time A fall risk assessment has been complete d for the patient 07/27/2025 12:04 PM EDT A Body Mass Index follow-up plan has been documented for the patient 07/27/2025 2:12 PM EDT documented as of this encounter Care Teams X Ray Equipment Tester Relationship Specialty Start Date End Date Sreedhar Chavez MD [address] [facility] [address] [place] [address] PCP - General 09/15/21 Margaret Britton MD [address] [place] [address] Surgeon Neurosurgery 09/15/21 Martha Miller PA [address] [place] [address] Physician Home Restoration Service Cleaner Urology 11/10/24 documented as of this encounter
--- OUTSIDE RECORDS SUMMARY | 2025-08-11 15:16 | XMS_ITS | Encounter Summary ---
Author Organization Healthcare Address [address] [place] [address] Care Team Providers Care Cabinet And Trim Installer Name Role Phone Sreedhar Chavez MD Primary Care Provider [phone] Margaret Britton MD Unavailable [phone] Martha Miller Unavailable [phone] Reason for Visit * Reason Onset Date Comments [facility] Same Day Appt/Overbook Request 06/23/2025 Encounter Details Date Type Department Care Team (Late st Contact Info) Description 06/23/2025 Telephone [facility] [address] [place] [address] Martha Miller PA [address] [place] [address] [facility]CN Same Day Appt/Overbook Request [...] Miller and dereck. Thanks! Best contact number: [phone] (mobile) pt said she cannot be reached via phone. She asked if wecan text her. Declined signing up for [employer]. Optimal time of day to reach caller: ANYTIME Additional comments/information from caller: None Note: Please do not reply to this message. Follow-up communication and further actions as a result of this message need to be communicated with the patient directly, if the patient is not active onMyChart. If the patient is active on MyChart, they will receive notification of the communication/outcome via [employer]. documented in this encounter Plan of Treatment Upcoming Encounters Date Type Department Care Team (Late st Contact Info) Description 01/25/2026 1:40 PM EDT Clinical Support [facility] Lab [address], [address] [place] [address] 01/25/2026 2:40 PM EDT Office Visit [facility] Urology [address], [address] [place] [address] Martha Miller PA [address] [place] [address] documented as of this encounter Visit Diagnoses Not on filedocumented in this encounter Additional Health Concerns Assessment Noted Time A fall risk assessment has been complete d for the patient 04/08/2025 1:01 PM EDT A Body Mass Index follow-up plan has been documented for the patient 04/08/2025 2:13 PM EDT documented as of this encounter Care Teams Cabinet And Trim Installer Relationship Specialty Start Date End Date Sreedhar Chavez MD [address] [place] [address] [address] [place] [id number] PCP - General 09/15/21 Margaret Britton MD [address] [place] [address] Surgeon Neurosurgery 09/15/21 Martha Miller PA [address] [place] [address] Physician Pool Cleaner Urology 11/10/24 documented as of this encounter
--- NOTE | 2025-08-11 15:30 | MR_ITS ---
FINAL REPORT TECHNIQUE: Multiplanar and multisequence imaging of the lumbar spine was obtained without contrast. CLINICAL HISTORY: chronic but increased low back pain, nki COMPARISON: Plain film 06/30/2025 FINDINGS: There is normal alignment of the lumbar vertebral bodies in the sagittal plane. Compression fracture of L2 with 25% loss of vertebral body height anteriorly. There is only minimal T2 abnormality in the superior endplate. This is favored to be subacute or chronic. Remainder of the vertebral body heights are preserved. No other areas of bone marrow edema or fracture identified. The spinal cord ends at the level of L1. There is normal signal intensity within the substance of the distal spinal cord. No acute paraspinal abnormality is identified. L1-2: Annular disc bulge. No central canal stenosis or neural foraminal narrowing. L2-3: Annular disc bulge with degenerative endplate changes and facet osteoarthropathy. Mild central canal stenosis. Moderate right and mild left neural foraminal narrowing. L3-4: Annular disc bulge with degenerative endplate changes and facet osteoarthropathy. Mild central canal stenosis. Moderate bilateral neural foraminal narrowing. L4-5: Annular disc bulge with degenerative endplate changes and facet osteoarthropathy. Oldg-hp-osvxluzq central canal stenosis. Moderate bilateral neural foraminal narrowing. L5-S1: Annular disc bulge with degenerative endplate changes and facet osteoarthropathy. No central canal stenosis or significant neural foraminal narrowing. IMPRESSION: L2 superior endplate fracture favored to be late subacute or early chronic. No evidence of L4 fracture. Multilevel degenerative disc disease is most pronounced at L4-5. Reviewed, Interpreted and Dictated by Elicia Sharp MD Transcribed by Lisy Garsia Authenticated and [facility]
== END 2025-08-11 23:59 | disposition home or self-care (01) ==
LOC: RAD 15:14
PROVIDERS: PCP Internal Medicine; Visit Provider Internal Medicine
DX: M48.56XA Collapsed vertebra, not elsewhere classified, lumbar region, initial encounter for fracture (principal); M51.369 Other intervertebral disc degeneration, lumbar region without mention of lumbar back pain or lower extremity pain
CPT/HCPCS: 72148

== ENCOUNTER 2025-08-31 14:44 | Outpatient (CLI) | payer MEDICARE, OTHER, SELFPAY ==
--- OUTSIDE RECORDS SUMMARY | 2025-07-27 10:50 | XMS_ITS | Encounter Summary ---
Author Organization Healthcare Address [address] [address] Care Team Providers Care Health Care Analyst Name Role Phone Sreedhar Chavez MD Primary Care Provider [phone] Margaret Britton MD Unavailable [phone] Martha Miller Unavailable Reason for Visit * Reason Comments Elevated PSA Encounter Details Date Type Department Care Team (Late st Contact Info) Description 07/27/2025 11:50 AM EDT [facility] [address] [place] [address] Martha Miller PA [address] [place] [address] Elevated PSA (Primary Dx) Social History Tobacco Use Types Packs/Day Years Used Date Smoking Tobacco: Former Cigarettes 1 50 1 971 - 2020 Passive Smoke Exposure: Past Smokeless Tobacco: Never Tobacco Cessation:Counseling Given: Not Answered Alcohol Use Standard Drinks/Week Comments Not Currently 0 (1 standard drink = 0.6 oz pur e alcohol) PHQ-2 Answer Date Recorded Patient Health Questionnaire-2 Score 0 07/27/2025 AUDIT-C Answer Date Recorded Q1: How often [...] on file documented as of this encounter Last Filed Vital Signs Vital Sign Reading Time Taken Comments Blood Pressure 132/73 07/27/2025 11:59 AM EDT Pulse 69 07/27/2025 11:59 AM EDT Temperature - - Respiratory Rate 15 07/27/2025 11:5 9 AM EDT Oxygen Saturation 95% 07/27/2025 11: 59 AM EDT Inhaled Oxygen Concentration - - Weight 81.1 kg (178 lb 12.7 oz) 025 11:59 AM EDT Height 172.7 cm (5' 8 ) 07/27/2025 11:5 9 AM EDT Body Mass Index 27.19 07/27/2025 11:59 AM EDT documented in this encounter Functional Status * Over the past 2 weeks, how often have you been bothered by any of the following problems? Question Answer Date of Assessment Author Little interest or pleasure in doing things Not at all 07/27/2025 12:03 PM EDT Shena Jackson LPN Feeling down, depressed, or hopeless Not at all 07/27/2025 12:03 PM EDT Shena Jackson LPN Patient Health Questionnaire-2 Score 0 07/27/2025 12:03 PM EDT Awa Jackson LPN documented as of this encounter Miscellaneous Notes * Progress Notes - Martha Miller PA - 07/27/2025 11:50 AM EDT Subjective Patient ID: Roly Hollis is a 70 y.o. male. Chief Complaint Patient presents with Elevated PSA HPI 70yoM with CAD,DM, HTN, h/o TIA presented 10/2024 for evaluation of elevated PSA. Per chart review,this is a chronic issue, has been as high as 12 in the past. PSA was 8.11ng/ml when checked here. He has been followed closely by Dr Clemente. He recently underwent multiparametric MRI , performed at , which revealed 86 gm gland, PIRADS 2. He is taking tamsulosin which he finds effective. He has not had dysuria, hematuria, recent UTI or instrumentations. He has no known family history of prostate cancer. After discussion of all results and options for mgmt, finasteride was started. -Patient follows up today, reports tolerating meds without noted side effects. Urine flow is subjectively improved. PSA has now normalized. Latest Reference Range & Units 11/10/24 11:34 07/27/25 11:12 PSA 0.00 - 6.50 ng/mL 8.11 (H) 3.24 (H): Objective Physical Exam Vitals reviewed. Constitutional: Appearance: Normal appearance. Pulmonary: Effort: Pulmonary effort is normal. Neurological: Mental Status: He is oriented to person, place, and time. Psychiatric: Mood and Affect: Mood normal. Behavior: Behavior normal. Assessment/Plan Assessment & Plan Elevated PSA -large gland, 86gm and MRI reassuring , overall PIRADS 2 -PSA now normalized on finasteride. Cont current rx. Reassess in 6 months. Orders: PSA, diagnostic; Future Follow up in about 6 months (around 01/24/2026) for w/PSA . documented in this encounter Plan of Treatment Upcoming Encounters Date Type Department Care Team (Late st Contact Info) Description 01/25/2026 1:40 PM EDT Clinical Support [facility] Lab [address] [place] [address] 01/25/2026 2:40 PM EDT Office Visit [facility] Urology [address] [place] [address] Martha Miller PA [address] [place] [address] Scheduled Orders Name Type Priority Associated Diagnoses Orde r Schedule PSA, diagnostic Lab Routine Elevated PSA Expected: 01/24/2026 (Approximate), Expires: 01/28/2027 documented as of this encounter Procedures Procedure Name Priority Date/Time Associated Diagnosis Comments POC US BLADDER SCAN FOR VOLUME Routine 07/27/2025 documented in this encounter Results * POC US Bladder Volume (07/27/2025) Urine, Volume 59 mL IMAGING Anatomical Region Laterality Modality Other Urine 07/27/2025 Martha KELLOGG IMG POINT OF CARE ULTRASOUN D Final Result documented in this encounter Visit Diagnoses Diagnosis Elevated PSA- Primary Elevated prostate specific antigen (PSA) documented in this encounter Additional Health Concerns Assessment Noted Time A fall risk assessment has been complete d for the patient 07/27/2025 12:04 PM EDT A Body Mass Index follow-up plan has been documented for the patient 07/27/2025 2:12 PM EDT documented as of this encounter Care Teams Health Care Analyst Relationship Specialty Start Date End Date Sreedhar Chavez MD [address] [place] [address] [address] [place] [address] PCP - General 09/15/21 Margaret Britton MD [address] [place] [address] Surgeon Neurosurgery 09/15/21 Martha Miller PA [address] [place] [address] Physician Clinician Oncology Urology 11/10/24 documented as of this encounter
--- OUTSIDE RECORDS SUMMARY | 2025-08-31 14:48 | XMS_ITS | Encounter Summary ---
Author Organization Healthcare Address [address] [id number] Care Team Providers Care Dental Ceramist Helper Name Role Phone Sreedhar Chavez MD Primary Care Provider [phone] Margaret Britton MD Unavailable [phone] Martha Miller Unavailable [phone] Encounter Details Date Type Department Care Team [...] Description 01/25/2026 1:40 PM EDT Clinical Support [facility] [address], [address] [place] [address] 01/25/2026 2:40 PM EDT Office Visit [facility] Urology [address], [address] [place] [address] Martha Miller PA [address] [place] [address] documented as of this encounter Visit Diagnoses Not on filedocumented in this encounter Additional Health Concerns Assessment Noted Time A fall risk assessment has been complete d for the patient 07/27/2025 12:04 PM EDT A Body Mass Index follow-up plan has been documented for the patient 07/27/2025 2:12 PM EDT documented as of this encounter Care Teams Dental Ceramist Helper Relationship Specialty Start Date End Date Sreedhar Chavez MD [id number] [place] [address] PCP - General 09/15/21 Margaret Britton MD [address] [place] [address] Surgeon Neurosurgery 09/15/21 Martha Miller PA [address] [place] [address] Physician Disability Rater Urology 11/10/24 documented as of this encounter
--- OUTSIDE RECORDS SUMMARY | 2025-08-31 14:48 | XMS_ITS | Encounter Summary ---
Author Organization Healthcare Address [address] [place] [address] Care Team Providers Care Cardiovascular Invasive Specialist Name Role Phone Sreedhar Chavez MD Primary Care Provider [phone] Margaret Britton MD Unavailable [phone] Martha Miller Unavailable Reason for Visit * Reason Onset Date Comments [facility] Same Day Appt/Overbook Request 06/23/2025 Encounter Details Date Type Department Care Team (Late st Contact Info) Description 06/23/2025 Telephone [facility] [address], [address] [place] [address] Martha Miller PA [address] [place] [address] [facility] Same Day Appt/Overbook Request [...] Miller and dereck. Thanks! Best contact number: [phone] (mobile) pt said she cannot be reached via phone. She asked if wecan text her. Declined signing up for beRecruitedt. Optimal time of day to reach caller: ANYTIME Additional comments/information from caller: None Note: Please do not reply to this message. Follow-up communication and further actions as a result of this message need to be communicated with the patient directly, if the patient is not active onMyChart. If the patient is active on MyChart, they will receive notification of the communication/outcome via MyDatingTreehart. documented in this encounter Plan of Treatment Upcoming Encounters Date Type Department Care Team (Late st Contact Info) Description 01/25/2026 1:40 PM EDT Clinical Support [facility] Lab [address], [address] [place] [address] 01/25/2026 2:40 PM EDT Office Visit [facility] Urology [address], [address] [place] [address] Martha Miller PA [address] [place] [address] documented as of this encounter Visit Diagnoses Not on filedocumented in this encounter Additional Health Concerns Assessment Noted Time A fall risk assessment has been complete d for the patient 04/08/2025 1:01 PM EDT A Body Mass Index follow-up plan has been documented for the patient 04/08/2025 2:13 PM EDT documented as of this encounter Care Teams Cardiovascular Invasive Specialist Relationship Specialty Start Date End Date Sreedhar Chavez MD [address] [place] [address] [address] [place] [id number] PCP - General 09/15/21 Margaret Britton MD [address] [place] [address] Surgeon Neurosurgery 09/15/21 Martha Miller PA [address] [place] [address] Physician Abstract Clerk Urology 11/10/24 documented as of this encounter
--- OUTSIDE RECORDS SUMMARY | 2025-08-31 14:48 | XMS_ITS | Data Portability ---
Author Organization [facility] - [facility] Razia [facility] ADMIN Address [address] [place] [address] Care Team Providers Care Supervisor Yard Name Role Phone VANDANA DAMON Primary Care Provider Assessment No assessment recorded. Plan of Treatment Reminders Order Date Submit Date Provider Last Modified By Organization Details Last Modified Time Details Appointments None recorded. Lab PSA, serum or plasma 2022 [facility], [facility]0 [facility], [place], [address], 3 15:41:42 urinalysis, dipstick 2022 023 [email or web address] [facility], [address] [facility] [address], [address], [place], [address], 15:37:25 Referral None recorded. Procedures None recorded. Surgeries None recorded. Imaging None recorded. Medication Orders terazosin 10 mg capsule 2022 023 [email or web address], [address] [place] [address], [address], 3 08:49:44 oxybutynin chloride ER 5 mg tablet,exte nded release 24 hr 2022 023 CROWELL [facility], [address] [place] [address], [address], 3 14:24:16 Patient TargetsNo targets recorded. Patient InstructionsNo instructions recorded. Reason for Referral None Reported. Results Created Date Observation Date Name Description Value Unit Range Abnormal Flag Note LastModifiedBy Organization Detail LastModifiedTime 08/27/2008/27/2023 PROST ATE SPECI FIC AG (PSA) prostate specific Ag (PSA) 12.6 NG/mL 0-4.0 high Not Available [facility] ([facility]) [address] [facility], [place], [address], 08/27/2023 15:41:42 08/27/2008/27/2023 urina lysis , dipst ick Leukocytes (reference range) negati ve Not Available [facility] [address] [place] [address] [address], [place], [address], 08/27/2023 13:59:36 08/27/2008/27/2023 urina lysis , dipst ick Nitrite (reference range:) negati ve Not Available [facility], [place], [address], 08/27/2023 13:59:36 08/27/2008/27/2023 urina lysis , dipst ick Urobilinogen (reference range) 0.2 Not Available [facility] [address] [address], [place], [address], 08/27/2023 13:59:36 08/27/2008/27/2023 urina lysis , dipst ick Protein (reference range) negati ve Not Available [facility], [place], [address], 08/27/2023 13:59:36 08/27/2008/27/2023 urina lysis , dipst ick pH (reference range 5-8.5) 6.0 Not Available [facility] [address] [place] [address] [address], [place], [address], 08/27/2023 13:59:36 08/27/20 23 08/27/2023 urina lysis , dipst ick Blood (reference range:) negati ve Not Available [facility] [address] [place] [address] [address], [place], [address], 08/27/2023 13:59:36 08/27/2008/27/2023 urina lysis , dipst ick Specific Pearson (reference range) 1.015 Not Available [facility] [address] [place] [address] [address], [place], [address], 08/27/2023 13:59:36 08/27/2008/27/2023 urina lysis , dipst ick Ketone (reference range) negati ve Not Available [facility] [address] [place] [address] [address], [place], [address], 08/27/2023 13:59:36 08/27/2008/27/2023 urina lysis , dipst ick Bilirubin (reference range) negati ve Not Available [facility] [address] [place] [address] [address], [place], [address], 08/27/2023 13:59:36 08/27/2008/27/2023 urina lysis , dipst ick Glucose (reference range) negati ve Not Available [facility] [address] [place] [address] [address], [place], [address], 08/27/2023 13:59:36 08/27/2008/27/2023 urina lysis , dipst ick Color (reference range: yellow-brown ) Yellow Not Available [facility] [address] [place] [address] [address], [place], [address], 08/27/2023 13:59:36 Result Notes None recorded. Problems Name Problem SNOMED Code Status Onset Date Resolution Date Notes Provider Name and Address Organization Details Recorded Time Acute stroke 8948632499014 04 Active 2022 Gerda prince, [facility] [place] 13:31:15 Sleep apnea 20949143 Active 2022 Gerda prince, [facility] [place] [facility] [place] 3 13:31:22 Gastroesoph ageal reflux disease 349370742 Active 2022 Gerda prince, [facility] [place] [facility] [place] 3 13:31:28 Hypercholes terolemia 53422490 Active 2022 Gerda prince, [facility] - [place] [facility] [place] 3 13:31:38 Diabetes mellitus 76583192 Active 2022 Gerda prince, [facility] - [place] [facility] [place] 3 13:31:46 Heart disease 47147980 Active 2022 Gerda prince, [facility] - [place] [facility] [place] 3 13:31:56 Depressive disorder 44042339 Active 2022 Gerda prince, [facility] [place] [facility] [place] 3 13:32:06 Hypertensiv e disorder 08348912 Active 2022 Gerda prince, [facility] [place] [facility] [place] 3 13:32:17 Problem Notes None recorded. Procedures Surgical History Date Name Laterality Status Provider Name and Address Organization Details Recorded Time implantation of patient-activated cardiac event recorder completed Gerda Ferrara [place] [facility] [place] 08/27/2023 13:33:03 Imaging Results None recorded. Procedure [...] Not Available Not Available No t Available [place] Sal[facility] 0.65 % nasal spray aerosol 08/27 [...] Updated DateTime 08/27/2023 172.72 cm 25.8 kg/m2 37754.7 g 132/70 mm[Hg] Gerda Bubba [facility] - [place] [facility] [place] 08/27/2023 13:59:18 Social History None recorded. Functional [...] ICD10 Code Diagnosis IMO Codes Diagnosis Note [id number] Autumn Seymour NP, [facility] [address] [place] [address] 08/27/2023 13:19:42 08/27/2023 14:20:12 Large prostate 835945968 N40.0 UA clearbladd er scan 82mlContin ue Terazosin 10mg dailyConti nue Oxybutynin 5mg dailyScree godfrey PSA, will call with [facility] in 1 year for f/u Received PSA from last year from [facility] and PSA was 7.6 on 05/29/2022 Screening for malignant neoplasm of prostate 611747916 Z12.5 Nocturia 119362316 R35.1 History of diabetes mellitus 055369128 Z86.39 Long-term current use of anticoagulant 025899283 Z79.01 Health Concerns Section Related Observation LastModified by Organization Detai ls LastModified Time None Recorded Concern Status LastModified by Organization Details LastModified Time None Recorded Advance Directives Directive None Recorded Payers Insurance Date Sequence Insurance Name Policy Number Policy Aguiar Covered Member ID Aguiar Member ID Guarantor Name 09/09/2023 2 FOR LIFE ( - MEDICARE SUPPLEMENT) Roly Fabrizio Bunny [id number] 09/09/2023 1 [place]ARE[place] Roly Dinh Bunny [id number] Notes Date Note Type Note Provider Name [...] coronary artery disease and heart stents. Patient's ag equipment field service technician is Dr. Alejandra. patient is an insulin-dependent diabetic for 20 years, last hemoglobin A1c was 11 point on 11/30/2022. Patient had a bladder ultrasound on 01/02/2023 that revealed 63 mL. Autumn Seymour, [place], [address], [place], [address], [facility] - [facility] - [place] [facility] [place] 08/28/2023 08:50:00
--- OUTSIDE RECORDS SUMMARY | 2025-08-31 14:48 | XMS_ITS | Clinical Summary ---
Author Organization Healthcare Address [address] [place] [address] Care Team Providers Care Field Crop Grower Name Role Phone Sreedhar Chavez MD Primary Care Provider [phone] Margaret Britton MD Unavailable [phone] Martha Miller Unavailable [phone] Allergies No known active allergies Medications aspirin [...] Daily,Reports taking., Reported on 07/27/2025 TechLite Pen Arbuckle 31G X 5 MM misc 07/12/20 22 Active lidocaine (Lidoderm) 5 % patch 08/03/20 [...] 90 capsule 3 07/27/20 25 026 Active Active Problems Problem Noted Date Diagnosed [...] OPAT Team Attn: Noreen Edouard Fax #: [phone] Appointments: With Noreen Edouard APRN on 08/06/22 at 3:30PM [address] [place] [address] (Select Option 3 for IV Antibiotic / PICC line related issues) Discharge teaching provided. All questions regarding outpatient parenteral antimicrobials after discharge should be directed to the OPAT nurse navigator at (Select Option 3 for IV Antibiotics/PICC Issues) between 8am-5pm. After 5 pm, or during weekends/ holidays, please call the paging bevel operator at to reach the on-call ID [...] in wound care clinic after discharge from [facility] Coronary artery disease invo lving ugashik coronary artery of ugashik heart without angina pectoris 06/15/2022 Overview (07/05/2022): [...] 12/18/2024 07/18/2025 Encephalopathy 12/18/2024 07/18/2025 Physical deconditioning 12/18/2024/10/2024 Postoperative abdominal pain 12/18/2024 07/18/2025 Abnormal ankle [...] (06/18/2022): Added automatically from request for surgery [id number] Decreased pulses in feet 06/15/202201/2022 Overview (06/19/2022): Added automatically from request for surgery [id number] Encounters Date Type Department Care Team Description 07/27/2025 11:50 AM EDT Office Visit [facility] Urology [address] [place] [address] Martha Miller PA Elevated PSA (Primary Dx) 07/27/2025 Results Follow-Up [facility]rology [address] [place] [address] Martha Miller PA 07/27/2025 Travel 06/23/2025 Telephone [facility] Urology [address] [place] [address] Martha Miller PA [facility] Same Day Appt/Overbook Request 06/23/2025 Telephone [facility]rology [address] [place] [address] Martha Miller PA Appt Changes from Last [...] Description 01/25/2026 1:40 PM EDT Clinical Support [facility] Lab [address] [place] [address] 01/25/2026 2:40 PM EDT Office Visit [facility] Urology [address], [address] [place] [address] Martha Miller PA [address] [place] [address] Health Maintenance Due Date Last Done Comments [facility]-Medicare Annual Wellness (AWV) 1955 [facility]-/Child/Adol SDOH Screenings 1955 Diabetes: Dental Exam 1965 [facility]- SDOH Screenings 1973 [facility]-Adult SDOH Screenings 1973 CT Colonography 2000 Colonoscopy 2000 FIT-DNA 2000 FIT 2000 FOBT 2000 Sigmoidoscopy 2000 [facility]-Colorectal Cancer Screening 2000 Lung Cancer Screening Shared Decision Making 2005 [facility]-Zoster Vaccines (1 of 2) 2005 [facility]-Abdominal Aortic Aneurysm (AAA) Screening 2020 [facility]-Pneumococcal Vaccine: 50+ Years (2 of 2 - PPSV23, PCV20, or PCV21) 12/06/2021 10/11/2021 [facility]-Lung Cancer Screening 02/07/2022 02/07/2021 [facility]-Diabetes: Hemoglobin A1C 12/13/2022 06/15/2022, 02/06/2021 [id number] Vaccine (3 - season) 2025 06/27/2021, 05/30/2021 [...] this topic Medical Devices Implanted Type Area Assistant Public Defender Device Identifier Shelf Expiration Date Model / Serial / Lot [employer] Implantable Loop Recorder-2020 Implanted:10/2020 (Quantity not on file) Implantable Loop Recorder Chest Pressgram [id number] / [id number] / Visi-Pro Stent- Implanted:02/25 (Quantity not on file) Stent Arterial Medtronic [id number] -57-135 / / Visi-Pro Stent- 1 Implanted:02/25 (Quantity not on file) Stent Left: Arterial Medtronic [id number] -57-135 / / Description:LEFT ILIAC Visi-Pro Stent- 1 Implanted:02/25 (Quantity not on file) Stent Aorta Medtronic [id number] -17-135 / / Description:Distal Aorta Protege Gps Ev3-03/06/2021 Implanted:02/25 (Quantity not on file) Stent Arterial Description:LT ILIAC Rx Herculink Elite- 1 Implanted:Qty: 2 on 07/19/2021 Stent Kidney Description:RT and LT Renal implanted on 07/19/21 Visi-Pro Stent- 1 Implanted:06/29 (Quantity not on file) Stent Arterial Medtronic [id number] -37-135 / / Description:RT external Edvin c Graft Propaten Ring W/Hep 6x80 - [id number] Implanted:Qty: 1 on 06/27/2022 by Bennett Santiago MD at [facility] [employer]-[id number] 07/26/2025 [id number] / [id number] P019 / [id number] P019 Nuield 2x4 - [id number] Implanted:Qty: 1 on 10/11/2022 at [facility] [employer]-[id number] 09/01/2026 NO-1240 / / [id number] Puraply Am 2x4 8 Sq Cm - [id number] Implanted:Qty: 1 on 10/24/2022 by Aubree Duggan PA at [facility] [employer]-[id number] 11/27/2024 PURAPLY- COM 2X4 / / [id number] Procedures Procedure Name Priority Date/Time Associated [...] * PSA, diagnostic (07/27/2025 11:12 AM EDT) Pathologist [facility] PSA, Diagnostic, Serum 3.24 0.00 - 6.50 ng/mL 07/27/2025 1:16 PM EDT [facility] Blood Venous blood specimen / Unknown Venipuncture / Unknown 07/27/2025 11:12 AM EDT 07/27/2025 11:12 AM EDT Narrative [facility] - 07/27/2025 1:16 PM EDT Performed by Sneha electrochemiluminescent immunoassay which is standardized against the PSA [place] Reference Standard (WHO 96/670). Results obtained with different test methods or kits cannot be used interchangeably. us Martha KELLOGG LAB BLOOD ORDERABLES Final Result [facility] [address] [place] [address] * POC US Bladder Volume (07/27/2025) Pathologist [facility] Urine, Volume 59 mL IMAGING Anatomical Region Laterality Modality Other Urine 07/27/2025 us Martha KELLOGG IMG POINT OF CARE ULTRASOUN D Final Result * (ABNORMAL) Hemoglobin A1c (06/15/2022 5:44 PM EDT) Pathologist [facility] Hemoglobin A1c 8.4(H) <5.7 % 06/15/2022 10:15 PM EDT [facility] Blood Venous blood specimen / [...] Adults <6.0% Children and Adolescents <7.5% Source: [place] Diabetes Association. Standards of medical care in diabetes,2017. Diabetes Care.2017:40 (suppl 1):S1-S135. HbA1c assay performed by an ion-exchange chromatography method that is certified traceable to the DCCT. Zita Arias MD LAB BLOOD ORDERABLES Final R esult Performing Organization Address City/[facility] Co de Phone Number [facility]ALTH[facility]ARE [facility] [address] [place] [address] * Hepatitis C Antibody - ED (06/15/2022 11:02 AM EDT) Hepatitis C Antibody Negative Negative 06/15/2022 1:02 PM EDT [facility] Blood Venous blood specimen / Unknown Venipuncture / Unknown 06/15/2022 11:02 AM EDT 06/15/2022 11:41 AM EDT us Ander Corona MD LAB BLOOD ORDERABLES Final Re sult Performing Organization Address [facility] Co de Phone Number [facility]ALTHCARE [facility] [address] [place] [address] * CT Chest w IV Contrast (02/07/2021 [...] by: SAQIB MALLOY M.D. on Feb 08:17A us Nohelia Christine DO IMG CT PROCEDURES Final Result from Last 3 Months or Most Recently Relevant to Health Maintenance Insurance MEDICARE [facility] Advance Directives * Full Code (Latest Code [...] Patient has decision-making capacity? Yes Care Teams Field Crop Grower Relationship Specialty Start Date End Date Sreedhar Chavez MD [address] [place], [place] [id number] PCP - General 09/15/21 Margaret Britton MD [address] [place] [address] Surgeon Neurosurgery 09/15/21 Martha Miller PA [address] [place] [address] Physician Kitchen And Bath Designer Urology 11/10/24
--- OUTSIDE RECORDS SUMMARY | 2025-08-31 14:48 | XMS_ITS | Encounter Summary ---
Author Organization Healthcare Address [address] [place] [address] Care Team Providers Care Box Office Manager Name Role Phone Sreedhar Chavez MD Primary Care Provider [phone] Margaret Britton MD Unavailable [phone] Martha Miller Unavailable [phone] Encounter Details Date Type Department Care Team (Late st Contact Info) Description 07/27/2025 Results Follow-Up [facility] Urology [address] [place] [address] Martha Miller PA [address] [place] [address] Social History Tobacco Use Types [...] Description 01/25/2026 1:40 PM EDT Clinical Support [facility] Lab [address] [place] [address] 01/25/2026 2:40 PM EDT Office Visit [facility] Urology [address] [place] [address] Martha Miller PA [address] [place] [address] documented as of this encounter Visit Diagnoses Not on filedocumented in this encounter Additional Health Concerns Assessment Noted Time A fall risk assessment has been complete d for the patient 07/27/2025 12:04 PM EDT A Body Mass Index follow-up plan has been documented for the patient 07/27/2025 2:12 PM EDT documented as of this encounter Care Teams Box Office Manager Relationship Specialty Start Date End Date Sreedhar Chavez MD [address] [facility] [address] [place] [address] PCP - General 09/15/21 Margaret Britton MD [address] [place] [address] Surgeon Neurosurgery 09/15/21 Martha Miller PA [address] [place] [address] Physician Auto Transmission Specialist Urology 11/10/24 documented as of this encounter
--- OUTSIDE RECORDS SUMMARY | 2025-08-31 14:48 | XMS_ITS | Clinical Summary ---
Author Organization [facility] ystem Address [address] [place] [address] Care Team Providers Care Manager Merchandising Name Role Phone Unavailable Primary Care Provider [...]
[2025-08-31] MEDS: ALBUTEROL 0.083% 2.5 MG/3 ML NEB IH (15:22)
--- NOTE | 2025-08-31 15:22 | PC.NURSE ---
PFT completed without incident. Albuterol 0.083% given via HHN, per written protocol, Pt tolerated tx well.
== END 2025-08-31 23:59 | disposition home or self-care (01) ==
LOC: RT 14:46
PROVIDERS: PCP Internal Medicine; Visit Provider Physician Assistant
DX: J44.9 Chronic obstructive pulmonary disease, unspecified (principal); R94.2 Abnormal results of pulmonary function studies
CPT/HCPCS: 94060; 94726; 94729

== ENCOUNTER 2025-09-15 08:28 | Day surgery (SDC) | payer MEDICARE, OTHER, SELFPAY ==
--- NOTE | 2025-09-10 10:53 | EXP.HP ---
History of Present Illness *Admission Date: 09/15/25 *History of present illness: Mr. Hollis is a 70-year-old gentleman who is here for screening colonoscopy. The patient has never been fully prepped that have a complete colonoscopy for many years. He does have a history of obstipation and bloating. He is taking MiraLAX plus Citrucel twice daily and feels this is being mostly evacuates and his bloating is better. The examination is deemed medically necessary for screening colonoscopy. The patient has been seen, interviewed and examined prior to the procedure by both myself and the anesthesia provider. [facility] Disclaimer: The information contained in this section may have been updated after the patient was seen, as this information can be updated by other users. Medical History Former tobacco use Abnormal findings on diagnostic imaging of heart and coronary circulation Abdominal pain Encounter for loop recorder at end of battery life Implantable loop recorder present Dysphagia Amputation of toe of right foot CHRISTI (renal artery stenosis) CAD (coronary artery disease) Tobacco dependence syndrome Abnormal EKG Family history of heart disease ADRIANO (obstructive sleep apnea) PAD (peripheral artery disease) HLD (hyperlipidemia) HTN (hypertension) Diabetes type 2 with atherosclerosis of arteries of extremities Claudication Abnormal ankle brachial index (YOSEF) Surgical History Stented coronary artery History of colonoscopy History of hernia surgery Family History Father Family history of stroke Brother Heart disease Mother Family history of diabetes mellitus type II Emphysema lung COPD (chronic obstructive pulmonary disease) Lung cancer Other Family history of hypertension Social History Smoking Status: Former smoker tobacco type: cigarettes packs per day: 1 pack-years: 50 second hand exposure: No alcohol intake: never substance use type: denies use current occupational status: retired Travel in the last 8 weeks?: None household members: spouse housing: house marital status: current occupational exposures/hazards: No caffeine: No Have you lived/traveled outside US in past 30 days?: No Contact w/someone who lives/traveled outside US past 30 days?: No Exposure to someone with infectious disease in past 14 days?: No Do you have a fever (greater than 100.4 F or 38 C)?: No Have you tested positive for COVID-19?: No Exposed to someone with COVID-19 in past 14 days?: No Do you have a sore throat?: No Do you have a cough?: No Do you have any weakness?: No Do you have any diarrhea?: No Are you experiencing any unusual bleeding?: No Do you have any muscle aches/pain?: No Do you have any abdominal pain?: No Are you experiencing loss of taste or smell?: No Other Medical History Have you received the Flu Vaccine for this season: No Have you received the Pneumonia Vaccine: Yes Review of Systems Review of Systems Review of systems (narrative): Negative *Cardiovascular Comments: Negative *Gastrointestinal Comments: Negative *Genitourinary Comments: Negative *Musculoskeletal Comments: Negative *Neurologic Comments: Negative Meds Home Medications and Allergies Home Medications ?Medication ?Instructions ?Recorded ?Confirmed ?Type aspirin 81 mg tablet,delayed 81 mg PO DAILY 03/01/21 09/15/25 History release (Adult Low Dose Aspirin) losartan 100 mg tablet See Rx Instructions .Route 05/29/24 09/15/25 Rx .COMPLEX #90 tabs memantine 10 mg tablet See Rx Instructions .Route 05/29/24 09/15/25 Rx .COMPLEX #180 tabs nitroglycerin 0.4 mg sublingual 0.4 mg sublingual Q5M PRN Chest 06/04/24 09/15/25 Rx tablet Pain #30 tabs tamsulosin 0.4 mg capsule (Flomax) 0.4 mg PO DAILY #90 caps 09/14/24 09/15/25 Rx finasteride 5 mg tablet 5 mg PO DAILY 12/22/24 09/15/25 History ferrous sulfate 325 mg (65 mg 325 mg PO DAILY #90 tabs 12/23/24 09/15/25 Rx iron) tablet blood sugar diagnostic (FreeStyle #10 ea 01/14/25 09/15/25 History Lite Strips) atorvastatin 80 mg tablet See Rx Instructions .Route 03/12/25 09/15/25 Rx .COMPLEX #90 tabs insulin glargine 100 unit/mL (3 38 unit (0.38 mL) SQ HS 90 days 03/12/25 09/15/25 Rx mL) subcutaneous pen (Lantus #34.2 mL Solostar U-100 Insulin) rivaroxaban 2.5 mg tablet (Xarelto) 2.5 mg PO BID #180 tabs 03/12/25 09/15/25 Rx methylcellulose (with sugar) oral 1 ea PO DAILY 03/25/25 09/15/25 History powder packet clobetasol 0.05 % topical cream 1 applic topical BID PRN Itching 05/17/25 09/15/25 History diclofenac sodium 1 % topical gel 2 g topical QID 05/17/25 09/15/25 History lidocaine 5 % topical patch 1 patch topical DAILY PRN soa 05/17/25 09/15/25 History polyethylene glycol 3350 17 17 g PO DAILY 05/17/25 09/15/25 History gram/dose oral powder (Miralax) amlodipine 5 mg tablet 5 mg PO HS #90 tabs 05/19/25 09/15/25 Rx famotidine 20 mg tablet See Rx Instructions .Route 06/16/25 09/15/25 Rx .COMPLEX #180 tabs mirtazapine 15 mg tablet 15 mg PO HS #14 tabs 07/28/25 09/15/25 Rx baclofen 10 mg tablet 10 mg PO HS #30 tabs 07/29/25 09/15/25 Rx sodium,potassium,mag sulfates 17.5 See Rx Instructions PO .COMPLEX 08/06/25 09/08/25 Rx gram-3.13 gram-1.6 gram oral soln #354 mL (Suprep Bowel Prep Kit) carvedilol 12.5 mg tablet See Rx Instructions .Route 09/01/25 09/15/25 Rx .COMPLEX #180 tabs insulin aspart U-100 100 unit/mL 14 unit (0.14 mL) SQ TID PRN Blood 09/01/25 09/15/25 Rx (3 mL) subcutaneous pen (Novolog Sugar #15 mL FlexPen U-100 Insulin aspart) gabapentin 400 mg capsule 400 mg PO BID #180 caps 09/06/25 09/15/25 Rx albuterol sulfate 90 mcg/actuation 2 puff inhalation Q6H PRN 09/08/25 09/15/25 Rx aerosol inhaler (Ventolin HFA) shortness of breath or wheezing #8.5 grams empagliflozin 25 mg tablet See Rx Instructions .Route 09/08/25 09/15/25 Rx (Jardiance) .COMPLEX #90 tabs oxycodone 10 mg tablet 10 mg PO Q6H PRN pain #120 tabs 09/08/25 09/15/25 Rx alprazolam 0.25 mg tablet 0.25 mg PO TID PRN Anxiety 90 days 09/09/25 09/15/25 Rx #30 tabs New Prescriptions to Start Prescriptions: Allergies Allergy/AdvReac Type Severity Reaction Status Date / Time No Known Allergies Allergy Verified 09/08/25 11:09 Exam *Routine HEENT Exam Head: Present normocephalic Eye: Present EOMI and PERRL ENT: Present mucous membranes moist *Routine Neck Exam Neck: Present supple *Routine Respiratory Exam Respiratory: Present CTA bilaterally *Routine Cardiovascular Exam Cardiovascular: Present RRR *Routine Abdominal Exam Abdominal: Present soft and normoactive bowel sounds; Absent tenderness *Routine Rectal Exam Rectal:: deferred *Routine Genitalia Exam Genitalia:: deferred *Routine Extremities Exam Extremities: Absent cyanosis, clubbing or edema *Routine Skin Exam Skin: Present warm; Absent rash *Routine Neurological Exam Neurological: Present alert and oriented X3 Assessment and Plan *Assessment and plan (1) Screening for colon cancer: Status: Acute Category: Medical Code(s): Z12.11 - Encounter for screening for malignant neoplasm of colon (2) Bloating: Status: Acute Category: Medical Code(s): R14.0 - Abdominal distension (gaseous) (3) Obstipation: Status: Acute Category: Medical Code(s): K59.00 - Constipation, unspecified Plan A/P: 1. Screening for colon cancer is the preprocedural diagnosis. The patient does have a long history of obstipation and bloating which has improved. He has never had a fully prepped colonoscopy. The patient will be anesthetized/sedated using MAC sedation. The patient has been seen and examined. Cardiac and lung assessment prior to the examination is stable. Proceed with planned screening colonoscopy.
--- NOTE | 2025-09-15 06:52 | P.PCN_ITS ---
[facility] Procedure Note Date: 09/15/25 Time: 11:02 Procedure Note:: Colonoscopy Procedure Report: Colonoscopy with cold biopsies, cold snare polypectomy, snare cautery, submucosal injection and Endo Clip placement Endoscopist: Fidencio Friedman II, MD Referring physician: Sreedhar Chavez MD Date of Procedure: September 15, 2025 Equipment: Olympus [id number] adult colonoscope Sedation: MAC sedation Indication: Mr. Hollis is a 70-year-old gentleman who is here for screening colonoscopy. The patient reports no abdominal pain, weight loss, change in his bowel habits or rectal bleeding. He reports no family history of colon cancer. The patient has never been fully prepped to have a complete colonoscopy for many years. He does have a history of obstipation and bloating. He is taking MiraLAX plus Citrucel twice daily and feels this is being mostly evacuates and his bloating is better. The examination is deemed medically necessary for screening colonoscopy. Procedure: Prior to the procedure, a history and physical exam was performed, and patient's medications and allergies were reviewed. The risks, benefits and alternatives of the sedation and procedure were discussed with the patient. All questions were answered and informed consent was obtained. The patient was brought to the procedure room. Patient identification and proposed procedure were verified by the physician and the nurse. The patient was placed in a left lateral decubitus position and the scope was passed under direct vision. Throughout the procedure, the patient's blood pressure, pulse, and oxygen saturations were monitored continuously. The colonoscopy was accomplished without difficulty. The patient tolerated the procedure well. Findings: On digital rectal examination there was normal rectal tone. There were no external hemorrhoids. The prostate was 2+, symmetric without nodules. The colonoscope was introduced through the anal canal to the rectum and advanced to the cecum. The ileocecal valve was obliterated by a laterally spreading advanced adenomatous polyp with abnormal surface morphology and some central depression/excavation and NBI evidence of loss of vessels and probable high- grade dysplasia. This mass was involving the cecum at the side of the ileocecal valve and into the proximal colon and was approximately 3.8 to 4 cm and encompassed half the circumference. Because of the abnormal surface morphology and size, cold biopsies were obtained using NBI directed biopsies. 10 mL of Spot ink tattoo was injected submucosally 4 to 5 cm distal to this lesion in the ascending colon on the same side. There were 7 additional colon polyps (transverse x 3 (3, 5 and 8 mm), descending x 1 (14 mm), sigmoid x 2 (5 and 7 mm) and pedunculated rectosigmoid (16 mm)). The larger 14 and 16 mm polyps were removed via snare cautery. Endoclips were placed over the stalk/polypectomy site. The remainder of the polyps were removed via cold snare polypectomy. There were scattered diverticuli throughout the descending and sigmoid colon (LEFT colon). The rectum itself was normal. Upon retroflexion within the rectum there were grade 2 internal hemorrhoids. The preparation was fair to good throughout with [place] Preparation Score of 7 out of 9. The cecal time was 25 minutes. Impression: 1. Laterally spreading advanced adenomatous polyp with abnormal surface morphology (probable at least high-grade dysplasia) encompassing one half circumference of the cecum and obliterating ileocecal valve?status post biopsies and downstream spot ink tattoo 2. 7 additional colon polyps (2 of which were larger (14 and 16 mm)) 3. Extensive left-sided diverticulosis 4. Grade 2 internal hemorrhoids Plan: I will follow-up the biopsies and polyp histology. Given the size and morphologic nature, I do feel that the cecal mass obliterating bowel is advanced adenoma with possible early adenocarcinoma and we will check histology. I do feel that right hemicolectomy may be best but with comorbidities, if there is no dysplasia, may be candidate for EMR or EMD. I will discuss with patient and family.
[2025-09-15 09:01] VITALS: BMI 28.1
[2025-09-15 09:11] VITALS: BP 135/95; PULSE 103; RESP 16; TEMP 36.6; O2SAT 98
[2025-09-15 09:14] LABS: POC Glucose,Bedside 190 gm/dL (70-110)
[2025-09-15] MEDS: LACTATED RINGERS 1000ML 1,000 ML 50 ML IV (09:16)
--- NOTE | 2025-09-15 10:17 | EXP.ANES.CKL ---
[facility] Disclaimer: The information contained in this section may have been updated after the patient was seen, as this information can be updated by other users. Medical History Former tobacco use Abnormal findings on diagnostic imaging of heart and coronary circulation Abdominal pain Encounter for loop recorder at end of battery life Implantable loop recorder present Dysphagia Amputation of toe of right foot CHRISTI (renal artery stenosis) CAD (coronary artery disease) Tobacco dependence syndrome Abnormal EKG Family history of heart disease ADRIANO (obstructive sleep apnea) PAD (peripheral artery disease) HLD (hyperlipidemia) HTN (hypertension) Diabetes type 2 with atherosclerosis of arteries of extremities Claudication Abnormal ankle brachial index (YOSEF) Surgical History Stented coronary artery History of colonoscopy History of hernia surgery Family History Father Family history of stroke Brother Heart disease Mother Family history of diabetes mellitus type II Emphysema lung COPD (chronic obstructive pulmonary disease) Lung cancer Other Family history of hypertension Social History Smoking Status: Former smoker tobacco type: cigarettes packs per day: 1 pack-years: 50 second hand exposure: No alcohol intake: never substance use type: denies use current occupational status: retired Travel in the last 8 weeks?: None household members: spouse housing: house marital status: current occupational exposures/hazards: No caffeine: No Have you lived/traveled outside US in past 30 days?: No Contact w/someone who lives/traveled outside US past 30 days?: No Exposure to someone with infectious disease in past 14 days?: No Do you have a fever (greater than 100.4 F or 38 C)?: No Have you tested positive for COVID-19?: No Exposed to someone with COVID-19 in past 14 days?: No Do you have a sore throat?: No Do you have a cough?: No Do you have any weakness?: No Do you have any diarrhea?: No Are you experiencing any unusual bleeding?: No Do you have any muscle aches/pain?: No Do you have any abdominal pain?: No Are you experiencing loss of taste or smell?: No [facility] Anesthesia Checklist Patient Identification Patient Identification: Arm Band and Verbal (Name & ) Structural Data Admitted From: Home Planned Operative Procedure/s: Colonoscopy Consent for Planned Operative Procedure(s) Verified: Yes Verified Documents: Surgical Consent NPO Status Verified Time NPO: 00:00 Additional verifications Anesthesia Reactions: No Hx Blood Transfusions: No Blood Transfusion Reaction: No Airway Assessment Mallampati Score:: Class II C-Spine Mobility Assessed: Yes TMJ Mobility Assessed: Yes Dentition: Edentulous Neurological Assessment Level of Consciousness: Awake, Alert and Appropriate Hx Seizures: No Numbness or tingling in extremities: No Anesthesia Plan Anesthesia Risk discussed: Yes Anesthesia Plan: Verified ASA Class: III Anesthesia Type: MAC
[2025-09-15 11:04] VITALS: BP 114/65; PULSE 70; RESP 18; TEMP 36.2; O2SAT 93
[2025-09-15 11:14] VITALS: BP 147/81; PULSE 75; O2SAT 93
[2025-09-15 11:24] VITALS: BP 131/61; PULSE 81; O2SAT 93
[2025-09-15 11:34] VITALS: BP 165/97; PULSE 80; O2SAT 97
== END 2025-09-15 11:34 | disposition home or self-care (01) ==
PROVIDERS: PCP Internal Medicine; Visit Provider Internal Medicine Gastroenterology
PROC: 0DJD8ZZ Inspection of Lower Intestinal Tract, Via Natural or Artificial Opening Endoscopic (ICD-10-PCS; CPT 45378; principal; 2025-09-15 10:00)
DX: Z12.11 Encounter for screening for malignant neoplasm of colon (principal); D12.0 Benign neoplasm of cecum; D12.3 Benign neoplasm of transverse colon; D12.4 Benign neoplasm of descending colon; D12.5 Benign neoplasm of sigmoid colon; D12.7 Benign neoplasm of rectosigmoid junction; K57.30 Diverticulosis of large intestine without perforation or abscess without bleeding; K64.1 Second degree hemorrhoids; K59.00 Constipation, unspecified; E78.5 Hyperlipidemia, unspecified; I10 Essential (primary) hypertension; I25.10 Atherosclerotic heart disease of native coronary artery without angina pectoris; E11.51 Type 2 diabetes mellitus with diabetic peripheral angiopathy without gangrene; I73.9 Peripheral vascular disease, unspecified; Z79.82 Long term (current) use of aspirin; Z79.4 Long term (current) use of insulin; Z79.01 Long term (current) use of anticoagulants; Z79.84 Long term (current) use of oral hypoglycemic drugs; Z87.891 Personal history of nicotine dependence
CPT/HCPCS: 45380; 45381; 45385; 82962; 88305; J2003; J2704; J7120

== ENCOUNTER 2025-10-18 12:03 | Outpatient (CLI) | payer MEDICARE, OTHER, SELFPAY ==
--- OUTSIDE RECORDS SUMMARY | 2025-10-18 12:06 | XMS_ITS | Clinical Summary ---
Author Organization Healthcare Address [address] [place] [address] Care Team Providers Care Valve Assembler Name Role Phone Sreedhar Chavez MD Primary Care Provider [phone] Margaret Britton MD Unavailable [phone] Martha Miller Unavailable [phone] Allergies No known active allergies Medications aspirin [...] Daily,Reports taking., Reported on 07/27/2025 TechLite Pen [place] 31G X 5 MM misc 07/12/20 22 [...] OPAT Team Attn: Noreen Edouard Fax #: [phone] Appointments: With Noreen Edouard APRN on 08/06/22 at 3:30PM [address] [place] [address] (Select Option 3 for IV Antibiotic / PICC line related issues) Discharge teaching provided. All questions regarding outpatient parenteral antimicrobials after discharge should be directed to the OPAT nurse navigator at (Select Option 3 for IV Antibiotics/PICC Issues) between 8am-5pm. After 5 pm, or during weekends/ holidays, please call the paging apple peeler operator at to reach the on-call ID [...] in wound care clinic after discharge from [facility] Coronary artery disease invo lving [place] coronary artery of [place] heart without angina pectoris 06/15/2022 Overview (07/05/2022): [...] (06/18/2022): Added automatically from request for surgery [id number] Decreased pulses in feet 06/15/202201/2022 Overview (06/19/2022): Added automatically from request for surgery [id number] Encounters Date Type Department Care Team Description 07/27/2025 11:50 AM EDT Office Visit [facility] [address] [place] [address] Martha Miller PA Elevated PSA (Primary Dx) 07/27/2025 Results Follow-Up [facility] [address] [place] [id number] Martha Miller PA 07/27/2025 Travel from Last 3 Months Immunizations Immunization [...] Description 01/25/2026 1:40 PM EDT Clinical Support [facility] [address] [place] [address] 01/25/2026 2:40 PM EDT Office Visit [facility] [address] [place] [address] Martha Miller PA [address] [place] [address] Health Maintenance Due Date Last Done Comments [facility]-Medicare Annual Wellness (AWV) 1955 [facility]-Infant/Child/Adol SDOH Screenings 1955 Diabetes: Dental Exam 1965 [...] 02/07/2021 [facility]-Diabetes: Hemoglobin A1C 12/13/2022 06/15/2022, 02/06/2021 [id number] Vaccine (3 - season) 2025 06/27/2021, 05/30/2021 [facility]-Influenza Vaccine (#1) 2025 09/07/2024 [facility]-Depression Screening 07/27/2026 07/27/2025 [facility]-DTaP,Tdap,and Td Vaccines (2 - Td or Tdap) 11/11/2033 11/11/2023 [facility]-Hepatitis C Screening Completed 06/15/2022, 09/2021 [facility]-RSV Vaccine: 60+ Years or Completed 09/07/2024 [facility]-Obesity Intervention Completed 025, 04/08/2025, 11/10/2024, Additional history exists HPV Vaccines (No Doses Required) Completed [facility]-HIB Vaccines Aged Out No longer e [...] this topic Medical Devices Implanted Type Area Home Mortgage Disclosure Act Specialist Device Identifier Shelf Expiration Date Model / Serial / Lot [employer] Implantable Loop Recorder-2020 Implanted:10/2020 (Quantity not on file) Implantable Loop Recorder Chest TriggerMail [id number] / [id number] / Visi-Pro Stent- Implanted:02/25 (Quantity not on file) Stent Arterial yoonewtronic [id number] -57-135 / / Visi-Pro Stent- Implanted:02/25 (Quantity not on file) Stent Left: Arterial Medtronic [id number] -57-135 / / Description:LEFT ILIAC Visi-Pro Stent- Implanted:02/25 (Quantity not on file) Stent Aorta Medtronic [id number] -17-135 / / Description:Distal Aorta Protege Gps Ev3-03/06/2021 Implanted:02/25 (Quantity not on file) Stent Arterial Description:LT ILIAC Rx Herculink Elite- 1 Implanted:Qty: 2 on 07/19/2021 Stent Kidney Description:RT and LT Renal implanted on 07/19/21 Visi-Pro Stent- 1 Implanted:06/29 (Quantity not on file) Stent Arterial Medtronic [id number] -37-135 / / Description:RT external Edvin c Graft Propaten Ring W/Hep 6x80 - [id number] Implanted:Qty: 1 on 06/27/2022 by Bennett Santiago MD at [facility] [employer]-[id number] 07/26/2025 [id number] / [id number] / [id number] Nushield 2x4 - [id number] Implanted:Qty: 1 on 10/11/2022 at [facility] [employer]-[id number] 09/01/2026 [id number] / / [id number] Puraply Am 2x4 8 Sq Cm - [id number] Implanted:Qty: 1 on 10/24/2022 by Aubree Duggan PA at [facility] [employer]-[id number] 11/27/2024 PURAPLY- COM 2X4 / / [id number] .[id number] Procedures Procedure Name Priority Date/Time Associated [...] - 6.50 ng/mL 07/27/2025 1:16 PM EDT [facility] Blood Venous blood specimen / Unknown Venipuncture / Unknown 07/27/2025 11:12 AM EDT 07/27/2025 11:12 AM EDT Narrative [facility] - 07/27/2025 1:16 PM EDT Performed by Sneha electrochemiluminescent immunoassay which is standardized against the PSA [place] Reference Standard (WHO 96/670). Results obtained with different test methods or kits cannot be used interchangeably. us Martha KELLOGG LAB BLOOD ORDERABLES Final Result [facility] [address] [place] [address] * POC US Bladder Volume (07/27/2025) Pathologist [facility] Urine, Volume 59 mL IMAGING Anatomical Region Laterality Modality Other Urine 07/27/2025 us Martha KELLOGG IMG POINT OF CARE ULTRASOUN D Final Result * (ABNORMAL) Hemoglobin A1c (06/15/2022 5:44 PM EDT) Pathologist [facility] Hemoglobin A1c 8.4(H) <5.7 % 06/15/2022 10:15 PM EDT [facility] Blood Venous blood specimen / Unknown Venipuncture / Unknown 06/15/2022 5:44 PM EDT 06/15/2022 5:48 PM EDT Narrative [facility] - 06/15/2022 10:15 PM EDT HA1C Interpretive Data: Diagnosis of Diabetes: Diabetic > or = 6.5% Pre-diabetic 5.7 to 6.4% Non-diabetic < or = 5.6% Glycemic Targets for Type I and Type II Diabetics: Non- Adults <7.0% Adults <6.0% Children and Adolescents <7.5% Source: [place] [employer]. Standards of medical care in diabetes,2017. Diabetes Care.2017:40 (suppl 1):S1-S135. HbA1c assay performed by an ion-exchange chromatography method that is certified traceable to the DCCT. Zita Arias MD LAB BLOOD ORDERABLES Final R es[facility] [address] [place] [address] * Hepatitis C Antibody - ED (06/15/2022 11:02 AM EDT) Hepatitis C Antibody Negative Negative 06/15/2022 1:02 PM EDT [facility] Blood Venous blood specimen / Unknown Venipuncture / Unknown 06/15/2022 11:02 AM EDT 06/15/2022 11:41 AM EDT Ander Corona MD LAB BLOOD ORDERABLES Final Re sult Performing Organization Address [facility] Co de Phone Number [facility] [address] [place] [address] * CT Chest w IV Contrast (02/07/2021 [...] P er this written report. Verified by: ASQIB MALLOY M.D. on Feb 08:A Transcribed by: PSCB on Feb 08 Dictated by: SAQIB MALLOY M.D. on Feb [...] SAQIB MALLOY M.D. on Feb 08:17A Nohelia Saldivar Maxi DO IMG CT PROCEDURES Final Result from Last 3 Months or Most Recently Relevant to Health Maintenance [place] [address] [facility] Advance Directives * Full Code (Latest Code [...] Patient has decision-making capacity? Yes Care Teams Valve Assembler Relationship Specialty Start Date End Date Sreedhar Chavez MD [address] [facility] [address] [place] [address] PCP - General 09/15/21 Margaret Britton MD [address] [place] [phone] Surgeon Neurosurgery 09/15/21 Martha Miller PA [address] [place] [address] Physician [facility] 11/10/24
--- OUTSIDE RECORDS SUMMARY | 2025-10-18 12:06 | XMS_ITS | Encounter Summary ---
Author Organization Healthcare Address [address] [place] [address] Care Team Providers Care Skin Lap Bonder Name Role Phone Sreedhar Chavez MD Primary Care Provider Margaret Britton MD Unavailable [phone]- [phone] Martha Miller Unavailable [phone] Encounter Details Date Type Department Care Team (Late st Contact Info) Description 07/27/2025 Results Follow-Up [facility] [address] [place] [address] Martha Miller PA [address] [place] [address] Social History Tobacco Use Types [...] Description 01/25/2026 1:40 PM EDT Clinical Support [facility] [address] [place] [address] 01/25/2026 2:40 PM EDT Office Visit [facility] [address] [place] [address] Martha Miller PA [address] [place] [phone] documented as of this encounter Visit Diagnoses Not on filedocumented in this encounter Additional Health Concerns Assessment Noted Time A fall risk assessment has been complete d for the patient 07/27/2025 12:04 PM EDT A Body Mass Index follow-up plan has been documented for the patient 07/27/2025 2:12 PM EDT documented as of this encounter Care Teams Skin Lap Bonder Relationship Specialty Start Date End Date Sreedhar Chavez MD [address] [facility] [address] [place] [address] PCP - General 09/15/21 Margaret Britton MD [address] [place] [address] Surgeon Neurosurgery 09/15/21 Martha Miller PA [address] [place] [phone] Physician Public Health Program Manager Urology 11/10/24 documented as of this encounter
--- OUTSIDE RECORDS SUMMARY | 2025-10-18 12:06 | XMS_ITS | Encounter Summary ---
Author Organization [facility] Address [address] [place] [address] Care Team Providers Care Mechanical Detailer Name Role Phone Unavailable Primary Care Provider Unavailabl e Source Comments This information has been disclosed to you from confidential records protectfrom disclosure by state law. You shall make no further disclosure of thisinformation without the specific, written, and informed release of theindividual to whom it pertains, or as otherwise permitted by law. A generalauthorization for the release of medical or other information is not sufficientfor the purposes of the release of HIV test results or diagnoses. [id number] Health Encounter Details Date Type Department Care Team (Late st Contact Info) Description 09/29/[address] [facility] Gastroenterology at [facility] Office [address] [place] [phone] Hui Romero RN Social History Tobacco Use Types Packs/Day Years Used Date Smoking Tobacco: Never Assessed Sex and Gender Information Value Date Recorded Sex Assigned at Not on file Legal Sex Male 12:53 PM EST Gender Identity Not on file Sexual Orientation Not on file documented as of this encounter Miscellaneous Notes * Telephone Encounter - Nicole Baker MA - 10/01/2025 9:16 AM EST I have called and left voicemail for the number provided on the medical record to go over allergies. Call back number given. * Telephone Encounter - Nicole Baker MA - 09/30/2025 11:42 AM EST I have called and left voicemail for the number provided on the medical record to go over allergies. Call back number given. * Telephone Encounter - Nicole Baker MA - 09/29/2025 3:40 PM EST Patient has been scheduled for 11/08/2025 at [facility] with Dr. Jeffries. Patient has been instructed to do Miralax x2 for 7 days prior to the procedure. Information being mailed to confirmed address. * Telephone Encounter - Hui Romero RN - 09/29/2025 3:15 PM EST Rec'd message from Dr. Jeffries that reads: please schedule for colonoscopy/EMR. In 4-6 weeks * Telephone Encounter - Hui Romero RN - 09/29/2025 2:33 PM EST New patient referral rec'd for Dr. Anselmo Jeffries from Dr. Fidencio Friedman for advanced polyp 38mm-40mm. Records sent to Dr. Jeffries for review. documented in this encounter Plan of Treatment Upcoming Encounters Date Type Department Care Team (Latest Contact Info) Description 11/08/2025 11:01 AM EST Hospital Encounter [facility] ENDOSCOPY [address] [place] [phone] Anselmo Jeffries MD [address] [place] [phone] 11/08/2025 11:01 AM EST - 11/08/2025 12:01 PM EST Surgery [facility] ENDOSCOPY [address] [place] [phone] Anselmo Jeffries MD [address] [place] [phone] COLONOSCOPY W/ EMR Scheduled Procedures Name Priority Associated Diagnoses Date/Ti me COLONOSCOPY W/ OR W/O BIOPSY Polyp of colon, unspecified part of colon, unspecified type 11/08/2025 11:01 AM EST documented as of this encounter Visit Diagnoses Not on filedocumented in this encounter
--- OUTSIDE RECORDS SUMMARY | 2025-10-18 12:08 | XMS_ITS | Clinical Summary ---
Author Organization [facility] Address [address] [place] [address] Care Team Providers Care Germination Worker Name Role Phone Unavailable Primary Care Provider [...]
--- OUTSIDE RECORDS SUMMARY | 2025-10-18 12:08 | XMS_ITS | Encounter Summary ---
Author Organization [facility] Address [address] [place] [address] Care Team Providers Care Rotor Assembler Name Role Phone Unavailable Primary Care Provider [...] release of HIV test results or diagnoses. [id number] Reason for Referral * Surgical (Routine) - Authorized Specialty Diagnoses / Procedures Referred By Lor t Referred To Contact Gastroenterology Diagnoses Polyp of colon, unspecified part of colon, unspecified type Procedures Case request GI: COLONOSCOPY W/ EMR NM COLONOSCOPY FLX DX W/COLLJ SPEC WHEN PFRMD NM COLONOSCOPY W/BIOPSY SINGLE/MULTIPLE NM COLSC FLX W/RMVL OF TUMOR POLYP LESION SNARE TQ NM COLONOSCOPY FLX W/ENDOSCOPIC MUCOSAL RESECTION Anselmo Jeffries MD [address] [place] [phone] Phone: tel: fax: Referral ID Status Reason Start Date Expiration Date V isits Requested Visits Authorized [id number] Authorized 10/01/2025 03/30/2026 1 1 Encounter Details Date Type Department Care Team (Late st Contact Info) Description 09/29/2025 Orders Only [facility] at [facility] [address] [place] [address] [address] [place] [address] Anselmo Jeffries MD [address] [place] [phone] Polyp of colon, unspecified part of colon, unspecified type (Primary Dx) Social History Tobacco Use Types Packs/Day Years Used Date Smoking Tobacco: Never Assessed Sex and Gender Information Value Date Recorded Sex Assigned at Not on file Legal Sex Male 12:53 PM EST Gender Identity Not on file Sexual Orientation Not on file documented as of this encounter Plan of Treatment Upcoming Encounters Date Type Department Care Team (Latest Contact Info) Description 11/08/2025 11:01 AM EST Hospital Encounter [facility] ENDOSCOPY [address] [place] [phone] Anselmo Jeffries MD [address] [place] [phone] 11/08/2025 11:01 AM EST - 11/08/2025 12:01 PM EST Surgery [facility] ENDOSCOPY [address] [place] [phone] Anselmo Jeffries MD [address] [place] [address] COLONOSCOPY W/ EMR Scheduled Procedures Name Priority Associated Diagnoses Date/Ti me COLONOSCOPY W/ OR W/O BIOPSY Polyp of colon, unspecified part of colon, unspecified type 11/08/2025 11:01 AM EST documented as of this encounter Visit Diagnoses Diagnosis Polyp of colon, unspecified part of colon, unspecified type- Primary Polyp of colon, unspecified part of colon, unspecified type documented in this encounter
[2025-10-18 12:58] LABS: Hematocrit 42.6 % (42.0-52.0); Hemoglobin 13.4 g/dL (14.1-18.0); Immature Granulocytes % 0.1 %; Mean Corpuscular HGB Conc 31.5 g/dL (31.8-35.4); Mean Corpuscular Hemoglobin 28.1 pg (27.0-31.2); Mean Corpuscular Volume 89.3 fl (80-94); Nucleated Red Blood Cells % 0 %; Platelet Count 217 K/mm3 (142-424); Red Blood Count 4.77 M/mm3 (4.60-6.20); Red Cell Distribution Width-SD 46.2 fL; White Blood Count 7.9 K/mm3 (4.8-10.8)
[2025-10-21 20:09] LABS: I006-IgE Cockroach, German <0.10 kU/L (Class 0); T006-IgE Cedar, Mountain <0.10 kU/L (Class 0); T007-IgE Oak, White <0.10 kU/L (Class 0); T008-IgE Elm, American <0.10 kU/L (Class 0); T015-IgE Ash, White <0.10 kU/L (Class 0); T022-IgE Pecan, Hickory <0.10 kU/L (Class 0); W001-IgE Ragweed, Short <0.10 kU/L (Class 0); W011-IgE Thistle, Russian <0.10 kU/L (Class 0); W014-IgE Pigweed, Common <0.10 kU/L (Class 0)
== END 2025-10-18 23:59 | disposition home or self-care (01) ==
LOC: LAB 12:04
PROVIDERS: PCP Internal Medicine; Visit Provider Internal Medicine Pulmonary Disease
DX: J30.1 Allergic rhinitis due to pollen (principal); E11.8 Type 2 diabetes mellitus with unspecified complications
CPT/HCPCS: 36415; 82785; 85025; 86003